=== PATIENT | female | born 1965 | race Caucasian/White ===

== ENCOUNTER → 2016-04-11 | Outpatient (CLI) | payer OTHER ==
[~2016-04-11] MED LIST: ACET-1256 PO; AMLO2.5T PO; ASPI81CH2 PO; ASPI81TA28 PO; CMD5 PO; CPR500 PO; ENOX120I SQ; LACT1CAP6 PO; METO25TA3 PO; MOXI400T2 PO; NRV5 PO; OMEP40CA41 PO; ONDA4TAB10 SL; ONDA4TAB46 PO; PRED20TA2 PO; PRED50TA PO; SUMA50TA15 PO; TRAZ50TA35 PO; voltaren gel TOP
[2016-04-11 16:50] LABS: BASO % 0.4 %; BASO ABS # 0.03 K/uL (0-0.2); COMPLETE YES; EOS % 1.5 %; HEMATOCRIT 41.6 % (37-47); IG% 0.3 %; LYMPH % 38.5 %; LYMPH ABS # 2.59 K/uL (1.2-3.4); MEAN CELL VOLUME 85.8 fL (80-100); MEAN CORPUSCULAR HEMOGLOBIN 29.5 pg (25-34); MEAN CORPUSCULAR HGB CONC 34.4 g/dl (32-36); MONO % 9.8 %; NEUT % 49.5 %; PLATELET COUNT 308 K/uL (130-400); RED BLOOD COUNT 4.85 M/uL (4.2-5.4); WHITE BLOOD COUNT 6.72 K/uL (4.8-10.8)
[2016-04-11 16:59] LABS: BLOOD UREA NITROGEN 21 mg/dl (7-18); BUN/CREATININE RATIO 22.8 (10-20); CALCIUM 9.2 mg/dl (8.5-10.1); CARBON DIOXIDE 26 mmol/L (21-32); CHLORIDE 105 mmol/L (98-107); CREATININE 0.93 mg/dl (0.60-1.20); GLUCOSE 93 mg/dl (70-99); POTASSIUM 4.3 mmol/L (3.5-5.1); SODIUM 138 mmol/L (136-145)
== END | disposition home or self-care (01) ==
LOC: C.LABBC 11:38
PROVIDERS: ATTEND Family Medicine
DX: R53.83 Other fatigue (principal)

== ENCOUNTER 2016-05-21 15:14 | Emergency (ER) | payer OTHER ==
[~2016-05-21] VITALS: Ht 154.9 cm; Wt 97.9 kg
[~2016-05-21 15:14] MED LIST changes: -ACET-1256 PO; -AMLO2.5T PO; -ASPI81TA28 PO; -CMD5 PO; -CPR500 PO; -ENOX120I SQ; -LACT1CAP6 PO; -METO25TA3 PO; -MOXI400T2 PO; -NRV5 PO; -OMEP40CA41 PO; -ONDA4TAB10 SL; -ONDA4TAB46 PO; -PRED20TA2 PO; -PRED50TA PO; -SUMA50TA15 PO; -TRAZ50TA35 PO; -voltaren gel TOP
[2016-05-21 15:34] VITALS: TEMP 37.5; Ht 154.9 cm; Wt 97.9 kg
[2016-05-21] MEDS ORDERED: KETOROLAC TROMETHAMINE 30 MG/ML VIAL IV STA (15:46)
[2016-05-21] MEDS ORDERED: ONDANSETRON 8 MG/54 ML D5W IV STA (15:46)
[2016-05-21] MEDS ORDERED: SODIUM CHLORIDE 0.9% 1000ML 1,000 ML IV STA ×2 (15:46→19:31)
[2016-05-21] MEDS: MoRPHine SULFATE 10 MG/ML CARP/VIAL IV PRN ×2 (16:01→17:02)
[2016-05-21] MEDS ORDERED: ASPI81TA28 PO (16:09)
[2016-05-21] MEDS ORDERED: AMLO2.5T PO (16:09)
[2016-05-21] MEDS ORDERED: METO25TA3 PO (16:09)
[2016-05-21] MEDS ORDERED: TRAZ50TA35 PO (16:09)
[2016-05-21 16:13] LABS: BASO % 0.1 %; BASO ABS # 0.01 K/uL (0-0.2); COMPLETE YES; EOS % 0.3 %; HEMATOCRIT 41.9 % (37-47); IG% 0.1 %; LYMPH % 11.5 %; LYMPH ABS # 1.08 K/uL (1.2-3.4); MEAN CELL VOLUME 81.8 fL (80-100); MEAN CORPUSCULAR HEMOGLOBIN 29.1 pg (25-34); MEAN CORPUSCULAR HGB CONC 35.6 g/dl (32-36); MEAN PLATELET VOLUME 9.1 fL (7.4-10.4); MONO % 2.6 %; NEUT % 85.4 %; PLATELET COUNT 313 K/uL (130-400); RED BLOOD COUNT 5.12 M/uL (4.2-5.4)
[2016-05-21 16:14] LABS: URINE APPEARANCE CLEAR (CLEAR); URINE BILIRUBIN NEG (NEG); URINE COLOR YELLOW; URINE NITRITE NEG (NEG); URINE SPECIFIC GRAVITY 1.028 (1.000-1.030); UROBILINOGEN NEG (NEG)
[2016-05-21 16:18] LABS: MANUAL MICROSCOPIC REQUIRED? NO; REVIEW REQ? NO
[2016-05-21 16:39] LABS: ALT/SGPT 25 U/L (12-78); BLOOD UREA NITROGEN 24 mg/dl (7-18); BUN/CREATININE RATIO 23.5 (10-20); CARBON DIOXIDE 23 mmol/L (21-32); CHLORIDE 104 mmol/L (98-107); GLUCOSE 95 mg/dl (70-99); POTASSIUM 3.6 mmol/L (3.5-5.1); SODIUM 139 mmol/L (136-145)
[2016-05-21 16:42] LABS: ALKALINE PHOSPHATASE 60 U/L (45-117); AST/SGOT 20 U/L (15-37)
--- NOTE | 2016-05-21 17:04 | DIAGNOSTIC IMAGING REPORT ---
ABDOMEN AND PELVIS CT WITHOUT CONTRAST CT DOSE: 988.49 mGycm HISTORY: Pain FLANK PAIN- RIGHT. Prior emiliano, hyster TECHNIQUE: Multiaxial CT images of the abdomen and pelvis were performed without the use of intravenous and oral contrast according to the standard department stone protocol. COMPARISON STUDY: 10/01/2012 FINDINGS: Lung bases are clear. Liver spleen and pancreas are unremarkable. Prior cholecystectomy. Kidneys negative for hydronephrosis. Bowel pattern is nonobstructive. Appendix is normal. No free fluid within the pelvic cul-de-sac. Prior hysterectomy. IMPRESSION: No acute process Electronically signed by: Abdias Ruff M.D. 05/21/2016 5:03 PM Dictated Date/Time: 05/21/2016 5:01 PM
[2016-05-21] MEDS ORDERED: HYDROmorphone INJ 0.5 MG/0.5 ML SYR IV STA (17:24)
[2016-05-21] MEDS ORDERED: SUMA50TA15 PO (18:08)
[2016-05-21] MEDS ORDERED: MoRPHine SULFATE 2 MG/ML CARP ONE (19:07)
[2016-05-21] MEDS ORDERED: MoRPHine SULFATE 4 MG/ML 1 ML CARP\\VIAL ONE (19:07)
[2016-05-21] MEDS ORDERED: PROMETHAZINE HCL INJ 25 MG in SODIUM CHLORIDE 0.9% 50ML 50 ML IV STA (19:14)
[2016-05-21] MEDS ORDERED: OPTIRAY 320 IV PRN (19:45)
--- NOTE | 2016-05-21 20:24 | DIAGNOSTIC IMAGING REPORT ---
CHEST CTA for PULMONARY ARTERIES CT DOSE: HISTORY: Chest pain dyspnea TECHNIQUE: Multiaxial CT images of the chest were performed following the intravenous administration of contrast to evaluate the pulmonary arteries. Maximal intensity projection images were also obtained. COMPARISON STUDY: None. FINDINGS: There is a normal caliber thoracic aorta with no evidence for dissection. There is no evidence for pulmonary embolus. No pleural effusions. No pneumothorax. The liver and spleen are unremarkable. No mediastinal or hilar lymphadenopathy. The central airways are patent. The lungs are clear. Subtle interstitial prominence throughout both hemithoraces. IMPRESSION: 1. Study is negative for pulmonary embolus. 2. Negative thoracic aorta. 3. Subtle interstitial prominence throughout both hemithoraces. Electronically signed by: Abdias Ruff M.D. 05/21/2016 8:22 PM Dictated Date/Time: 05/21/2016 8:20 PM
--- NOTE | 2016-05-21 21:02 | DIAGNOSTIC IMAGING REPORT ---
] Ultrasound GALLBLADDER-ABD LIMITED CLINICAL HISTORY: RUQ pain, prior emiliano nausea TECHNIQUE: Ultrasound COMPARISON STUDY: CT same date FINDINGS: Prior cholecystectomy. Common bile duct 8 mm, unremarkable for a postoperative patient. Uniform liver. Pancreas and right kidney unremarkable. IMPRESSION: Negative study status post cholecystectomy Electronically signed by: Abdias Ruff M.D. 05/21/2016 9:01 PM Dictated Date/Time: 05/21/2016 9:00 PM
--- NOTE | 2016-05-21 22:03 | DIAGNOSTIC IMAGING REPORT ---
CT angiogram abdomen ANGIO ABDOMEN WITH CONTRAST CLINICAL HISTORY: PAIN right flank pain TECHNIQUE: Transaxial acquisition with multi axial reformatted images COMPARISON STUDY: None FINDINGS: Lung bases are considered clear. Slight bibasilar interstitial prominence. Abdominal aorta as well as major branch vessels are negative for aneurysm or dissection. Bowel pattern is nonobstructive. There are several reactive mesenteric nodes. Prior cholecystectomy. Slight heterogeneity of liver most likely secondary to the phase of injection normal appendix. Several small mesenteric nodes. IMPRESSION: 1. Negative for aneurysm or dissection. 2. Prior cholecystectomy 3. Mild mesenteric adenitis. 4. Nonobstructive bowel pattern. 5. Normal appendix. Electronically signed by: Abdias Ruff M.D. 05/21/2016 8:28 PM Dictated Date/Time: 05/21/2016 8:23 PM
[2016-05-21] MEDS ORDERED: OXYCODONE IR HOME PACK PO ONE (22:30)
[2016-05-21] MEDS ORDERED: PHENERGAN 25MG HOMEPACK PO ONE (22:30)
[2016-05-21 23:08] VITALS: BP 114/75; PULSE 76; O2SAT 97
--- NOTE | 2016-05-21 23:54 | EMERGENCY ROOM VISIT NOTE ---
History Report prepared by Sameer: Cecilia Stoner Under the Supervision of: Dr. Reji Novoa M.D. First contact with patient: 15:41 Chief Complaint: FLANK PAIN Stated Complaint: PAIN AND PRESSURE IN RT SIDE AND STOMACH History of Present Illness The patient is a 50 year old female who presents to the Emergency Room with complaints of worsening right flank pain that started last night. The pain is worse whenever she is not moving. She rates her discomfort as a 10/10 in severity. The patient states that she started to experience abdominal bloating and right-sided abdominal pain this morning. Additionally, she is experiencing nausea and diarrhea that also started this morning. Pt denies LOC, headache, visual changes, neck pain, chest pain, breathing difficulties, vomiting, melena , hematochezia, urinary symptoms, rash, or other complaints. The patient has a history of a cholecystectomy, bowel surgery, hysterectomy, umbilectomy, and hernia repair surgery. Source of History: patient Onset: last night Position: back (right flank) Symptom Intensity: 10/10 Quality: other (right flank pain) Timing: worsening Modifying Factors (Worsening): other (when still) Associated Symptoms: + abdominal pain (right-sided), + diarrhea, + nausea Note: abdominal bloating Review of Systems See HPI for pertinent positives and negatives. A total of ten systems were reviewed and were otherwise negative. Past Medical & Surgical Medical Problems: (1) section (2) Cholecystectomy (3) FX ANKLE NOS-CLOSED (4) FX HUMERUS NOS-CLOSED (5) History of repair of inguinal hernia (6) Hysterectomy (7) IRRITABLE BOWEL SYNDROME (8) Partial resection of colon (9) Rotator cuff injury Surgical Problems: (1) H/O rotator cuff surgery Family History Cancer Diabetes mellitus Gallbladder disease Heart disease Hypertension Kidney disease or stones Lung disease Seizures Social History Smoking Status: Former Smoker Drug Use: none Marital Status: Housing Status: lives alone Occupation Status: employed Current/Historical Medications Scheduled Amlodipine (Norvasc), 2.5 MG PO DAILY Aspirin (Aspirin Ec), 81 MG PO DAILY Metoprolol Succ (Toprol Xl) (Toprol-Xl), 25 MG PO DAILY Scheduled PRN Sumatriptan Succinate (Imitrex), 50 MG PO UD PRN for Headache Trazodone Hcl (Trazodone), 1-2 MG PO HS PRN for Sleep Allergies Coded Allergies: Doxycycline (Unverified Allergy, Mild, ., 11/29/15) Physical Exam Vital Signs Date Time Temp Pulse Resp B/P Pulse Ox O2 Delivery O2 Flow Rate FiO2 05/21/16 23:08 76 20 114/75 97 05/21/16 21:34 85 05/21/16 21:33 81 20 114/70 96 Room Air 05/21/16 19:14 84 20 106/69 97 Room Air 05/21/16 18:44 88 24 05/21/16 18:25 98/57 05/21/16 18:14 87 20 05/21/16 17:44 84 23 05/21/16 17:39 117/97 05/21/16 17:30 86 05/21/16 17:03 121/96 05/21/16 17:03 87 29 121/96 95 Room Air 05/21/16 15:34 37.5 100 20 120/86 99 Room Air Physical Exam GENERAL: Awake, alert, uncomfortable-appearing, in no distress HENT: Normocephalic, atraumatic. Oropharynx unremarkable. EYES: Normal conjunctiva. Sclera non-icteric. NECK: Supple. No nuchal rigidity. FROM. No JVD. RESPIRATORY: Clear to auscultation. CARDIAC: Regular rate, normal rhythm. Extremities warm and well perfused. Pulses equal. ABDOMEN: Soft, non-distended. Right flank tenderness to palpation. No rebound or guarding. No masses. RECTAL: Deferred. MUSCULOSKELETAL: Chest examination reveals no tenderness. The back is symmetrical on inspection without obvious abnormality. There is right CVA tenderness to palpation. No joint edema. LOWER EXTREMITIES: Calves are equal size bilaterally and non-tender. No edema. No discoloration. NEURO: Normal sensorium. No sensory or motor deficits noted. SKIN: No rash or jaundice noted. Medical Decision & Procedures ER Provider Diagnostic Interpretation: CT and US results as stated below per my review and radiologist interpretation CT angiogram abdomen ANGIO ABDOMEN WITH CONTRAST IMPRESSION: 1. Negative for aneurysm or dissection. 2. Prior cholecystectomy 3. Mild mesenteric adenitis. 4. Nonobstructive bowel pattern. 5. Normal appendix. Electronically signed by: Abdias Ruff M.D. 05/21/2016 8:28 PM Dictated Date/Time: 05/21/2016 8:23 PM CHEST CTA for PULMONARY ARTERIES IMPRESSION: 1. Study is negative for pulmonary embolus. 2. Negative thoracic aorta. 3. Subtle interstitial prominence throughout both hemithoraces. Electronically signed by: Abdias Ruff M.D. 05/21/2016 8:22 PM Dictated Date/Time: 05/21/2016 8:[address] AND PELVIS CT WITHOUT CONTRAST IMPRESSION: No acute process Electronically signed by: Abdias Ruff M.D. 05/21/2016 5:03 PM Dictated Date/Time: 05/21/2016 5:01 PM Ultrasound GALLBLADDER-ABD LIMITED IMPRESSION: Negative study status post cholecystectomy Electronically signed by: Abdias Ruff M.D. 05/21/2016 9:01 PM Dictated Date/Time: 05/21/2016 9:00 PM Laboratory Results 05/21/16 16:00 Red Blood Count 5.12, Mean Corpuscular Volume 81.8, Mean Corpuscular Hemoglobin 29.1, Mean Corpuscular Hemoglobin Concent 35.6, Mean Platelet Volume 9.1, Neutrophils (%) (Auto) 85.4, Lymphocytes (%) (Auto) 11.5, Monocytes (%) (Auto) 2.6, Eosinophils (%) (Auto) 0.3, Basophils (%) (Auto) 0.1, Neutrophils # (Auto) 8.03, Lymphocytes # (Auto) 1.08, Monocytes # (Auto) 0.24, Eosinophils # (Auto) 0.03, Basophils # (Auto) 0.01 05/21/16 16:00 Test 05/21/16 16:00 05/21/16 16:08 White Blood Count 9.40 K/uL (4.8-10.8) Red Blood Count 5.12 M/uL (4.2-5.4) Hemoglobin 14.9 g/dL (12.0-16.0) Hematocrit 41.9 % (37-47) Mean Corpuscular Volume 81.8 fL (80-100) Mean Corpuscular Hemoglobin 29.1 pg (25-34) Mean Corpuscular Hemoglobin Concent 35.6 g/dl (32-36) Platelet Count 313 K/uL (130-400) Mean Platelet Volume 9.1 fL (7.4-10.4) Neutrophils (%) (Auto) 85.4 % Lymphocytes (%) (Auto) 11.5 % Monocytes (%) (Auto) 2.6 % Eosinophils (%) (Auto) 0.3 % Basophils (%) (Auto) 0.1 % Neutrophils # (Auto) 8.03 K/uL (1.4-6.5) Lymphocytes # (Auto) 1.08 K/uL (1.2-3.4) Monocytes # (Auto) 0.24 K/uL (0.11-0.59) Eosinophils # (Auto) 0.03 K/uL (0-0.5) Basophils # (Auto) 0.01 K/uL (0-0.2) RDW Standard Deviation 39.7 fL (36.4-46.3) RDW Coefficient of Variation 13.1 % (11.5-14.5) Immature Granulocyte % (Auto) 0.1 % Immature Granulocyte # (Auto) 0.01 K/uL (0.00-0.02) Urine Color YELLOW Urine Appearance CLEAR (CLEAR) Urine pH 6.0 (4.5-7.5) Urine Specific [place] 1.028 (1.000-1.030) Urine Protein NEG (NEG) Urine Glucose (UA) NEG (NEG) Urine Ketones NEG (NEG) Urine Occult Blood NEG (NEG) Urine Nitrite NEG (NEG) Urine Bilirubin NEG (NEG) Urine Urobilinogen NEG (NEG) Urine Leukocyte Esterase NEG (NEG) Anion Gap 12.0 mmol/L (3-11) Est Creatinine Clear Calc Drug Dose 70.5 ml/min Estimated GFR () 75.0 Estimated GFR (Non- 64.7 BUN/Creatinine Ratio 23.5 (10-20) Calcium Level 9.0 mg/dl (8.5-10.1) Total Bilirubin 0.5 mg/dl (0.2-1) Direct Bilirubin < 0.1 mg/dl (0-0.2) Aspartate Amino Transf (AST/SGOT) 20 U/L (15-37) Alanine Aminotransferase (ALT/SGPT) 25 U/L (12-78) Alkaline Phosphatase 60 U/L (45-117) Total Protein 8.1 gm/dl (6.4-8.2) Albumin 4.0 gm/dl (3.4-5.0) Lipase 124 U/L (73-393) D-Dimer 640 ug/L FEU (0-500) Laboratory results reviewed by me Medications Administered Medications (Trade) Dose Ordered Sig/Ming Route Start Time Stop Time Status Last Admin Dose Admin Ondansetron HCl 8 mg 8 mg NOW STAT IV 05/21/16 15:46 05/21/16 15:48 DC 05/21/16 16:01 8 MG Sodium Chloride (Nss 1000ml) 1,000 ml @ 999 mls/hr Q1H1M STAT IV 05/21/16 15:46 05/21/16 16:46 DC 05/21/16 16:01 999 MLS/HR Morphine Sulfate (MoRPHine SULFATE INJ) 6 mg Q20M PRN IV 05/21/16 16:00 05/21/16 23:41 DC 05/21/16 17:02 6 MG Ketorolac Tromethamine (Toradol Inj) 10 mg NOW STAT IV 05/21/16 15:46 05/21/16 15:48 DC 05/21/16 16:01 10 MG Hydromorphone HCl (Dilaudid Inj) 0.5 mg NOW STAT IV 05/21/16 17:24 05/21/16 17:25 DC 05/21/16 17:38 0.5 MG Morphine Sulfate (MoRPHine SULFATE INJ) 2 mg STK-MED ONCE .ROUTE 05/21/16 19:07 05/21/16 19:09 DC 05/21/16 19:12 2 MG Morphine Sulfate 4 mg 4 mg STK-MED ONCE .ROUTE 05/21/16 19:07 05/21/16 19:10 DC 05/21/16 19:12 4 MG Promethazine HCl 25 mg/Sodium Chloride 51 ml @ 204 mls/hr NOW STAT IV 05/21/16 19:14 05/21/16 19:28 DC 05/21/16 19:36 204 MLS/HR Sodium Chloride (Nss 1000ml) 1,000 ml @ 999 mls/hr Q1H1M STAT IV 05/21/16 19:31 05/21/16 20:31 DC 05/21/16 19:41 999 MLS/HR Promethazine HCl (Phenergan 25MG Home Pack) 1 homepack UD ONCE PO 05/21/16 22:30 05/21/16 22:31 DC 05/21/16 22:45 1 HOMEPACK Oxycodone HCl (Roxicodone Immediate Rel 5MG Home Pack) 1 homepack UD ONCE PO 05/21/16 22:30 05/21/16 22:31 DC 05/21/16 22:45 1 [facility] ED Course 1546: The patient was evaluated in room C10. A complete history and physical exam was performed. Ordered Toradol 10 mg IV, Sodium Chloride 1000 ml @ 999 mls/ hr IV, Zofran 8 mg IV 1600: Ordered Morphine Sulfate 6 mg IV 1626: I reassessed the patient. She is feeling better. 165: I reevaluated the patient. She is still experiencing some pain. 172: The nurse informed me that the patient is still experiencing pain. Ordered Dilaudid 0.5 mg IV 174: I reassessed the patient. She is feeling better. 1906: Ordered Morphine Sulfate 4 mg IV, Morphine Sulfate 2 mg IV 190: I reevaluated the patient. Her pain has come back. She was given a second dose of Dilaudid. 1913: The nurse informed me that the patient would also like some medicine for nausea. 1915: Ordered Promethazine HCl 25 mg/Sodium Chloride 51 ml @ 204 mls/hr IV 1930: Ordered Sodium Chloride 1000 ml @ 999 mls/hr IV 2131: I reassessed the patient. She is feeling better and waiting on a CT. 2219: I reevaluated the patient. Discussed results and discharge instructions: she verbalized understanding and agreement. The patient is ready for discharge. Medical Decision Triage Nursing notes reviewed. The patient's presentation and history were concerning for flank pain. Etiologies such as renal colic, appendicitis, diverticulitis, mesenteric ischemia, aortic pathology, infections, inflammatory bowel disease, PUD, biliary pathology, UTI, as well as others were entertained. Patient was evaluated. She was uncomfortable. She was given saline, Zofran, morphine and Toradol. CT imaging and blood work ordered. The patient's CBC, chemistry panel, urinalysis, LFTs and lipase were normal. The patient had a negative stone CT study. She was reassessed and was very uncomfortable. She got second dose of Dilaudid. After some observation the patient was still uncomfortable. She noted pain on the right flank. She never had any upper or left sided chest pain. A d-dimer was performed and this did reveal the patient to have a slightly elevated level. CT imaging was ordered. The patient also went under ultrasound imaging because of noticing the pain was somewhat similar to her gallstones in the past. There was no abnormalities noted on her right upper quadrant ultrasound. CT imaging of the chest did not reveal any evidence of dissection or pulmonary embolism. No pneumonia or pneumothorax. The patient had no upper abdominal findings to explain the right flank pain. The patient had some nausea and was also given Phenergan. Radiology did question some mesenteric adenitis on CT imaging. On reassessment the patient's symptoms resolved completely. She felt comfortable and desired discharge. Exact etiology of her symptoms is not known at this time but I cannot find any abnormalities on extensive workup and imaging here. It is possible that this could be musculoskeletal although no inciting event was noted. The patient felt comfortable with being discharged with a small home pack of Phenergan and oxycodone. If she has worsening symptoms or other symptoms develop then she will come back to the emergency department for reevaluation. I did ask for her to have close follow-up with her family physician. The patient and were in agreement. I gave my usual and customary discussion regarding this issue. By the evaluation outlined above other emergent etiologies such as those listed in the differential, as well as others, were deemed relatively unlikely. The patient was informed about the findings as listed above. All questions were answered and she was pleased with the treatment. Return instructions were outlined and the patient was discharged in stable condition. The patient was referred to her PCP for follow-up [facility] for a recheck of the current condition. The chart was completed utilizing MySQL Speech voice recognition software. Grammatical errors, random word insertions, pronoun errors, and incomplete sentences are an occasional consequence of this system due to software limitations, ambient noise, and hardware issues. Any formal questions or concerns about the content, text, or information contained within the body of this dictation should be directly addressed to the physician for clarification. Impression Primary Impression: Right flank pain Scribe Attestation The scribe's documentation has been prepared under my direction and personally reviewed by me in its entirety. I confirm that the note above accurately reflects all work, treatment, procedures, and medical decision making performed by me. Departure Information Dispostion Home / Self-Care Referrals No Doctor, Assigned (PCP) Forms HOME CARE DOCUMENTATION FORM, IMPORTANT VISIT INFORMATION Patient Instructions My [facility] Additional Instructions ABDOMINAL PAIN INSTRUCTIONS: DO NOT drive, drink alcohol, operate machinery, or perform dangerous activities today. You were given medications in the ER that can affect your ability to safely function or operate a vehicle. Oxycodone (OxyIR) 5mg: Take 1-2 pills every four hours for breakthrough pain. Avoid alcohol, operating machinery or dangerous equipment, working on ladders or roofs, DRIVING, or situations where being under the influence may be dangerous. It is recommended to use an [id number] stool softener such as Colace, 100mg twice daily while taking this medication to avoid constipation. Ibuprofen(Motrin, Advil) may be used for fever or pain. Use 600mg every six hours as needed. Take with food. Avoid using more than 2400mg in a 24 hour period. Do not use 2400mg per day for more than three consecutive days without physician direction. Prolonged inappropriate use can lead to stomach upset or ulcers. (AND/OR) Acetaminophen(Tylenol) may be used for fever or pain. Use 1000mg every six hours as needed. Avoid using more than 4000mg in a 24 hour period. Phenergan(promethazine) tablets 25mg: Take one every six hours as needed for nausea. Avoid alcohol, operating machinery or dangerous equipment, working on ladders or roofs, DRIVING, or situations where being under the influence may be dangerous. Rest and drink plenty of fluids as tolerated. Slow sips of water or sports drinks are recommended instead of large amounts all at once. Continue current medications. Once your stomach is settled start with a clear liquid diet (jello, soup broth, etc.) and then advance as tolerated. You should avoid full, heavy meals for about 24 hrs from the time your symptoms resolved. Return to the ER immediately for worsening or persistent abdominal pain, vomiting, fevers, chest pains, difficulty breathing, black or bloody stools, worsening of your condition, or as needed. Follow up with your primary physician in one to 2 days for a recheck of your current condition.
[2016-08-05] MEDS ORDERED: ACET-1256 PO (10:10)
[2016-08-05] MEDS ORDERED: voltaren gel TOP (10:10)
[2016-11-12] MEDS ORDERED: CPR500 PO (15:53)
== END 2016-05-21 23:00 | disposition home or self-care (01) ==
LOC: C.EDB 15:16 → C.EDC 23:00
DX: R10.9 Unspecified abdominal pain (principal); R11.0 Nausea; K58.0 Irritable bowel syndrome with diarrhea; Z79.82 Long term (current) use of aspirin; Z79.899 Other long term (current) drug therapy; Z88.1 Allergy status to other antibiotic agents; Z87.891 Personal history of nicotine dependence

== ENCOUNTER → 2016-06-19 | Outpatient (CLI) | payer OTHER ==
[~2016-06-19] MED LIST changes: +ACET-1256 PO; +AMLO2.5T PO; -ASPI81CH2 PO; +ASPI81TA28 PO; +CMD5 PO; +CPR500 PO; +ENOX120I SQ; +LACT1CAP6 PO; +METO25TA3 PO; +MOXI400T2 PO; +OMEP40CA41 PO; +ONDA4TAB10 SL; +ONDA4TAB46 PO; +PRED20TA2 PO; +PRED50TA PO; +SUMA50TA15 PO; +TRAZ50TA35 PO; +voltaren gel TOP
== END | disposition home or self-care (01) ==
LOC: C.LAB1850 15:12
PROVIDERS: ATTEND Internal Medicine Cardiovascular Disease
DX: R06.02 Shortness of breath (principal)

== ENCOUNTER → 2016-07-10 | Outpatient (CLI) | payer OTHER ==
[~2016-07-10] MED LIST changes: +CYCL10TA6 PO; +ENOX100I SQ; +ERTA1INJ IV; +FLUC200T4 PO; +LOVENOX SC; +OXYC-643 PO; +PANT40TA PO
--- NOTE | 2016-07-10 18:06 | DIAGNOSTIC IMAGING REPORT ---
L-SPINE MIN 4 VIEWS ROUTINE CLINICAL HISTORY: Low back pain COMPARISON STUDY: CT scan dated 05/21/2016 FINDINGS: There is no pathologic bowel dilatation. There are surgical clips in the right upper quadrant consistent with a prior cholecystectomy. There are postsurgical changes present within the pelvis. No fractures are visualized. There are no subluxations. The bones appear mildly osteopenic. There is a calcification located just superior to the left SI joint. This was present on the prior CT scan, and was felt to be extra ureteral. IMPRESSION: Mild osteopenia. No fractures subluxations or destructive lesions are visualized. Electronically signed by: Nas Humphreys M.D. 07/10/2016 6:04 PM Dictated Date/Time: 07/10/2016 6:02 PM
== END | disposition home or self-care (01) ==
LOC: C.RAD 17:46
PROVIDERS: ATTEND Family Medicine
DX: M54.5 Low back pain (principal)

== ENCOUNTER 2016-08-20 10:34 | Emergency (ER) | payer OTHER ==
[~2016-08-20] VITALS: Ht 154.9 cm; Wt 99.3 kg
[~2016-08-20 10:34] MED LIST changes: -CMD5 PO; -CPR500 PO; -CYCL10TA6 PO; -ENOX100I SQ; -ENOX120I SQ; -ERTA1INJ IV; -FLUC200T4 PO; -LACT1CAP6 PO; -LOVENOX SC; -MOXI400T2 PO; -OMEP40CA41 PO; -ONDA4TAB10 SL; -ONDA4TAB46 PO; -OXYC-643 PO; -PANT40TA PO; -PRED20TA2 PO; -PRED50TA PO
[2016-08-20 10:37] VITALS: TEMP 37; Ht 154.9 cm; Wt 99.3 kg
[2016-08-20 11:33] LABS: URINE APPEARANCE CLEAR (CLEAR); URINE BILIRUBIN NEG (NEG); URINE COLOR YELLOW; URINE EPITHELIAL CELL AUTO >30 /lpf (0-5); URINE NITRITE NEG (NEG); URINE SPECIFIC GRAVITY 1.014 (1.000-1.030); UROBILINOGEN NEG (NEG); ZZUR CULT IF INDIC CLEAN CATCH NO
[2016-08-20 11:37] LABS: MANUAL MICROSCOPIC REQUIRED? NO; REVIEW REQ? NO
[2016-08-20 11:52] LABS: BASO % 0.1 %; BASO ABS # 0.01 K/uL (0-0.2); COMPLETE YES; EOS % 0.9 %; HEMATOCRIT 40.6 % (37-47); IG% 0.1 %; LYMPH % 39.4 %; LYMPH ABS # 2.64 K/uL (1.2-3.4); MEAN CELL VOLUME 84.6 fL (80-100); MEAN CORPUSCULAR HEMOGLOBIN 28.8 pg (25-34); MEAN PLATELET VOLUME 9.1 fL (7.4-10.4); MONO % 4.8 %; NEUT % 54.7 %; PLATELET COUNT 296 K/uL (130-400)
[2016-08-20 12:23] LABS: BUN/CREATININE RATIO 16.2 (10-20); POTASSIUM 3.6 mmol/L (3.5-5.1)
[2016-08-20 12:26] LABS: ALB/GLOB RATIO 1.2 (0.9-2)
[2016-08-20 12:27] LABS: CALCIUM 9.1 mg/dl (8.5-10.1)
[2016-08-20] MEDS ORDERED: ONDANSETRON INJ 2 MG/ML 2 ML VIAL IV STA (12:30)
[2016-08-20] MEDS ORDERED: SODIUM CHLORIDE 0.9% 1000ML 1,000 ML IV STA ×2 (12:30)
--- NOTE | 2016-08-20 12:56 | DIAGNOSTIC IMAGING REPORT ---
CHEST ONE VIEW PORTABLE CLINICAL HISTORY: epi fullness pain. Nausea. COMPARISON STUDY: 04/02/2016 FINDINGS: Mild stable cardiomegaly. Chronic atelectasis left base. Lungs otherwise appear clear. IMPRESSION: Chronic change. No acute process. Electronically signed by: Abdias Ruff M.D. 08/20/2016 12:54 PM Dictated Date/Time: 08/20/2016 12:54 PM
[2016-08-20] MEDS ORDERED: OPTIRAY 320 IV PRN (13:00)
--- NOTE | 2016-08-20 13:41 | DIAGNOSTIC IMAGING REPORT ---
ABDOMEN AND PELVIS CT WITH IV CONTRAST CT DOSE: 1076.12 mGy.cm HISTORY: Epigastric ABD PAIN, POSS OBSTRUCTION, IV CONTRAST ONLY TECHNIQUE: Multiaxial CT images of the abdomen and pelvis were performed following the use of intravenous contrast. COMPARISON STUDY: Abdominal CT 05/21/2016. FINDINGS: The lung bases are essentially clear. No suspicious lytic or blastic osseous lesions. Small fat-containing hiatal hernia remains unchanged. Mild right and moderate left intrahepatic bile duct dilatation. This is slightly progressed on the left compared to the 2013 examination. Cholecystectomy. Stable 6 mm hypodense lesion within the left hepatic lobe. This is too small to characterize but favors a cyst. The spleen, adrenal glands, pancreas, and kidneys are unremarkable. Normal bladder. Hysterectomy. No retroperitoneal lymphadenopathy. No mesenteric lymphadenopathy. Prior sigmoid anastomosis. No bowel wall thickening or obstruction. Normal appendix. IMPRESSION: 1. No bowel wall thickening or obstruction. 2. Moderate left and mild right intrahepatic bile duct dilatation. This is slightly progressed within the left hepatic lobe compared to a 2013 examination. Correlation with LFTs is recommended to exclude an underlying obstructive process. 3. Small fat-containing hiatal hernia, unchanged. Electronically signed by: Bishnu Shrestha M.D. 08/20/2016 1:40 PM Dictated Date/Time: 08/20/2016 1:32 PM
[2016-08-20 14:43] VITALS: BP 122/69; PULSE 66; O2SAT 95
--- NOTE | 2016-08-20 18:58 | EMERGENCY ROOM VISIT NOTE ---
History Report prepared by Sameer: Millicent Meehan Under the Supervision of: Dr. Jefferson Cool M.D. First contact with patient: 12:27 Chief Complaint: ABDOMINAL PAIN Stated Complaint: PAIN, FULLNESS UPPER STOMACH, UPSET STOMACH Nursing Triage Summary: Pt c/o epigastric "fullness" since Thursday night "everything I eat I throw up. My doctor told me to come here" History of Present Illness The patient is a 50 year old female who presents to the Emergency Room with complaints of persistent abdominal discomfort starting 2 days ago. She was sent to the ED by her PCP who she saw this morning. She was feeling well the day her symptoms started. That evening, she was eating when everything seemed to feel like it was getting stuck in her upper abdomen. She started to have pain in her abdomen. She vomited soon after eating. She had these symptoms all day yesterday. She reports feeling full and feeling nauseous. She has not been able to eat because eating worsens her pain. She notes that phlegm keeps coming up. She denies any diarrhea or urinary symptoms. She has had a cholecystectomy and hysterectomy. She still has her appendix. 5 months ago she had a heart attack. She had a cardiac catheterization with no stents. 8 years ago she had adhesions and had to have surgery. Source of History: patient Onset: 2 days ago Position: abdomen Quality: other (discomfort) Timing: other (persistent) Modifying Factors (Worsening): eating Associated Symptoms: + nausea, + vomiting, No diarrhea, No urinary symptoms Review of Systems See HPI for pertinent positives & negatives. A total of 10 systems reviewed and were otherwise negative. Past Medical & Surgical Medical Problems: (1) section (2) Cholecystectomy (3) FX ANKLE NOS-CLOSED (4) FX HUMERUS NOS-CLOSED (5) History of repair of inguinal hernia (6) Hysterectomy (7) IRRITABLE BOWEL SYNDROME (8) Partial resection of colon (9) Rotator cuff injury Surgical Problems: (1) H/O rotator cuff surgery Family History Cancer Diabetes mellitus Gallbladder disease Heart disease Hypertension Kidney disease or stones Lung disease Seizures Social History Smoking Status: Never Smoker Drug Use: none Marital Status: Housing Status: lives alone Occupation Status: employed Current/Historical Medications Scheduled Acetaminophen (Tylenol), 2 TAB PO Q6 Amlodipine (Norvasc), 2.5 MG PO DAILY Aspirin (Aspirin Ec), 81 MG PO DAILY Scheduled PRN Sumatriptan Succinate (Imitrex), 50 MG PO UD PRN for Headache Trazodone Hcl (Trazodone), 1-2 MG PO HS PRN for Sleep Allergies Coded Allergies: Doxycycline (Unverified Allergy, Mild, ., 11/29/15) Physical Exam Vital Signs Date Time Temp Pulse Resp B/P Pulse Ox O2 Delivery O2 Flow Rate FiO2 08/20/16 14:43 66 18 122/69 95 08/20/16 12:57 64 18 137/87 96 Room Air 08/20/16 10:37 37.0 68 18 162/91 97 Room Air Physical Exam GENERAL: Patient is in no acute distress. HEENT: No acute trauma, normocephalic atraumatic, mucous membranes moist, no nasal congestion, no scleral icterus. NECK: No stridor, no adenopathy, no meningismus, trachea is midline. LUNGS: Clear to auscultation bilaterally, no wheeze, no rhonchi, breath sounds equal. HEART: Without murmurs gallops or rubs, regular rate and rhythm. ABDOMEN: Soft, tender in the epigastrium, bowel sounds positive, no hernias, no peritonitis. EXTREMITIES: No cyanosis or edema, full range of motion of all the joints without pain or difficulty, no signs for acute trauma. NEUROLOGIC: Oriented x 3, no acute motor or sensory deficits, no focal weakness. SKIN: No rash, no jaundice, no diaphoresis. Medical Decision & Procedures ER Provider Diagnostic Interpretation: X-ray results as stated below per interpretation by me and the radiologist. Radiology results as stated below per my review and radiologist interpretation: CHEST ONE VIEW PORTABLE CLINICAL HISTORY: epi fullness pain. Nausea. COMPARISON STUDY: 04/02/2016 FINDINGS: Mild stable cardiomegaly. Chronic atelectasis left base. Lungs otherwise appear clear. IMPRESSION: Chronic change. No acute process. Electronically signed by: Abdias Ruff M.D. 08/20/2016 12:54 PM Dictated Date/Time: 08/20/2016 12:54 PM ABDOMEN AND PELVIS CT WITH IV CONTRAST CT DOSE: 1076.12 mGy.cm HISTORY: Epigastric ABD PAIN, POSS OBSTRUCTION, IV CONTRAST ONLY TECHNIQUE: Multiaxial CT images of the abdomen and pelvis were performed following the use of intravenous contrast. COMPARISON STUDY: Abdominal CT 05/21/2016. FINDINGS: The lung bases are essentially clear. No suspicious lytic or blastic osseous lesions. Small fat-containing hiatal hernia remains unchanged. Mild right and moderate left intrahepatic bile duct dilatation. This is slightly progressed on the left compared to the 2013 examination. Cholecystectomy. Stable 6 mm hypodense lesion within the left hepatic lobe. This is too small to characterize but favors a cyst. The spleen, adrenal glands, pancreas, and kidneys are unremarkable. Normal bladder. Hysterectomy. No retroperitoneal lymphadenopathy. No mesenteric lymphadenopathy. Prior sigmoid anastomosis. No bowel wall thickening or obstruction. Normal appendix. IMPRESSION: 1. No bowel wall thickening or obstruction. 2. Moderate left and mild right intrahepatic bile duct dilatation. This is slightly progressed within the left hepatic lobe compared to a 2013 examination. Correlation with LFTs is recommended to exclude an underlying obstructive process. 3. Small fat-containing hiatal hernia, unchanged. Electronically signed by: Bishnu Shrestha M.D. 08/20/2016 1:40 PM Dictated Date/Time: 08/20/2016 1:32 PM Laboratory Results 08/20/16 11:41 Red Blood Count 4.80, Mean Corpuscular Volume 84.6, Mean Corpuscular Hemoglobin 28.8, Mean Corpuscular Hemoglobin Concent 34.0, Mean Platelet Volume 9.1, Neutrophils (%) (Auto) 54.7, Lymphocytes (%) (Auto) 39.4, Monocytes (%) (Auto) 4.8, Eosinophils (%) (Auto) 0.9, Basophils (%) (Auto) 0.1, Neutrophils # (Auto) 3.66, Lymphocytes # (Auto) 2.64, Monocytes # (Auto) 0.32, Eosinophils # (Auto) 0.06, Basophils # (Auto) 0.01 08/20/16 11:41 Test 08/20/16 11:20 08/20/16 11:41 Urine Color YELLOW Urine Appearance CLEAR (CLEAR) Urine pH 5.0 (4.5-7.5) Urine Specific [place] 1.014 (1.000-1.030) Urine Protein NEG (NEG) Urine Glucose (UA) NEG (NEG) Urine Ketones NEG (NEG) Urine Occult Blood NEG (NEG) Urine Nitrite NEG (NEG) Urine Bilirubin NEG (NEG) Urine Urobilinogen NEG (NEG) Urine Leukocyte Esterase TRACE (NEG) Urine WBC (Auto) 1-5 /hpf (0-5) Urine RBC (Auto) 0-4 /hpf (0-4) Urine Hyaline Casts (Auto) 0 /lpf (0-5) Urine Epithelial Cells (Auto) >30 /lpf (0-5) Urine Bacteria (Auto) NEG (NEG) White Blood Count 6.70 K/uL (4.8-10.8) Red Blood Count 4.80 M/uL (4.2-5.4) Hemoglobin 13.8 g/dL (12.0-16.0) Hematocrit 40.6 % (37-47) Mean Corpuscular Volume 84.6 fL (80-100) Mean Corpuscular Hemoglobin 28.8 pg (25-34) Mean Corpuscular Hemoglobin Concent 34.0 g/dl (32-36) Platelet Count 296 K/uL (130-400) Mean Platelet Volume 9.1 fL (7.4-10.4) Neutrophils (%) (Auto) 54.7 % Lymphocytes (%) (Auto) 39.4 % Monocytes (%) (Auto) 4.8 % Eosinophils (%) (Auto) 0.9 % Basophils (%) (Auto) 0.1 % Neutrophils # (Auto) 3.66 K/uL (1.4-6.5) Lymphocytes # (Auto) 2.64 K/uL (1.2-3.4) Monocytes # (Auto) 0.32 K/uL (0.11-0.59) Eosinophils # (Auto) 0.06 K/uL (0-0.5) Basophils # (Auto) 0.01 K/uL (0-0.2) RDW Standard Deviation 41.2 fL (36.4-46.3) RDW Coefficient of Variation 13.2 % (11.5-14.5) Immature Granulocyte % (Auto) 0.1 % Immature Granulocyte # (Auto) 0.01 K/uL (0.00-0.02) Anion Gap 10.0 mmol/L (3-11) Est Creatinine Clear Calc Drug Dose 71.0 ml/min Estimated GFR () 75.0 Estimated GFR (Non- 64.7 BUN/Creatinine Ratio 16.2 (10-20) Calcium Level 9.1 mg/dl (8.5-10.1) Total Bilirubin 0.5 mg/dl (0.2-1) Aspartate Amino Transf (AST/SGOT) 18 U/L (15-37) Alanine Aminotransferase (ALT/SGPT) 27 U/L (12-78) Alkaline Phosphatase 57 U/L (45-117) Troponin I < 0.015 ng/ml (0-0.045) Total Protein 7.6 gm/dl (6.4-8.2) Albumin 4.1 gm/dl (3.4-5.0) Globulin 3.5 gm/dl (2.5-4.0) Albumin/Globulin Ratio 1.2 (0.9-2) Lipase 126 U/L (73-393) Laboratory results reviewed by me. Medications Administered Medications (Trade) Dose Ordered Sig/Ming Route Start Time Stop Time Status Last Admin Dose Admin Sodium Chloride (Nss 1000ml) 1,000 ml @ 999 mls/hr Q1H1M STAT IV 08/20/16 12:30 08/20/16 13:30 DC 08/20/16 12:45 999 MLS/HR Ondansetron HCl (Zofran Inj) 4 mg NOW STAT IV 08/20/16 12:30 08/20/16 12:33 DC 08/20/16 12:45 4 MG ECG Indication: abdominal pain, vomiting Rate (beats per minute): 60 Rhythm: normal sinus Findings: other (some flattening of the T waves in the anterior lead, no acute DE) Comparison ECG Date: 04-Apr-2016 Change: no significant change ED Course 1228: The patient was evaluated in room C2B. A complete history and physical exam was performed. 1230: Zofran Inj 4 mg IV, NSS 1000 ml @ 200 mls/hr IV, NSS 1000 ml @ 999 mls/hr IV. 1355: I reevaluated the patient. I discussed results and discharge instructions : she verbalized understanding and agreement. The patient is ready for discharge. Medical Decision Differential diagnoses considered include bowel obstruction, adhesion, pancreatitis, biliary colic, bowel rupture, pneumonia, cardiac ischemia, viral illness.. There is no leukocytosis or concerning anemia. No significant electrolyte abnormality, kidney failure, hepatitis or pancreatitis. Urinalysis does not show evidence for infection. Chest x-ray shows no free air, pneumonia or pneumothorax. EKG shows a sinus rhythm, no acute ischemia. Cardiac enzyme testing times one is not consistent with acute cardiac injury. Abdominal and pelvis CT does not show bowel obstruction or any acute surgical process. She does have some biliary ductal dilatation which is more prominent than on previous imaging. The patient received IV saline, IV Zofran, she looks and feels well. I discussed the biliary results with the patient. She does feel comfortable with discharge. She is being discharged with a bland diet The patient was encouraged to return here for any worsening symptoms or fever or persistent vomiting. She will talk with her doctors office and possibly with GI. The cause for presentation today is not completely clear but certainly may be related to the dilated biliary ducts. Impression Primary Impression: Epigastric abdominal pain Additional Impression: Vomiting Scribe Attestation The scribe's documentation has been prepared under my direction and personally reviewed by me in its entirety. I confirm that the note above accurately reflects all work, treatment, procedures, and medical decision making performed by me. Departure Information Dispostion Home / Self-Care Referrals Judy Abrams MD (PCP) Forms Call Back Authorization, HOME CARE DOCUMENTATION FORM, IMPORTANT VISIT INFORMATION Patient Instructions My [facility] Additional Instructions bland diet---crackers, soup, toast, gatorade tylenol for pain see kd ross for a recheck--may need a GI referral heart testing and imaging was ok today return if worsening Problem Qualifiers
[2016-11-12] MEDS ORDERED: CPR500 PO (15:53)
[2017-01-22] MEDS ORDERED: LOVENOX SC (11:00)
[2017-01-22] MEDS ORDERED: AMLO2.5T PO (11:00)
[2017-01-22] MEDS ORDERED: PANT40TA PO (11:00)
== END 2016-08-20 14:45 | disposition home or self-care (01) ==
LOC: C.EDB 10:36 → C.EDC 14:45
DX: R10.13 Epigastric pain (principal); R11.10 Vomiting, unspecified; Z87.81 Personal history of (healed) traumatic fracture; K58.9 Irritable bowel syndrome, unspecified; Z90.710 Acquired absence of both cervix and uterus; Z90.49 Acquired absence of other specified parts of digestive tract; Z98.890 Other specified postprocedural states; Z79.82 Long term (current) use of aspirin; Z79.899 Other long term (current) drug therapy; Z88.8 Allergy status to other drugs, medicaments and biological substances; Z80.9 Family history of malignant neoplasm, unspecified; Z83.3 Family history of diabetes mellitus; Z83.79 Family history of other diseases of the digestive system; Z82.49 Family history of ischemic heart disease and other diseases of the circulatory system; Z84.1 Family history of disorders of kidney and ureter; Z82.0 Family history of epilepsy and other diseases of the nervous system

== ENCOUNTER → 2016-09-04 | Outpatient (CLI) | payer OTHER ==
[~2016-09-04] MED LIST changes: +CMD5 PO; +CPR500 PO; +CYCL10TA6 PO; +ENOX100I SQ; +ENOX120I SQ; +ERTA1INJ IV; +FLUC200T4 PO; +LACT1CAP6 PO; +LOVENOX SC; -METO25TA3 PO; +MOXI400T2 PO; +OMEP40CA41 PO; +ONDA4TAB10 SL; +ONDA4TAB46 PO; +OXYC-643 PO; +PANT40TA PO; +PRED20TA2 PO; +PRED50TA PO; -voltaren gel TOP
--- NOTE | 2016-09-04 10:55 | DIAGNOSTIC IMAGING REPORT ---
MRCP CLINICAL HISTORY: Right upper quadrant abdominal pain. COMPARISON STUDY: Abdominal CT dated 08/20/2016 and abdominal ultrasound dated 05/21/2016. TECHNIQUE: Abdominal MRCP is performed utilizing various T2-weighted sequences in the axial and coronal planes. 3-D reformats are created and assessed. IV contrast was not administered for this examination. FINDINGS: The gallbladder is surgically absent. There is mild diffuse central intrahepatic biliary ductal dilatation. More focal ductal dilatation is identified within the left hepatic lobe. This is similar to the 08/20/2016 CT scan but has increased from the 10/02/2012 CT scan. There is a long tubular appearing filling defect identified within the dilated left intrahepatic ducts. This is best seen on axial high resolution reformatted image #110 and the coronal high-resolution image #32 of 136. This measures at least 3 cm in length and there is probable stricturing of the more central ducts in the left hepatic lobe. The common bile duct is normal in caliber and measures up to 5 mm. There are no filling defects identified to suggest choledocholithiasis. The pancreatic duct is normal in appearance. A subcentimeter cyst is noted in the left hepatic lobe. The hepatic parenchyma is otherwise grossly normal as imaged. The spleen, pancreas, adrenal glands, and kidneys are grossly normal as imaged. No abdominal ascites is seen and there is no pleural effusion. IMPRESSION: 1. Status post cholecystectomy. Mild diffuse central intrahepatic biliary ductal dilatation is likely on a postoperative basis. 2. The common bile duct is normal in caliber. There is no evidence of choledocholithiasis. 3. There is asymmetric dilatation of the mid to distal intrahepatic ducts in the left lobe, which has increased from 10/02/2012. A large tubular appearing filling defect is suggested within the dilated ducts which measures at least 3 cm in length. The appearance is nonspecific, and this could represent a mass lesion, debris, or possibly an intraductal stone. There is stricturing suggested in the more central ducts in the left lobe. ERCP is recommended for further assessment. 4. The pancreatic duct is normal in appearance. Dictated: 09/04/2016 10:35 AM Transcribed: 09/04/2016 10:54 AM [facility] Electronically signed by: Jefferson Soliz M.D. 09/04/2016 11:16 AM Dictated Date/Time: 09/04/2016 10:35 AM
== END | disposition home or self-care (01) ==
LOC: C.MRIBC 09:40
PROVIDERS: ATTEND Registered Nurse
DX: K83.8 Other specified diseases of biliary tract (principal); R11.2 Nausea with vomiting, unspecified; R10.11 Right upper quadrant pain; Z90.49 Acquired absence of other specified parts of digestive tract

== ENCOUNTER → 2016-10-03 | Day surgery (SDC) | payer OTHER ==
[2016-10-01 15:15] VITALS: BMI 41.0
[~2016-10-03] VITALS: Ht 154.9 cm; Wt 97.7 kg
[~2016-10-03] MED LIST changes: +ATROPINE SULFATE 0.1 MG/ML 5ML SYR IV PRN; -CYCL10TA6 PO; +DEXAMETHASONE SOD INJ 4 MG/ML VIAL ONE; -ENOX100I SQ; -ERTA1INJ IV; +EpHEDrine SULFATE INJ 50 MG/ML AMP IV PRN; +EpHEDrine SULFATE INJ 50 MG/ML AMP ONE; +FENTANYL CITRATE INJ 50 MCG/1 ML 2 ML VIAL ONE; -FLUC200T4 PO; +INDOMETHACIN 50 MG SUPP PR ONE; +LACTATED RINGER'S 1000ML 1,000 ML IV SCH; +LIDOCAINE HCL 2% 2 ML VIAL (20MG/ML) ONE; -LOVENOX SC; +MIDAZOLAM HCL 1 MG/ML 2ML VIAL ONE; +NURSING VERBAL MED ORDER ONE; +ONDANSETRON INJ 2 MG/ML 2 ML VIAL IV PRN; +ONDANSETRON INJ 2 MG/ML 2 ML VIAL ONE; -OXYC-643 PO; -PANT40TA PO; +PROMETHAZINE HCL INJ 12.5 MG in SODIUM CHLORIDE 0.9% 50ML 50 ML IV ONE; +PROPOFOL IV EMULSION 10 MG/ML 20 ML VIAL IV ONE; +ROCURONIUM BROMIDE 10 MG/ML 5 ML VIAL ONE; +SCOPOLAMINE 1.5 MG TDSY TD ONE; +SODIUM CHLORIDE 0.9% 500ML 500 ML IV ONE
[2016-10-03 08:18] VITALS: BP 177/89; PULSE 67; TEMP 37.2; O2SAT 97; Ht 154.9 cm; Wt 97.7 kg
--- NOTE | 2016-10-03 09:59 | Endo History and Physical ---
History & Physical Date of Service: Oct 03, 2016. Chief Complaint: Abdominal pain. Abnormal cross sectional imaging with dilated bile duct and possible filling defect in bile duct Referring Physician: History of Present Illness see Chief complaint Past Medical History Asthma, Reflux, Heart Disease, [place] Past Surgical History Hx Cardiac Surgery: Yes (CARDIAC CATH NO STENT) Hx Abdominal Surgery: Yes (COLON RESECTION, C SECTION X2, ELLIE, UMBILICAL HERNIA ) Hx Post-Op Nausea and Vomiting: No Hx Cancer Surgery: No Hx Thoracic Surgery: No Hx Orthopedic: Yes (LEFT ANKLE SURGERY X 3, R/L KNEE ARHTROSCOPYX2) Hx Urinary Tract Surgery: No Social History Smoking Status: Former Smoker Hx Substance Use: No Hx Alcohol Use: No Allergies Coded Allergies: Doxylamine (Verified Allergy, Mild, n/v, 10/03/16) Current Medications Reported Home Medications Medications Dose Route/Sig Max Daily Dose Days Date Category Dose Instructions Trazodone (Trazodone HCl) 50 Mg Tab 1-2 Mg PO HS PRN 05/21/16 Reported Norvasc (Amlodipine Besylate) 2.5 Mg Tab 2.5 Mg PO QAM 05/21/16 Reported Aspirin Ec (Aspirin) 81 Mg Tab 81 Mg PO QAM 05/21/16 Reported Imitrex (Sumatriptan Succinate) 50 Mg Tab 50 Mg PO UD PRN 12/25/12 Reported TAKE MD DIRECTS Vital Signs Weight (Kilograms): 97.73 Height (Feet): 5 Height (Inches): 1 Date Time Temp Pulse Resp B/P (MAP) Pulse Ox O2 Delivery O2 Flow Rate FiO2 10/03/16 08:18 37.2 67 18 177/89 (118) 97 Room Air Physical Exam AAOx3 Nls1s2 Lungs CTA Abd soft obese, NT/ND + BS - CCE Consent obtained after risks benefits and alternatives discussed with pt. Include but limited to inability to identify abnormalities detected on the imaging studies. Increased risk of pancreatitis of 5%-10%.. Possible sphincterotomy required. Pt agrees to proceed. Assessment and Plan EGD/ERCP to assess abnormal imaging and for GI symptoms
--- NOTE | 2016-10-03 12:14 | Discharge Instructions ---
Endoscopy Patient Instructions Date / Procedure(s) Performed Oct 03, 2016. ERCP, EGD Allergy Information Coded Allergies: Doxylamine (Verified Allergy, Mild, n/v, 10/03/16) Discharge Date / Findings Oct 03, 2016. EGD with esophagitis, HH, gastritis and duodenitis- biospes taken ERCP with papillotomy- promineunt confluence/intrahepaticvs without obvious filling defect/stricture- no samples taken Medication Instructions Restart Stopped Medication(s): Reported Home Medications Medications Dose Route/Sig Max Daily Dose Days Date Category Dose Instructions Trazodone (Trazodone HCl) 50 Mg Tab 1-2 Mg PO HS PRN 05/21/16 Reported Norvasc (Amlodipine Besylate) 2.5 Mg Tab 2.5 Mg PO QAM 05/21/16 Reported Aspirin Ec (Aspirin) 81 Mg Tab 81 Mg PO QAM 05/21/16 Reported Imitrex (Sumatriptan Succinate) 50 Mg Tab 50 Mg PO UD PRN 12/25/12 Reported TAKE MD DIRECTS Omeprazole 40mg daily 1/2 hr breakfast Cipro 500mg BID x 5 days Omeprazole 40mg daily 1/2 hr breakfast Cipro 500mg BID x 5 days Reported Home Medications Medications Dose Route/Sig Max Daily Dose Days Date Category Dose Instructions Trazodone (Trazodone HCl) 50 Mg Tab 1-2 Mg PO HS PRN 05/21/16 Reported Norvasc (Amlodipine Besylate) 2.5 Mg Tab 2.5 Mg PO QAM 05/21/16 Reported Aspirin Ec (Aspirin) 81 Mg Tab 81 Mg PO QAM 05/21/16 Reported Imitrex (Sumatriptan Succinate) 50 Mg Tab 50 Mg PO UD PRN 12/25/12 Reported TAKE MD DIRECTS Provider Instructions Activity Restrictions - No exercising or heavy lifting for 24 hours. - Do not drink alcohol the day of the procedure. - Do not drive a car or operate machinery until the day after the procedure. - Do not make any important decisions or sign important papers in 24 hours after the procedure. Following Day: - Return to full activity which may include returning to work/school. Diet Start your diet with liquids and light foods (jello, soup, juice, toast). Then eat your usual diet if not nauseated. Treatment For Common After Affects For mild abdominal pain, bloating, or excessive gas: - Rest - Eat lightly - Lie on right side Follow-Up Information Follow-up with as scheduled Anesthesia Information What You Should Know You have had a procedure that required some medicine to reduce anxiety and discomfort. This treatment is called moderate sedation. After receiving the treatment, you may be sleepy, but you will be able to breathe on your own. The effects of the treatment may last for several hours. Follow these instructions along with Activity/Diet recommendations noted above: * Do NOT do anything where dizziness or clumsiness would be dangerous. * Rest quietly at home today, then you can be up and about tomorrow. * Have a responsible person stay with you the rest of today. * You may have had an I.V. today. If so, you may take the dressing off later today. Recommendations Call your doctor if: * Trouble breathing * Continuous vomiting for more than 24 hours * Temperature above 101 degrees * Severe abdominal pain or bloating * Pain not relieved by pain medicine ordered * There is increased drainage or redness from any incision * A large amount of rectal bleeding greater than 2-3 tablespoons. (If you had a polyp/s removed or have hemorrhoids, a small amount of blood - from the rectum is to be expected.) * You have any unanswered questions or concerns. IN THE EVENT OF A SERIOUS EMERGENCY, GO TO THE NEAREST EMERGENCY ROOM Your discharge instructions were prepared by provider Дмитрий Delaney. Patient Instructions Signature Page Rosalie Jane Patient (or Guardian) Signature/Date: I have read and understand the instructions given to me by my caregivers. Caregiver/RN/Doctor Signature/Date: The above-named patient and/or guardian has received patient instructions on this date. + Original Patient Signature Page (only) stays with chart. Please make copy for patient.
--- NOTE | 2016-10-03 12:18 | DIAGNOSTIC IMAGING REPORT ---
ERCP BILIARY DUCTAL CLINICAL HISTORY: EXPLORE DUCTS IN OR COMPARISON STUDY: MRCP 09/04/2016. FLUOROSCOPY TIME: 685 seconds. FINDINGS: 19 fluoroscopic spot images. The endoscope is at the second portion of the duodenum. The ampulla was cannulated. Contrast was injected into the common bile duct. Mild intrahepatic bile duct dilatation is again noted. Possible filling defect seen within a left intrahepatic bile duct. IMPRESSION: Fluoroscopy provided for ERCP. Bile duct dilatation and a possible filling defect within the left intrahepatic bile duct is better present on the MRCP. Electronically signed by: Bishnu Shrestha M.D. 10/03/2016 12:17 PM Dictated Date/Time: 10/03/2016 12:13 PM
--- NOTE | 2016-10-03 12:25 | GI REPORT ---
Procedure Date: 10/03/2016 10:35 AM Procedure: Upper GI endoscopy Indications: Epigastric abdominal pain, Dyspepsia, Indigestion Medicines: General Anesthesia Complications: No immediate complications. Estimated blood loss: Minimal. Estimated Blood Loss: Estimated blood loss was minimal. Procedure: Pre-Anesthesia Assessment: - Prior to the procedure, a History and Physical was performed, and patient medications and allergies were reviewed. The patient's tolerance of previous anesthesia was also reviewed. The risks and benefits of the procedure and the sedation options and risks were discussed with the patient. All questions were answered, and informed consent was obtained. Prior Anticoagulants: The patient has taken no previous anticoagulant or antiplatelet agents. ASA Grade Assessment: II - A patient with mild systemic disease. After reviewing the risks and benefits, the patient was deemed in satisfactory condition to undergo the procedure. After obtaining informed consent, the endoscope was passed under direct vision. Throughout the procedure, the patient's blood pressure, pulse, and oxygen saturations were monitored continuously. The scope was introduced through the mouth, and advanced to the third part of duodenum. The upper GI endoscopy was accomplished without difficulty. The patient tolerated the procedure well. Findings: The upper third of the esophagus and middle third of the esophagus were normal. LA Grade B (one or more mucosal breaks greater than 5 mm, not extending between the tops of two mucosal folds) esophagitis with no bleeding was found 34 to 36 cm from the incisors. A hiatus hernia was found. The proximal extent of the gastric folds (end of tubular esophagus) was 36 cm from the incisors. The hiatal narrowing was 39 cm from the incisors. The Z-line was 36 cm from the incisors. The Z-line was irregular and was found 36 cm from the incisors. A single localized, 20 mm non-bleeding erosion was found in the prepyloric region of the stomach. There were no stigmata of recent bleeding. Biopsies were taken with a cold forceps for Helicobacter pylori testing. Verification of patient identification for the specimen was done by the physician and oil and gas exploration technician using the patient's name and medical record number. Patchy mild inflammation characterized by erythema was found in the duodenal bulb and in the first part of the duodenum. The 2nd part of the duodenum was normal. Biopsies were taken with a cold forceps for histology. Estimated blood loss was minimal. Verification of patient identification for the specimen was done by the physician and oil and gas exploration technician using the patient's name and medical record number. Retained gastric contents are not identified on this exam. The cardia and gastric fundus were normal on retroflexion. Impression: - Normal upper third of esophagus and middle third of esophagus. - LA Grade B reflux esophagitis. - Hiatus hernia. - Z-line irregular, 36 cm from the incisors. - Non-bleeding erosive gastropathy. Biopsied. - Duodenitis. - Normal 2nd part of the duodenum. Biopsied. Recommendation: - Discharge patient to home (ambulatory). - Advance diet as tolerated. - Continue present medications. - Use Prilosec (omeprazole) 40 mg PO daily. - Await pathology results. - Return to GI clinic as previously scheduled. MD Дмитрий Brody MD 10/03/2016 12:24:47 PM This report has been signed electronically. Note Initiated On: 10/03/2016 10:35 AM I attest to the content of the Intraoperative Record and orders documented therein, exceptions below
--- NOTE | 2016-10-03 12:42 | GI REPORT ---
Procedure Date: 10/03/2016 10:36 AM Procedure: ERCP Indications: Abdominal pain of suspected biliary origin, Abnormal abdominal CT, Biliary dilation on Computed Tomogram Scan, Abnormal MRCP, Biliary dilation on Ultrasound Medicines: General Anesthesia Complications: No immediate complications. Estimated blood loss: None Estimated Blood Loss: Estimated blood loss: none. Procedure: Pre-Anesthesia Assessment: - Prior to the procedure, a History and Physical was performed, and patient medications and allergies were reviewed. The patient's tolerance of previous anesthesia was also reviewed. The risks and benefits of the procedure and the sedation options and risks were discussed with the patient. All questions were answered, and informed consent was obtained. Prior Anticoagulants: The patient has taken no previous anticoagulant or antiplatelet agents. ASA Grade Assessment: II - A patient with mild systemic disease. After reviewing the risks and benefits, the patient was deemed in satisfactory condition to undergo the procedure. After obtaining informed consent, the scope was passed under direct vision. Throughout the procedure, the patient's blood pressure, pulse, and oxygen saturations were monitored continuously. The Scope was introduced through the mouth, and advanced to the duodenum and used to inject contrast into the bile duct and ventral pancreatic duct. The ERCP was accomplished without difficulty. The patient tolerated the procedure well. Findings: The minister film was normal. The esophagus was successfully intubated under direct vision. The scope was advanced to a normal major papilla in the descending duodenum without detailed examination of the pharynx, larynx and associated structures, and upper GI tract. The upper GI tract was grossly normal. The ventral pancreatic duct was inadvertently cannulated with the short-nosed traction sphincterotome and without any complications. A very limited ventral pancreatic duct with light pressure and filled ~ 1 inch of the head of the pancreas duct and was normal. Pt given Indomethacin 50mg [place] x 2 during procedure. A straight Roadrunner wire was passed into the biliary tree. The 3-4-5 taper-tip cannula was passed over the guidewire and the bile duct was then deeply cannulated. Contrast was injected. I personally interpreted the bile duct images. Ductal flow of contrast was adequate. Image quality was adequate. Contrast extended to the entire biliary tree. The main bile duct was normal. The hepatic duct bifurcation and left main hepatic duct were borderline dilated and diffusely dilated, uncertain significance. The largest diameter was 5 mm. A 3 mm biliary sphincterotomy was made with a short-tip traction sphincterotome using ERBE electrocautery. There was no post-sphincterotomy bleeding. An occlusion cholangiogram with an underfilled 12 mm extraction balloon ( only size available with above the balloon flow) was performed after selective wire cannulation of the left main and prominent branch. A filling defect in the biliary lumen in this territory was not identified as suggested by recent imaging ( long tubular filling defect). A pattern of two parallel ducts in the vicinity of that noted on the imaging is identified. Pt received Cipro 400mg IV . A n obvious biliary stricture or transition is not identified and the underfilled ballon swept easily from this point , across the bifurcation and along the entire extrahepatic duct. Scant debris noted. No samples taken of biliary system ( bx taken during EGD of GI mucosa). No stents placed. Impression: - The left main hepatic duct was borderline dilated, uncertain significance. - A sphincterotomy was performed. Recommendation: - Discharge patient to home (ambulatory). - Advance diet as tolerated. - Patient has a contact number available for emergencies. The signs and symptoms of potential delayed complications were discussed with the patient. Return to normal activities tomorrow. Written discharge instructions were provided to the patient. - Use Prilosec (omeprazole) 40 mg PO daily for 4 months. - Await path results. - Cipro (ciprofloxacin) 500 mg PO BID for 5 days. - Return to GI clinic as previously scheduled. - May consider repeat cross sectional imaging in 6 months depending on symptom response MD Дмитрий Brody MD 10/03/2016 12:42:30 PM This report has been signed electronically. Note Initiated On: 10/03/2016 10:36 AM I attest to the content of the Intraoperative Record and orders documented therein, exceptions below
[2016-10-03 13:20] VITALS: BP 140/78; PULSE 62; TEMP 36.4; O2SAT 96
[2016-10-03 13:50] VITALS: BP 123/91; PULSE 58; O2SAT 93
--- NOTE | 2016-10-03 13:50 | Anesthesiology Progress Note ---
Anesthesia Post Op Note Date & Time Oct 03, 2016 at 13:49 Vital Signs Pain Intensity: 2 Vital Signs Past 12 Hours Date Time Temp Pulse Resp B/P (MAP) Pulse Ox O2 Delivery O2 Flow Rate FiO2 10/03/16 13:20 36.4 62 16 140/78 96 Room Air 10/03/16 13:09 59 16 135/83 94 Room Air 10/03/16 13:00 36.4 63 16 148/88 99 Room Air 10/03/16 12:50 71 16 144/86 98 Room Air 10/03/16 12:40 71 16 154/96 96 Room Air 10/03/16 12:30 75 18 138/86 96 Room Air 10/03/16 12:20 79 14 148/106 99 Mask 8 10/03/16 12:10 83 14 160/101 93 Mask 8 10/03/16 12:03 36.2 92 16 158/103 93 Mask 8 10/03/16 08:18 37.2 67 18 177/89 (118) 97 Room Air Notes Mental Status: alert / awake / arousable, participated in evaluation Pt Amnestic to Procedure: Yes Nausea / Vomiting: adequately controlled Pain: adequately controlled Airway Patency, RR, SpO2: stable & adequate BP & HR: stable & adequate Hydration State: stable & adequate Anesthetic Complications: no major complications apparent
[2016-10-03 14:20] VITALS: BP 137/82; PULSE 58; TEMP 37; O2SAT 94
== END | disposition home or self-care (01) ==
LOC: C.OR 08:00
PROVIDERS: ATTEND Internal Medicine Gastroenterology
DX: K20.9 Esophagitis, unspecified (principal); K31.89 Other diseases of stomach and duodenum; K44.9 Diaphragmatic hernia without obstruction or gangrene; K29.80 Duodenitis without bleeding; K29.50 Unspecified chronic gastritis without bleeding; J45.909 Unspecified asthma, uncomplicated; I25.2 Old myocardial infarction; E66.9 Obesity, unspecified; Z88.1 Allergy status to other antibiotic agents; Z98.890 Other specified postprocedural states; Z87.891 Personal history of nicotine dependence; Z79.82 Long term (current) use of aspirin; Z90.710 Acquired absence of both cervix and uterus; Z90.49 Acquired absence of other specified parts of digestive tract

== ENCOUNTER 2016-11-11 08:20 | Observation (INO) | payer OTHER ==
[~2016-11-11] VITALS: Ht 154.9 cm; Wt 98.1 kg
[~2016-11-11 08:20] MED LIST changes: -ACET-1256 PO; -ATROPINE SULFATE 0.1 MG/ML 5ML SYR IV PRN; -CMD5 PO; -CPR500 PO; -DEXAMETHASONE SOD INJ 4 MG/ML VIAL ONE; -ENOX120I SQ; -EpHEDrine SULFATE INJ 50 MG/ML AMP IV PRN; -EpHEDrine SULFATE INJ 50 MG/ML AMP ONE; -FENTANYL CITRATE INJ 50 MCG/1 ML 2 ML VIAL ONE; -INDOMETHACIN 50 MG SUPP PR ONE; -LACT1CAP6 PO; -LACTATED RINGER'S 1000ML 1,000 ML IV SCH; -LIDOCAINE HCL 2% 2 ML VIAL (20MG/ML) ONE; -MIDAZOLAM HCL 1 MG/ML 2ML VIAL ONE; -MOXI400T2 PO; -NURSING VERBAL MED ORDER ONE; -OMEP40CA41 PO; -ONDA4TAB10 SL; -ONDA4TAB46 PO; -ONDANSETRON INJ 2 MG/ML 2 ML VIAL IV PRN; -ONDANSETRON INJ 2 MG/ML 2 ML VIAL ONE; -PRED20TA2 PO; -PRED50TA PO; -PROMETHAZINE HCL INJ 12.5 MG in SODIUM CHLORIDE 0.9% 50ML 50 ML IV ONE; -PROPOFOL IV EMULSION 10 MG/ML 20 ML VIAL IV ONE; -ROCURONIUM BROMIDE 10 MG/ML 5 ML VIAL ONE; -SCOPOLAMINE 1.5 MG TDSY TD ONE; -SODIUM CHLORIDE 0.9% 500ML 500 ML IV ONE
[2016-11-11] MEDS ORDERED: OMEP40CA41 PO (08:46)
[2016-11-11] MEDS ORDERED: ONDANSETRON INJ 2 MG/ML 2 ML VIAL IV STA (09:11)
[2016-11-11] MEDS ORDERED: KETOROLAC TROMETHAMINE 30 MG/ML VIAL IV STA (09:11)
[2016-11-11 09:45] LABS: BASO % 0.1 %; BASO ABS # 0.01 K/uL (0-0.2); COMPLETE YES; EOS % 1.2 %; HEMATOCRIT 40.5 % (37-47); IG% 0.3 %; LYMPH % 36.9 %; LYMPH ABS # 2.71 K/uL (1.2-3.4); MEAN CELL VOLUME 84.4 fL (80-100); MEAN CORPUSCULAR HEMOGLOBIN 28.8 pg (25-34); MEAN CORPUSCULAR HGB CONC 34.1 g/dl (32-36); MEAN PLATELET VOLUME 9.3 fL (7.4-10.4); MONO % 7.2 %; NEUT % 54.3 %; PLATELET COUNT 312 K/uL (130-400); WHITE BLOOD COUNT 7.35 K/uL (4.8-10.8)
[2016-11-11 10:13] LABS: BUN/CREATININE RATIO 24.1 (10-20); CALCIUM 9.8 mg/dl (8.5-10.1); CREATININE 0.99 mg/dl (0.60-1.20); POTASSIUM 4.2 mmol/L (3.5-5.1)
--- NOTE | 2016-11-11 10:42 | DIAGNOSTIC IMAGING REPORT ---
BILIARY ULTRASOUND CLINICAL HISTORY: epigastric/RUQ pain MRCP dated 09/04/2016 COMPARISON STUDY: 05/21/2016 FINDINGS: The pancreas appears sonographically normal. There is intrahepatic biliary air. The gallbladder is surgically absent. The common bile duct measures 8 mm. No common bile duct filling defects are visualized. There is intrahepatic echogenic area within the yuliet hepatis, possibly representing focal fat. There is mild dilatation of the left lobe intrahepatic ducts. IMPRESSION: 1. Pneumobilia 2. Mild dilatation of the left lobe intrahepatic ducts 3. 8 mm common bile duct 4. No ductal calculi identified 5. Surgically absent gallbladder Electronically signed by: Nas Humphreys M.D. 11/11/2016 10:41 AM Dictated Date/Time: 11/11/2016 10:38 AM
--- NOTE | 2016-11-11 11:20 | EMERGENCY ROOM VISIT NOTE ---
History First contact with patient: 08:33 Chief Complaint: ABDOMINAL PAIN Stated Complaint: PAIN IN UPPER STOMACH Nursing Triage Summary: Abdominal pain with nausea, started last evening, worse this morning per the pt. History of Present Illness The patient is a 51 year old female who presents to the Emergency Room with complaints of right upper quadrant abdominal pain and nausea since last night. The patient states last night, she began experiencing severe right upper and epigastric abdominal pain. The pain began at 1930 hrs. and lasted approximately 20 minutes. The patient then ate a salad approximately one hour later, and states the pain restarted at 2230 hrs. without improvement. The patient does have a history of the same, and is being followed by Dr. Delaney for her symptoms. She did recently have an ERCP completed which showed some intrahepatic ductal pain. The patient was recently started on Prilosec twice a day, and states this has not necessarily been helping with her symptoms. The patient describes the pain as severe and a "fullness" in her upper abdomen. She states it feels similar to indigestion. The patient admits to nausea, however denies vomiting at this time. Further, the patient denies abnormal bowel movements, blood in her stool, recent illness, recent travel, diarrhea, chest pain, dyspnea. The patient states she does have a history of vomiting yellow phlegm in the past. She rates her pain 10/10. The patient states Dr. Delaney would like to repeat the ERCP and 3 months from her previous test ( which was performed in September). The patient does report history of IBS. She states she also had 14 inches of bowel removed in 2003. Review of Systems A complete 10 point review of systems was reviewed with the patient with pertinent positives and negatives as per history of present illness. All else were negative. Past Medical/Surgical History Medical Problems: (1) section (2) Cholecystectomy (3) FX ANKLE NOS-CLOSED (4) FX HUMERUS NOS-CLOSED (5) History of repair of inguinal hernia (6) Hysterectomy (7) IRRITABLE BOWEL SYNDROME (8) LFTs abnormal (9) Partial resection of colon (10) Rotator cuff injury Surgical Problems: (1) H/O rotator cuff surgery Family History Cancer Diabetes mellitus Gallbladder disease Heart disease Hypertension Kidney disease or stones Lung disease Seizures Social History Smoking Status: Never Smoker Drug Use: none Marital Status: Housing Status: lives alone Occupation Status: employed Current/Historical Medications Scheduled Amlodipine (Norvasc), 2.5 MG PO QAM Aspirin (Aspirin Ec), 81 MG PO QAM Omeprazole (Prilosec), 80 MG PO BID Scheduled PRN Sumatriptan Succinate (Imitrex), 50 MG PO UD PRN for Headache Allergies Coded Allergies: Doxylamine (Verified Allergy, Mild, n/v, 10/03/16) Physical Exam Vital Signs Date Time Temp Pulse Resp B/P (MAP) Pulse Ox O2 Delivery O2 Flow Rate FiO2 11/11/16 12:56 55 18 120/92 97 Room Air 11/11/16 12:48 95 Room Air 11/11/16 10:35 65 18 174/77 95 Room Air 11/11/16 08:29 36.4 76 18 157/94 97 Room Air Pain Rating (0-10): 6.0 Physical Exam VITALS: Vitals are noted on the nurse's note and reviewed by myself. Vital signs stable. GENERAL: This is a 51-year-old female, in no acute distress, nondiaphoretic, well-developed well-nourished. SKIN: The skin was without rashes, erythema, edema, or bruising. There is no tenting of the skin. Capillary reflex less than 2 seconds. HEAD: Normocephalic atraumatic. EARS: External auditory canals clear, tympanic membranes pearly holt without erythema or effusion bilaterally. EYES: Pupils equal round and reactive to light and accommodation. Conjunctivae without injection, sclerae without icterus. Extraocular movements intact. NOSE: Patent, turbinates without inflammation or discharge. No sinus tenderness. MOUTH: Mucous membranes moist. Tonsils are not enlarged. Pharynx without erythema or exudate. Uvula midline. Airway patent. Tongue does not deviate. NECK: Supple without nuchal rigidity. No lymphadenopathy. No thyromegaly. Cervical spine is nontender. No JVD. HEART: Regular rate and rhythm without murmurs gallops or rubs. LUNGS: Clear to auscultation bilaterally without wheezes, rales or rhonchi. No dullness to percussion. No retractions or accessory muscle use. ABDOMEN: Positive bowel sounds x 4. Normal tympanic percussion. Soft, without masses or organomegaly. Tenderness noted in epigastric region and radiating towards the right on light and deep palpation. Oliva sign negative. No guarding or rebound tenderness. MUSCULOSKELETAL: No muscle atrophy, erythema, or edema noted. Full range of motion without joint tenderness in all extremities. No tenderness to palpation. Normal gait. Strength 5/5 throughout. NEURO: Patient was alert and oriented to person place and time. Normal sensation to light and sharp touch. Deep tendon reflexes 2+ throughout. No focal neurological deficits. Medical Decision & Procedures ER Provider Diagnostic Interpretation: LABS: CBC was without leukocytosis, anemia, thrombocytopenia. Lipase is negative at 162. Blood sugar was normal at 99. Renal function normal with creatinine of 0.99. AST elevated at 146. ALT mildly elevated at 80. Alkaline phosphatase normal at 98. Bilirubin normal at 0.5. U/S Abdomen Limited FINDINGS: The pancreas appears sonographically normal. There is intrahepatic biliary air. The gallbladder is surgically absent. The common bile duct measures 8 mm. No common bile duct filling defects are visualized. There is intrahepatic echogenic area within the yuliet hepatis, possibly representing focal fat. There is mild dilatation of the left lobe intrahepatic ducts. IMPRESSION: 1. Pneumobilia 2. Mild dilatation of the left lobe intrahepatic ducts 3. 8 mm common bile duct 4. No ductal calculi identified 5. Surgically absent gallbladder Laboratory Results 11/11/16 09:30 Red Blood Count 4.80, Mean Corpuscular Volume 84.4, Mean Corpuscular Hemoglobin 28.8, Mean Corpuscular Hemoglobin Concent 34.1, Mean Platelet Volume 9.3, Neutrophils (%) (Auto) 54.3, Lymphocytes (%) (Auto) 36.9, Monocytes (%) (Auto) 7.2, Eosinophils (%) (Auto) 1.2, Basophils (%) (Auto) 0.1, Neutrophils # (Auto) 3.99, Lymphocytes # (Auto) 2.71, Monocytes # (Auto) 0.53, Eosinophils # (Auto) 0.09, Basophils # (Auto) 0.01 11/11/16 09:30 Test 11/11/16 09:30 White Blood Count 7.35 K/uL (4.8-10.8) Red Blood Count 4.80 M/uL (4.2-5.4) Hemoglobin 13.8 g/dL (12.0-16.0) Hematocrit 40.5 % (37-47) Mean Corpuscular Volume 84.4 fL (80-100) Mean Corpuscular Hemoglobin 28.8 pg (25-34) Mean Corpuscular Hemoglobin Concent 34.1 g/dl (32-36) Platelet Count 312 K/uL (130-400) Mean Platelet Volume 9.3 fL (7.4-10.4) Neutrophils (%) (Auto) 54.3 % Lymphocytes (%) (Auto) 36.9 % Monocytes (%) (Auto) 7.2 % Eosinophils (%) (Auto) 1.2 % Basophils (%) (Auto) 0.1 % Neutrophils # (Auto) 3.99 K/uL (1.4-6.5) Lymphocytes # (Auto) 2.71 K/uL (1.2-3.4) Monocytes # (Auto) 0.53 K/uL (0.11-0.59) Eosinophils # (Auto) 0.09 K/uL (0-0.5) Basophils # (Auto) 0.01 K/uL (0-0.2) RDW Standard Deviation 41.7 fL (36.4-46.3) RDW Coefficient of Variation 13.6 % (11.5-14.5) Immature Granulocyte % (Auto) 0.3 % Immature Granulocyte # (Auto) 0.02 K/uL (0.00-0.02) Anion Gap 7.0 mmol/L (3-11) Est Creatinine Clear Calc Drug Dose 70.4 ml/min Estimated GFR () 75.4 Estimated GFR (Non- 65.1 BUN/Creatinine Ratio 24.1 (10-20) Calcium Level 9.8 mg/dl (8.5-10.1) Total Bilirubin 0.5 mg/dl (0.2-1) Aspartate Amino Transf (AST/SGOT) 146 U/L (15-37) Alanine Aminotransferase (ALT/SGPT) 80 U/L (12-78) Alkaline Phosphatase 98 U/L (45-117) Total Protein 7.5 gm/dl (6.4-8.2) Albumin 3.8 gm/dl (3.4-5.0) Globulin 3.7 gm/dl (2.5-4.0) Albumin/Globulin Ratio 1.0 (0.9-2) Lipase 162 U/L (73-393) Medications Administered Medications (Trade) Dose Ordered Sig/Ming Route Start Time Stop Time Status Last Admin Dose Admin Ketorolac Tromethamine (Toradol Inj) 30 mg NOW STAT IV 11/11/16 09:11 11/11/16 09:12 DC 11/11/16 09:35 30 MG Ondansetron HCl (Zofran Inj) 4 mg NOW STAT IV 11/11/16 09:11 11/11/16 09:12 DC 11/11/16 09:35 4 MG ECG Indication: abdominal pain Rhythm: normal sinus Findings: prolonged QT Comparison ECG Date: 08/20/16 Change: no significant change Medical Decision Throughout the course of the patient's care, I considered etiologies including: acute pancreatitis, acute choledocolithiasis, acute hepatic failure, acute renal disease, hepatitis C, GERD, IBS flare, cardiac disease, malignancy, and others. I did speak with Dr. Delaney via phone regarding the patient's condition. He states he would like the patient to have a repeat MRCP completed, and states if we are unable to complete this test in the emergency department to have the patient admitted and he will see her as a consult. I spoke with the hospitalist regarding the patient's condition and she was admitted for observation in good condition. Impression Primary Impression: Right upper quadrant pain Additional Impression: Elevated liver enzymes Departure Information Dispostion Admitted as an inpatient Condition GOOD Referrals Judy Abrams MD (PCP) Patient Instructions My [facility] Problem Qualifiers
[2016-11-11] MEDS ORDERED: ACETAMINOPHEN 325 MG TAB PO PRN (12:45)
[2016-11-11] MEDS ORDERED: ONDANSETRON INJ 2 MG/ML 2 ML VIAL IV PRN (12:45)
[2016-11-11] MEDS ORDERED: MAGNESIUM HYDROXIDE SUSP 30 ML UDC PO PRN (12:45)
[2016-11-11] MEDS ORDERED: ALUMINUM/MAGNESIUM/SIMETH (MAALOX MAX) 30 ML UDC PO PRN (12:45)
[2016-11-11] MEDS ORDERED: POLYETHYLENE (MIRALAX) 17 GM PACK PO PRN (12:45)
[2016-11-11 12:48] VITALS: O2SAT 95; Ht 154.9 cm; Wt 98.1 kg
--- NOTE | 2016-11-11 13:28 | History and Physical ---
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 Pt has had ongoing upper abdominal pain for a few months. She recently had an ERCP which did not elucidate an etiology. She presents to the ER complaining of worsening pain. She denies N/V/D, CP, SOB. Initial labs reveal LFT elevations which were not present previously. Her GI attending was contacted and has requested that she be admitted for further evaluation including an MRCP. She denies CP, SOB, vomiting or diarrhea. She has occasional nausea. Past Medical/Surgical History Medical Problems: (1) section Status: Resolved (2) Cholecystectomy Status: Resolved (3) FX ANKLE NOS-CLOSED Status: Resolved (4) FX HUMERUS NOS-CLOSED Status: Resolved (5) History of repair of inguinal hernia Status: Resolved (6) Hysterectomy Status: Resolved (7) IRRITABLE BOWEL SYNDROME Status: Chronic (8) Partial resection of colon Status: Resolved (9) Rotator cuff injury Status: Resolved Surgical Problems: (1) H/O rotator cuff surgery Status: Resolved Family History Cancer Diabetes mellitus Gallbladder disease Heart disease Hypertension Kidney disease or stones Lung disease Seizures Social History Smoking Status: Never Smoker Drug Use: none Marital Status: Occupational Status: employed Multi-Drug Resistant Organisms History of MDRO: No Allergies Coded Allergies: Doxylamine (Verified Allergy, Mild, n/v, 10/03/16) Home Medications Scheduled Amlodipine (Norvasc), 2.5 MG PO QAM Aspirin (Aspirin Ec), 81 MG PO QAM Omeprazole (Prilosec), 80 MG PO BID Scheduled PRN Sumatriptan Succinate (Imitrex), 50 MG PO UD PRN for Headache Review of Systems Constitutional: No fever, No chills, No sweats Eyes: No worsening of vision ENT: No hearing loss, No nasal symptoms Respiratory: No cough, No sputum, No wheezing Cardiovascular: No chest pain, No orthopnea, No PND Abdomen: + pain, + nausea, No vomiting, No diarrhea, No constipation Musculoskeletal: No joint pain Genitourinary - Female: No dysuria Neurologic: No memory loss, No paralysis, No weakness Psychiatric: No depression symptoms Endocrine: No fatigue Hematologic / Lymphatic: No abnormal bleeding/bruising Integumentary: No rash Allergic / Immunologic: No environmental allergies Physical Exam Vital Signs Date Time Temp Pulse Resp B/P (MAP) Pulse Ox O2 Delivery O2 Flow Rate FiO2 11/11/16 10:35 65 18 174/77 95 Room Air 11/11/16 08:29 36.4 76 18 157/94 97 Room Air General Appearance: WD/WN, no apparent distress Head: normocephalic Eyes: normal inspection ENT: normal ENT inspection, hearing grossly normal, TMs normal Neck: supple, no JVD Respiratory/Chest: chest non-tender, lungs clear Cardiovascular: regular rate, rhythm, no edema, no gallop, no JVD, no murmur, normal peripheral pulses Abdomen/GI: normal bowel sounds, soft, + tenderness (Upper quadrants BL) Back: normal inspection, no CVA tenderness, no muscle spasm, normal range of motion Extremities/Musculoskelatal: normal inspection, no calf tenderness, normal capillary refill, no pedal edema, normal range of motion Neurologic/Psych: division head II-XII nml as tested, no motor/sensory deficits, alert, normal mood/affect, normal reflexes, oriented x 3 Skin: normal color, warm/dry Diagnostics Laboratory Results Results Past 24 Hours Test 11/11/16 09:30 Range/Units White Blood Count 7.35 4.8-10.8 K/uL Red Blood Count 4.80 4.2-5.4 M/uL Hemoglobin 13.8 12.0-16.0 g/dL Hematocrit 40.5 37-47 % Mean Corpuscular Volume 84.4 80-100 fL Mean Corpuscular Hemoglobin 28.8 25-34 pg Mean Corpuscular Hemoglobin Concent 34.1 32-36 g/dl Platelet Count 312 130-400 K/uL Mean Platelet Volume 9.3 7.4-10.4 fL Neutrophils (%) (Auto) 54.3 % Lymphocytes (%) (Auto) 36.9 % Monocytes (%) (Auto) 7.2 % Eosinophils (%) (Auto) 1.2 % Basophils (%) (Auto) 0.1 % Neutrophils # (Auto) 3.99 1.4-6.5 K/uL Lymphocytes # (Auto) 2.71 1.2-3.4 K/uL Monocytes # (Auto) 0.53 0.11-0.59 K/uL Eosinophils # (Auto) 0.09 0-0.5 K/uL Basophils # (Auto) 0.01 0-0.2 K/uL RDW Standard Deviation 41.7 36.4-46.3 fL RDW Coefficient of Variation 13.6 11.5-14.5 % Immature Granulocyte % (Auto) 0.3 % Immature Granulocyte # (Auto) 0.02 0.00-0.02 K/uL Sodium Level 140 136-145 mmol/L Potassium Level 4.2 3.5-5.1 mmol/L Chloride Level 108 98-107 mmol/L Carbon Dioxide Level 25 21-32 mmol/L Anion Gap 7.0 3-11 mmol/L Blood Urea Nitrogen 24 7-18 mg/dl Creatinine 0.99 0.60-1.20 mg/dl Est Creatinine Clear Calc Drug Dose 70.4 ml/min Estimated GFR () 75.4 Estimated GFR (Non- 65.1 BUN/Creatinine Ratio 24.1 10-20 Random Glucose 99 70-99 mg/dl Calcium Level 9.8 8.5-10.1 mg/dl Total Bilirubin 0.5 0.2-1 mg/dl Aspartate Amino Transf (AST/SGOT) 146 15-37 U/L Alanine Aminotransferase (ALT/SGPT) 80 12-78 U/L Alkaline Phosphatase 98 45-117 U/L Total Protein 7.5 6.4-8.2 gm/dl Albumin 3.8 3.4-5.0 gm/dl Globulin 3.7 2.5-4.0 gm/dl Albumin/Globulin Ratio 1.0 0.9-2 Lipase 162 73-393 U/L Diagnostic Radiology US abdomen: 1. Pneumobilia 2. Mild dilatation of the left lobe intrahepatic ducts 3. 8 mm common bile duct 4. No ductal calculi identified 5. Surgically absent gallbladder Impression Assessment and Plan 51 y/o F Hx HTN, chronic abdominal pain, idiopathic trop elevation 03/20. Pt has had ongoing upper abdominal pain for a few months. She recently had an ERCP which did not elucidate an etiology. She presents to the ER complaining of worsening pain. She denies N/V/D, CP, SOB. Initial labs reveal LFT elevations which were not present previously. Her GI attending was contacted and has requested that she be admitted for further evaluation including an MRCP. She denies CP, SOB, vomiting or diarrhea. She has occasional nausea. 1) Abdominal pain - cause not clear - she does have a dilated CBD and he LFTs are abnormal which has not occurred previously. The pt is admitted by request of GI for an MRCP and further evaluation. If there is no diagnosis following, she may need transfer to [place] for a [employer]. Alternatively if her LFTs are stable, this can be pursued in the outpt setting. 2) HTN - cont Norvasc Full code heparin prophylaxis Total time for this admit including review of labs, meds, imaging, records - discussion with pt and ER attending - 35 min Level of Care Med/Surg Resuscitation Status FULL RESUSCITATION VTE Prophylaxis VTE Risk Assessment Done? Y/N: Yes Risk Level: Low Given or contraindicated: Unfractionated heparin SQ
[2016-11-11] MEDS ORDERED: IV FLUIDS COMPLETED PRN (13:45)
--- NOTE | 2016-11-11 14:22 | DIAGNOSTIC IMAGING REPORT ---
MRCP HISTORY: LFT abnormalities TECHNIQUE: Abdominal MRCP is performed according to standard departmental protocol without the use of intravenous contrast. COMPARISON STUDY: MRCP 09/04/2016. FINDINGS: Patient is status post cholecystectomy. There is mild intra and extra hepatic bile duct dilatation which has progressed. The common bile duct measures up to 8 mm in diameter. There is a 5 mm hypointense oval-shaped filling defect seen within the distal common bile. This is consistent with a stone. The kidneys, spleen, pancreas, and adrenal glands are unremarkable. No retroperitoneal lymphadenopathy. Stable subcentimeter cyst within the left hepatic lobe. No significant change within the abnormal appearing left intrahepatic bile ducts. This includes a tubular appearing filling defect within the dilated left intrahepatic ducts. There are suggestion of focal stricturing within the proximal left intrahepatic bile ducts. IMPRESSION: 1. Interval development of a 5 mm filling defect within the distal common bile duct with mild intra and extra hepatic bile duct dilatation. This is consistent with a common bile duct stone. 2. Cholecystectomy. 3. There is again noted asymmetric dilatation of the mid to distal left intrahepatic bile ducts which appear to contain a filling defect. This is nonspecific and could represent debris, a mass, or possibly intraductal stones. There is also stable stricturing within the proximal left intrahepatic bile ducts. Electronically signed by: Bishnu Shrestha M.D. 11/11/2016 2:20 PM Dictated Date/Time: 11/11/2016 2:09 PM
[2016-11-11 15:06] VITALS: BP 146/88; PULSE 69; TEMP 36.8; O2SAT 95
[2016-11-11 15:27] LABS: INR 0.9 (0.9-1.1); PARTIAL THROMBOPLASTIN RATIO 1.1; PROTHROMBIN TIME (PATIENT) 9.8 SECONDS (9.0-12.0)
--- NOTE | 2016-11-11 17:29 | GASTROINTESTINAL CONSULTATION ---
DATE OF CONSULTATION: 11/11/2016 REQUESTING PROVIDER: Dr. Tristan James and Dr. Judy Abrams. CHIEF COMPLAINT: Epigastric right upper quadrant pain with nausea and abnormal liver tests and abnormal MRCP. HISTORY OF PRESENT ILLNESS: Mrs. Jane is a 51-year-old white female known to me from prior evaluation for abdominal pain. The patient had recently undergone an ERCP to address an abnormal finding on an MRCP that suggested a tubular defect in the left hepatic ductal system. This was not appreciated on ERCP and the patient's symptoms had subsided. During these earlier events, LFTs were not elevated. Last evening, the patient was sitting at home and developed intense abdominal pain in the same area with some nausea. This subsided, but then recurred such that it lasted throughout the night and into the morning and she presented to the Emergency Room earlier today. The patient has not had any chest pain, shortness of breath, dysuria or hematuria. The patient denies any changes in her stool habits with this, has not been on any medications and denies any fevers, chills or rigors. PAST MEDICAL HISTORY: Significant for , cholecystectomy, fractured ankle and humerous, inguinal hernia repair, irritable bowel syndrome, hysterectomy, partial resection of the colon, and rotator cuff injury. FAMILY HISTORY: Significant for cancer, diabetes, gallbladder disease, renal disease, hypertension, coronary artery disease, and seizure history. SOCIAL HISTORY: The patient denies tobacco use. She denies alcoholic beverage use. She is and unemployed. ALLERGIES: SHE IS ALLERGIC TO DOXYLAMINE. CURRENT HOME MEDICATIONS: Include amlodipine, aspirin, and omeprazole. She also uses Imitrex at times for headaches. REVIEW OF SYSTEMS: Otherwise noncontributory based on 13-point exam except for mentioned above. PHYSICAL EXAMINATION: VITAL SIGNS: Today in the ER, the patient is afebrile at 36.4, heart rate 76, respirations 18, blood pressure 157/94, and pulse ox 97% on room air. GENERAL: The patient is awake, alert and oriented x3, resting comfortably in bed at the present time. HEENT: Sclerae are anicteric. Conjunctiva moist. Oral mucosa moist. HEART: Normal S1 and S2. LUNGS: Clear to auscultation. ABDOMEN: Soft. Minimally tender in the epigastrium and right upper quadrant area (the patient reports that degree of palpation would have been extremely uncomfortable last evening and earlier this morning). The abdomen is obese without rebound or guarding. There are positive bowel sounds. There is no evidence of ascites or shifting dullness. EXTREMITIES: Normal range of motion in upper and lower extremities. There are no rashes. Extremities are without clubbing or cyanosis. Trace peripheral edema. RECTAL: Deferred at this time. LABORATORY STUDIES: On admission, white count 7.3, hemoglobin 13.8, MCV 84, and platelets 312,000. BUN and creatinine are 24 and 0.9. Potassium 4.2. AST is elevated at 146, ALT is 80, total bilirubin 0.5, alkaline phosphatase 98, total protein 7.5, albumin 3.8, and lipase 162. IMAGING STUDIES: By ultrasound showed pneumobilia, presumably from her recent ERCP with sphincterotomy and persistence of mild dilation in the left lobe of the intrahepatic ducts. The common bile duct measures 8 mm without apparent ductal calculi. Gallbladder is surgically absent. MRCP suggested similar findings to the left intrahepatic ductal system as previously reported, but in addition on today's MRCP, there is a 5-mm distal common bile duct filling defect that presumably represents a stone. The patient is status post cholecystectomy. No obvious masses are identified on MRCP. IMPRESSION AND PLAN: The patient is with epigastric right upper quadrant pain that is recurrent, but in this instance, LFTs were increased, which had not occurred during previous evaluations. MRCP suggested a presence of a distal common bile duct stone. We will plan for ERCP tomorrow to clear the bile duct and re-interrogate the biliary system. However, this modality may be limited and it may be optimal for the patient to have a direct cholangioscopy by SpyGlass technique and I will contact [facility] once the patient's acute illness is resolved in order to address this chronic finding. This modality may better interrogate the biliary system and assess for any potential strictures or tubular filling defects as suggested on prior and recent MRCP. We will keep the patient n.p.o. except for small ice chips and sips of water and plan for ERCP tomorrow afternoon. Currently, the patient is afebrile and without leukocytosis; however, if there is any sense of cholangitis, then we would begin antibiotic coverage. Further recommendations to follow. Please obtain liver tests tomorrow morning as well. Thank you for allowing me to participate in this patient's care. Sincerely,
[2016-11-11] MEDS: MoRPHine SULFATE 2 MG/ML CARP IV PRN (19:26)
[2016-11-11] MEDS: PANTOprazole SOD 40 MG TAB PO SCH (21:01)
[2016-11-11] MEDS: HEPARIN SOD 5000 UNIT/0.5 ML CARP SQ SCH (21:03)
[2016-11-11 23:10] VITALS: BP 115/76; PULSE 46; TEMP 36.4; O2SAT 98
[2016-11-12] MEDS: HEPARIN SOD 5000 UNIT/0.5 ML CARP SQ SCH ×3 (05:52→21:11)
[2016-11-12 07:20] VITALS: BP 94/56; PULSE 53; TEMP 36.7; O2SAT 97
[2016-11-12] MEDS: ASPIRIN 81 MG ECTAB PO SCH (08:49)
[2016-11-12] MEDS: AMLODIPINE BESYLATE 5 MG TAB PO SCH (08:49)
[2016-11-12] MEDS: PANTOprazole SOD 40 MG TAB PO SCH ×2 (08:49→21:08)
[2016-11-12 09:50] LABS: HEMATOCRIT 38.7 % (37-47); MEAN CORPUSCULAR HEMOGLOBIN 28.9 pg (25-34); MEAN CORPUSCULAR HGB CONC 33.6 g/dl (32-36); MEAN PLATELET VOLUME 9.4 fL (7.4-10.4); PLATELET COUNT 263 K/uL (130-400); WHITE BLOOD COUNT 6.09 K/uL (4.8-10.8)
[2016-11-12 10:11] LABS: BUN/CREATININE RATIO 23.5 (10-20); CALCIUM 8.8 mg/dl (8.5-10.1); CREATININE 1.1 mg/dl (0.60-1.20); POTASSIUM 4.2 mmol/L (3.5-5.1)
[2016-11-12 10:13] LABS: ALB/GLOB RATIO 0.9 (0.9-2)
[2016-11-12] MEDS ORDERED: PROPOFOL IV EMULSION 10 MG/ML 20 ML VIAL IV ONE (13:09)
[2016-11-12] MEDS ORDERED: LIDOCAINE HCL 2% 2 ML VIAL (20MG/ML) ONE (13:09)
[2016-11-12] MEDS ORDERED: ROCURONIUM BROMIDE 10 MG/ML 5 ML VIAL ONE (13:09)
[2016-11-12] MEDS ORDERED: SUCCINYLCHOLINE CHLORIDE 20 MG/ML 10 ML VIAL IV ONE (13:09)
[2016-11-12] MEDS ORDERED: FENTANYL CITRATE INJ 50 MCG/1 ML 2 ML VIAL ONE (13:10)
[2016-11-12] MEDS ORDERED: MIDAZOLAM HCL 1 MG/ML 2ML VIAL ONE (13:10)
[2016-11-12] MEDS ORDERED: INDOMETHACIN 50 MG SUPP PR ONE (13:41)
[2016-11-12] MEDS ORDERED: ONDANSETRON INJ 2 MG/ML 2 ML VIAL IV PRN (13:45)
[2016-11-12] MEDS ORDERED: ATROPINE SULFATE 0.1 MG/ML 5ML SYR IV PRN (13:45)
[2016-11-12] MEDS ORDERED: EpHEDrine SULFATE INJ 50 MG/ML AMP IV PRN (13:45)
[2016-11-12] MEDS ORDERED: FENTANYL CITRATE INJ 50 MCG/1 ML 2 ML VIAL IV PRN (13:45)
[2016-11-12] MEDS ORDERED: SODIUM CHLORIDE 0.9% 500ML 500 ML IV ONE (13:50)
--- NOTE | 2016-11-12 13:53 | History & Physical Bridge Note ---
H&P Re-Evaluation Bridge Note: I have examined the patient, reviewed the History & Physical and in the interval since the performance of the History & Physical I have noted the following changes of clinical significance: No changes noted
--- NOTE | 2016-11-12 14:06 | Hospitalist Progress Note ---
Hospitalist Progress Note Date of Service Nov 12, 2016. Subjective Pt evaluation today including: conversation w/ patient, conversation w/ family , physical exam, chart review, lab review, review of studies, review of inpatient medication list Patient seen and evaluated. Resting in bed and verbalizes no complaints. Is due for ERCP today for possible CBD stone. Possible need for transfer to [place] pending ERCP. She denies N/V or abdominal pain at this time. Does have chronic constipation but verbalizes no acute issues or discomfort from this. Constitutional: No fever, No chills Respiratory: No cough, No shortness of breath Cardiovascular: No chest pain, No palpitations Abdomen: + constipation, No pain, No nausea, No vomiting, No diarrhea Female : No dysuria Heme: No abnormal bleeding/bruising Medications Current Inpatient Medications Medications (Trade) Dose Ordered Sig/Ming Route Start Time Stop Time Status Last Admin Dose Admin Amlodipine Besylate (Norvasc Tab) 2.5 mg QAM PO 11/12/16 09:00 12/12/16 08:59 Aspirin (Ecotrin Tab) 81 mg QAM PO 11/12/16 09:00 12/12/16 08:59 Pantoprazole Sodium (Protonix Tab) 40 mg BID PO 11/11/16 21:00 12/11/16 20:59 11/11/16 21:01 40 MG Heparin Sodium (Porcine) (Heparin Sq 5000 Unit/0.5ml) 5,000 unit Q8 SQ 11/11/16 22:00 12/11/16 21:59 11/12/16 05:52 5,000 UNIT Acetaminophen (Tylenol Tab) 650 mg Q4H PRN PO 11/11/16 12:45 12/11/16 12:44 11/12/16 07:26 650 MG Al Hydrox/Mg Hydrox/Simethicone (Maalox Max Susp) 15 ml Q4H PRN PO 11/11/16 12:45 12/11/16 12:44 Magnesium Hydroxide (Milk Of Magnesia Susp) 30 ml Q6H PRN PO 11/11/16 12:45 12/11/16 12:44 Polyethylene (Miralax Powder Packet) 17 gm DAILY PRN PO 11/11/16 12:45 12/11/16 12:44 Ondansetron HCl (Zofran Inj) 4 mg Q6H PRN IV 11/11/16 12:45 12/11/16 12:44 Morphine Sulfate (MoRPHine SULFATE INJ) 2 mg Q3H PRN IV 11/11/16 13:00 11/25/16 12:59 11/11/16 19:26 2 MG Miscellaneous (Iv Fluids Completed) 1 ea PRN PRN N/A 11/11/16 13:45 11/11/17 13:44 Fentanyl Citrate (Fentanyl Inj) 25 mcg Q5M PRN IV 11/12/16 13:45 11/12/16 19:00 Ondansetron HCl (Zofran Inj) 4 mg ONE PRN IV 11/12/16 13:45 11/12/16 19:00 Ephedrine Sulfate (EpHEDrine SULFATE INJ) 5 mg Q5M PRN IV 11/12/16 13:45 11/12/16 19:00 Atropine Sulfate (Atropine Sulfate 0.1MG/Ml Inj) 0.5 mg Q1M PRN IV 11/12/16 13:45 11/12/16 19:00 Sodium Chloride 500 ml @ 15 mls/hr Q24H ONCE IV 11/12/16 13:50 11/13/16 13:49 Objective Vital Signs Date Time Temp Pulse Resp B/P (MAP) Pulse Ox O2 Delivery O2 Flow Rate FiO2 11/12/16 07:59 Room Air 11/12/16 07:20 36.7 53 16 94/56 (69) 97 Room Air 11/11/16 23:10 36.4 46 16 115/76 (89) 98 Room Air 11/11/16 19:30 Room Air 11/11/16 16:37 Room Air 11/11/16 15:06 36.8 69 16 146/88 (107) 95 Room Air 11/11/16 14:35 60 16 149/99 97 Room Air Physical Exam General Appearance: WD/WN, no apparent distress Eyes: sclerae normal ENT: hearing grossly normal Neck: supple, no JVD, trachea midline Respiratory/Chest: lungs clear, normal breath sounds, no respiratory distress, no accessory muscle use Cardiovascular: regular rate, rhythm, no gallop, no murmur Abdomen: normal bowel sounds, non tender, soft Extremities: no pedal edema Neurologic/Psychiatric: alert, oriented x 3 Skin: normal color, warm/dry Laboratory Results Last 24 Hours Test 11/12/16 09:26 White Blood Count 6.09 K/uL Red Blood Count 4.50 M/uL Hemoglobin 13.0 g/dL Hematocrit 38.7 % Mean Corpuscular Volume 86.0 fL Mean Corpuscular Hemoglobin 28.9 pg Mean Corpuscular Hemoglobin Concent 33.6 g/dl RDW Standard Deviation 43.5 fL RDW Coefficient of Variation 13.8 % Platelet Count 263 K/uL Mean Platelet Volume 9.4 fL Sodium Level 141 mmol/L Potassium Level 4.2 mmol/L Chloride Level 108 mmol/L Carbon Dioxide Level 26 mmol/L Anion Gap 7.0 mmol/L Blood Urea Nitrogen 26 mg/dl Creatinine 1.10 mg/dl Est Creatinine Clear Calc Drug Dose 63.4 ml/min Estimated GFR () 66.4 Estimated GFR (Non- 57.3 BUN/Creatinine Ratio 23.5 Random Glucose 76 mg/dl Calcium Level 8.8 mg/dl Total Bilirubin 0.6 mg/dl Aspartate Amino Transf (AST/SGOT) 44 U/L Alanine Aminotransferase (ALT/SGPT) 73 U/L Alkaline Phosphatase 72 U/L Total Protein 6.8 gm/dl Albumin 3.3 gm/dl Globulin 3.5 gm/dl Albumin/Globulin Ratio 0.9 Assessment and Plan Ms. Jane is a 51 y/o female Acute on Chronic Abdominal Pain: - MRCP suggests 5 mm filling defect in distal CBD with mild intra/extra hepatic bile duct dilation - GI following - ERCP for today and possible need for [place] transfer for SpyGlass Transaminitis: IMPROVING - As above, no elevation in alk phos or bili with resolving elevations HTN: - Norvasc 2.5 mg daily DVT Prophylaxis: Heparin 5000 units SC Q8H Code Status: FULL RESUSCITATION Disposition: - Await ERCP - may possibly need transfer for further studies/interventions vs outpatient follow-up Continued [facility] stay due to: multiple IV medications needed Discharge planning: uncertain
[2016-11-12] MEDS ORDERED: CIPROFLOXACIN 400MG / 200ML D5W ONE (14:38)
[2016-11-12] MEDS ORDERED: DEXAMETHASONE SOD INJ 4 MG/ML VIAL ONE (15:05)
[2016-11-12] MEDS ORDERED: ONDANSETRON INJ 2 MG/ML 2 ML VIAL ONE (15:05)
[2016-11-12] MEDS ORDERED: EpHEDrine SULFATE 50MG/5ML SYR ONE (15:05)
--- NOTE | 2016-11-12 15:26 | GI REPORT ---
Procedure Date: 11/12/2016 2:02 PM Procedure: ERCP Indications: Abdominal pain of suspected biliary origin, Suspected bile duct stone(s), Abnormal liver function test Medicines: General Anesthesia Complications: No immediate complications. Estimated Blood Loss: Estimated blood loss: none. Procedure: Pre-Anesthesia Assessment: - Prior to the procedure, a History and Physical was performed, and patient medications and allergies were reviewed. The patient's tolerance of previous anesthesia was also reviewed. The risks and benefits of the procedure and the sedation options and risks were discussed with the patient. All questions were answered, and informed consent was obtained. Prior Anticoagulants: The patient has taken no previous anticoagulant or antiplatelet agents. ASA Grade Assessment: II - A patient with mild systemic disease. After reviewing the risks and benefits, the patient was deemed in satisfactory condition to undergo the procedure. After obtaining informed consent, the scope was passed under direct vision. Throughout the procedure, the patient's blood pressure, pulse, and oxygen saturations were monitored continuously. The SCOPE was introduced through the mouth, and advanced to the duodenum and used to inject contrast into the bile duct. The ERCP was accomplished without difficulty. The patient tolerated the procedure well. Findings: A biliary stent was visible on the medical records secretary film. The scope was advanced to a normal major papilla in the descending duodenum. Examination of the pharynx, larynx and associated structures, and upper GI tract was normal. A biliary sphincterotomy had been performed. The sphincterotomy appeared open. A straight 0.035 inch Tracer [employer] Direct wire was passed into the biliary tree. The 8.5 mm balloon and 12 mm balloon was passed over the guidewire and the bile duct was then deeply cannulated. Contrast was injected. I personally interpreted the bile duct images. Ductal flow of contrast was adequate. Image quality was adequate. Contrast extended to the entire biliary tree. The main bile duct contained one stone, which was 10 mm in diameter. The biliary sphincterotomy was extended to a total of 3 mm in length with a short-tip traction sphincterotome using ERBE electrocautery. There was self limited oozing from the sphincterotomy which did not require treatment. The biliary tree was swept with an 8 mm balloon and 12 mm balloon starting at the bifurcation. Sludge was swept from the duct. All stones were removed. -The PD was neither instrumented nor opacified. No samples taken. No stents placed. Final occlusion cholangiogram revealed no fixed or mobile persisting filling defects. Impression: - Prior biliary endoscopic sphincterotomy appeared open. - A sphincterotomy was performed. - The biliary tree was swept. - Choledocholithiasis was found. Complete removal was accomplished by biliary sphincterotomy and balloon extraction. Recommendation: - Return patient to hospital [facility] for ongoing care. - Advance diet as tolerated. - Cipro (ciprofloxacin) 500 mg PO BID for 3 days. MD Дмитрий Brody MD 11/12/2016 3:25:44 PM This report has been signed electronically. Note Initiated On: 11/12/2016 2:02 PM I attest to the content of the Intraoperative Record and orders documented therein, exceptions below
--- NOTE | 2016-11-12 15:26 | Anesthesiology Progress Note ---
Anesthesia Post Op Note Date & Time Nov 12, 2016 at 15:26 Vital Signs Pain Intensity: 0 Vital Signs Past 12 Hours Date Time Temp Pulse Resp B/P (MAP) Pulse Ox O2 Delivery O2 Flow Rate FiO2 11/12/16 15:06 36.2 88 16 146/85 97 Mask 7 11/12/16 07:59 Room Air 11/12/16 07:20 36.7 53 16 94/56 (69) 97 Room Air Notes Mental Status: alert / awake / arousable, participated in evaluation Pt Amnestic to Procedure: Yes Nausea / Vomiting: adequately controlled Pain: adequately controlled Airway Patency, RR, SpO2: stable & adequate BP & HR: stable & adequate Hydration State: stable & adequate Anesthetic Complications: no major complications apparent
--- NOTE | 2016-11-12 15:36 | DIAGNOSTIC IMAGING REPORT ---
ERCP BILIARY DUCTAL HISTORY: 51 years-old Female ERCP with removal of 5 mm stone within the common bile duct COMPARISON: MRCP 11/11/2016, CT abdomen and pelvis 08/20/2016 TECHNIQUE: 17 spot fluoroscopic images of the right upper abdomen were obtained during ERCP utilizing 341.8 seconds of fluoroscopy time. FINDINGS: Cholecystectomy clips are again noted within the right upper abdomen. Linear structure overlying the right ninth rib seen on image 3 mL with respiratory motion suggesting pulmonary vascularity or alternatively linear subsegmental atelectasis. There is cannulation of the common bile duct with a linear filling defect seen within the region of the distal common bile duct suggesting stone as seen on comparison MRCP which subsequently is removed. Alternatively this may reflect an air bubble. No additional filling defects or focal stricturing identified. IMPRESSION: 1. ERCP as above with removal of 5 mm stone involving the distal common bile duct. Please see procedural report for further details. 2. Linear structure overlying the right ninth rib moves with respiratory motion suggesting pulmonary vascularity or alternatively linear atelectasis. The above report was generated using voice recognition software. It may contain grammatical, syntax or spelling errors. Electronically signed by: Felipe Herrera M.D. 11/12/2016 3:34 PM Dictated Date/Time: 11/12/2016 3:29 PM
[2016-11-12] MEDS ORDERED: CPR500 PO (15:53)
[2016-11-12 16:00] VITALS: BP 152/91; PULSE 69; TEMP 36.4; O2SAT 97
[2016-11-12 16:01] VITALS: O2SAT 97
[2016-11-12] MEDS: MoRPHine SULFATE 2 MG/ML CARP IV PRN ×3 (16:06→20:01)
[2016-11-12] MEDS ORDERED: NURSING VERBAL MED ORDER ONE (17:15)
[2016-11-12] MEDS ORDERED: MoRPHine SULFATE 2 MG/ML CARP IV ONE (17:30)
[2016-11-12] MEDS ORDERED: HYDROmorphone INJ 1 MG/ML SYR IM PRN (17:45)
[2016-11-12 19:20] VITALS: BP 134/87; PULSE 71; TEMP 36.6; O2SAT 95
[2016-11-12] MEDS: CIPROFLOXACIN 500 MG TAB PO SCH (21:08)
[2016-11-12 23:44] VITALS: BP 111/73; PULSE 60; TEMP 36.5; O2SAT 94
[2016-11-13 03:32] VITALS: BP 111/72; PULSE 60; TEMP 36.4; O2SAT 96
[2016-11-13] MEDS: HEPARIN SOD 5000 UNIT/0.5 ML CARP SQ SCH ×2 (05:38→13:53)
[2016-11-13 06:49] LABS: HEMATOCRIT 39.8 % (37-47); MEAN CELL VOLUME 84.9 fL (80-100); MEAN CORPUSCULAR HGB CONC 34.2 g/dl (32-36); MEAN PLATELET VOLUME 9.3 fL (7.4-10.4); PLATELET COUNT 290 K/uL (130-400); RED BLOOD COUNT 4.69 M/uL (4.2-5.4)
[2016-11-13 07:23] LABS: BUN/CREATININE RATIO 20.9 (10-20); CALCIUM 8.6 mg/dl (8.5-10.1); CREATININE 0.88 mg/dl (0.60-1.20); POTASSIUM 4.3 mmol/L (3.5-5.1)
[2016-11-13 07:25] VITALS: BP 126/84; PULSE 57; TEMP 36.5; O2SAT 98
[2016-11-13 08:00] VITALS: O2SAT 98
[2016-11-13 08:30] VITALS: PULSE 68
[2016-11-13] MEDS: PANTOprazole SOD 40 MG TAB PO SCH (08:31)
[2016-11-13] MEDS: ASPIRIN 81 MG ECTAB PO SCH (08:32)
[2016-11-13] MEDS: AMLODIPINE BESYLATE 5 MG TAB PO SCH (08:32)
[2016-11-13] MEDS: CIPROFLOXACIN 500 MG TAB PO SCH (08:32)
[2016-11-13] MEDS ORDERED: CPR500 PO (11:00)
--- NOTE | 2016-11-13 11:06 | Discharge Instructions ---
Discharge Instructions Date of Service Nov 13, 2016. Admission Reason for Admission: Epigastric Abdominal Pain, Lfts Abnormal Discharge Discharge Diagnosis / Problem: Common Bile Duct Stone Discharge Goals Goal(s): Decrease discomfort, Improve function, Increase independence Activity Recommendations Activity Limitations: as noted below Lifting Limitations: gradually increase as tolerated Exercise/Sports Limitations: until after follow-up appointment Shower/Bathe: no limitations . Instructions / Follow-Up Instructions / Follow-Up Common Bile Duct Stone: - Your imaging and ERCP showed and removed a stone that was in your bile ducts. - Recommend to continue a low fiber diet and avoid foods that normally cause you discomfort - You were started on Ciprofloxacin (this is an antibiotic) to finish out a 5 day course. This prescription was sent over to your pharmacy -- You received the morning dose today so take one dose this evening (11/13) then continue twice a day on 11/14 until all pills are gone. - Dr. Delaney will be in contact with you to discuss the need to go to [place] to have further studies/intervention Home Medications: - Continue your home medications as previously prescribed. We have not made any changes to these Follow-Up: - Follow-up with Dr. Delaney. They will be in contact with you - Recommend follow-up with your family doctor in 7-10 days if possible Current Hospital Diet Patient's current hospital diet: Low Fiber Diet Discharge Diet Recommended Diet: Low Fiber Diet Procedures Procedures Performed: Endoscopic Retrograde Cholangiopancreatogram Pending Studies Studies pending at discharge: no Medical Emergencies . Who to Call and When: Medical Emergencies: If at any time you feel your situation is an emergency, please call 911 immediately. . Non-Emergent Contact Non-Emergency issues call your: Primary Care Provider Call Non-Emergent contact if: you have a fever, your pain is concerning you, you have any medication questions . . "Provider Documentation" section prepared by Madelyn Davis. . VTE Core Measure Inpt VTE Proph given/why not?: Unfractionated heparin SQ
[2016-11-13 12:08] VITALS: BP 118/77; PULSE 56; TEMP 36.4; O2SAT 100
[2016-11-13] MEDS ORDERED: ONDA4TAB10 SL (13:26)
[2016-11-13 13:54] VITALS: BP 118/77; PULSE 56; TEMP 36.4; O2SAT 100
--- NOTE | 2016-11-13 14:00 | Discharge Summary ---
Discharge Summary Date of Service Nov 13, 2016. Discharge Summary Admission Date: Nov 11, 2016 at 12:47 Discharge Date: Nov 13, 2016 Discharge Disposition: Home Principal Diagnosis: Choledocholithiasis Problems/Secondary Diagnoses: 1. HTN 2. Idiopathic Troponin Elevation 3. S/P Cholecystectomy 4. Irritable Bowel Syndrome Procedures: MRCP FINDINGS: Patient is status post cholecystectomy. There is mild intra and extra hepatic bile duct dilatation which has progressed. The common bile duct measures up to 8 mm in diameter. There is a 5 mm hypointense oval-shaped filling defect seen within the distal common bile. This is consistent with a stone. The kidneys, spleen, pancreas, and adrenal glands are unremarkable. No retroperitoneal lymphadenopathy. Stable subcentimeter cyst within the left hepatic lobe. No significant change within the abnormal appearing left intrahepatic bile ducts. This includes a tubular appearing filling defect within the dilated left intrahepatic ducts. There are suggestion of focal stricturing within the proximal left intrahepatic bile ducts. IMPRESSION: 1. Interval development of a 5 mm filling defect within the distal common bile duct with mild intra and extra hepatic bile duct dilatation. This is consistent with a common bile duct stone. 2. Cholecystectomy. ERCP Impression: - Prior biliary endoscopic sphincterotomy appeared open. - A sphincterotomy was performed. - The biliary tree was swept. - Choledocholithiasis was found. Complete removal was accomplished by biliary sphincterotomy and balloon extraction. Consultations: 1. Gastroenterology Medication Reconciliation New Medications: Ondasetron Odt (Zofran Odt) 4 Mg Tab 4 MG SL Q6H PRN for Nausea for 3 Days, #12 TAB Ciprofloxacin (Ciprofloxacin HCl) 500 Mg Tab 500 MG PO BID, #9 TAB 0 Refills Take on dose this evening 11/13 then resume twice a day on 11/14 until complete Continued Medications: Amlodipine (Norvasc) 2.5 Mg Tab 2.5 MG PO QAM, TAB Aspirin (Aspirin Ec) 81 Mg Tab 81 MG PO QAM Omeprazole (Prilosec) 40 Mg Cap 80 MG PO BID Sumatriptan Succinate (Imitrex) 50 Mg Tab 50 MG PO UD PRN for Headache, TAB TAKE MD DIRECTS Discharge Exam Review of Systems: Constitutional: No fever, No chills Respiratory: No cough, No shortness of breath Cardiovascular: No chest pain, No palpitations Abdomen: No pain, No nausea, No vomiting, No diarrhea, No constipation, No GI bleeding Musculoskeletal: No swelling, No calf pain Genitourinary - Female: No dysuria Hematologic / Lymphatic: No abnormal bleeding/bruising Integumentary: No rash Physical Exam: General Appearance: WD/WN, no apparent distress, + pertinent finding ( predominantly flat affect - intermittently smiling) Eyes: sclerae normal ENT: hearing grossly normal Neck: supple, no JVD, trachea midline Respiratory/Chest: lungs clear, normal breath sounds, no respiratory distress, no accessory muscle use Cardiovascular: regular rate, rhythm, no gallop, no murmur Abdomen / GI: normal bowel sounds, non tender, soft Extremities: no calf tenderness, no pedal edema Neurologic/Psychiatric: alert, oriented x 3 Skin: normal color, warm/dry Hospital Course ADMISSION: 51 y/o F Hx HTN, chronic abdominal pain, idiopathic trop elevation . Pt has had ongoing upper abdominal pain for a few months. She recently had an ERCP which did not elucidate an etiology. She presents to the ER complaining of worsening pain. She denies N/V/D, CP, SOB. Initial labs reveal LFT elevations which were not present previously. Her GI attending was contacted and has requested that she be admitted for further evaluation including an MRCP. She denies CP, SOB, vomiting or diarrhea. She has occasional nausea. HOSPITAL COURSE: Ms. Jane was admitted for choledocholithiasis that was removed by S/P ERCP on 11/[address] Delaney. LFTs were initially trending down but with mild elevation after ERCP and sphincterotomy which is expected. She had some post-procedure pain but is currently resolved and tolerated a regular low fiber diet. Dr. Delaney discussed outpatient referral to [facility] for a possible SpyGlass procedure. Patient was continued on her home medications as previously prescribed. She will be placed on Ciprofloxacin 500 mg BID x 5 days total. She is hemodynamically stable and optimal for discharge home with outpatient follow-up. Total Time Spent: Greater than 30 minutes This includes examination of the patient, discharge planning, medication reconciliation, and communication with other providers. Discharge Instructions Please refer to the electronic Patient Visit Report (Discharge Instructions) for additional information. Additional Copies To Judy Abrams M.D.
--- NOTE | 2016-11-13 17:42 | GASTROENTEROLOGY PROGRESS NOTE ---
DATE: 11/13/2016 SUBJECTIVE: The patient underwent an ERCP yesterday with a common bile duct stone removal following extending sphincterotomy. Clinically, the patient did well overall during the night, although did require some pain medication for control. This morning, she is actually feeling well, tolerates liquids and is waiting for her lunch time meal. If this goes well, she can be discharged from a GI standpoint. Her LFTs did increase today, although this may be due to duct manipulation. Alkaline phosphatase is elevated at 180, ALT 109, and AST 64. White count, however, is normal at 5.1 and hemoglobin 13.6. VITAL SIGNS: Otherwise, stable. Blood pressure is 118/77, respirations 16, heart rate 56, afebrile at 36.4, and 100% on room air. REVIEW OF SYSTEMS: Otherwise noncontributory based on 13-point exam. PHYSICAL EXAMINATION: GENERAL: The patient is awake, alert and oriented x3. HEENT: Oral mucosa moist. HEART: Normal S1 and S2. ABDOMEN: Soft, flat, nontender, and nondistended with good bowel sounds. LUNGS: Clear to auscultation. EXTREMITIES: Without clubbing, cyanosis or edema. RECTAL: Deferred. IMPRESSION: Would follow LFTs as an outpatient in approximately 1 week to ensure that these are resolving. Certainly, the common bile duct stone may have been the source of the patient's right upper quadrant epigastric pain on presentation. The question of a possible filling defect in the left duct distribution in the liver remains unresolved and depending on her response to this and liver test patterns, at some point, it may be prudent for the patient to undergo endoscopic ultrasound to see if the left lobe and biliary system can be interrogated for any filling defects as well as an ERCP with SpyGlass technology that would permit direct cholangioscopy. This would be arranged at [place]. I will have the patient return to the office in approximately 2 weeks and she knows to contact me with any changes. All questions answered.
== END 2016-11-13 14:15 | disposition home or self-care (01) ==
LOC: C.EDB 08:22 → C.MSN 12:47 → EDBEDREQSVC 13:32 → ENRESERV 13:55
PROVIDERS: ADMIT Internal Medicine; ATTEND Internal Medicine
DX: K80.50 Calculus of bile duct without cholangitis or cholecystitis without obstruction (principal); I10 Essential (primary) hypertension; K58.9 Irritable bowel syndrome, unspecified; R79.89 Other specified abnormal findings of blood chemistry; Z79.82 Long term (current) use of aspirin; Z79.899 Other long term (current) drug therapy; Z90.49 Acquired absence of other specified parts of digestive tract

== ENCOUNTER → 2016-11-18 | Outpatient (CLI) | payer OTHER ==
[~2016-11-18] MED LIST changes: +ACET-1256 PO; +CMD5 PO; +CPR500 PO; +ENOX120I SQ; +LACT1CAP6 PO; +MOXI400T2 PO; +OMEP40CA41 PO; +ONDA4TAB46 PO; +PRED20TA2 PO; +PRED50TA PO; -TRAZ50TA35 PO
--- NOTE | 2016-11-18 10:35 | DIAGNOSTIC IMAGING REPORT ---
RIGHT KNEE 2 VIEWS HISTORY: RIGHT KNEE PAIN Right COMPARISON: None. FINDINGS: There is no fracture or dislocation. Suspect a small knee effusion. Cartilage spaces are maintained for age. There are 2 screws within the proximal tibia. The hardware appears intact. No abnormal periprosthetic lucency. IMPRESSION: No fractures. Probable small knee effusion. Electronically signed by: Bishnu Shrestha M.D. 11/18/2016 10:34 AM Dictated Date/Time: 11/18/2016 10:32 AM
== END | disposition home or self-care (01) ==
LOC: C.RAD1850 10:07
PROVIDERS: ATTEND Nurse Practitioner Family
DX: M25.561 Pain in right knee (principal); M79.89 Other specified soft tissue disorders; W22.8XXA Striking against or struck by other objects, initial encounter

== ENCOUNTER → 2016-12-31 | Outpatient (CLI) | payer OTHER ==
--- NOTE | 2016-12-31 11:38 | DIAGNOSTIC IMAGING REPORT ---
RIGHT LOWER EXTREMITY VENOUS DOPPLER HISTORY: R LEG PAIN COMPARISON STUDY: None. FINDINGS: The right common femoral, superficial femoral, popliteal, anterior tibial, posterior tibial veins are patent. There is broken flow within the mid to distal peroneal veins consistent with thrombus. IMPRESSION: Partial thrombosis of the mid to distal right peroneal veins consistent with deep vein thrombosis. Electronically signed by: Bishnu Shrestha M.D. 12/31/2016 11:37 AM Dictated Date/Time: 12/31/2016 11:33 AM
== END | disposition home or self-care (01) ==
LOC: C.ULTRBC 10:54
PROVIDERS: ATTEND Nurse Practitioner Family
DX: M79.604 Pain in right leg (principal)

== ENCOUNTER → 2017-01-02 | Outpatient (CLI) | payer OTHER ==
[2017-01-02 13:56] LABS: INR 1.1 (0.9-1.1); PROTHROMBIN TIME (PATIENT) 11.6 SECONDS (9.0-12.0)
== END | disposition home or self-care (01) ==
LOC: C.LABBC 09:58
PROVIDERS: ATTEND Nurse Practitioner Family
DX: I82.409 Acute embolism and thrombosis of unspecified deep veins of unspecified lower extremity (principal)

== ENCOUNTER 2017-01-03 22:49 | Emergency (ER) | payer OTHER ==
[~2017-01-03] VITALS: Ht 154.9 cm; Wt 95.5 kg
[~2017-01-03 22:49] MED LIST changes: -ACET-1256 PO; -CMD5 PO; -ENOX120I SQ; -LACT1CAP6 PO; -MOXI400T2 PO; -ONDA4TAB46 PO; -PRED20TA2 PO; -PRED50TA PO
[2017-01-03 22:54] VITALS: TEMP 36.3; Ht 154.9 cm; Wt 95.5 kg
[2017-01-03] MEDS ORDERED: RANITIDINE HCL 50 MG/100 ML D5W IV STA (23:20)
[2017-01-03] MEDS ORDERED: METHYLPREDNISOLONE 125 MG VIAL IV STA (23:20)
[2017-01-03] MEDS ORDERED: SODIUM CHLORIDE 0.9% 1000ML 1,000 ML IV ONE (23:30)
[2017-01-03 23:58] LABS: BASO % 0.1 %; BASO ABS # 0.02 K/uL (0-0.2); COMPLETE YES; HEMATOCRIT 42.1 % (37-47); IG% 0.5 %; LYMPH % 15.1 %; LYMPH ABS # 2.22 K/uL (1.2-3.4); MEAN CELL VOLUME 84.5 fL (80-100); MEAN CORPUSCULAR HEMOGLOBIN 27.5 pg (25-34); MEAN CORPUSCULAR HGB CONC 32.5 g/dl (32-36); MEAN PLATELET VOLUME 9.2 fL (7.4-10.4); MONO % 4.1 %; NEUT % 80.2 %; PLATELET COUNT 355 K/uL (130-400); RED BLOOD COUNT 4.98 M/uL (4.2-5.4); WHITE BLOOD COUNT 14.72 K/uL (4.8-10.8)
[2017-01-04 00:07] LABS: INR 1.1 (0.9-1.1); PARTIAL THROMBOPLASTIN RATIO 1.2; PROTHROMBIN TIME (PATIENT) 12.3 SECONDS (9.0-12.0)
[2017-01-04 00:25] LABS: BUN/CREATININE RATIO 17.8 (10-20); CALCIUM 9.6 mg/dl (8.5-10.1); CREATININE 0.99 mg/dl (0.60-1.20); MAGNESIUM 2.2 mg/dl (1.8-2.4); POTASSIUM 4.2 mmol/L (3.5-5.1)
[2017-01-04 00:28] LABS: ALB/GLOB RATIO 0.9 (0.9-2)
[2017-01-04 00:50] VITALS: BP 145/71; PULSE 57; O2SAT 95
[2017-01-04] MEDS ORDERED: PRED20TA2 PO (00:55)
[2017-01-04] MEDS ORDERED: ACET-1256 PO (03:12)
[2017-01-04] MEDS ORDERED: ENOX120I SQ (03:13)
[2017-01-04] MEDS ORDERED: LACT1CAP6 PO (03:15)
[2017-01-04] MEDS ORDERED: MOXI400T2 PO (03:16)
[2017-01-04] MEDS ORDERED: ONDA4TAB46 PO (03:18)
[2017-01-04] MEDS ORDERED: PRED50TA PO (03:20)
[2017-01-04] MEDS ORDERED: CMD5 PO (03:22)
[2017-01-04] MEDS ORDERED: ASPI81TA28 PO (03:26)
--- NOTE | 2017-01-04 06:23 | EMERGENCY ROOM VISIT NOTE ---
History First contact with patient: 23:09 Chief Complaint: ALLERGIC REACTION Stated Complaint: HIVES- CHILLS Nursing Triage Summary: Pt states she was recently started on Xeralto for a LE DVT. Pt states she developed a rash, went to her PCP and was placed on Lovenox and Coumadin at that time. Pt states this evening she develop a rash on her bilaeral LE that progressed up her abdomen and chest. History of Present Illness The patient is a 51 year old female who presents to the Emergency Room with complaints of persistent rash over the past one day. The patient has a recent diagnosis of lower extremity DVT and was started on Xarelto. Evidently the patient took 2 doses of medication and began breaking out in a rash with swelling of her lower lip. She went to her primary care physician's office yesterday where the medication was discontinued. She was placed on Lovenox and Coumadin. The patient was given in injectable steroid as well as prescription for prednisone. The patient states that she was doing well this morning after taking the prednisone, however she began having more itching of her legs and her belly today, and noticed the rash returned. The patient is not having coughing, wheezing, throat swelling, abdominal pain, nausea, or vaginal irritation at this time. She has not had fever or chills. She rates her current discomfort a 4/10. Review of Systems More than 10 systems were reviewed and otherwise negative with the exception of history of present illness. Past Medical/Surgical History Medical Problems: (1) section (2) Cholecystectomy (3) FX ANKLE NOS-CLOSED (4) FX HUMERUS NOS-CLOSED (5) History of repair of inguinal hernia (6) Hysterectomy (7) IRRITABLE BOWEL SYNDROME (8) LFTs abnormal (9) Partial resection of colon (10) Rotator cuff injury Surgical Problems: (1) H/O rotator cuff surgery Family History Cancer Diabetes mellitus Gallbladder disease Heart disease Hypertension Kidney disease or stones Lung disease Seizures Social History Smoking Status: Never Smoker Drug Use: none Marital Status: Housing Status: lives alone Occupation Status: employed Current/Historical Medications Scheduled Amlodipine (Norvasc), 2.5 MG PO QAM Aspirin (Aspirin Ec), 81 MG PO QAM Enoxaparin (Lovenox), 120 MG SQ DAILY Lactobacillus (Probiotic), 1 CAP PO DAILY Moxifloxacin Hcl (Avelox), 400 MG PO DAILY Omeprazole (Prilosec), 40 MG PO BID Prednisone (Prednisone Tab), 1 TAB PO BID Prednisone (Prednisone), 50 MG PO DAILY Warfarin Sod (Coumadin), 5 MG PO DAILY Scheduled PRN Acetaminophen (Tylenol), 1,000 MG PO Q6H PRN for Pain or Fever Ondansetron Hcl (Zofran), 4 MG PO Q6H PRN for Nausea Sumatriptan Succinate (Imitrex), 50 MG PO UD PRN for Headache Physical Exam Vital Signs Date Time Temp Pulse Resp B/P (MAP) Pulse Ox O2 Delivery O2 Flow Rate FiO2 01/04/17 00:50 57 18 145/71 95 Room Air 01/03/17 23:13 Room Air 01/03/17 22:54 36.3 65 20 150/96 99 Room Air Physical Exam VITALS: Vitals are noted on the nurse's note and reviewed by myself. Vital signs stable. GENERAL: Well-developed, well-nourished, white female, who is in no acute distress and resting comfortably. Patient is cooperative with the examination. MOUTH: Mucous membranes moist. Tonsils are not enlarged. Pharynx without erythema, blood, or exudate. Uvula midline. Airway patent. NECK: Supple without nuchal rigidity. No lymphadenopathy. No thyromegaly. Cervical spine is nontender. HEART: Regular rate and rhythm without murmurs gallops or rubs. LUNGS: Clear to auscultation bilaterally without wheezes, rales or rhonchi. No retractions or accessory muscle use. ABDOMEN: Positive normal bowel sounds x 4. Soft, nontender, without masses or organomegaly. No guarding or rebound tenderness. SKIN: The skin was with urticarial lesions best appreciated on the anterior right thigh and left thigh. There are additional lesions on the anterior abdomen. Medical Decision & Procedures Laboratory Results 01/03/17 23:40 Red Blood Count 4.98, Mean Corpuscular Volume 84.5, Mean Corpuscular Hemoglobin 27.5, Mean Corpuscular Hemoglobin Concent 32.5, Mean Platelet Volume 9.2, Neutrophils (%) (Auto) 80.2, Lymphocytes (%) (Auto) 15.1, Monocytes (%) (Auto) 4.1, Eosinophils (%) (Auto) 0.0, Basophils (%) (Auto) 0.1, Neutrophils # (Auto) 11.80, Lymphocytes # (Auto) 2.22, Monocytes # (Auto) 0.60, Eosinophils # (Auto) 0.00, Basophils # (Auto) 0.02 01/03/17 23:40 Test 01/03/17 23:40 White Blood Count 14.72 K/uL (4.8-10.8) Red Blood Count 4.98 M/uL (4.2-5.4) Hemoglobin 13.7 g/dL (12.0-16.0) Hematocrit 42.1 % (37-47) Mean Corpuscular Volume 84.5 fL (80-100) Mean Corpuscular Hemoglobin 27.5 pg (25-34) Mean Corpuscular Hemoglobin Concent 32.5 g/dl (32-36) Platelet Count 355 K/uL (130-400) Mean Platelet Volume 9.2 fL (7.4-10.4) Neutrophils (%) (Auto) 80.2 % Lymphocytes (%) (Auto) 15.1 % Monocytes (%) (Auto) 4.1 % Eosinophils (%) (Auto) 0.0 % Basophils (%) (Auto) 0.1 % Neutrophils # (Auto) 11.80 K/uL (1.4-6.5) Lymphocytes # (Auto) 2.22 K/uL (1.2-3.4) Monocytes # (Auto) 0.60 K/uL (0.11-0.59) Eosinophils # (Auto) 0.00 K/uL (0-0.5) Basophils # (Auto) 0.02 K/uL (0-0.2) RDW Standard Deviation 44.3 fL (36.4-46.3) RDW Coefficient of Variation 14.3 % (11.5-14.5) Immature Granulocyte % (Auto) 0.5 % Immature Granulocyte # (Auto) 0.08 K/uL (0.00-0.02) Prothrombin Time 12.3 SECONDS (9.0-12.0) Prothromb Time International Ratio 1.1 (0.9-1.1) Activated Partial Thromboplast Time 31.2 SECONDS (21.0-31.0) Partial Thromboplastin Ratio 1.2 Anion Gap 12.0 mmol/L (3-11) Est Creatinine Clear Calc Drug Dose 69.4 ml/min Estimated GFR () 75.4 Estimated GFR (Non- 65.1 BUN/Creatinine Ratio 17.8 (10-20) Calcium Level 9.6 mg/dl (8.5-10.1) Magnesium Level 2.2 mg/dl (1.8-2.4) Total Bilirubin 0.2 mg/dl (0.2-1) Aspartate Amino Transf (AST/SGOT) 18 U/L (15-37) Alanine Aminotransferase (ALT/SGPT) 27 U/L (12-78) Alkaline Phosphatase 93 U/L (45-117) Total Protein 8.1 gm/dl (6.4-8.2) Albumin 3.9 gm/dl (3.4-5.0) Globulin 4.2 gm/dl (2.5-4.0) Albumin/Globulin Ratio 0.9 (0.9-2) Medications Administered Medications (Trade) Dose Ordered Sig/Ming Route Start Time Stop Time Status Last Admin Dose Admin Sodium Chloride 1,000 ml @ 999 mls/hr Q1H1M ONCE IV 01/03/17 23:30 01/04/17 00:30 DC 01/03/17 23:53 999 MLS/HR Methylprednisolone Sodium Succinate (Solu-Medrol IV) 125 mg NOW STAT IV 01/03/17 23:20 01/03/17 23:23 DC 01/03/17 23:53 125 MG Ranitidine HCl (zANTac IV) 50 mg NOW STAT IV 01/03/17 23:20 01/03/17 23:23 DC 01/03/17 23:53 50 MG ED Course Physical exam and history were performed. Nursing notes, EMR, and Medication List were personally reviewed. Patient appears to have an urticarial rash that has returned this evening. She has had symptoms like this for roughly the past 24-36 hours after starting Xarelto. The patient does not have signs or symptoms of anaphylaxis at this time and she does not appear to need epinephrine. IV access was established and basic labs were obtained. The patient was given IV Solu-Medrol and IV Zantac. She evidently has an allergy to other antihistamines. The patient's blood work is as above and was reviewed. She does have a mildly elevated white blood cell count of 14,000, however I suspect this is related to her recent steroid usage. She does not have a gross anemia or significant electrolyte imbalance. Her platelet count appears within normal limits. Her INR is normal, but she did just start the Coumadin yesterday. The patient was reevaluated multiple times with course of her stay. She had very rapid resolution of her symptoms after the IV Solu-Medrol. She did not have any fulminant symptoms and overall appears well for discharge home. I will provide the patient a different prescription for the prednisone, and advance her to a twice-daily dosing rather than a once daily dosing. She has an appointment in about 36 hours with her primary care physician, and was asked to keep this appointment. She should continue the Coumadin and Lovenox for her DVT treatment. She was otherwise invited back to the ER with any new, worsening , or concerning symptoms. The chart was completed utilizing [employer] Speech Voice Recognition Software. Grammatical errors, random word insertions, pronoun errors, and incomplete sentences are an occasional consequence of this system due to software limitations, ambient noise, and hardware issues. Any formal questions or concerns about the content, text, or information contained within the body of this dictation should be directly addressed to the provider for clarification. . Medical Decision Differential diagnosis: Etiologies such as allergic reaction, anaphylaxis, urticaria, Pham-Jeffery syndrome, toxic epidermal necrolysis, erythema multiforme, cellulitis, as well as others were entertained. Impression Primary Impression: Allergic reaction Departure Information Dispostion Home / Self-Care Condition GOOD Prescriptions Prednisone (Prednisone Tab) 20 Mg Tab 1 TAB PO BID for 5 Days, #10 TAB Prov: Gurdeep Polo PA-C 01/04/17 Referrals Judy Abrams MD (PCP) Forms HOME CARE DOCUMENTATION FORM, IMPORTANT VISIT INFORMATION Patient Instructions My [facility] Additional Instructions You were seen and evaluated today on an emergency basis only. This is not a substitute for, or an effort to provide, complete comprehensive medical care. It is not possible to recognize and treat all injuries or illnesses in a single emergency department visit. For this reason it is recommended that you followup with your primary care physician as scheduled on Thursday for recheck of your condition. Take prednisone 20 mg twice daily, once in the morning, and once in the evening for your symptoms. Continue other medications as prescribed. You are welcome to return to the emergency department anytime with new, worsening, or concerning symptoms.
== END 2017-01-04 01:20 | disposition home or self-care (01) ==
LOC: C.EDB 22:50
DX: T49.5X1A Poisoning by ophthalmological drugs and preparations, accidental (unintentional), initial encounter (principal); R21 Rash and other nonspecific skin eruption; K58.9 Irritable bowel syndrome, unspecified; Z79.01 Long term (current) use of anticoagulants; Z79.899 Other long term (current) drug therapy; Z86.718 Personal history of other venous thrombosis and embolism; Z87.828 Personal history of other (healed) physical injury and trauma; Z82.0 Family history of epilepsy and other diseases of the nervous system; Z82.49 Family history of ischemic heart disease and other diseases of the circulatory system; Z83.3 Family history of diabetes mellitus; Z83.79 Family history of other diseases of the digestive system; Z84.1 Family history of disorders of kidney and ureter

== ENCOUNTER → 2017-01-05 | Outpatient (CLI) | payer OTHER ==
[~2017-01-05] MED LIST changes: +ACET-1256 PO; +CMD5 PO; +ENOX120I SQ; +LACT1CAP6 PO; +MOXI400T2 PO; +ONDA4TAB46 PO; +PRED20TA2 PO; +PRED50TA PO
[2017-01-05 13:39] LABS: INR 2.5 (0.9-1.1); PROTHROMBIN TIME (PATIENT) 28.1 SECONDS (9.0-12.0)
== END | disposition home or self-care (01) ==
LOC: C.LABBC 10:03
PROVIDERS: ATTEND Nurse Practitioner Family
DX: I82.409 Acute embolism and thrombosis of unspecified deep veins of unspecified lower extremity (principal)

== ENCOUNTER → 2017-01-07 | Outpatient (CLI) | payer OTHER ==
[~2017-01-07] MED LIST changes: -CPR500 PO
[2017-01-07 11:00] LABS: INR 2.5 (0.9-1.1); PROTHROMBIN TIME (PATIENT) 28.3 SECONDS (9.0-12.0)
== END | disposition home or self-care (01) ==
LOC: C.LABBC 08:22
PROVIDERS: ATTEND Nurse Practitioner Family
DX: I82.409 Acute embolism and thrombosis of unspecified deep veins of unspecified lower extremity (principal)

== ENCOUNTER → 2017-01-19 | Outpatient (CLI) | payer OTHER ==
[~2017-01-19] MED LIST changes: -PRED20TA2 PO
[2017-01-19 17:19] LABS: INR 4.5 (0.9-1.1); PROTHROMBIN TIME (PATIENT) 51.2 SECONDS (9.0-12.0)
== END | disposition home or self-care (01) ==
LOC: C.LABBC 14:11
PROVIDERS: ATTEND Nurse Practitioner Family
DX: I82.409 Acute embolism and thrombosis of unspecified deep veins of unspecified lower extremity (principal)

== ENCOUNTER → 2017-01-23 | Day surgery (SDC) | payer OTHER ==
[2017-01-22 11:00] VITALS: BMI 38.0
[~2017-01-23] VITALS: Ht 154.9 cm; Wt 91.8 kg
[~2017-01-23] MED LIST changes: -ACET-1256 PO; -CMD5 PO; +CYCL10TA6 PO; +ENOX100I SQ; -ENOX120I SQ; +ERTA1INJ IV; +FLUC200T4 PO; -LACT1CAP6 PO; +LIDOCAINE HCL 2% 2 ML VIAL (20MG/ML) ONE; +LOVENOX SC; +MIDAZOLAM HCL 1 MG/ML 2ML VIAL ONE; -MOXI400T2 PO; -OMEP40CA41 PO; -ONDA4TAB46 PO; +OXYC-643 PO; +PANT40TA PO; -PRED50TA PO; +PROPOFOL IV EMULSION 10 MG/ML 20 ML VIAL IV ONE; +SODIUM CHLORIDE 0.9% 500ML 500 ML IV ONE
[2017-01-23 12:22] VITALS: Ht 154.9 cm; Wt 91.8 kg
--- NOTE | 2017-01-23 13:31 | Endo History and Physical ---
History & Physical Date of Service: Jan 23, 2017. Chief Complaint: COMMON BILE DUCT STENT REMOVAL Referring Physician: Maribell History of Present Illness stent pull for dilated biliary ducts Past Medical History Asthma, Reflux, Heart Disease, [place] Past Surgical History Hx Cardiac Surgery: Yes (CARDIAC CATH NO STENT) Hx Internal Defibrillator: No Hx Pacemaker: No Hx Abdominal Surgery: Yes (COLON RESECTION, C SECTION X2, ELLIE, UMBILICAL HERNIA ) Hx of Implantable Prosthesis: No Hx Post-Op Nausea and Vomiting: No Hx Cancer Surgery: No Hx Thoracic Surgery: No Hx Orthopedic: Yes (LEFT ANKLE SURGERY X 3, R/L KNEE ARHTROSCOPYX2) Hx Urinary Tract Surgery: No Family History None Social History Smoking Status: Never Smoker Hx Substance Use: No Hx Alcohol Use: No Allergies Coded Allergies: Doxycycline (Verified Allergy, Unknown, VOMITTING, 01/22/17) Rivaroxaban (Verified Allergy, Unknown, RASH, 01/22/17) Current Medications Reported Home Medications Medications Dose Route/Sig Max Daily Dose Days Date Category Dose Instructions Protonix (Pantoprazole Sodium) 40 Mg Tab 40 Mg PO BID 01/22/17 Reported Norvasc (Amlodipine Besylate) 2.5 Mg Tab 2.5 Mg PO QAM 01/22/17 Reported [Lovenox] 1 Dose SC BID 01/22/17 Reported Aspirin Ec (Aspirin) 81 Mg Tab 81 Mg PO QAM 01/04/17 Reported Imitrex (Sumatriptan Succinate) 50 Mg Tab 50 Mg PO UD PRN 12/25/12 Reported TAKE MD DIRECTS Vital Signs Weight (Kilograms): 91.82 Height (Feet): 5 Height (Inches): 1 Date Time Temp Pulse Resp B/P (MAP) Pulse Ox O2 Delivery O2 Flow Rate FiO2 01/23/17 12:26 36.8 82 18 149/87 (107) 98 Room Air Physical Exam AAOx3 Nls1s2 Lungs CTA Abd softy NT/ND + BS - CCE Assessment and Plan EGD for stent pull
--- NOTE | 2017-01-23 14:08 | Discharge Instructions ---
Endoscopy Patient Instructions Date / Procedure(s) Performed Jan 23, 2017. EGD Allergy Information Coded Allergies: Doxycycline (Verified Allergy, Unknown, VOMITTING, 01/22/17) Rivaroxaban (Verified Allergy, Unknown, RASH, 01/22/17) Discharge Date / Findings Jan 23, 2017. EGD with stent pull Medication Instructions Stopped Medication(s): COUMADIN, LOVENOX Restart Stopped Medication(s): Reported Home Medications Medications Dose Route/Sig Max Daily Dose Days Date Category Dose Instructions Protonix (Pantoprazole Sodium) 40 Mg Tab 40 Mg PO BID 01/22/17 Reported Norvasc (Amlodipine Besylate) 2.5 Mg Tab 2.5 Mg PO QAM 01/22/17 Reported [Lovenox] 1 Dose SC BID 01/22/17 Reported Aspirin Ec (Aspirin) 81 Mg Tab 81 Mg PO QAM 01/04/17 Reported Imitrex (Sumatriptan Succinate) 50 Mg Tab 50 Mg PO UD PRN 12/25/12 Reported TAKE MD DIRECTS Reported Home Medications Medications Dose Route/Sig Max Daily Dose Days Date Category Dose Instructions Protonix (Pantoprazole Sodium) 40 Mg Tab 40 Mg PO BID 01/22/17 Reported Norvasc (Amlodipine Besylate) 2.5 Mg Tab 2.5 Mg PO QAM 01/22/17 Reported [Lovenox] 1 Dose SC BID 01/22/17 Reported Aspirin Ec (Aspirin) 81 Mg Tab 81 Mg PO QAM 01/04/17 Reported Imitrex (Sumatriptan Succinate) 50 Mg Tab 50 Mg PO UD PRN 12/25/12 Reported TAKE MD DIRECTS Provider Instructions Activity Restrictions - No exercising or heavy lifting for 24 hours. - Do not drink alcohol the day of the procedure. - Do not drive a car or operate machinery until the day after the procedure. - Do not make any important decisions or sign important papers in 24 hours after the procedure. Following Day: - Return to full activity which may include returning to work/school. Diet Start your diet with liquids and light foods (jello, soup, juice, toast). Then eat your usual diet if not nauseated. Treatment For Common After Affects For mild abdominal pain, bloating, or excessive gas: - Rest - Eat lightly - Lie on right side Follow-Up Information Follow-up with as scheduled Anesthesia Information What You Should Know You have had a procedure that required some medicine to reduce anxiety and discomfort. This treatment is called moderate sedation. After receiving the treatment, you may be sleepy, but you will be able to breathe on your own. The effects of the treatment may last for several hours. Follow these instructions along with Activity/Diet recommendations noted above: * Do NOT do anything where dizziness or clumsiness would be dangerous. * Rest quietly at home today, then you can be up and about tomorrow. * Have a responsible person stay with you the rest of today. * You may have had an I.V. today. If so, you may take the dressing off later today. Recommendations Call your doctor if: * Trouble breathing * Continuous vomiting for more than 24 hours * Temperature above 101 degrees * Severe abdominal pain or bloating * Pain not relieved by pain medicine ordered * There is increased drainage or redness from any incision * A large amount of rectal bleeding greater than 2-3 tablespoons. (If you had a polyp/s removed or have hemorrhoids, a small amount of blood - from the rectum is to be expected.) * You have any unanswered questions or concerns. IN THE EVENT OF A SERIOUS EMERGENCY, GO TO THE NEAREST EMERGENCY ROOM Your discharge instructions were prepared by provider Дмитрий Delaney. Patient Instructions Signature Page Rosalie Jane Patient (or Guardian) Signature/Date: I have read and understand the instructions given to me by my caregivers. Caregiver/RN/Doctor Signature/Date: The above-named patient and/or guardian has received patient instructions on this date. + Original Patient Signature Page (only) stays with chart. Please make copy for patient.
--- NOTE | 2017-01-23 14:21 | GI REPORT ---
Procedure Date: 01/23/2017 1:30 PM Procedure: Upper GI endoscopy Indications: Biliary stent removal Medicines: Propofol per Anesthesia Complications: No immediate complications. Estimated blood loss: None. Estimated Blood Loss: Estimated blood loss: none. Procedure: Pre-Anesthesia Assessment: - Prior to the procedure, a History and Physical was performed, and patient medications and allergies were reviewed. The patient's tolerance of previous anesthesia was also reviewed. The risks and benefits of the procedure and the sedation options and risks were discussed with the patient. All questions were answered, and informed consent was obtained. Prior Anticoagulants: The patient has taken no previous anticoagulant or antiplatelet agents. ASA Grade Assessment: III - A patient with severe systemic disease. After reviewing the risks and benefits, the patient was deemed in satisfactory condition to undergo the procedure. After obtaining informed consent, the endoscope was passed under direct vision. Throughout the procedure, the patient's blood pressure, pulse, and oxygen saturations were monitored continuously. The scope was introduced through the mouth, and advanced to the second part of duodenum. The upper GI endoscopy was accomplished without difficulty. The patient tolerated the procedure well. Findings: The examined esophagus was normal. The entire examined stomach was normal. A small hiatus hernia was found. The proximal extent of the gastric folds (end of tubular esophagus) was 35 cm from the incisors. The hiatal narrowing was 38 cm from the incisors. The Z-line was 35 cm from the incisors. The examined duodenum was normal. Two previously placed plastic biliary stents were seen in the area of the papilla. Stent removal was accomplished with a snare. Verification of patient identification for the specimen was done by the physician and technician plant and maintenance using the patient's name and medical record number. The cardia and gastric fundus were normal on retroflexion. Retained gastric contents are not identified on this exam. Impression: - Normal esophagus. - Normal stomach. - Small hiatus hernia. - Normal examined duodenum. - Plastic biliary stents in the duodenum. Two Removed. Inspected and intact. Stents sent for cytology Recommendation: - Discharge patient to home (ambulatory). - Resume regular diet. - Await pathology results. - Return to referring physician as previously scheduled. MD Дмитрий Brody MD 01/23/2017 2:21:01 PM This report has been signed electronically. Note Initiated On: 01/23/2017 1:30 PM I attest to the content of the Intraoperative Record and orders documented therein, exceptions below
[2017-01-23 14:30] VITALS: BP 112/80; PULSE 63; O2SAT 98
--- NOTE | 2017-01-23 15:18 | Anesthesiology Progress Note ---
Anesthesia Post Op Note Date & Time Jan 23, 2017 at 15:18 Vital Signs Pain Intensity: 0 Vital Signs Past 12 Hours Date Time Temp Pulse Resp B/P (MAP) Pulse Ox O2 Delivery O2 Flow Rate FiO2 01/23/17 14:30 63 18 112/80 (91) 98 Room Air 01/23/17 14:12 68 18 107/71 (83) 98 Room Air 01/23/17 13:58 86 16 112/79 (90) 97 Room Air 01/23/17 12:26 36.8 82 18 149/87 (107) 98 Room Air Notes Mental Status: alert / awake / arousable, participated in evaluation Pt Amnestic to Procedure: Yes Nausea / Vomiting: adequately controlled Pain: adequately controlled Airway Patency, RR, SpO2: stable & adequate BP & HR: stable & adequate Hydration State: stable & adequate Anesthetic Complications: no major complications apparent
== END | disposition home or self-care (01) ==
LOC: C.GI 12:08
PROVIDERS: ATTEND Internal Medicine Gastroenterology
DX: Z45.89 Encounter for adjustment and management of other implanted devices (principal); J45.909 Unspecified asthma, uncomplicated; K21.9 Gastro-esophageal reflux disease without esophagitis; I25.2 Old myocardial infarction; Z90.710 Acquired absence of both cervix and uterus; K44.9 Diaphragmatic hernia without obstruction or gangrene; Z86.718 Personal history of other venous thrombosis and embolism; Z79.01 Long term (current) use of anticoagulants

== ENCOUNTER → 2017-01-30 | Outpatient (CLI) | payer OTHER ==
[~2017-01-30] MED LIST changes: -CYCL10TA6 PO; -ENOX100I SQ; -ERTA1INJ IV; -FLUC200T4 PO; -LIDOCAINE HCL 2% 2 ML VIAL (20MG/ML) ONE; -MIDAZOLAM HCL 1 MG/ML 2ML VIAL ONE; -OXYC-643 PO; -PROPOFOL IV EMULSION 10 MG/ML 20 ML VIAL IV ONE; -SODIUM CHLORIDE 0.9% 500ML 500 ML IV ONE
[2017-01-30 13:54] LABS: ALKALINE PHOSPHATASE 104 U/L (45-117); ALT/SGPT 146 U/L (12-78); AST/SGOT 82 U/L (15-37)
== END | disposition home or self-care (01) ==
LOC: C.LABBC 11:22
PROVIDERS: ATTEND Family Medicine
DX: K83.1 Obstruction of bile duct (principal)

== ENCOUNTER 2017-02-22 11:43 | Emergency (ER) | payer OTHER ==
[~2017-02-22] VITALS: Ht 152.4 cm; Wt 91.0 kg
[2017-02-22 11:47] VITALS: TEMP 37.1; Ht 152.4 cm; Wt 91.0 kg
--- NOTE | 2017-02-22 12:15 | DIAGNOSTIC IMAGING REPORT ---
CHEST ONE VIEW PORTABLE CLINICAL HISTORY: fever COMPARISON STUDY: 08/20/2016 FINDINGS: The cardiac and mediastinal contours remain stable. There are low lung volumes. Bibasilar opacities while nonspecific are likely atelectatic. There is a right-sided PICC catheter, the tip of which projects over the atrial caval junction. Within the right upper abdomen, there is a pigtail catheter. IMPRESSION: 1. Right-sided PICC catheter with its tip near the level of the atriocaval junction 2. Increased basilar markings, likely on a hypoventilatory/atelectatic basis Electronically signed by: Nas Humphreys M.D. 02/22/2017 12:13 PM Dictated Date/Time: 02/22/2017 12:12 PM
[2017-02-22 12:40] LABS: BASO % 0.3 %; BASO ABS # 0.03 K/uL (0-0.2); EOS % 0.7 %; HEMATOCRIT 27.5 % (37-47); IG% 0.6 %; LYMPH ABS # 3.43 K/uL (1.2-3.4); MEAN CELL VOLUME 86.2 fL (80-100); MEAN CORPUSCULAR HEMOGLOBIN 27.6 pg (25-34); MEAN PLATELET VOLUME 9.3 fL (7.4-10.4); MONO % 6.7 %; NEUT % 53.7 %; PLATELET COUNT 299 K/uL (130-400); RED BLOOD COUNT 3.19 M/uL (4.2-5.4); WHITE BLOOD COUNT 9.02 K/uL (4.8-10.8)
[2017-02-22 12:54] LABS: INR 1.1 (0.9-1.1); PARTIAL THROMBOPLASTIN RATIO 1.6; PROTHROMBIN TIME (PATIENT) 11.4 SECONDS (9.0-12.0)
[2017-02-22] MEDS ORDERED: ENOX100I SQ (13:05)
[2017-02-22] MEDS ORDERED: FLUC200T4 PO (13:05)
[2017-02-22] MEDS ORDERED: CYCL10TA6 PO (13:05)
[2017-02-22] MEDS ORDERED: OXYC-643 PO (13:05)
[2017-02-22 13:06] LABS: BUN/CREATININE RATIO 7.6 (10-20); CALCIUM 8.2 mg/dl (8.5-10.1); CREATININE 0.76 mg/dl (0.60-1.20); MAGNESIUM 2.2 mg/dl (1.8-2.4); POTASSIUM 3.4 mmol/L (3.5-5.1)
[2017-02-22] MEDS ORDERED: ERTA1INJ IV (13:06)
[2017-02-22 13:07] LABS: COMPLETE YES
[2017-02-22 13:09] LABS: ALB/GLOB RATIO 0.5 (0.9-2)
[2017-02-22 13:24] LABS: URINE APPEARANCE CLEAR (CLEAR); URINE BILIRUBIN NEG (NEG); URINE COLOR YELLOW; URINE NITRITE NEG (NEG); URINE PH 8.5 (4.5-7.5); URINE SPECIFIC GRAVITY 1.005 (1.000-1.030); UROBILINOGEN NEG (NEG)
[2017-02-22 13:29] LABS: MANUAL MICROSCOPIC REQUIRED? NO; REVIEW REQ? NO
[2017-02-22 14:09] VITALS: BP 130/92; PULSE 94; O2SAT 94
--- NOTE | 2017-02-22 20:28 | EMERGENCY ROOM VISIT NOTE ---
History Report prepared by Sameer: Marshall Blanco Under the Supervision of: Dr. Pieter Gordon M.D. First contact with patient: 12:11 Chief Complaint: FEVER Stated Complaint: FEVER History of Present Illness The patient is a 51 year old female who presents to the Emergency Room with complaints of a resolved fever that started earlier today. The patient is accompanied by her daughter who states that the patient was in [place] yesterday for a procedure to cut out 40% of her liver due to a mass. She states that the patient developed a blood infection in the hospital, but was able to be treated. Her daughter states that they believe the patient developed the blood infection from a UTI, which she was treated with Diflucan for. She also reports that she had a CT done on her chest, which showed fluid build up in her lungs. The patient states that she has been coughing for the last three days due to this. She also reports that she has been experiencing leg pain and swelling, which she was put on Lasix for at the hospital. Her daughter reports that the patient was discharged last night with a PICC line and was supposed to start her antibiotics but was not able to. The patient states that she has been feeling better since her visit, but admits she is dehydrated and weak. The patient's daughter states that the patient got a new thermometer and measure her temperature via her forehead, which showed a reading of 103.6. She reports that when they came to the hospital, the patient's temperature was normal. Her daughter states that the patient has a biliary drain on the right side that drains about 30-50 ccs every four hours. She states that she was able to get 50 ccs of fluid out last night. The patient's daughter describes the fluid as green with "sand- like material". She reports that there was a shot glass worth of blood in a pocket near the incision that they plan on draining and not packing. The patient reports that her doctor is Dr. Reyna, [facility]. The patient states that she takes Lovenox twice a day and has Heparin inserted into her PICC line due to her history of two blood clots in her legs in December. She denies chest pain, headache, sore throat, back pain, and abdominal pain. Source of History: patient, family, treating provider Onset: today Position: other (global) Quality: other (103.6) Timing: resolved Associated Symptoms: + cough, + weakness, No headache, No sorethroat, No chest pain, No abdominal pain, No back pain Review of Systems See HPI for pertinent positives & negatives. A total of 10 systems reviewed and were otherwise negative. Past Medical & Surgical Medical Problems: (1) section (2) Cholecystectomy (3) FX ANKLE NOS-CLOSED (4) FX HUMERUS NOS-CLOSED (5) History of repair of inguinal hernia (6) Hysterectomy (7) IRRITABLE BOWEL SYNDROME (8) LFTs abnormal (9) Partial resection of colon (10) Rotator cuff injury Surgical Problems: (1) H/O rotator cuff surgery Old medical records were reviewed. Nurse's notes were reviewed and I agree with. Family History Cancer Diabetes mellitus Gallbladder disease Heart disease Hypertension Kidney disease or stones Lung disease Seizures Social History Smoking Status: Never Smoker Drug Use: none Marital Status: Housing Status: lives alone Occupation Status: employed Current/Historical Medications Scheduled Amlodipine (Norvasc), 2.5 MG PO QAM Enoxaparin (Lovenox), 100 MG SQ BID Ertapenem Sodium (Invanz), 1 GM IV DAILY Fluconazole (Diflucan), 400 MG PO BID Pantoprazole Sodium (Protonix), 40 MG PO BID Scheduled PRN Cyclobenzaprine Hcl (Flexeril), 10 MG PO TID PRN for Muscle Spasms Oxycodone/Acetaminophen 5MG/325MG (Oxycodone/Acetaminophen 5MG/325MG), 1 TABLET PO Q4H PRN for Pain Sumatriptan Succinate (Imitrex), 50 MG PO UD PRN for Headache Allergies Coded Allergies: Doxycycline (Verified Allergy, Unknown, VOMITTING, 02/22/17) Rivaroxaban (Verified Allergy, Unknown, RASH, 02/22/17) Physical Exam Vital Signs Date Time Temp Pulse Resp B/P (MAP) Pulse Ox O2 Delivery O2 Flow Rate FiO2 02/22/17 14:09 94 24 130/92 94 Room Air 02/22/17 13:14 89 23 135/80 93 Room Air 02/22/17 12:57 86 02/22/17 12:12 93 02/22/17 11:47 37.1 103 20 143/93 95 Room Air Physical Exam General: Non-ill appearing middle aged female in no acute distress. HEENT: Normal cephalic atraumatic. Pupils are equal round and reactive to light. Extraocular movements are intact. Oropharynx is pink with moist mucous membranes. No swelling of the mouth lips or tongue. Neck: Supple with a midline trachea. No meningeal signs or stiffness, no JVD or bruits. No Stridor. Chest: Clear to auscultation bilaterally. No wheezes or rhonchi. No increased work of breathing. Heart: regular rate and rhythm. Abdomen: Soft nontender, nondistended without rebound guarding or rigidity. Well healing abdominal incision. Biliary drain with about 50 CCs of greenish drainage in the bulb. Extremities: No cyanosis or edema. Trace lower extremity edema. No calf tenderness or assymetry Spine/Back. Non tender to palpation. No CVA tenderness Skin: Good turgor without rashes. PICC line in right arm. No redness or warmth. Small incision centrally healing. Neurologic exam: Cranial nerves two through 12 are intact. Motor and sensation are intact and symmetrical throughout. Medical Decision & Procedures ER Provider Diagnostic Interpretation: X-ray results as stated below per interpretation by me and the radiologist: CHEST ONE VIEW PORTABLE CLINICAL HISTORY: fever COMPARISON STUDY: 08/20/2016 FINDINGS: The cardiac and mediastinal contours remain stable. There are low lung volumes. Bibasilar opacities while nonspecific are likely atelectatic. There is a right-sided PICC catheter, the tip of which projects over the atrial caval junction. Within the right upper abdomen, there is a pigtail catheter. IMPRESSION: 1. Right-sided PICC catheter with its tip near the level of the atriocaval junction 2. Increased basilar markings, likely on a hypoventilatory/atelectatic basis Electronically signed by: Nas Humphreys M.D. 02/22/2017 12:13 PM Dictated Date/Time: 02/22/2017 12:12 PM Laboratory Results 02/22/17 12:15 Red Blood Count 3.19, Mean Corpuscular Volume 86.2, Mean Corpuscular Hemoglobin 27.6, Mean Corpuscular Hemoglobin Concent 32.0, Mean Platelet Volume 9.3, Neutrophils (%) (Auto) 53.7, Lymphocytes (%) (Auto) 38.0, Monocytes (%) (Auto) 6.7, Eosinophils (%) (Auto) 0.7, Basophils (%) (Auto) 0.3, Neutrophils # (Auto) 4.85, Lymphocytes # (Auto) 3.43, Monocytes # (Auto) 0.60, Eosinophils # (Auto) 0.06, Basophils # (Auto) 0.03 02/22/17 12:15 Test 02/22/17 12:15 02/22/17 12:25 02/22/17 13:10 White Blood Count 9.02 K/uL (4.8-10.8) Red Blood Count 3.19 M/uL (4.2-5.4) Hemoglobin 8.8 g/dL (12.0-16.0) Hematocrit 27.5 % (37-47) Mean Corpuscular Volume 86.2 fL (80-100) Mean Corpuscular Hemoglobin 27.6 pg (25-34) Mean Corpuscular Hemoglobin Concent 32.0 g/dl (32-36) Platelet Count 299 K/uL (130-400) Mean Platelet Volume 9.3 fL (7.4-10.4) Neutrophils (%) (Auto) 53.7 % Lymphocytes (%) (Auto) 38.0 % Monocytes (%) (Auto) 6.7 % Eosinophils (%) (Auto) 0.7 % Basophils (%) (Auto) 0.3 % Neutrophils # (Auto) 4.85 K/uL (1.4-6.5) Lymphocytes # (Auto) 3.43 K/uL (1.2-3.4) Monocytes # (Auto) 0.60 K/uL (0.11-0.59) Eosinophils # (Auto) 0.06 K/uL (0-0.5) Basophils # (Auto) 0.03 K/uL (0-0.2) RDW Standard Deviation 55.0 fL (36.4-46.3) RDW Coefficient of Variation 17.3 % (11.5-14.5) Immature Granulocyte % (Auto) 0.6 % Immature Granulocyte # (Auto) 0.05 K/uL (0.00-0.02) Red Blood Cell Morphology Unremarkable Prothrombin Time 11.4 SECONDS (9.0-12.0) Prothromb Time International Ratio 1.1 (0.9-1.1) Activated Partial Thromboplast Time 40.6 SECONDS (21.0-31.0) Partial Thromboplastin Ratio 1.6 Anion Gap 8.0 mmol/L (3-11) Est Creatinine Clear Calc Drug Dose 86.1 ml/min Estimated GFR () 103.8 Estimated GFR (Non- 89.6 BUN/Creatinine Ratio 7.6 (10-20) Calcium Level 8.2 mg/dl (8.5-10.1) Magnesium Level 2.2 mg/dl (1.8-2.4) Total Bilirubin 0.5 mg/dl (0.2-1) Aspartate Amino Transf (AST/SGOT) 27 U/L (15-37) Alanine Aminotransferase (ALT/SGPT) 19 U/L (12-78) Alkaline Phosphatase 109 U/L (45-117) Total Protein 6.9 gm/dl (6.4-8.2) Albumin 2.4 gm/dl (3.4-5.0) Globulin 4.5 gm/dl (2.5-4.0) Albumin/Globulin Ratio 0.5 (0.9-2) Bedside Lactic Acid Venous 0.95 mmol/L (0.90-1.70) Urine Color YELLOW Urine Appearance CLEAR (CLEAR) Urine pH 8.5 (4.5-7.5) Urine Specific [place] 1.005 (1.000-1.030) Urine Protein NEG (NEG) Urine Glucose (UA) NEG (NEG) Urine Ketones NEG (NEG) Urine Occult Blood NEG (NEG) Urine Nitrite NEG (NEG) Urine Bilirubin NEG (NEG) Urine Urobilinogen NEG (NEG) Urine Leukocyte Esterase NEG (NEG) Urine WBC (Auto) 1-5 /hpf (0-5) Urine RBC (Auto) 0-4 /hpf (0-4) Urine Hyaline Casts (Auto) 1-5 /lpf (0-5) Urine Epithelial Cells (Auto) 5-10 /lpf (0-5) Urine Bacteria (Auto) NEG (NEG) Laboratory studies as stated above per my review. Medications Administered Medications (Trade) Dose Ordered Sig/Ming Route Start Time Stop Time Status Last Admin Dose Admin Heparin Sodium (Porcine) (Heparin 10 Unit/ ml 5 ml Flush) 5 ml STK-MED ONCE .ROUTE 02/22/17 14:07 02/22/17 14:08 DC 02/22/17 14:07 5 ML ECG Indication: other (sepsis) Rate (beats per minute): 94 Rhythm: normal sinus Findings: no acute ischemic change, no ectopy Comparison ECG Date: 11/11/16 Change: no significant change ED Course 1212: Past medical records reviewed. The patient was evaluated in room B07, and a complete history and physical examination were performed. 1342: I reevaluated the patient and her work up is unremarkable. I will call her surgeon for further consult. 1359: I discussed the patients case with Dr. Mcnally, [facility]. He reports that he believes she can go home. 1407: Ordered Heparin Sodium 5 ml IV. 1410: Upon reevaluation, the patient is resting comfortably. I discussed the results and treatment plan with her. She verbalized agreement of the treatment plan. The patient was discharged home. Medical Decision Differentials include, but are not limited to; Sepsis, infection, electrolyte or metabolic abnormality, and post op complication. This patient comes in as described above. She has a very complex medical history and was just at [facility] for prolonged stay after having liver resection. She has a biliary drain still in place as well as a PICC line in her right arm. She was scheduled start IV imipenem at home and they checked her forehead temperature today was 103. She has had sepsis in the hospital but had clear blood cultures prior to discharge. She says she feels fine. She has no acute complaints and is feeling good without feeling febrile. She's had no significant cough. Her incision is been healing by secondary intention in her abdomen and she's had some biliary drainage in the bowl about 30-50 mL every 4 hours that is nonpurulent appearing. IV access was established and blood work was obtained . we did cultures of the PICC and peripherally. She is afebrile here. She has no white count or lactic acid elevation. Chest x-ray does not suggest pneumonia. Urinalysis does not suggest UT.I she's had no liver function abnormalities. The patient looks well and I think this was from in the erroneous forehead temperature. Certainly oral would be much more accurate and 15 minutes later, she was afebrile. Her daughter says they were using a wood burning stove and it was hot in the house and may have just been her skin being hot. Daughter and the patient feels very comfortable going home. I did discuss the case with Dr. Dalton, who is covering for Dr. Reyna and he agrees with the plan. He is think she can go home they will start the IV antibiotics at home if she has any signs of fever where she feels warm her ill or shaky or any other and problems she should come back to the ER. The patient and her daughter were happy with the plan and she was discharged to home. Medication Reconcilliation Current Medication List: was personally reviewed by me Blood Pressure Screening Patient's blood pressure: Elevated blood pressure Blood pressure disposition: Elevated BP felt to be situational Consults Time Called: [id number] Consulting Physician: Dr. Mcnally, [facility] Returned Call: [phone]: I discussed the patients case with Dr. Mcnally, [facility]. He reports that he believes she can go home. Impression Primary Impression: Fever Scribe Attestation The scribe's documentation has been prepared under my direction and personally reviewed by me in its entirety. I confirm that the note above accurately reflects all work, treatment, procedures, and medical decision making performed by me. Departure Information Dispostion Home / Self-Care Referrals Judy Abrams MD (PCP) Forms HOME CARE DOCUMENTATION FORM, IMPORTANT VISIT INFORMATION Patient Instructions My [facility] Additional Instructions Rest. Return if: Fever or chills, shakes, worsening of symptoms in anyway, shortness of breath or cough, any problems with the wounds, any new problems or concerns Follow-up with doctor in 1-2 days for recheck
--- NOTE | 2017-02-24 18:35 | Pharmacy Progress Note ---
ED Pharmacist Culture FollowUp Date of Service: Feb 24, 2017. Preliminary blood cx is growing gram positive bacilli. I contacted Shane to determine where this sample was drawn. Shane stated this sample was not the sample drawn by the ED RN Alvina Andrade. Alvina had documented drawing a sample from the patient's central line (PICC). That sample is not currently growing anything. The blood cx with GPB was likely drawn peripherally per Shane. Patient was seen for fever, cough, weakness, leg pain/swelling. She recently spent time at [facility] following liver mass resection complicated by "blood infection" for which she was to receive IV abx therapy: Invanz 1gm IV daily + Fluconazole 400mg PO BID. The case was discussed with Dr Crump. Given she had no leukocytosis here and LA was also not elevated, plus the fever she had detected with was a home forehead thermometer (which may have given an inaccurate reading) and had resolved on arrival to ED, plus only one of the cx's is positive with an preliminary ID of an organism that may be a contaminant... Will await final ID of this organism as she is currently receiving broad spectrum ABX therapy.
== END 2017-02-22 14:15 | disposition home or self-care (01) ==
LOC: C.EDB 11:44
DX: R50.9 Fever, unspecified (principal); R05 Cough; R53.1 Weakness; Z79.01 Long term (current) use of anticoagulants; Z79.899 Other long term (current) drug therapy; Z86.718 Personal history of other venous thrombosis and embolism; Z87.828 Personal history of other (healed) physical injury and trauma; Z82.0 Family history of epilepsy and other diseases of the nervous system; Z82.49 Family history of ischemic heart disease and other diseases of the circulatory system; Z83.3 Family history of diabetes mellitus; Z83.6 Family history of other diseases of the respiratory system; Z83.79 Family history of other diseases of the digestive system; Z84.1 Family history of disorders of kidney and ureter

== ENCOUNTER → 2017-02-23 | Outpatient (CLI) | payer OTHER ==
[~2017-02-23] MED LIST changes: -ASPI81TA28 PO; +CYCL10TA6 PO; +ENOX100I SQ; +ERTA1INJ IV; +FLUC200T4 PO; -LOVENOX SC; +OXYC-643 PO
[2017-02-23 17:17] LABS: HEMATOCRIT 26.9 % (37-47); MEAN CELL VOLUME 86.5 fL (80-100); MEAN CORPUSCULAR HGB CONC 32.3 g/dl (32-36); MEAN PLATELET VOLUME 9.7 fL (7.4-10.4); PLATELET COUNT 298 K/uL (130-400); RED BLOOD COUNT 3.11 M/uL (4.2-5.4); WHITE BLOOD COUNT 8.59 K/uL (4.8-10.8)
[2017-02-23 17:40] LABS: ALT/SGPT 21 U/L (12-78); BLOOD UREA NITROGEN 6 mg/dl (7-18); BUN/CREATININE RATIO 9.1 (10-20); CALCIUM 7.9 mg/dl (8.5-10.1); CARBON DIOXIDE 26 mmol/L (21-32); CHLORIDE 103 mmol/L (98-107); CREATININE 0.66 mg/dl (0.60-1.20); GLUCOSE 92 mg/dl (70-99); POTASSIUM 3.7 mmol/L (3.5-5.1); SODIUM 137 mmol/L (136-145)
[2017-02-23 17:45] LABS: ALB/GLOB RATIO 0.7 (0.9-2); ALKALINE PHOSPHATASE 106 U/L (45-117); AST/SGOT 31 U/L (15-37); PREALBUMIN 14.2 mg/dl (20-40); TOTAL IRON BINDING CAPACITY 237 mcg/dl (250-450)
== END | disposition home or self-care (01) ==
LOC: C.LABSPEC 13:53
PROVIDERS: ATTEND Surgery
DX: K83.1 Obstruction of bile duct (principal); K83.8 Other specified diseases of biliary tract; R78.81 Bacteremia

== ENCOUNTER 2017-02-27 05:29 | Emergency (ER) | payer OTHER ==
[~2017-02-27] VITALS: Ht 153.7 cm; Wt 87.0 kg
[2017-02-27] VITALS (12 sets, daily range): BP systolic 99–116; BP diastolic 61–74; PULSE 102–131; TEMP 36.9–37.4; O2SAT 93–98; Ht 153.7 cm; Wt 87.0 kg
[2017-02-27] MEDS ORDERED: SODIUM CHLORIDE 0.9% 1000ML 1,000 ML IV STA ×2 (05:54→06:14)
[2017-02-27] MEDS ORDERED: ONDANSETRON INJ 2 MG/ML 2 ML VIAL IV STA (05:59)
[2017-02-27] MEDS ORDERED: ACETAMINOPHEN IV 100 ML IV STA (06:02)
[2017-02-27] MEDS ORDERED: DAPTOmycin IV 522 MG in SODIUM CHLORIDE 0.9% 50ML 50 ML IV STA (06:11)
[2017-02-27] MEDS ORDERED: CEFEPIME IV 1,000 MG in DEXTROSE 5% 100ML 100 ML IV STA (06:11)
[2017-02-27] MEDS ORDERED: SODIUM CHLORIDE 0.9% 150ML 150 ML IV STA (06:14)
[2017-02-27] MEDS ORDERED: SODIUM CHLORIDE 0.9% 500ML 500 ML IV STA (06:14)
[2017-02-27] MEDS ORDERED: OPTIRAY 320 IV PRN (06:15)
[2017-02-27 06:24] LABS: BASO % 0.7 %; BASO ABS # 0.07 K/uL (0-0.2); COMPLETE YES; EOS % 0.9 %; HEMATOCRIT 28.7 % (37-47); IG% 0.2 %; LYMPH % 39.4 %; LYMPH ABS # 3.87 K/uL (1.2-3.4); MEAN CELL VOLUME 85.2 fL (80-100); MEAN CORPUSCULAR HEMOGLOBIN 27.6 pg (25-34); MEAN CORPUSCULAR HGB CONC 32.4 g/dl (32-36); MEAN PLATELET VOLUME 8.9 fL (7.4-10.4); MONO % 4.4 %; NEUT % 54.4 %; PLATELET COUNT 179 K/uL (130-400); RED BLOOD COUNT 3.37 M/uL (4.2-5.4); WHITE BLOOD COUNT 9.83 K/uL (4.8-10.8)
[2017-02-27 06:30] LABS: ISTAT CREATININE 0.8 mg/dl (0.6-1.3); ISTAT HEMOGLOBIN 9.5 g/dl (12.0-16.0); ISTAT IONIZED CALCIUM 1.03 mmol/l (1.12-1.32)
[2017-02-27 06:36] LABS: BUN/CREATININE RATIO 8.4 (10-20); CALCIUM 8.2 mg/dl (8.5-10.1); CREATININE 0.78 mg/dl (0.60-1.20); POTASSIUM 3.1 mmol/L (3.5-5.1)
[2017-02-27 06:42] LABS: PROTHROMBIN TIME (PATIENT) 11.2 SECONDS (9.0-12.0)
--- NOTE | 2017-02-27 06:44 | EMERGENCY ROOM VISIT NOTE ---
History Report prepared by Sameer: Дмитрий Portillo Under the Supervision of: Dr. Marcelino Rawls M.D. First contact with patient: 05:58 Chief Complaint: VOMITING Stated Complaint: VOMITING, FEVER Nursing Triage Summary: PAtient reports recent abdominal surgery for liver resection. Patient reports fever and nausea/ vomiting tonight. History of Present Illness The patient is a 51 year old female who presents to the Emergency Room with complaints of a constant fever and intermittent vomiting beginning late last night. The patient states she had a liver resection in [place] 5 days ago. She reports she has been eating without complications until she went to bed. The patient notes she woke in the middle of the night with indigestion. She states she had a large bowel movement and began vomiting. The patient reports she then developed a fever and called [place]. She notes she was told to go the ED. The patient denies any complaint other than nausea that began shortly after her fever developed. She is currently on IV antibiotics, Invanz, and Lovenox shots. Source of History: patient Onset: late last night Position: other (global) Quality: other (fever and vomiting) Timing: constant (fever), intermittent (vomiting) Associated Symptoms: + nausea Note: Denies any complaint other than nausea Review of Systems See HPI for pertinent positives & negatives. A total of 10 systems reviewed and were otherwise negative. Past Medical & Surgical Medical Problems: (1) section (2) Cholecystectomy (3) FX ANKLE NOS-CLOSED (4) FX HUMERUS NOS-CLOSED (5) History of repair of inguinal hernia (6) Hysterectomy (7) IRRITABLE BOWEL SYNDROME (8) LFTs abnormal (9) Partial resection of colon (10) Rotator cuff injury Surgical Problems: (1) H/O rotator cuff surgery Family History Cancer Diabetes mellitus Gallbladder disease Heart disease Hypertension Kidney disease or stones Lung disease Seizures Social History Smoking Status: Never Smoker Drug Use: none Marital Status: Housing Status: lives alone Occupation Status: employed Current/Historical Medications Scheduled Amlodipine (Norvasc), 2.5 MG PO QAM Enoxaparin (Lovenox), 100 MG SQ BID Ertapenem Sodium (Invanz), 1 GM IV DAILY Fluconazole (Diflucan), 400 MG PO BID Pantoprazole Sodium (Protonix), 40 MG PO BID Scheduled PRN Cyclobenzaprine Hcl (Flexeril), 10 MG PO TID PRN for Muscle Spasms Oxycodone/Acetaminophen 5MG/325MG (Oxycodone/Acetaminophen 5MG/325MG), 1 TABLET PO Q4H PRN for Pain Sumatriptan Succinate (Imitrex), 50 MG PO UD PRN for Headache Allergies Coded Allergies: Doxycycline (Verified Allergy, Unknown, VOMITTING, 02/27/17) Rivaroxaban (Verified Allergy, Unknown, RASH, 02/27/17) Physical Exam Vital Signs Date Time Temp Pulse Resp B/P (MAP) Pulse Ox O2 Delivery O2 Flow Rate FiO2 02/27/17 11:09 111 35 95 02/27/17 11:04 112 28 96 02/27/17 11:01 116/74 02/27/17 10:59 112 23 96 02/27/17 10:57 114/72 02/27/17 10:54 109 22 95 02/27/17 10:49 111 20 94 02/27/17 10:46 102/63 02/27/17 10:44 110 22 94 02/27/17 10:40 37.0 110 16 102/63 97 02/27/17 10:39 111 23 94 02/27/17 10:34 112 22 95 02/27/17 10:31 104/62 02/27/17 10:29 113 22 94 02/27/17 10:26 99/65 02/27/17 10:25 37.0 114 16 99/65 97 02/27/17 10:24 114 23 93 02/27/17 10:19 114 22 94 02/27/17 10:16 103/63 02/27/17 10:14 115 22 93 02/27/17 10:11 104/65 02/27/17 10:10 37.0 116 16 104/65 98 02/27/17 10:10 36.9 116 16 104/65 94 02/27/17 10:09 116 23 93 02/27/17 10:06 106/69 02/27/17 10:04 119 29 94 02/27/17 10:01 107/65 02/27/17 09:59 117 21 93 02/27/17 09:56 101/62 02/27/17 09:55 37.0 117 16 101/62 98 02/27/17 09:54 118 21 93 02/27/17 09:51 106/62 11/24/17 09:49 119 21 93 02/27/17 09:46 100/60 02/27/17 09:44 120 23 92 02/27/17 09:41 106/63 02/27/17 09:40 37.2 122 16 101/61 94 02/27/17 09:39 121 23 92 02/27/17 09:36 108/57 02/27/17 09:34 120 22 92 02/27/17 09:31 101/61 02/27/17 09:29 120 23 93 02/27/17 09:27 37.0 124 16 108/68 94 02/27/17 09:26 108/68 02/27/17 09:25 37.0 124 16 108/68 93 02/27/17 09:24 125 28 94 02/27/17 09:21 107/70 02/27/17 09:19 123 25 94 02/27/17 09:16 108/71 02/27/17 09:14 128 26 95 02/27/17 09:12 36.9 128 18 108/69 94 02/27/17 09:11 108/69 02/27/17 09:09 131 28 95 02/27/17 09:06 112/69 02/27/17 09:05 37.4 131 16 112/69 94 02/27/17 09:04 132 34 94 02/27/17 09:01 98/57 02/27/17 08:59 134 26 95 02/27/17 08:56 114/71 02/27/17 08:49 134 30 94 02/27/17 08:44 131 31 96 02/27/17 08:39 130 28 97 02/27/17 08:34 126 28 98 02/27/17 08:29 124 27 98 02/27/17 08:24 123 30 02/27/17 08:19 117 25 99 02/27/17 08:14 114 23 99 02/27/17 08:09 104 21 99 02/27/17 08:04 98 20 98 02/27/17 08:02 37.8 97 18 121/85 94 Mask 10.0 02/27/17 08:00 102 18 95 Nasal Cannula 2.0 02/27/17 07:59 99 23 99 02/27/17 07:44 100 26 94 02/27/17 07:39 100 26 95 02/27/17 07:34 99 25 94 02/27/17 07:30 121/85 02/27/17 07:29 99 23 94 02/27/17 07:24 104 18 95 02/27/17 07:19 101 29 95 02/27/17 07:14 94 Nasal Cannula 2.0 02/27/17 07:14 104 36 90 02/27/17 07:11 38.3 104 16 126/74 90 Room Air 02/27/17 07:09 103 32 91 02/27/17 07:04 103 41 92 02/27/17 07:01 126/74 02/27/17 06:39 108 31 02/27/17 06:34 107 37 02/27/17 06:29 106 26 02/27/17 06:14 98 Room Air 02/27/17 05:34 39.3 130 18 130/88 96 Room Air Physical Exam GENERAL: Patient is a healthy-appearing well-nourished tachypneic 51 year old female. HEAD: Normocephalic atraumatic EYES: Ocular movements intact pupils equal and react to light OROPHARYNX mucous membranes are moist no exudates present no erythema or edema present NECK: Supple no nuchal rigidity CHEST: Good equal expansion LUNGS: Clear and equal to auscultation CARDIAC: Normal S1 and S2 ABDOMEN: Soft nontender no guarding. Bilateral bruising to the LLQ and RLQ from Lovenox shots. Appears to have an area of cellulitis to the LLQ. BACK: No CVA tenderness EXTREMITIES: No pain upon palpation normal muscle strength in all groups no clubbing cyanosis or edema NEURO: Patient is following commands and answering questions appropriately. Alert and oriented x3 Cranial Nerves 2-12 grossly intact Medical Decision & Procedures ER Provider Diagnostic Interpretation: Radiology results as stated below per my review and radiologist interpretation: CHEST ONE VIEW PORTABLE CLINICAL HISTORY: Evaluate Fever/Sepsis cough COMPARISON STUDY: 02/22/2017 FINDINGS: Right-sided PICC catheter in the right atrium. Mild bibasilar atelectasis. Upper lungs are considered clear. No evidence of pneumothorax. IMPRESSION: Mild bibasilar atelectasis. The above report was generated using voice recognition software. It may contain grammatical, syntax or spelling errors. Electronically signed by: Abdias Ruff M.D. 02/27/2017 7:35 AM Dictated Date/Time: 02/27/2017 7:[address] SCAN OF THE ABDOMEN AND PELVIS WITH IV CONTRAST CLINICAL HISTORY: Fever. Abdominal wall cellulitis. Vomiting. History of hepatic resection. COMPARISON STUDY: Abdominal CT dated 08/20/2016. MRCP dated 11/11/2016. TECHNIQUE: Following the IV administration of 120 cc of Optiray 320, CT scan of the abdomen and pelvis is performed from the lung bases to the proximal femora. Images are reviewed in the axial, sagittal, and coronal planes. IV contrast was administered without complication. A dose lowering technique was utilized adhering to the principles of ALARA. FINDINGS: Lung bases: The heart is normal in size and without pericardial effusion. There is dependent airspace consolidation. A trace pleural effusion is seen on the right. There is a tiny hiatal hernia. Liver: The contrast-enhanced liver is normal in contour and attenuation. There is evidence of left hepatic lobe resection. There is no intrahepatic biliary ductal dilatation. The remaining hepatic veins and portal veins are patent. Gallbladder: Surgically absent noting clips in the gallbladder fossa. Spleen: Normal in size and attenuation. Pancreas: Unremarkable. Adrenal glands: Unremarkable. Kidneys: The contrast enhanced kidneys are normal in size and without hydronephrosis. The kidneys enhance symmetrically. Abdominal vasculature: The abdominal aorta is normal in course and caliber noting scattered foci of atherosclerotic calcification. Bowel: There are postoperative changes from sigmoid colon resection with colocolonic anastomosis. No bowel obstruction is seen. The appendix is well-visualized and normal. Peritoneum: There are tiny foci of intraperitoneal free air below the diaphragm. No abdominal ascites is seen. A surgical drain is present in the left hepatic lobe resection bed. There is a thick walled gas and fluid containing collection identified around the tip of the catheter which measures approximately 8.5 x 7.5 x 4 cm. This is best seen on axial image #92. There is induration deep to the ventral abdominal wall which is nonspecific and may be related to recent surgery. A midline surgical incision is noted. There is a gas and fluid containing collection within the ventral abdominal wall near the umbilicus. This measures approximately 7.5 x 5.5 x 3.3 cm as seen on axial image #225. This is located along the inferior margin of the incision. Lymphadenopathy: None. Pelvic viscera: The bladder is normal as visualized. The uterus is surgically absent. No adnexal lesion is seen. Skeletal structures: No lytic or blastic lesions are seen. IMPRESSION: 1. There are postoperative changes consistent with left hepatic lobe resection. 2. A surgical drain is present at the resection site. This is surrounded by a gas and fluid containing collection which measures up to 8.5 cm. Although this could represent a hematoma/seroma, the appearance is concerning for abscess and clinical correlation will be required. 3. There is a similar-appearing 7.5 cm fluid collection identified within the ventral abdominal wall along the inferior margin of the incision. Differential considerations are the same. 4. Tiny foci of intraperitoneal free air are nonspecific and likely related to the presence of an indwelling catheter. 5. Dependent bibasilar airspace opacities could represent atelectasis and/or pneumonia. Clinical correlation will be required. 6. There are postoperative changes from sigmoid colon resection with colocolonic anastomosis. No bowel obstruction is seen. Electronically signed by: Jefferson Soliz M.D. 02/27/2017 7:17 AM Dictated Date/Time: 02/27/2017 7:[address] ANGIOGRAPHY OF THE CHEST, PULMONARY EMBOLUS PROTOCOL CLINICAL HISTORY: Shortness of breath, fever and vomiting. Status post liver resection. COMPARISON STUDY: Chest CT May 21, 2016 and chest radiograph performed earlier today. TECHNIQUE: Following IV administration of 120 mL of Optiray-320, helical axial images of the chest were obtained utilizing the pulmonary embolus protocol. Maximal intensity projections and sagittal and coronal reformats were viewed on an independent 3D workstation. IV contrast was administered without complication. A dose lowering technique was utilized adhering to the principles of ALARA. CT DOSE: 1431.14 mGy.cm FINDINGS: No central or lobar pulmonary emboli are identified. There is a segmental pulmonary embolus within the left lower lobe shown on image 129 of 223. The heart is moderately enlarged. There is no pericardial effusion. There is no evidence of thoracic aortic dissection. No enlarged axillary, mediastinal or hilar lymph nodes are present. Bilateral lower lobe opacities favor atelectasis. There is no pneumothorax. Bilateral upper lobe opacities reflect atelectasis. There is minimal groundglass opacity within left upper lobe which could reflect atelectasis or a mild infectious process. Bony thorax is unremarkable. A small hiatal hernia is noted. The abdomen and pelvis will be reported separately however there are postsurgical findings consistent with a left lobe liver resection. There is a percutaneous drain within a left lobe resection bed gas and fluid containing collection. Linear gas tract along the liver likely reflects a previous drain site. IMPRESSION: 1. Small segmental pulmonary embolus within the left lower lobe. 2. Multifocal airspace opacities throughout the lungs. The majority of this opacity reflects atelectasis. Minimal left upper lobe opacity could reflect atelectasis or a mild infectious process. 3. Moderate cardiomegaly. 4. Status post left lobe liver resection. Percutaneous drain within a gas and fluid containing resection bed fluid collection. The abdomen and pelvis will be reported separately. Please see that report for description. Electronically signed by: Steve Crawley M.D. 02/27/2017 7:23 AM Dictated Date/Time: 02/27/2017 7:06 AM Laboratory Results 02/27/17 06:00 Red Blood Count 3.37, Mean Corpuscular Volume 85.2, Mean Corpuscular Hemoglobin 27.6, Mean Corpuscular Hemoglobin Concent 32.4, Mean Platelet Volume 8.9, Neutrophils (%) (Auto) 54.4, Lymphocytes (%) (Auto) 39.4, Monocytes (%) (Auto) 4.4, Eosinophils (%) (Auto) 0.9, Basophils (%) (Auto) 0.7, Neutrophils # (Auto) 5.35, Lymphocytes # (Auto) 3.87, Monocytes # (Auto) 0.43, Eosinophils # (Auto) 0.09, Basophils # (Auto) 0.07 02/27/17 06:00 Test 02/27/17 06:00 02/27/17 06:18 02/27/17 08:00 White Blood Count 9.83 K/uL (4.8-10.8) Red Blood Count 3.37 M/uL (4.2-5.4) Hemoglobin 9.3 g/dL (12.0-16.0) Hematocrit 28.7 % (37-47) Mean Corpuscular Volume 85.2 fL (80-100) Mean Corpuscular Hemoglobin 27.6 pg (25-34) Mean Corpuscular Hemoglobin Concent 32.4 g/dl (32-36) Platelet Count 179 K/uL (130-400) Mean Platelet Volume 8.9 fL (7.4-10.4) Neutrophils (%) (Auto) 54.4 % Lymphocytes (%) (Auto) 39.4 % Monocytes (%) (Auto) 4.4 % Eosinophils (%) (Auto) 0.9 % Basophils (%) (Auto) 0.7 % Neutrophils # (Auto) 5.35 K/uL (1.4-6.5) Lymphocytes # (Auto) 3.87 K/uL (1.2-3.4) Monocytes # (Auto) 0.43 K/uL (0.11-0.59) Eosinophils # (Auto) 0.09 K/uL (0-0.5) Basophils # (Auto) 0.07 K/uL (0-0.2) RDW Standard Deviation 54.5 fL (36.4-46.3) RDW Coefficient of Variation 17.5 % (11.5-14.5) Immature Granulocyte % (Auto) 0.2 % Immature Granulocyte # (Auto) 0.02 K/uL (0.00-0.02) Prothrombin Time 11.2 SECONDS (9.0-12.0) Prothromb Time International Ratio 1.0 (0.9-1.1) Est Creatinine Clear Calc Drug Dose 82.7 ml/min Estimated GFR () 100.6 Estimated GFR (Non- 86.8 BUN/Creatinine Ratio 8.4 (10-20) Lactic Acid Level 1.3 mmol/L (0.4-2.0) Calcium Level 8.2 mg/dl (8.5-10.1) Total Bilirubin 0.5 mg/dl (0.2-1) Direct Bilirubin 0.2 mg/dl (0-0.2) Aspartate Amino Transf (AST/SGOT) 32 U/L (15-37) Alanine Aminotransferase (ALT/SGPT) 17 U/L (12-78) Alkaline Phosphatase 114 U/L (45-117) Total Protein 7.3 gm/dl (6.4-8.2) Albumin 2.6 gm/dl (3.4-5.0) Influenza Type A (RT-PCR) Neg for Influ A (NEG) Influenza Type A Antigen Neg for Influ A (NEG) Influenza Type B Antigen Neg for Influ B (NEG) Influenza Type B (RT-PCR) Neg for Influ B (NEG) Bedside Hemoglobin 9.5 g/dl (12.0-16.0) Bedside Hematocrit 28 % (37-47) Bedside Sodium 138 mEq/L (135-144) Bedside Potassium 3.2 mEq/L (3.3-5.0) Bedside Chloride 103 mEq/L (101-112) Bedside Total CO2 22 mEq/l (24-31) Anion Gap 18.0 mmol/L (16-25) Bedside Blood Urea Nitrogen 5 mg/dl (7-18) Bedside Creatinine 0.8 mg/dl (0.6-1.3) Bedside Glucose (other) 109 mg/dl (70-99) Bedside Ionized Calcium (Denisa) 1.03 mmol/l (1.12-1.32) Urine Color YELLOW Urine Appearance CLEAR (CLEAR) Urine pH 6.0 (4.5-7.5) Urine Specific [place] 1.042 (1.000-1.030) Urine Protein NEG (NEG) Urine Glucose (UA) NEG (NEG) Urine Ketones NEG (NEG) Urine Occult Blood NEG (NEG) Urine Nitrite NEG (NEG) Urine Bilirubin NEG (NEG) Urine Urobilinogen NEG (NEG) Urine Leukocyte Esterase NEG (NEG) Labs reviewed by ED physician. Medications Administered Medications (Trade) Dose Ordered Sig/Ming Route Start Time Stop Time Status Last Admin Dose Admin Sodium Chloride 1,000 ml @ 999 mls/hr Q1H1M STAT IV 02/27/17 05:54 02/27/17 06:54 DC 02/27/17 06:09 999 MLS/HR Ondansetron HCl (Zofran Inj) 4 mg NOW STAT IV 02/27/17 05:59 02/27/17 06:00 DC 02/27/17 06:10 4 MG Acetaminophen 100 ml @ 400 mls/hr NOW STAT IV 02/27/17 06:02 02/27/17 06:16 DC 02/27/17 06:11 400 MLS/HR Sodium Chloride 150 ml @ 999 mls/hr Q10M STAT IV 02/27/17 06:14 02/27/17 06:23 DC 02/27/17 07:09 999 MLS/HR Sodium Chloride 500 ml @ 999 mls/hr Q31M STAT IV 02/27/17 06:14 02/27/17 06:44 DC 02/27/17 07:08 999 MLS/HR Daptomycin 500 mg/ Syringe 10 ml @ 5 mls/min ONE STAT IV 02/27/17 06:51 02/27/17 06:52 DC 02/27/17 07:08 5 MLS/MIN Cefepime HCl 1000 mg/Syringe 11 ml @ 5.5 mls/min ONE STAT IV 02/27/17 06:52 02/27/17 06:53 DC 02/27/17 07:08 5.5 MLS/MIN Caspofungin 70 mg/ Sodium Chloride 260 ml @ 260 mls/hr 0730 IV 02/27/17 07:30 02/27/17 08:29 DC 02/27/17 07:30 260 MLS/HR Albuterol/ Ipratropium (Duoneb) 12 ml ONE ONCE INH 02/27/17 07:30 02/27/17 07:31 DC 02/27/17 07:59 12 ML ECG Indication: other (sepsis) Rate (beats per minute): 114 Rhythm: sinus tachycardia Findings: no acute ischemic change, no ectopy ED Course 0554: Ordered Sodium Chloride 1000 ml @ 999 mls/hr 0558: Past medical records reviewed. The patient was evaluated in room B05. A complete history and physical examination was performed. 0559: Ordered Ondansetron HCl 4mg IV 0602: Ordered Acetaminophen 100 ml @ 400 mls/hr Protocol IV 0614: Ordered Sodium Chloride 500 ml @ 999 mls/hr, Sodium Chloride 150 ml @ 999 mls/hr 0651: Ordered Daptomycin 500 mg/Syringe 10ml @ 5mls min Protocol 0652: Ordered Cefepime HCl 1000mg/Syringe 11ml @ 2.2mls/min protocol 0730 Ordered Albuterol/Ipratropium 12 ml INH, Caspofungin 70mg/Sodium Chloride 260ml @ 260mls/hr 0736: Ordered Potassium Chloride 40 meq PO 0747: I discussed the patient's case with Dr. Oshea, [facility] and Dr. Pond, [facility]. They will accept the patient for transfer. 0811: Upon reexamination the patient is resting. I discussed results and treatment plan with the patient. She verbalizes agreement, understanding, and signed the consent form. The patient will be evaluated for further management. 1105: I reevaluated the patient. She is stable and ready for transfer. Medical Decision Differential diagnosis: Etiologies such as sepsis, UTI, pneumonia, metabolic, electrolyte abnormalities , cardiac sources, intracerebral event, toxicologic, neurologic, viral syndrome , otitis, pharyngitis, pneumonia, influenza, meningitis, bacteremia, as well as others were entertained. This is a 51-year-old female who presents emergency department complaining of fever and nausea and vomiting. The patient has had a recent, located medical history and is on Lovenox shots. This was an IV was established and blood cultures were taken. I will note the patient is tachycardic and febrile already on IV antibiotics as well as fluconazole. A lactate was obtained and the patient was given 30 mL's per kilogram of fluid. As she is febrile and meet SIRS criteria she was also typed and screened and crossed for 1 unit of packed red blood cells. In addition the patient was also given antibiotics as well as antifungal medication. She was sent for CAT scan of the chest as well as abdomen and pelvis. This was concerning for a PE. I did discuss the case with the oncologist at [facility] who readily accepted the patient. Patient and family were in agreement with the treatment plan. Consults Time Called: 0739 Consulting Physician: Dr. Oshea, [facility] and Dr. Pond, [facility] Returned Call: 0750 I discussed the patient's case with Dr. Oshea, [facility] and Dr. Pond, [facility]. They will accept the patient for transfer. Impression Primary Impression: Sepsis Critical Care I have personally spent greater than 90 minutes of critical care time in the direct management of this patient. This includes bedside care, interpretation of diagnostic studies, and testing, discussion with consultants, patient, and family members, and other required patient management activities. This 90 minutes is in excess of all separately billable procedures. Scribe Attestation The scribe's documentation has been prepared under my direction and personally reviewed by me in its entirety. I confirm that the note above accurately reflects all work, treatment, procedures, and medical decision making performed by me. Departure Information Dispostion Transfer Acute Care Facility Referrals Judy Abrams MD (PCP) Patient Instructions My [facility] Problem Qualifiers Primary Impression: Sepsis Sepsis type: sepsis due to unspecified organism Qualified Codes: A41.9 - Sepsis, unspecified organism
[2017-02-27] MEDS ORDERED: DAPTOmycin IV 500 MG in SYRINGE 0 ML IV STA (06:51)
[2017-02-27] MEDS ORDERED: CEFEPIME IV 1,000 MG in SYRINGE 0 ML IV STA (06:52)
--- NOTE | 2017-02-27 07:18 | DIAGNOSTIC IMAGING REPORT ---
CT SCAN OF THE ABDOMEN AND PELVIS WITH IV CONTRAST CLINICAL HISTORY: Fever. Abdominal wall cellulitis. Vomiting. History of hepatic resection. COMPARISON STUDY: Abdominal CT dated 08/20/2016. MRCP dated 11/11/2016. TECHNIQUE: Following the IV administration of 120 cc of Optiray 320, CT scan of the abdomen and pelvis is performed from the lung bases to the proximal femora. Images are reviewed in the axial, sagittal, and coronal planes. IV contrast was administered without complication. A dose lowering technique was utilized adhering to the principles of ALARA. FINDINGS: Lung bases: The heart is normal in size and without pericardial effusion. There is dependent airspace consolidation. A trace pleural effusion is seen on the right. There is a tiny hiatal hernia. Liver: The contrast-enhanced liver is normal in contour and attenuation. There is evidence of left hepatic lobe resection. There is no intrahepatic biliary ductal dilatation. The remaining hepatic veins and portal veins are patent. Gallbladder: Surgically absent noting clips in the gallbladder fossa. Spleen: Normal in size and attenuation. Pancreas: Unremarkable. Adrenal glands: Unremarkable. Kidneys: The contrast enhanced kidneys are normal in size and without hydronephrosis. The kidneys enhance symmetrically. Abdominal vasculature: The abdominal aorta is normal in course and caliber noting scattered foci of atherosclerotic calcification. Bowel: There are postoperative changes from sigmoid colon resection with colocolonic anastomosis. No bowel obstruction is seen. The appendix is well-visualized and normal. Peritoneum: There are tiny foci of intraperitoneal free air below the diaphragm. No abdominal ascites is seen. A surgical drain is present in the left hepatic lobe resection bed. There is a thick walled gas and fluid containing collection identified around the tip of the catheter which measures approximately 8.5 x 7.5 x 4 cm. This is best seen on axial image #92. There is induration deep to the ventral abdominal wall which is nonspecific and may be related to recent surgery. A midline surgical incision is noted. There is a gas and fluid containing collection within the ventral abdominal wall near the umbilicus. This measures approximately 7.5 x 5.5 x 3.3 cm as seen on axial image #225. This is located along the inferior margin of the incision. Lymphadenopathy: None. Pelvic viscera: The bladder is normal as visualized. The uterus is surgically absent. No adnexal lesion is seen. Skeletal structures: No lytic or blastic lesions are seen. IMPRESSION: 1. There are postoperative changes consistent with left hepatic lobe resection. 2. A surgical drain is present at the resection site. This is surrounded by a gas and fluid containing collection which measures up to 8.5 cm. Although this could represent a hematoma/seroma, the appearance is concerning for abscess and clinical correlation will be required. 3. There is a similar-appearing 7.5 cm fluid collection identified within the ventral abdominal wall along the inferior margin of the incision. Differential considerations are the same. 4. Tiny foci of intraperitoneal free air are nonspecific and likely related to the presence of an indwelling catheter. 5. Dependent bibasilar airspace opacities could represent atelectasis and/or pneumonia. Clinical correlation will be required. 6. There are postoperative changes from sigmoid colon resection with colocolonic anastomosis. No bowel obstruction is seen. Electronically signed by: Jefferson Soliz M.D. 02/27/2017 7:17 AM Dictated Date/Time: 02/27/2017 7:02 AM
--- NOTE | 2017-02-27 07:24 | DIAGNOSTIC IMAGING REPORT ---
CT ANGIOGRAPHY OF THE CHEST, PULMONARY EMBOLUS PROTOCOL CLINICAL HISTORY: Shortness of breath, fever and vomiting. Status post liver resection. COMPARISON STUDY: Chest CT May 21, 2016 and chest radiograph performed earlier today. TECHNIQUE: Following IV administration of 120 mL of Optiray-320, helical axial images of the chest were obtained utilizing the pulmonary embolus protocol. Maximal intensity projections and sagittal and coronal reformats were viewed on an independent 3D workstation. IV contrast was administered without complication. A dose lowering technique was utilized adhering to the principles of ALARA. CT DOSE: 1431.14 mGy.cm FINDINGS: No central or lobar pulmonary emboli are identified. There is a segmental pulmonary embolus within the left lower lobe shown on image 129 of 223. The heart is moderately enlarged. There is no pericardial effusion. There is no evidence of thoracic aortic dissection. No enlarged axillary, mediastinal or hilar lymph nodes are present. Bilateral lower lobe opacities favor atelectasis. There is no pneumothorax. Bilateral upper lobe opacities reflect atelectasis. There is minimal groundglass opacity within left upper lobe which could reflect atelectasis or a mild infectious process. Bony thorax is unremarkable. A small hiatal hernia is noted. The abdomen and pelvis will be reported separately however there are postsurgical findings consistent with a left lobe liver resection. There is a percutaneous drain within a left lobe resection bed gas and fluid containing collection. Linear gas tract along the liver likely reflects a previous drain site. IMPRESSION: 1. Small segmental pulmonary embolus within the left lower lobe. 2. Multifocal airspace opacities throughout the lungs. The majority of this opacity reflects atelectasis. Minimal left upper lobe opacity could reflect atelectasis or a mild infectious process. 3. Moderate cardiomegaly. 4. Status post left lobe liver resection. Percutaneous drain within a gas and fluid containing resection bed fluid collection. The abdomen and pelvis will be reported separately. Please see that report for description. Electronically signed by: Steve Crawley M.D. 02/27/2017 7:23 AM Dictated Date/Time: 02/27/2017 7:06 AM
[2017-02-27 07:27] LABS: INFLUENZA A PCR Neg for Influ A (NEG); INFLUENZA B PCR Neg for Influ B (NEG)
[2017-02-27] MEDS ORDERED: CASPOFUNGIN INJ 70 MG in SODIUM CHLORIDE 0.9% 250ML 250 ML IV SCH (07:30)
[2017-02-27] MEDS ORDERED: ALBUT/IPRATROP 3MG/0.5MG NEB 3 ML VIAL INH ONE (07:30)
[2017-02-27] MEDS ORDERED: POTASSIUM CHLORIDE 20 MEQ/15 ML UDC PO STA (07:36)
--- NOTE | 2017-02-27 07:36 | DIAGNOSTIC IMAGING REPORT ---
CHEST ONE VIEW PORTABLE CLINICAL HISTORY: Evaluate Fever/Sepsis cough COMPARISON STUDY: 02/22/2017 FINDINGS: Right-sided PICC catheter in the right atrium. Mild bibasilar atelectasis. Upper lungs are considered clear. No evidence of pneumothorax. IMPRESSION: Mild bibasilar atelectasis. The above report was generated using voice recognition software. It may contain grammatical, syntax or spelling errors. Electronically signed by: Abdias Ruff M.D. 02/27/2017 7:35 AM Dictated Date/Time: 02/27/2017 7:34 AM
[2017-02-27 08:18] LABS: URINE APPEARANCE CLEAR (CLEAR); URINE BILIRUBIN NEG (NEG); URINE COLOR YELLOW; URINE NITRITE NEG (NEG); URINE SPECIFIC GRAVITY 1.042 (1.000-1.030); UROBILINOGEN NEG (NEG); ZZUR CULT IF INDIC CLEAN CATCH NO
[2017-02-27 08:45] LABS: MANUAL MICROSCOPIC REQUIRED? NO; REVIEW REQ? NO
== END 2017-02-27 11:37 | disposition short-term general hospital (02) ==
LOC: C.EDB 05:30
DX: A41.9 Sepsis, unspecified organism (principal); Z98.890 Other specified postprocedural states; K58.9 Irritable bowel syndrome, unspecified; Z80.9 Family history of malignant neoplasm, unspecified; Z83.3 Family history of diabetes mellitus; Z83.79 Family history of other diseases of the digestive system; Z84.1 Family history of disorders of kidney and ureter; Z83.6 Family history of other diseases of the respiratory system; Z79.2 Long term (current) use of antibiotics; Z79.01 Long term (current) use of anticoagulants; Z79.899 Other long term (current) drug therapy

== ENCOUNTER → 2017-03-03 | Outpatient (CLI) | payer OTHER ==
[2017-03-03 13:00] LABS: HEMATOCRIT 30.3 % (37-47); MEAN CELL VOLUME 86.8 fL (80-100); MEAN CORPUSCULAR HEMOGLOBIN 28.1 pg (25-34); MEAN CORPUSCULAR HGB CONC 32.3 g/dl (32-36); MEAN PLATELET VOLUME 9.9 fL (7.4-10.4); PLATELET COUNT 178 K/uL (130-400); RED BLOOD COUNT 3.49 M/uL (4.2-5.4); WHITE BLOOD COUNT 8.36 K/uL (4.8-10.8)
[2017-03-03 14:16] LABS: ALT/SGPT 17 U/L (12-78); BLOOD UREA NITROGEN 5 mg/dl (7-18); BUN/CREATININE RATIO 7.5 (10-20); CALCIUM 8.4 mg/dl (8.5-10.1); CARBON DIOXIDE 25 mmol/L (21-32); CHLORIDE 104 mmol/L (98-107); CREATININE 0.62 mg/dl (0.60-1.20); GLUCOSE 87 mg/dl (70-99); POTASSIUM 3.2 mmol/L (3.5-5.1); SODIUM 136 mmol/L (136-145)
[2017-03-03 14:17] LABS: BASO % 0.4 %; BASO ABS # 0.03 K/uL (0-0.2); COMPLETE YES; EOS % 3.3 %; IG% 0.6 %; LYMPH % 60.2 %; LYMPH ABS # 5.03 K/uL (1.2-3.4); MONO % 6.9 %; NEUT % 28.6 %
[2017-03-03 14:22] LABS: ALKALINE PHOSPHATASE 90 U/L (45-117); AST/SGOT 30 U/L (15-37); PHOSPHORUS 2.9 mg/dl (2.5-4.9); PREALBUMIN 13.1 mg/dl (20-40)
== END | disposition home or self-care (01) ==
LOC: C.LABSPEC 12:22
PROVIDERS: ATTEND Internal Medicine Infectious Disease
DX: R76.8 Other specified abnormal immunological findings in serum (principal); K83.1 Obstruction of bile duct; B49 Unspecified mycosis

== ENCOUNTER → 2017-03-05 | Outpatient (CLI) | payer OTHER ==
[2017-03-05 12:06] LABS: HEMATOCRIT 32.1 % (37-47); MEAN CELL VOLUME 87.2 fL (80-100); MEAN CORPUSCULAR HGB CONC 32.1 g/dl (32-36); MEAN PLATELET VOLUME 10.1 fL (7.4-10.4); PLATELET COUNT 208 K/uL (130-400); RED BLOOD COUNT 3.68 M/uL (4.2-5.4)
[2017-03-05 12:31] LABS: ALB/GLOB RATIO 0.6 (0.9-2); ALKALINE PHOSPHATASE 99 U/L (45-117); ALT/SGPT 19 U/L (12-78); AST/SGOT 43 U/L (15-37); BLOOD UREA NITROGEN 6 mg/dl (7-18); BUN/CREATININE RATIO 7.9 (10-20); CALCIUM 8.5 mg/dl (8.5-10.1); CARBON DIOXIDE 24 mmol/L (21-32); CHLORIDE 102 mmol/L (98-107); CREATININE 0.72 mg/dl (0.60-1.20); GLUCOSE 95 mg/dl (70-99); MAGNESIUM 1.9 mg/dl (1.8-2.4); PHOSPHORUS 3.1 mg/dl (2.5-4.9); POTASSIUM 3.3 mmol/L (3.5-5.1); SODIUM 136 mmol/L (136-145)
[2017-03-05 13:11] LABS: BASO ABS # 0.08 K/uL (0-0.2); BASOPHIL % 0.9 %; EOSINOPHIL % 1.7 %; LYMPH ABS # 1.31 K/uL (1.2-3.4); LYMPHOCYTE % 13.9 %; NEUTROPHILS % 31.3 %; SMUDGE CELLS PRESENT; VARIANT LYM ABS # 4.82 K/uL; VARIANT LYMPHOCYTE % 51.3 %
[2017-03-05 13:30] LABS: COMPLETE YES
== END | disposition home or self-care (01) ==
LOC: C.LABSPEC 11:55
PROVIDERS: ATTEND Family Medicine
DX: A41.9 Sepsis, unspecified organism (principal); D64.9 Anemia, unspecified; I20.1 Angina pectoris with documented spasm

== ENCOUNTER → 2017-03-06 | Outpatient (CLI) | payer OTHER | END | disposition home or self-care (01) | LOC: C.LAB 12:23 | PROVIDERS: ATTEND Internal Medicine Infectious Disease | DX: R50.9 Fever, unspecified (principal) ==

== ENCOUNTER → 2017-03-07 | Outpatient (CLI) | payer OTHER ==
[2017-03-09 17:35] LABS: HEMATOCRIT 30.7 % (37-47); MEAN CELL VOLUME 88.7 fL (80-100); MEAN CORPUSCULAR HEMOGLOBIN 27.2 pg (25-34); MEAN CORPUSCULAR HGB CONC 30.6 g/dl (32-36); MEAN PLATELET VOLUME 9.7 fL (7.4-10.4); PLATELET COUNT 245 K/uL (130-400); RED BLOOD COUNT 3.46 M/uL (4.2-5.4); WHITE BLOOD COUNT 7.79 K/uL (4.8-10.8)
[2017-03-09 17:47] LABS: ALT/SGPT 16 U/L (12-78); AST/SGOT 26 U/L (15-37); BLOOD UREA NITROGEN 9 mg/dl (7-18); BUN/CREATININE RATIO 13.1 (10-20); CARBON DIOXIDE 25 mmol/L (21-32); CHLORIDE 105 mmol/L (98-107); CREATININE 0.71 mg/dl (0.60-1.20); GLUCOSE 106 mg/dl (70-99); MAGNESIUM 1.9 mg/dl (1.8-2.4); PHOSPHORUS 4.4 mg/dl (2.5-4.9); POTASSIUM 3.4 mmol/L (3.5-5.1); SODIUM 137 mmol/L (136-145)
[2017-03-09 17:53] LABS: ALB/GLOB RATIO 0.6 (0.9-2); ALKALINE PHOSPHATASE 89 U/L (45-117); CALCIUM 8.6 mg/dl (8.5-10.1)
[2017-03-09 17:54] LABS: PREALBUMIN 11.5 mg/dl (20-40)
[2017-03-09 18:40] LABS: BASO % 0.4 %; BASO ABS # 0.03 K/uL (0-0.2); COMPLETE YES; EOS % 2.1 %; IG% 0.4 %; LYMPH % 63.3 %; LYMPH ABS # 4.93 K/uL (1.2-3.4); MONO % 5.6 %; NEUT % 28.2 %
== END | disposition home or self-care (01) ==
LOC: C.LABSPEC 17:20
PROVIDERS: ATTEND Internal Medicine Infectious Disease
DX: A41.9 Sepsis, unspecified organism (principal)

== ENCOUNTER → 2017-03-16 | Outpatient (CLI) | payer OTHER ==
[~2017-03-16] MED LIST changes: +OXYC1TAB3 PO; +TYLOTC500 PO; +WARF-246 PO; +WARF5TAB7 PO
[2017-03-16 17:38] LABS: HEMATOCRIT 33.4 % (37-47); HEMOGLOBIN 10.7 g/dL (12.0-16.0); MEAN CORPUSCULAR HEMOGLOBIN 28.8 pg (25-34); MEAN PLATELET VOLUME 9.9 fL (7.4-10.4); PLATELET COUNT 254 K/uL (130-400); RED CELL DISTRIBUTION WIDTH CV 16.4 % (11.5-14.5); RED CELL DISTRIBUTION WIDTH SD 54.6 fL (36.4-46.3); WHITE BLOOD COUNT 12.63 K/uL (4.8-10.8)
[2017-03-16 18:37] LABS: ALBUMIN 2.9 gm/dl (3.4-5.0); ALT/SGPT 25 U/L (12-78); AST/SGOT 34 U/L (15-37); BLOOD UREA NITROGEN 18 mg/dl (7-18); CALCIUM 9.2 mg/dl (8.5-10.1); CARBON DIOXIDE 24 mmol/L (21-32); CREATININE 0.84 mg/dl (0.60-1.20); GLUCOSE 90 mg/dl (70-99); POTASSIUM 4.2 mmol/L (3.5-5.1); SODIUM 133 mmol/L (136-145)
[2017-03-16 18:42] LABS: ALKALINE PHOSPHATASE 104 U/L (45-117); TOTAL PROTEIN 7.5 gm/dl (6.4-8.2)
--- NOTE | 2017-04-10 08:06 | CODING QUERY NO DIAGNOSIS ---
Valid Physician Order Needed 63 A valid physician order must be submitted in order to properly bill for the service(s) provided, including date of service(s), valid diagnosis, and physician signature. If these tests are done on a recurring basis the original physician order must be submitted in order to code and bill for the service(s) provided. Please fax us the original, signed physician order so that we may expedite billing to [phone] DOS 03/16/2017 * CBC W/DIFF * PLATELET COUNT * MAGNESIUM * COMP METABOLIC * PREALBUMIN Thank you [facility]
== END | disposition home or self-care (01) ==
LOC: C.LABSPEC 11:20
PROVIDERS: ATTEND Student in an Organized Health Care Education/Training Program
DX: A41.9 Sepsis, unspecified organism (principal)

== ENCOUNTER → 2017-03-23 | Outpatient (CLI) | payer OTHER ==
[~2017-03-23] MED LIST changes: -OXYC1TAB3 PO; -WARF-246 PO
[2017-03-23 12:22] LABS: HEMATOCRIT 32.6 % (37-47); HEMOGLOBIN 10.7 g/dL (12.0-16.0); MEAN CELL VOLUME 87.4 fL (80-100); MEAN CORPUSCULAR HEMOGLOBIN 28.7 pg (25-34); MEAN CORPUSCULAR HGB CONC 32.8 g/dl (32-36); MEAN PLATELET VOLUME 9.6 fL (7.4-10.4); PLATELET COUNT 341 K/uL (130-400); RED CELL DISTRIBUTION WIDTH CV 15.3 % (11.5-14.5); RED CELL DISTRIBUTION WIDTH SD 49.2 fL (36.4-46.3)
[2017-03-23 13:09] LABS: ALBUMIN 2.9 gm/dl (3.4-5.0); ALT/SGPT 26 U/L (12-78); AST/SGOT 25 U/L (15-37); BLOOD UREA NITROGEN 13 mg/dl (7-18); CALCIUM 9.1 mg/dl (8.5-10.1); CARBON DIOXIDE 24 mmol/L (21-32); CREATININE 0.84 mg/dl (0.60-1.20); GLUCOSE 83 mg/dl (70-99); POTASSIUM 4.1 mmol/L (3.5-5.1); SODIUM 136 mmol/L (136-145)
[2017-03-23 13:11] LABS: ALKALINE PHOSPHATASE 115 U/L (45-117); BASO % 0.2 %; BASO ABS # 0.02 K/uL (0-0.2); EOS % 1.5 %; EOS ABS # 0.15 K/uL (0-0.5); IG# 0.02 K/uL (0.00-0.02); LYMPH % 58.1 %; LYMPH ABS # 5.64 K/uL (1.2-3.4); MONO % 4.6 %; MONO ABS # 0.45 K/uL (0.11-0.59); NEUT % 35.4 %; NEUT ABS # 3.42 K/uL (1.4-6.5); TOTAL PROTEIN 7.4 gm/dl (6.4-8.2)
== END | disposition home or self-care (01) ==
LOC: C.LABSPEC 10:14
PROVIDERS: ATTEND Student in an Organized Health Care Education/Training Program
DX: E87.6 Hypokalemia (principal); A41.9 Sepsis, unspecified organism

== ENCOUNTER → 2017-03-31 | Outpatient (CLI) | payer OTHER ==
[~2017-03-31] MED LIST changes: +OXYC1TAB3 PO; +WARF-246 PO
[2017-03-31 11:51] LABS: HEMATOCRIT 33.8 % (37-47); MEAN CELL VOLUME 87.1 fL (80-100); MEAN CORPUSCULAR HEMOGLOBIN 28.4 pg (25-34); MEAN CORPUSCULAR HGB CONC 32.5 g/dl (32-36); MEAN PLATELET VOLUME 9.6 fL (7.4-10.4); PLATELET COUNT 307 K/uL (130-400); RED CELL DISTRIBUTION WIDTH CV 15.2 % (11.5-14.5); RED CELL DISTRIBUTION WIDTH SD 47.9 fL (36.4-46.3); WHITE BLOOD COUNT 10.51 K/uL (4.8-10.8)
[2017-03-31 12:11] LABS: ALBUMIN 3.1 gm/dl (3.4-5.0); ALT/SGPT 20 U/L (12-78); AST/SGOT 18 U/L (15-37); BLOOD UREA NITROGEN 11 mg/dl (7-18); CALCIUM 8.8 mg/dl (8.5-10.1); CARBON DIOXIDE 24 mmol/L (21-32); CREATININE 0.81 mg/dl (0.60-1.20); GLUCOSE 86 mg/dl (70-99); POTASSIUM 3.8 mmol/L (3.5-5.1); SODIUM 137 mmol/L (136-145)
[2017-03-31 12:23] LABS: ALKALINE PHOSPHATASE 106 U/L (45-117); TOTAL PROTEIN 7.6 gm/dl (6.4-8.2)
[2017-03-31 12:38] LABS: BASO % 0.2 %; BASO ABS # 0.02 K/uL (0-0.2); EOS % 1.3 %; EOS ABS # 0.14 K/uL (0-0.5); IG# 0.02 K/uL (0.00-0.02); LYMPH % 58.4 %; LYMPH ABS # 6.14 K/uL (1.2-3.4); MONO % 4.6 %; MONO ABS # 0.48 K/uL (0.11-0.59); NEUT % 35.3 %; NEUT ABS # 3.71 K/uL (1.4-6.5)
== END | disposition home or self-care (01) ==
LOC: C.LABSPEC 10:31
PROVIDERS: ATTEND Family Medicine
DX: A41.9 Sepsis, unspecified organism (principal)

== ENCOUNTER → 2017-04-03 | Outpatient (CLI) | payer OTHER ==
[~2017-04-03] MED LIST changes: +ANAS1TAB7 PO; +DOCU100C31 PO; +ESCI10TA17 PO; +LORA-741 PO; +MECL1TAB42 PO; +OXYC-90 PO; -OXYC1TAB3 PO
--- NOTE | 2017-04-03 10:09 | DIAGNOSTIC IMAGING REPORT ---
LEFT ARM ULTRASOUND CLINICAL HISTORY: Left upper extremity pain. COMPARISON STUDY: None. FINDINGS: Real-time sonographic imaging of the left upper arm was performed. The patient complains of a question palpable abnormality near the left biceps. No masses or fluid collections identified. No foreign bodies. IMPRESSION: No sonographic abnormality within the left upper arm. Electronically signed by: Bishnu Shrestha M.D. 04/03/2017 10:08 AM Dictated Date/Time: 04/03/2017 10:06 AM
== END | disposition home or self-care (01) ==
LOC: C.ULTR 09:27
PROVIDERS: ATTEND Nurse Practitioner Family
DX: M79.602 Pain in left arm (principal)

== ENCOUNTER → 2017-04-07 | Outpatient (CLI) | payer OTHER ==
[2017-04-07 13:10] LABS: HEMATOCRIT 33.6 % (37-47); MEAN CELL VOLUME 86.8 fL (80-100); MEAN CORPUSCULAR HEMOGLOBIN 28.4 pg (25-34); MEAN CORPUSCULAR HGB CONC 32.7 g/dl (32-36); MEAN PLATELET VOLUME 9.6 fL (7.4-10.4); PLATELET COUNT 254 K/uL (130-400); RED CELL DISTRIBUTION WIDTH CV 14.7 % (11.5-14.5); RED CELL DISTRIBUTION WIDTH SD 46.4 fL (36.4-46.3)
[2017-04-07 14:45] LABS: ALBUMIN 3.2 gm/dl (3.4-5.0); ALKALINE PHOSPHATASE 112 U/L (45-117); ALT/SGPT 24 U/L (12-78); AST/SGOT 21 U/L (15-37); BLOOD UREA NITROGEN 18 mg/dl (7-18); CALCIUM 9.1 mg/dl (8.5-10.1); CARBON DIOXIDE 23 mmol/L (21-32); CREATININE 0.94 mg/dl (0.60-1.20); GLUCOSE 96 mg/dl (70-99); POTASSIUM 3.2 mmol/L (3.5-5.1); SODIUM 137 mmol/L (136-145); TOTAL PROTEIN 7.3 gm/dl (6.4-8.2)
== END | disposition home or self-care (01) ==
LOC: C.LABSPEC 12:18
PROVIDERS: ATTEND Student in an Organized Health Care Education/Training Program
DX: A41.9 Sepsis, unspecified organism (principal)

== ENCOUNTER → 2017-04-11 | Outpatient (CLI) | payer OTHER ==
[~2017-04-11] MED LIST changes: -ANAS1TAB7 PO; -DOCU100C31 PO; -ESCI10TA17 PO; -LORA-741 PO; -MECL1TAB42 PO; -OXYC-90 PO; -TYLOTC500 PO; -WARF-246 PO; -WARF5TAB7 PO
== END | disposition home or self-care (01) ==
LOC: C.LAB1850 09:21
PROVIDERS: ATTEND Family Medicine
DX: E87.6 Hypokalemia (principal); D72.820 Lymphocytosis (symptomatic)

== ENCOUNTER → 2017-04-23 | Outpatient (CLI) | payer OTHER ==
[~2017-04-23] MED LIST changes: +TYLOTC500 PO; +WARF5TAB7 PO
--- NOTE | 2017-04-24 13:57 | MAMMOGRAPHY REPORT ---
BILATERAL DIGITAL SCREENING MAMMOGRAM TOMOSYNTHESIS WITH CAD: 04/23/2017 CLINICAL HISTORY: Routine screening. Patient has no complaints. TECHNIQUE: Breast tomosynthesis in addition to standard 2D mammography was performed. Current study was also evaluated with a Computer Aided Detection (CAD) system. COMPARISON: Comparison is made to exams dated: 06/04/2005 mammogram - [facility], 06/07/2010 mammogram, and 05/04/2008 mammogram - [facility]. BREAST COMPOSITION: There are scattered areas of fibroglandular density in both breasts. FINDINGS: There are newly visualized calcifications within the right lower inner quadrant, for which spot magnification views are recommended for further evaluation. A 4 mm round circumscribed benign- appearing mass is seen in association with some of the calcifications on the cc tomosynthesis images, and a 5 mm nodular asymmetry is also seen in association with some of the calcifications in the infe rior breast on the MLO view. Recommend spot magnification views and possible breast ultrasound for f urther evaluation. The remainder of both breasts are stable compared to prior exams, without suspicious masses, calcific ations, or areas of architectural distortion noted. IMPRESSION: ACR BI-RADS CATEGORY 0: INCOMPLETE EVALUATION: NEED ADDITIONAL IMAGING EVALUATION Right breast calcifications and associated asymmetry/mass, for which additional imaging evaluation is recommended. The patient will be called to schedule an appointment. Approximately 10% of breast cancers are not detected with mammography. A negative mammographic report should not delay biopsy if a clinically suggestive mass is present. Laquita Santos M.D. /:04/23/2017 16:11:27 Home Care Music Therapist: Jory Constantino, [facility] letter sent: Addl Imaging 0 BI-RADS Code: ACR BI-RADS Category 0: Incomplete Evaluation: Need Additional Imaging Evaluation
== END | disposition home or self-care (01) ==
LOC: C.MAMM 09:55
PROVIDERS: ATTEND Family Medicine
DX: Z12.31 Encounter for screening mammogram for malignant neoplasm of breast (principal); R92.1 Mammographic calcification found on diagnostic imaging of breast; N64.89 Other specified disorders of breast; N63.10 Unspecified lump in the right breast, unspecified quadrant

== ENCOUNTER → 2017-05-02 | Outpatient (CLI) | payer OTHER ==
[~2017-05-02] MED LIST changes: -ENOX100I SQ; -ERTA1INJ IV; -FLUC200T4 PO; -OXYC-643 PO; +OXYC1TAB3 PO
--- NOTE | 2017-05-02 11:23 | DIAGNOSTIC IMAGING REPORT ---
R RIBS UNILATERAL WITH PA CHEST CLINICAL HISTORY: Right sided rib pain. COMPARISON STUDY: Chest CT February 27, 2017. FINDINGS: There is no pneumothorax or pleural effusion. Cardiac size is normal. There is no evidence for pulmonary edema. No acute right-sided rib fractures are noted. There are cholecystectomy clips. Linear branching structure projecting of the liver likely reflects pneumobilia which was shown on CT of March 17, 2017. IMPRESSION: 1. No pneumothorax. No acute right rib fractures identified. 2. Linear branching structures project over the right upper quadrant which likely reflect pneumobilia which was shown on CT of March 17, 2017. Electronically signed by: Steve Crawley M.D. 05/02/2017 11:22 AM Dictated Date/Time: 05/02/2017 11:16 AM
== END | disposition home or self-care (01) ==
LOC: C.LAB1850 10:49
PROVIDERS: ATTEND Family Medicine
DX: R07.81 Pleurodynia (principal)

== ENCOUNTER → 2017-05-07 | Outpatient (CLI) | payer OTHER ==
[~2017-05-07] MED LIST changes: +ENOX100I SQ; +ERTA1INJ IV; +FLUC200T4 PO; +OXYC-643 PO; +WARF-246 PO
--- NOTE | 2017-05-07 14:35 | MAMMOGRAPHY REPORT ---
UNILATERAL RIGHT DIGITAL DIAGNOSTIC MAMMOGRAM AND TARGETED RIGHT ULTRASOUND: 05/07/2017 CLINICAL HISTORY: Callback from screening mammogram for right breast calcifications and associated ma sses. TECHNIQUE: Spot magnification right cc and ML views were obtained. COMPARISON: Comparison is made to exams dated: 04/23/2017 mammogram - [facility], mammogram, 05/04/2008 mammogram - [facility], and 06/04/2005 mammogram - [facility]. BREAST COMPOSITION: There are scattered areas of fibroglandular density in the right breast. FINDINGS: Spot magnification views of the right breast demonstrate a round partially circumscribed a nd partially obscured 4 mm mass with associated internal coarse heterogeneous calcifications in the r ight 3:00 breast. Anterior to this is another lobulated obscured 7 mm mass with associated internal coarse heterogeneous calcifications. Other coarse heterogeneous calcifications are seen loosely grou ped within the right medial breast at approximately 3 to 4:00 that are new from the prior 2010 exam. The total extent of the masses and calcifications measures approximately 5.4 x 5.1 x 4.4 cm. Targeted ultrasound was performed of the right breast in the region of the mammographic masses and ca lcifications. In the right breast at 3:00, 3 cm from the nipple, there is a round circumscribed isoe choic 4 x 3 x 4 mm solid appearing mass, which contains internal echogenic foci consistent with the m ammographic calcifications. This corresponds with the more posterior mammographic mass. In the righ t breast at 3:00, 2 cm from the nipple, there is an intraductal hypoechoic mass with internal vascula rity as well as internal echogenic foci consistent with calcifications. The mass measures 7 x 3 x 5 mm. This corresponds with the anterior mammographic mass. Given that the mass is intraductal, it co uld represent a papillary lesion. Recommend ultrasound-guided core needle biopsy for further evaluat ion. IMPRESSION: ACR BI-RADS CATEGORY 4: SUSPICIOUS, TARGETED ULTRASOUND ACR BI-RADS CATEGORY 4: SUSPICIO US 1. Two adjacent masses in the right 3:00 breast with associated internal coarse heterogeneous calcifi cations, one measuring 4 mm and the other measuring 7 mm. The largest mass appears intraductal on ul trasound and may represent a papillary lesion. Recommend ultrasound-guided core needle biopsy of the larger intraductal mass seen within the right breast at 3:00, 2 cm from the nipple. Management of t he other adjacent mass will be based on the pathology results. 2. Other coarse heterogeneous calcifications seen within the right medial breast surrounding the two masses, which appear similar to the calcifications seen within the masses. Again, further managemen t of the calcifications will be based on the pathology results of the right 3:00 breast mass. A phone call was made to the physician's office to confirm faxed results were received. The patient has been verbally notified of the results. [facility] The patient is currently on Coumadin due to a recent pulmonary embolus, and is being foll owed in the Coumadin clinic. I will leave it up to the Coumadin clinic if she can safely discontinue Coumadin for the procedure. Approximately 10% of breast cancers are not detected with mammography. A negative mammographic report should not delay biopsy if a clinically suggestive mass is present. Laquita Santos M.D. ah/:05/07/2017 12:02:05 Paper Processing Machine Helper: Kiya Wei RT(R)(M), [facility] letter sent: Abnormal 4/5 BI-RADS Code: ACR BI-RADS Category 4: Suspicious Ultrasound BI-RADS: ACR BI-RADS Category 4: Suspici ous
== END | disposition home or self-care (01) ==
LOC: C.MAMM 08:24
PROVIDERS: ATTEND Family Medicine
DX: R92.0 Mammographic microcalcification found on diagnostic imaging of breast (principal); N64.89 Other specified disorders of breast

== ENCOUNTER → 2017-05-12 | Outpatient (CLI) | payer OTHER ==
[~2017-05-12] MED LIST changes: -ENOX100I SQ; -ERTA1INJ IV; -FLUC200T4 PO; +GADAVIST IV PRN; -OXYC-643 PO
--- NOTE | 2017-05-12 08:34 | DIAGNOSTIC IMAGING REPORT ---
UPPER EXT NONJOINT COMBO CLINICAL HISTORY: LT ARM MASS,R22.32 mass TECHNIQUE: Multiaxial MRI acquisition pre and postcontrast enhancement COMPARISON STUDY: None FINDINGS: Signal characteristics of all major osseous structures appear unremarkable. In the characteristics of the muscular and subcutaneous fat structures are unremarkable. No evidence for mass or collection. Several normal septations within the subcutaneous fat appreciated. IMPRESSION: 1. No evidence for discrete mass or collection. 2. Palpable area of nodularity potentially relates to a normal subcutaneous fatty septation The above report was generated using voice recognition software. It may contain grammatical, syntax or spelling errors. Electronically signed by: Abdias Ruff M.D. 05/12/2017 8:32 AM Dictated Date/Time: 05/12/2017 8:28 AM
== END | disposition home or self-care (01) ==
LOC: C.MRIBC 06:59
PROVIDERS: ATTEND Orthopaedic Surgery
DX: R22.32 Localized swelling, mass and lump, left upper limb (principal)

== ENCOUNTER → 2017-05-22 | Outpatient (CLI) | payer OTHER ==
[~2017-05-22] MED LIST changes: -GADAVIST IV PRN
--- NOTE | 2017-05-22 09:56 | Discharge Instructions ---
Discharge Instructions Procedure Procedure Date: May 22, 2017. Reason for visit: Right Mass. Discharge Discharge Date: May 22, 2017. Discharge Diagnosis: status post breast biopsy Instructions Activity Recommendations: Additional Limitations (see below) Return to School/Work: no limitations Recommended Home Diet: No Limitations Provider Instructions: ACTIVITY RECOMMENDATIONS: * No lifting, pushing, pulling or exercising the affected side for three days. RETURN TO SCHOOL/WORK: * You may return to work/school after the procedure, but do not perform any strenuous activities for 24 to 48 hours. MEDICATIONS: * Tylenol (two 325 mg) every four to six hours if needed for mild pain (if not allergic to Tylenol). DIET: * Resume previous diet. SPECIAL CARE INSTRUCTIONS: * Keep biopsy site dry for 24 hours. May shower after 24 hours, but do not soak (bathe) incision. * May remove Tegaderm (plastic patch) tomorrow AFTER showering. * Leave the steri-strips on for one week. Allow the steri-strips to fall off by themselves. If not off after one week, you may remove them. You may place a Bandaid crosswise over the strips, if desired. * Apply ice 10 minutes on and 10 minutes off as needed. * Wear a bra at bedtime to sleep more comfortably for 2-3 days. * Your referring physician should have the results after approximately 5 to 7 business days. * Call for unusual bleeding, fever, drainage, etc or if you have any questions call during normal business hours or after hours call Dr Santos, . FOLLOW UP VISIT: Follow-up with Referring Physician as scheduled. Allergies Coded Allergies: Doxycycline (Verified Allergy, Unknown, VOMITTING, 02/27/17) Rivaroxaban (Verified Allergy, Unknown, RASH, 02/27/17) Myrtle Snowden Recommendations: Call your doctor if: * Temperature above 101 degrees * Pain not relieved by pain medicine ordered * There is increased drainage or redness from any incision * You have any unanswered questions or concerns. Your Doctors Instructions noted above were prepared by provider Laquita Santos. Patient Signature Section: Patient Instructions Signature Page Rosalie Jane Patient (or Guardian) Signature/Date: I have read and understand the instructions given to me by my caregivers. Caregiver/RN/Doctor Signature/Date: The above-named patient and/or guardian has received patient instructions on this date. + Original Patient Signature Page (only) stays with chart. Please make copy for patient.
--- NOTE | 2017-05-22 15:00 | MAMMOGRAPHY REPORT ---
ULTRASOUND GUIDED BIOPSY RIGHT BREAST: 05/22/2017 CLINICAL HISTORY: Right 3:00 breast mass with associated calcifications. PATIENT CONSENT: The procedure, risks and benefits were discussed with the patient and informed writt en consent was obtained. The increased risk of bleeding as the patient is on Coumadin was discussed. A timeout was performed immediately prior to the procedure. PROCEDURE DESCRIPTION: With ultrasound guidance, aseptic technique, and lidocaine as the local anesth etic (1% lidocaine to anesthetize the skin and 1% lidocaine with epinephrine to anesthetize the deepe r tissues), the mass of concern in the right 3:00 breast was sampled 5 times with a 14-gauge Achieve biopsy needle. Immediately thereafter, with ultrasound guidance, aseptic technique, and lidocaine as the local anesthetic, a metallic localizer clip was placed centrally in the mass. A specimen radiog raph was performed of the samples, which shows a possible calcification within one of the samples. D irect pressure was applied to the site immediately post procedure and hemostasis was achieved. Postp rocedure unilateral mammograms were performed to confirm placement of the clip in the expected locati on of the breast mass. The patient tolerated the procedure without complication. She was given woun d care instructions. The specimens were sent to pathology for analysis. COMPARISON: Comparison is made to exams dated: 05/07/2017 mammogram, 05/07/2017 ultrasound, 04/23/2017 ma mmogram - [facility], 06/07/2010 mammogram, 05/04/2008 mammogram - [facility], an d 06/04/2005 mammogram - [facility]. IMPRESSION: ULTRASOUND GUIDED BIOPSY Ultrasound guided core needle biopsy of the right 3:00 breast mass with associated calcifications, wi th clip placement. The patient will receive pathology results from her referring provider. Laquita Santos M.D. ah/:05/22/2017 09:58:52 City Supervisor: Jory BOBO(Gerald)(M), [facility]
--- NOTE | 2017-05-22 15:00 | MAMMOGRAPHY REPORT ---
UNILATERAL RIGHT DIGITAL DIAGNOSTIC MAMMOGRAM TOMOSYNTHESIS: 05/22/2017 CLINICAL HISTORY: Status post right breast biopsy. TECHNIQUE: Breast tomosynthesis in addition to standard 2D mammography was performed. Postprocedura l right CC and ML tomosynthesis images were obtained. COMPARISON: Comparison is made to exams dated: 05/07/2017 mammogram, 05/07/2017 ultrasound, 04/23/2017 ma mmogram - [facility], 06/07/2010 mammogram, and 05/04/2008 mammogram - [facility] . BREAST COMPOSITION: There are scattered areas of fibroglandular density in the right breast. FINDINGS: A new ribbon-shaped biopsy marker clip is seen at the site of the biopsied mass and calcif ications in the right 3:00 anterior breast. No significant postbiopsy hematoma is seen. IMPRESSION: POST PROCEDURE IMAGING FOR MARKER PLACEMENT New biopsy marker clip status post right breast biopsy. Pathology results are pending. Approximately 10% of breast cancers are not detected with mammography. A negative mammographic report should not delay biopsy if a clinically suggestive mass is present. Laquita Santos M.D. ah/:05/22/2017 10:19:17 Events Administrative Assistant: Jory Mauro RT(R)(M), [facility] BI-RADS Code: Post Procedure Imaging For Marker Placement
== END | disposition home or self-care (01) ==
LOC: C.MAMM 09:05
PROVIDERS: ATTEND Family Medicine
DX: R92.8 Other abnormal and inconclusive findings on diagnostic imaging of breast (principal); N63.10 Unspecified lump in the right breast, unspecified quadrant; D24.1 Benign neoplasm of right breast

== ENCOUNTER 2017-06-07 19:56 | Emergency (ER) | payer OTHER ==
[~2017-06-07] VITALS: Ht 152.4 cm; Wt 91.0 kg
[2017-06-07 20:03] VITALS: Ht 152.4 cm; Wt 91.0 kg
[2017-06-07] MEDS ORDERED: ACETAMINOPHEN 500 MG TAB PO STA (20:09)
[2017-06-07] MEDS ORDERED: SODIUM CHLORIDE 0.9% 1000ML 1,000 ML IV STA (20:09)
[2017-06-07] MEDS ORDERED: ONDANSETRON INJ 2 MG/ML 2 ML VIAL IV STA (20:09)
[2017-06-07 20:37] LABS: BASO % 0.1 %; BASO ABS # 0.01 K/uL (0-0.2); EOS % 0.2 %; EOS ABS # 0.02 K/uL (0-0.5); HEMATOCRIT 36.4 % (37-47); HEMOGLOBIN 12.6 g/dL (12.0-16.0); IG# 0.01 K/uL (0.00-0.02); LYMPH % 31.9 %; LYMPH ABS # 3.02 K/uL (1.2-3.4); MEAN CELL VOLUME 83.1 fL (80-100); MEAN CORPUSCULAR HEMOGLOBIN 28.8 pg (25-34); MEAN CORPUSCULAR HGB CONC 34.6 g/dl (32-36); MEAN PLATELET VOLUME 8.7 fL (7.4-10.4); MONO % 5.7 %; MONO ABS # 0.54 K/uL (0.11-0.59); NEUT ABS # 5.86 K/uL (1.4-6.5); PLATELET COUNT 224 K/uL (130-400); RED CELL DISTRIBUTION WIDTH CV 13.7 % (11.5-14.5); RED CELL DISTRIBUTION WIDTH SD 41.2 fL (36.4-46.3); WHITE BLOOD COUNT 9.46 K/uL (4.8-10.8)
[2017-06-07 20:49] LABS: INR 1.4 (0.9-1.1); PTT PATIENT 38.3 SECONDS (21.0-31.0)
[2017-06-07 20:55] LABS: ALBUMIN 3.5 gm/dl (3.4-5.0); CALCIUM 8.6 mg/dl (8.5-10.1); CREATININE 1.05 mg/dl (0.60-1.20); POTASSIUM 3.8 mmol/L (3.5-5.1)
[2017-06-07 20:58] LABS: TOTAL PROTEIN 7.4 gm/dl (6.4-8.2)
[2017-06-07] MEDS ORDERED: DOCU100C31 PO (21:05)
[2017-06-07] MEDS ORDERED: LORA-741 PO (21:05)
[2017-06-07] MEDS ORDERED: ESCI10TA17 PO (21:05)
[2017-06-07 21:08] LABS: INFLUENZA B ANTIGEN Neg for Influ B (NEG)
--- NOTE | 2017-06-07 21:18 | EMERGENCY ROOM VISIT NOTE ---
History Report prepared by Sameer: Ellen Ames Under the Supervision of: Dr. Neftali Wild M.D. First contact with patient: 20:07 Chief Complaint: FLU LIKE SX Stated Complaint: BONES HURT, FEVER, SICK History of Present Illness The patient is a 51 year old female who presents to the Emergency Room with complaints of generalized illness beginning a day ago. The patient reports body aches, headache and a fever. She denies any vomiting, diarrhea, chest pain, shortness of breath, cough, or blood in stool. The patient has a history of DVT , PEs, cholecystectomy, biliary disease, and breast cancer. She is on Coumadin and her last level was 2.6. She has 40% of her liver removed on February 05. The patient is not on chemotherapy yet for her breast cancer. Source of History: patient Onset: a day ago Position: other (generalized) Quality: other (illness) Timing: constant Associated Symptoms: + fevers, + headache, No chest pain, No SOB, No vomiting, No diarrhea Review of Systems See HPI for pertinent positives and negatives. A total of ten systems were reviewed and were otherwise negative. Past Medical & Surgical Medical Problems: (1) section (2) Cholecystectomy (3) FX ANKLE NOS-CLOSED (4) FX HUMERUS NOS-CLOSED (5) History of repair of inguinal hernia (6) Hysterectomy (7) IRRITABLE BOWEL SYNDROME (8) LFTs abnormal (9) Partial resection of colon (10) Rotator cuff injury Surgical Problems: (1) H/O rotator cuff surgery Family History Cancer Diabetes mellitus Gallbladder disease Heart disease Hypertension Kidney disease or stones Lung disease Seizures Social History Smoking Status: Never Smoker Drug Use: none Marital Status: Housing Status: lives alone Occupation Status: employed Current/Historical Medications Scheduled Amlodipine (Norvasc), 2.5 MG PO QAM Docusate Sodium (Docusate Sodium), 1 CAP PO BID Escitalopram (Lexapro), 10 MG PO DAILY Pantoprazole Sodium (Protonix), 40 MG PO BID Warfarin Sod (Jantoven), 5 MG PO 2XWK Warfarin Sodium (Warfarin Sodium), 2.5 MG PO 5XWK Scheduled PRN Acetaminophen (Tylenol), 1,000 MG PO for Mild Pain Cyclobenzaprine Hcl (Flexeril), 10 MG PO TID PRN for Muscle Spasms Lorazepam (Ativan), 0.5 MG PO TID PRN for Anxiety Oxycodone Ir (Roxicodone Ir), 5 MG PO BID PRN for Severe Pain Sumatriptan Succinate (Imitrex), 50 MG PO UD PRN for Headache Allergies Coded Allergies: Doxycycline (Verified Allergy, Unknown, VOMITTING, 02/27/17) Rivaroxaban (Verified Allergy, Unknown, RASH, 02/27/17) Physical Exam Vital Signs Date Time Temp Pulse Resp B/P (MAP) Pulse Ox O2 Delivery O2 Flow Rate FiO2 06/07/17 22:37 37.6 83 20 126/86 93 06/07/17 21:37 38.1 83 21 139/79 94 Room Air 06/07/17 20:44 76 06/07/17 20:31 85 24 127/93 97 Room Air 06/07/17 20:03 39.4 93 18 146/93 95 Room Air Physical Exam Physical Exam GENERAL: She is oriented to person, place, and time. She appears well- developed and well-nourished. She does not appear distressed. ____ HENT: Exam performed. Head: Normocephalic and atraumatic. Right Ear: External ear normal. No mastoid tenderness. Left Ear: External ear normal. No mastoid tenderness. Mouth/Throat: The oropharynx is clear and moist. No trismus in the jaw. No dental abscesses or uvula swelling. No oropharyngeal exudate or tonsillar abscesses. ____ EYES: Conjunctivae and EOM are normal. Pupils are equal, round, and reactive to light. Right eye exhibits no discharge. Left eye exhibits no discharge. No scleral icterus. ____ NECK: Normal range of motion. Neck supple. No JVD present. No spinous process tenderness present. No carotid bruit present. No rigidity. No tracheal deviation and normal range of motion present. No Brudzinski's sign and no Kernig 's sign noted. ____ CV: Normal rate, regular rhythm, normal heart sounds and intact distal pulses. There is no peripheral edema. Palpable radial pulses bue. ____ PULM/CHEST: Effort normal and breath sounds normal. No respiratory distress. No stridor. She has no wheezes. She has no rales. Chest Wall: She exhibits no tenderness. ____ ABD: The abdomen is soft. Bowel sounds are normal. She has no distension. No mass is present. There is no tenderness. There is no rebound, no guarding, no Oliva's sign and no tenderness at McBurney's point. Rovsig negative MUSC/SKEL: Normal range of motion. There is no peripheral edema, tenderness or deformity. LYMPH: No cervical adenopathy. ____ NEURO: She is alert and oriented to person, place, and time. She has normal strength. No cranial nerve deficit or sensory deficit. Coordination and gait normal. GCS eye subscore is 4. GCS verbal subscore is 5. GCS motor subscore is 6. Cerebellar tests wnl. ____ SKIN: Skin is warm and dry. She is not diaphoretic. ____ PSYCH: She has a normal mood and affect. Her behavior is normal. Judgment and thought content normal. ____ Medical Decision & Procedures ER Provider Diagnostic Interpretation: Radiology results as stated below per my review and radiologist interpretation: TWO VIEW CHEST FINDINGS: PA and lateral chest radiographs are compared to chest x-ray and chest CT dated 02/27/2017. The cardiomediastinal silhouette is unremarkable. There is mild elevation of right hemidiaphragm and bibasilar atelectasis. The lungs and pleural spaces are otherwise clear. There is no pneumothorax. The bony thorax appears intact. Cholecystectomy clips are noted. IMPRESSION: No active disease in the chest. Electronically signed by: Jefferson Soliz M.D. Laboratory Results 06/07/17 20:26 Red Blood Count 4.38, Mean Corpuscular Volume 83.1, Mean Corpuscular Hemoglobin 28.8, Mean Corpuscular Hemoglobin Concent 34.6, Mean Platelet Volume 8.7, Neutrophils (%) (Auto) 62.0, Lymphocytes (%) (Auto) 31.9, Monocytes (%) (Auto) 5.7, Eosinophils (%) (Auto) 0.2, Basophils (%) (Auto) 0.1, Neutrophils # (Auto) 5.86, Lymphocytes # (Auto) 3.02, Monocytes # (Auto) 0.54, Eosinophils # (Auto) 0.02, Basophils # (Auto) 0.01 3/4/18 20:26 Test 06/07/17 00:00 06/07/17 20:26 Influenza Type A Antigen Neg for Influ A (NEG) Influenza Type B Antigen Neg for Influ B (NEG) White Blood Count 9.46 K/uL (4.8-10.8) Red Blood Count 4.38 M/uL (4.2-5.4) Hemoglobin 12.6 g/dL (12.0-16.0) Hematocrit 36.4 % (37-47) Mean Corpuscular Volume 83.1 fL (80-100) Mean Corpuscular Hemoglobin 28.8 pg (25-34) Mean Corpuscular Hemoglobin Concent 34.6 g/dl (32-36) Platelet Count 224 K/uL (130-400) Mean Platelet Volume 8.7 fL (7.4-10.4) Neutrophils (%) (Auto) 62.0 % Lymphocytes (%) (Auto) 31.9 % Monocytes (%) (Auto) 5.7 % Eosinophils (%) (Auto) 0.2 % Basophils (%) (Auto) 0.1 % Neutrophils # (Auto) 5.86 K/uL (1.4-6.5) Lymphocytes # (Auto) 3.02 K/uL (1.2-3.4) Monocytes # (Auto) 0.54 K/uL (0.11-0.59) Eosinophils # (Auto) 0.02 K/uL (0-0.5) Basophils # (Auto) 0.01 K/uL (0-0.2) RDW Standard Deviation 41.2 fL (36.4-46.3) RDW Coefficient of Variation 13.7 % (11.5-14.5) Immature Granulocyte % (Auto) 0.1 % Immature Granulocyte # (Auto) 0.01 K/uL (0.00-0.02) Prothrombin Time 14.9 SECONDS (9.0-12.0) Prothromb Time International Ratio 1.4 (0.9-1.1) Activated Partial Thromboplast Time 38.3 SECONDS (21.0-31.0) Partial Thromboplastin Ratio 1.5 Urine Color YELLOW Urine Appearance CLEAR (CLEAR) Urine pH 6.0 (4.5-7.5) Urine Specific [place] 1.018 (1.000-1.030) Urine Protein NEG (NEG) Urine Glucose (UA) NEG (NEG) Urine Ketones NEG (NEG) Urine Occult Blood NEG (NEG) Urine Nitrite NEG (NEG) Urine Bilirubin NEG (NEG) Urine Urobilinogen NEG (NEG) Urine Leukocyte Esterase TRACE (NEG) Urine WBC (Auto) 1-5 /hpf (0-5) Urine RBC (Auto) 0-4 /hpf (0-4) Urine Hyaline Casts (Auto) 0 /lpf (0-5) Urine Epithelial Cells (Auto) 20-30 /lpf (0-5) Urine Bacteria (Auto) NEG (NEG) Anion Gap 7.0 mmol/L (3-11) Est Creatinine Clear Calc Drug Dose 62.3 ml/min Estimated GFR () 70.2 Estimated GFR (Non- 60.6 BUN/Creatinine Ratio 14.8 (10-20) Lactic Acid Level 1.0 mmol/L (0.4-2.0) Calcium Level 8.6 mg/dl (8.5-10.1) Total Bilirubin 0.9 mg/dl (0.2-1) Direct Bilirubin 0.2 mg/dl (0-0.2) Aspartate Amino Transf (AST/SGOT) 14 U/L (15-37) Alanine Aminotransferase (ALT/SGPT) 21 U/L (12-78) Alkaline Phosphatase 71 U/L (45-117) Total Protein 7.4 gm/dl (6.4-8.2) Albumin 3.5 gm/dl (3.4-5.0) Lipase 100 U/L (73-393) Laboratory results reviewed by me Medications Administered Medications (Trade) Dose Ordered Sig/Ming Route Start Time Stop Time Status Last Admin Dose Admin Sodium Chloride 1,000 ml @ 999 mls/hr Q1H1M STAT IV 06/07/17 20:09 06/07/17 21:09 DC 06/07/17 20:30 999 MLS/HR Acetaminophen (Tylenol Tab) 1,000 mg NOW STAT PO 06/07/17 20:09 06/07/17 20:15 DC 06/07/17 20:30 1,000 MG Ondansetron HCl (Zofran Inj) 4 mg NOW STAT IV 06/07/17 20:09 06/07/17 20:15 DC 06/07/17 20:30 4 MG ED Course 2007: The patient was evaluated in room A2. A complete history and physical exam was performed. 2008: Ordered Zofran Inj 4 mg IV, Acetaminophen 1000 mg PO, Sodium Chloride 1000 ml @ 999 mls/hr IV. 2199: The patient's temperature has improved status post antipyretic. Fever improved, labs within normal limits including CBC, lactic acid, urinalysis, influenza swab negative, and metabolic profile chest x-ray negative. On repeat physical exam, there are no meningeal signs, no nuchal rigidity, no pain on palpation. I discussed the option of lumbar puncture given the patient's headache on arrival. She reports her headache has since resolved. She is asking for work note. DISCHARGE - Plan of care discussed with family and questions answered. The family was given both verbal and printed discharge instructions. The family verbalized understanding and ability to comply. The family is to seek outpatient follow up as noted in the discharge instructions. The family verbalized understanding and ability to comply. The family is discharged in stable condition. The family was instructed to return for worsening symptoms. Medical Decision The patient's temperature has improved status post antipyretic. Fever improved, labs within normal limits including CBC, lactic acid, urinalysis, influenza swab negative, and metabolic profile chest x-ray negative. On repeat physical exam, there are no meningeal signs, no nuchal rigidity, no pain on palpation of the abdomen. I discussed the option of lumbar puncture given the patient's headache on arrival and fever, but she declined and reports her headache has since resolved. She is asking for work note. Medication Reconcilliation Current Medication List: was personally reviewed by me Blood Pressure Screening Patient's blood pressure: Normal blood pressure Impression Primary Impression: Viral syndrome Scribe Attestation The scribe's documentation has been prepared under my direction and personally reviewed by me in its entirety. I confirm that the note above accurately reflects all work, treatment, procedures, and medical decision making performed by me. The chart was completed utilizing [employer] Speech voice recognition software. Grammatical errors, random word insertions, pronoun errors, and incomplete sentences are an occasional consequence of this system due to software limitations, ambient noise, and hardware issues. Any formal questions or concerns about the content, text, or information contained within the body of this dictation should be directly addressed to the physician for clarification. Departure Information Dispostion Home / Self-Care Referrals Judy Abrams MD (PCP) Forms HOME CARE DOCUMENTATION FORM, IMPORTANT VISIT INFORMATION Patient Instructions ED Viral Syndrome, My [facility] Additional Instructions Return to the emergency department if he develops severe headache, vomiting, blood in your urine, blood in your stools, extreme abdominal pain, chest pain, difficulty breathing, cough up blood, lose consciousness, seizure, or your symptoms do not improve.
--- NOTE | 2017-06-07 21:20 | DIAGNOSTIC IMAGING REPORT ---
TWO VIEW CHEST CLINICAL HISTORY: Cough and fever. FINDINGS: PA and lateral chest radiographs are compared to chest x-ray and chest CT dated 02/27/2017. The cardiomediastinal silhouette is unremarkable. There is mild elevation of right hemidiaphragm and bibasilar atelectasis. The lungs and pleural spaces are otherwise clear. There is no pneumothorax. The bony thorax appears intact. Cholecystectomy clips are noted. IMPRESSION: No active disease in the chest. Electronically signed by: Jefferson Soliz M.D. 06/07/2017 9:19 PM Dictated Date/Time: 06/07/2017 9:18 PM
[2017-06-07 22:37] VITALS: BP 126/86; PULSE 83; TEMP 37.6; O2SAT 93
== END 2017-06-07 22:35 | disposition home or self-care (01) ==
LOC: C.EDB 19:58 → C.EDA 22:35
DX: B34.9 Viral infection, unspecified (principal); C50.919 Malignant neoplasm of unspecified site of unspecified female breast; K58.9 Irritable bowel syndrome, unspecified; Z79.01 Long term (current) use of anticoagulants; Z90.49 Acquired absence of other specified parts of digestive tract; Z90.710 Acquired absence of both cervix and uterus; Z87.81 Personal history of (healed) traumatic fracture; Z86.718 Personal history of other venous thrombosis and embolism; Z86.711 Personal history of pulmonary embolism; Z98.890 Other specified postprocedural states; Z83.3 Family history of diabetes mellitus; Z83.79 Family history of other diseases of the digestive system; Z82.49 Family history of ischemic heart disease and other diseases of the circulatory system; Z84.1 Family history of disorders of kidney and ureter; Z83.6 Family history of other diseases of the respiratory system; Z82.0 Family history of epilepsy and other diseases of the nervous system; Z88.1 Allergy status to other antibiotic agents; Z88.8 Allergy status to other drugs, medicaments and biological substances

== ENCOUNTER 2017-07-21 07:44 | Emergency (ER) | payer OTHER ==
[~2017-07-21] VITALS: Ht 152.4 cm; Wt 93.0 kg
[~2017-07-21 07:44] MED LIST changes: +DOCU100C31 PO; +ESCI10TA17 PO; +LORA-741 PO; -WARF-246 PO
[2017-07-21 07:46] VITALS: TEMP 36.3; Ht 152.4 cm; Wt 93.0 kg
[2017-07-21] MEDS ORDERED: MoRPHine SULFATE 2 MG/ML CARP IV STA (08:15)
[2017-07-21] MEDS ORDERED: ONDANSETRON INJ 2 MG/ML 2 ML VIAL IV STA (08:15)
--- NOTE | 2017-07-21 08:18 | EMERGENCY ROOM VISIT NOTE ---
History Report prepared by Sameer: Kishan Gongora Under the Supervision of: Dr. Dana Burkett M.D. First contact with patient: 07:59 Chief Complaint: FALL Stated Complaint: FALL HURT ARM AND BACK History of Present Illness The patient is a 51 year old female who presents to the Emergency Room with complaints back pain, right sided chest pain, and right hip pain that began shortly prior to arrival following a falling accident. The patient states that she was walking down a flight of wooden steps when her feet slipped out from underneath her and she fell. She hit her back on the steps and slid down 2-3 steps. She denies hitting her head or losing consciousness. The patient also complains of pain in the left armpit. She has a history of breast cancer and osteoporosis. She is on blood thinners for a history of blood clots as well. She denies any shortness of breath. Source of History: patient Onset: Shortly ACADEMIC DIRECTOR Position: chest, back, leg (Hip) Quality: other (Pain following traumatic fall) Timing: other (Single falling episode) Associated Symptoms: No SOB Review of Systems See HPI for pertinent positives & negatives. A total of 10 systems reviewed and were otherwise negative. Past Medical & Surgical Medical Problems: (1) section (2) Cholecystectomy (3) FX ANKLE NOS-CLOSED (4) FX HUMERUS NOS-CLOSED (5) History of repair of inguinal hernia (6) Hysterectomy (7) IRRITABLE BOWEL SYNDROME (8) LFTs abnormal (9) Partial resection of colon (10) Rotator cuff injury Surgical Problems: (1) H/O rotator cuff surgery Family History Cancer Diabetes mellitus Gallbladder disease Heart disease Hypertension Kidney disease or stones Lung disease Seizures Social History Smoking Status: Never Smoker Drug Use: none Marital Status: Housing Status: lives alone Occupation Status: employed Current/Historical Medications Scheduled Amlodipine (Norvasc), 2.5 MG PO QAM Escitalopram (Lexapro), 10 MG PO DAILY Pantoprazole Sodium (Protonix), 40 MG PO BID Warfarin Sod (Jantoven), 5 MG PO 2XWK Warfarin Sodium (Warfarin Sodium), 2.5 MG PO 5XWK Scheduled PRN Acetaminophen (Tylenol), 1,000 MG PO for Mild Pain Cyclobenzaprine Hcl (Flexeril), 10 MG PO TID PRN for Muscle Spasms Lorazepam (Ativan), 0.5 MG PO TID PRN for Anxiety Oxycodone Ir (Roxicodone Ir), 5 MG PO BID PRN for Severe Pain Sumatriptan Succinate (Imitrex), 50 MG PO UD PRN for Headache Allergies Coded Allergies: Doxycycline (Verified Allergy, Unknown, VOMITTING, 07/21/17) Rivaroxaban (Verified Allergy, Unknown, RASH, 07/21/17) Physical Exam Vital Signs Date Time Temp Pulse Resp B/P (MAP) Pulse Ox O2 Delivery O2 Flow Rate FiO2 07/21/17 10:44 60 18 125/87 96 Room Air 07/21/17 09:02 58 18 167/99 96 Room Air 07/21/17 07:46 36.3 68 18 152/98 100 Room Air Physical Exam Vital signs reviewed. General: Well-appearing obese 51-year-old female, in some discomfort. HEENT: Normocephalic, atraumatic, No scleral icterus, PERRLA, neck supple. Atraumatic. Cardiovascular: Regular rate and rhythm, no extra sounds. Pulmonary: Clear to auscultation bilaterally, normal work of breathing. Abdomen: Soft, nontender, nondistended, positive bowel sounds. Musculoskeletal: No peripheral edema. The patient is tender to the right axilla and right anterior chest wall. There is tenderness to the right inguinal region and lumbar spine as well as the right iliac crest. The hips are non-tender with full ROM bilaterally. There is no significant ecchymosis or laceration appreciated. The cervical and thoracic spine are non-tender. There is no step- off or deformity. Neurologic: Patient awake alert and oriented x 3, full strength in all 4 extremities. Cranial nerves 2 through 12 grossly intact. Skin: Warm, dry, no rash Medical Decision & Procedures ER Provider Diagnostic Interpretation: Radiology results as stated below per my review and radiologist interpretation: R HIP UNILATERAL 2 VIEWS CLINICAL HISTORY: fall right hip pain trauma. Pain. COMPARISON: None. DISCUSSION: The bones and joint spaces appear intact. There is no evidence of fracture, dislocation or bony disease. There is no evidence for soft tissue swelling. IMPRESSION: Negative study. The above report was generated using voice recognition software. It may contain grammatical, syntax or spelling errors. Electronically signed by: Abdias Ruff M.D. 07/21/2017 9:58 AM Dictated Date/Time: 07/21/2017 9:57 AM LUMBAR SPINE 5 VIEWS HISTORY: fall, low back pain COMPARISON: Lumbar spine 07/10/2016. FINDINGS: There is no fracture. No subluxation. Suture material within the deep pelvis. Multiple pelvic phleboliths are again noted. Prior cholecystectomy. The sacrum is intact. Mild facet degenerative changes seen within the lower lumbar spine. Tiny endplate osteophytes within the lumbar spine. Disc spaces are preserved for age. IMPRESSION: No fracture or subluxation within the lumbar spine. Electronically signed by: Bishnu Shrestha M.D. 07/21/2017 10:02 AM Dictated Date/Time: 07/21/2017 10:00 AM R RIBS UNILATERAL WITH PA CHEST CLINICAL HISTORY: 51 years-old Female presenting with Right rib pain after fall. TECHNIQUE: Frontal and oblique views of the right ribs as well as PA view of the chest were obtained. COMPARISON: 05/02/2017. FINDINGS: Atherosclerosis of the aortic arch. Cardiac silhouette normal in size. Lungs and pleural spaces clear. Upper abdomen demonstrates cholecystectomy clips. Degenerative changes of the spine. No displaced right rib fracture. IMPRESSION: 1. No acute cardiopulmonary disease. 2. No displaced right rib fracture. Electronically signed by: Cortes Mckenna M.D. 07/21/2017 10:01 AM Dictated Date/Time: 07/21/2017 9:59 AM RIGHT SHOULDER 3 VIEWS HISTORY: fall, right axilla pain COMPARISON: None. FINDINGS: There is no fracture or dislocation. Soft tissues are unremarkable. The right clavicle is intact. IMPRESSION: No fracture or dislocation within the right shoulder. Electronically signed by: Bishnu Shrestha M.D. 07/21/2017 9:58 AM Dictated Date/Time: 07/21/2017 9:57 AM Laboratory Results 07/21/17 08:44 Red Blood Count 4.55, Mean Corpuscular Volume 82.0, Mean Corpuscular Hemoglobin 28.4, Mean Corpuscular Hemoglobin Concent 34.6, Mean Platelet Volume 8.9, Neutrophils (%) (Auto) 45.4, Lymphocytes (%) (Auto) 45.9, Monocytes (%) (Auto) 4.8, Eosinophils (%) (Auto) 3.1, Basophils (%) (Auto) 0.2, Neutrophils # (Auto) 3.86, Lymphocytes # (Auto) 3.91, Monocytes # (Auto) 0.41, Eosinophils # (Auto) 0.26, Basophils # (Auto) 0.02 07/21/17 08:44 Test 07/21/17 08:44 07/21/17 09:06 White Blood Count 8.51 K/uL (4.8-10.8) Red Blood Count 4.55 M/uL (4.2-5.4) Hemoglobin 12.9 g/dL (12.0-16.0) Hematocrit 37.3 % (37-47) Mean Corpuscular Volume 82.0 fL (80-100) Mean Corpuscular Hemoglobin 28.4 pg (25-34) Mean Corpuscular Hemoglobin Concent 34.6 g/dl (32-36) Platelet Count 261 K/uL (130-400) Mean Platelet Volume 8.9 fL (7.4-10.4) Neutrophils (%) (Auto) 45.4 % Lymphocytes (%) (Auto) 45.9 % Monocytes (%) (Auto) 4.8 % Eosinophils (%) (Auto) 3.1 % Basophils (%) (Auto) 0.2 % Neutrophils # (Auto) 3.86 K/uL (1.4-6.5) Lymphocytes # (Auto) 3.91 K/uL (1.2-3.4) Monocytes # (Auto) 0.41 K/uL (0.11-0.59) Eosinophils # (Auto) 0.26 K/uL (0-0.5) Basophils # (Auto) 0.02 K/uL (0-0.2) RDW Standard Deviation 42.1 fL (36.4-46.3) RDW Coefficient of Variation 14.1 % (11.5-14.5) Immature Granulocyte % (Auto) 0.6 % Immature Granulocyte # (Auto) 0.05 K/uL (0.00-0.02) Prothrombin Time 17.0 SECONDS (9.0-12.0) Prothromb Time International Ratio 1.6 (0.9-1.1) Activated Partial Thromboplast Time 31.8 SECONDS (21.0-31.0) Partial Thromboplastin Ratio 1.2 Anion Gap 8.0 mmol/L (3-11) Est Creatinine Clear Calc Drug Dose 72.8 ml/min Estimated GFR () 83.5 Estimated GFR (Non- 72.0 BUN/Creatinine Ratio 21.6 (10-20) Calcium Level 9.1 mg/dl (8.5-10.1) Total Bilirubin 0.3 mg/dl (0.2-1) Direct Bilirubin 0.1 mg/dl (0-0.2) Aspartate Amino Transf (AST/SGOT) 19 U/L (15-37) Alanine Aminotransferase (ALT/SGPT) 37 U/L (12-78) Alkaline Phosphatase 95 U/L (45-117) Total Protein 6.6 gm/dl (6.4-8.2) Albumin 3.6 gm/dl (3.4-5.0) Urine Color YELLOW Urine Appearance CLEAR (CLEAR) Urine pH 5.0 (4.5-7.5) Urine Specific [place] 1.016 (1.000-1.030) Urine Protein NEG (NEG) Urine Glucose (UA) NEG (NEG) Urine Ketones NEG (NEG) Urine Occult Blood NEG (NEG) Urine Nitrite NEG (NEG) Urine Bilirubin NEG (NEG) Urine Urobilinogen NEG (NEG) Urine Leukocyte Esterase SMALL (NEG) Urine WBC (Auto) 5-10 /hpf (0-5) Urine RBC (Auto) 0-4 /hpf (0-4) Urine Hyaline Casts (Auto) 1-5 /lpf (0-5) Urine Epithelial Cells (Auto) 10-20 /lpf (0-5) Urine Bacteria (Auto) NEG (NEG) Laboratory results per my review. Medications Administered Medications (Trade) Dose Ordered Sig/Ming Route Start Time Stop Time Status Last Admin Dose Admin Morphine Sulfate (MoRPHine SULFATE INJ) 2 mg NOW STAT IV 07/21/17 08:15 07/21/17 08:18 DC 07/21/17 09:01 2 MG Ondansetron HCl (Zofran Inj) 4 mg NOW STAT IV 07/21/17 08:15 07/21/17 08:18 DC 07/21/17 09:00 4 MG Oxycodone/ Acetaminophen (Percocet 5-325mg Tab) 1 tab NOW ONCE PO 07/21/17 10:15 07/21/17 10:16 DC 07/21/17 10:12 1 TAB ED Course 808: Past medical records reviewed. The patient was evaluated in room A3. A complete history and physical examination was performed. 0815: Ordered Zofran 4 mg IV, Morphine Sulfate 2 mg IV. 1015: Ordered Oxycodone 1 tab PO. 1046: Upon reevaluation, the patient appeared to have improvement of her symptoms. I discussed findings with her. She verbalized agreement of the treatment plan. The patient was discharged home. Medical Decision Differential diagnosis: Etiologies such as fracture, dislocation, intra-abdominal, pneumothorax, intrathoracic , intracranial, neurologic, as well as other traumatic pathologies were entertained. This patient was evaluated and appeared to be in some discomfort. IV access was obtained and laboratory work was drawn. The patient was medicated with IV morphine and Zofran. X-rays of the chest/ribs, right shoulder, lumbar spine and right hip were obtained and reveal no evidence of acute fracture or dislocation. The patient required additional pain medication after the x-rays and was administered p.o. Percocet. Patient's INR is 1.6. She was informed of this finding and asked to contact the provider that manages her INR for further recommendations. The patient will continue her oxycodone at home for pain. She was given a work note for the next 2 nights. She will follow-up with her physician and/or oncologist this week for further management. She will return to the ER for worsening of symptoms or any medical concerns. Medication Reconcilliation Current Medication List: was personally reviewed by me Blood Pressure Screening Patient's blood pressure: Elevated blood pressure Blood pressure disposition: Elevated BP felt to be situational Impression Primary Impression: Contusion of multiple sites Scribe Attestation The scribe's documentation has been prepared under my direction and personally reviewed by me in its entirety. I confirm that the note above accurately reflects all work, treatment, procedures, and medical decision making performed by me. Departure Information Dispostion Home / Self-Care Referrals Judy Abrams MD (PCP) Forms HOME CARE DOCUMENTATION FORM, IMPORTANT VISIT INFORMATION Patient Instructions My [facility] Additional Instructions Diagnosis: Fall, contusion or multiple sites Continue your oxycodone as prescribed for severe pain. Tylenol 650 mg every 6 hours as needed for pain. Ice intermittently may help with the discomfort. Ambulate as much as possible. Use assistance to avoid another fall. Return to the emergency department for worsening of symptoms or any medical concerns.
[2017-07-21] MEDS ORDERED: WARF-246 PO (08:39)
[2017-07-21 08:54] LABS: BASO % 0.2 %; BASO ABS # 0.02 K/uL (0-0.2); EOS % 3.1 %; EOS ABS # 0.26 K/uL (0-0.5); HEMATOCRIT 37.3 % (37-47); HEMOGLOBIN 12.9 g/dL (12.0-16.0); IG# 0.05 K/uL (0.00-0.02); LYMPH % 45.9 %; LYMPH ABS # 3.91 K/uL (1.2-3.4); MEAN CORPUSCULAR HEMOGLOBIN 28.4 pg (25-34); MEAN CORPUSCULAR HGB CONC 34.6 g/dl (32-36); MEAN PLATELET VOLUME 8.9 fL (7.4-10.4); MONO % 4.8 %; MONO ABS # 0.41 K/uL (0.11-0.59); NEUT % 45.4 %; NEUT ABS # 3.86 K/uL (1.4-6.5); PLATELET COUNT 261 K/uL (130-400); RED CELL DISTRIBUTION WIDTH CV 14.1 % (11.5-14.5); RED CELL DISTRIBUTION WIDTH SD 42.1 fL (36.4-46.3); WHITE BLOOD COUNT 8.51 K/uL (4.8-10.8)
[2017-07-21 09:03] LABS: INR 1.6 (0.9-1.1); PTT PATIENT 31.8 SECONDS (21.0-31.0)
[2017-07-21 09:19] LABS: ALBUMIN 3.6 gm/dl (3.4-5.0); CALCIUM 9.1 mg/dl (8.5-10.1); CREATININE 0.91 mg/dl (0.60-1.20); POTASSIUM 3.5 mmol/L (3.5-5.1)
[2017-07-21 09:22] LABS: TOTAL PROTEIN 6.6 gm/dl (6.4-8.2)
--- NOTE | 2017-07-21 09:59 | DIAGNOSTIC IMAGING REPORT ---
RIGHT SHOULDER 3 VIEWS HISTORY: fall, right axilla pain COMPARISON: None. FINDINGS: There is no fracture or dislocation. Soft tissues are unremarkable. The right clavicle is intact. IMPRESSION: No fracture or dislocation within the right shoulder. Electronically signed by: Bishnu Shrestha M.D. 07/21/2017 9:58 AM Dictated Date/Time: 07/21/2017 9:57 AM
--- NOTE | 2017-07-21 10:00 | DIAGNOSTIC IMAGING REPORT ---
R HIP UNILATERAL 2 VIEWS CLINICAL HISTORY: fall right hip pain trauma. Pain. COMPARISON: None. DISCUSSION: The bones and joint spaces appear intact. There is no evidence of fracture, dislocation or bony disease. There is no evidence for soft tissue swelling. IMPRESSION: Negative study. The above report was generated using voice recognition software. It may contain grammatical, syntax or spelling errors. Electronically signed by: Abdias Ruff M.D. 07/21/2017 9:58 AM Dictated Date/Time: 07/21/2017 9:57 AM
--- NOTE | 2017-07-21 10:02 | DIAGNOSTIC IMAGING REPORT ---
R RIBS UNILATERAL WITH PA CHEST CLINICAL HISTORY: 51 years-old Female presenting with Right rib pain after fall. TECHNIQUE: Frontal and oblique views of the right ribs as well as PA view of the chest were obtained. COMPARISON: 05/02/2017. FINDINGS: Atherosclerosis of the aortic arch. Cardiac silhouette normal in size. Lungs and pleural spaces clear. Upper abdomen demonstrates cholecystectomy clips. Degenerative changes of the spine. No displaced right rib fracture. IMPRESSION: 1. No acute cardiopulmonary disease. 2. No displaced right rib fracture. Electronically signed by: Cortes Mckenna M.D. 07/21/2017 10:01 AM Dictated Date/Time: 07/21/2017 9:59 AM
--- NOTE | 2017-07-21 10:04 | DIAGNOSTIC IMAGING REPORT ---
LUMBAR SPINE 5 VIEWS HISTORY: fall, low back pain COMPARISON: Lumbar spine 07/10/2016. FINDINGS: There is no fracture. No subluxation. Suture material within the deep pelvis. Multiple pelvic phleboliths are again noted. Prior cholecystectomy. The sacrum is intact. Mild facet degenerative changes seen within the lower lumbar spine. Tiny endplate osteophytes within the lumbar spine. Disc spaces are preserved for age. IMPRESSION: No fracture or subluxation within the lumbar spine. Electronically signed by: Bishnu Shrestha M.D. 07/21/2017 10:02 AM Dictated Date/Time: 07/21/2017 10:00 AM
[2017-07-21] MEDS ORDERED: OXYCODONE/ACETAMINOPHEN 5-325 TAB PO ONE (10:15)
[2017-07-21 10:44] VITALS: BP 125/87; PULSE 60; O2SAT 96
== END 2017-07-21 11:05 | disposition home or self-care (01) ==
LOC: C.EDB 07:45 → C.EDA 11:05
DX: T14.8XXA Other injury of unspecified body region, initial encounter (principal); W10.9XXA Fall (on) (from) unspecified stairs and steps, initial encounter; Y92.89 Other specified places as the place of occurrence of the external cause; Z85.3 Personal history of malignant neoplasm of breast; M81.0 Age-related osteoporosis without current pathological fracture; K58.9 Irritable bowel syndrome, unspecified; Z79.01 Long term (current) use of anticoagulants; Z79.899 Other long term (current) drug therapy; Z88.1 Allergy status to other antibiotic agents; Z88.8 Allergy status to other drugs, medicaments and biological substances

== ENCOUNTER → 2017-07-23 | Outpatient (CLI) | payer OTHER ==
[~2017-07-23] MED LIST changes: -DOCU100C31 PO; +WARF-246 PO
--- NOTE | 2017-07-23 12:50 | DIAGNOSTIC IMAGING REPORT ---
CT HEAD WITHOUT CONTRAST (CT) CLINICAL HISTORY: W10.8XXD Fall from steps, subsequent [id number] headache status post head trauma. Patient on anticoagulation. COMPARISON STUDY: 04/26/2011 TECHNIQUE: Axial CT of the brain is performed from the vertex to the skull base. IV contrast was not administered for this examination. A dose lowering technique was utilized adhering to the principles of ALARA. CT DOSE: k FINDINGS: No intra or extra-axial mass lesions are visualized. There is no CT evidence of acute cortical infarction. There is no evidence of midline shift. There is no acute hemorrhage. No calvarial fractures are visualized. There is no evidence of pathologic ventricular dilatation. There is no evidence of acute sinusitis IMPRESSION: No acute intracranial findings Electronically signed by: Nas Humphreys M.D. 07/23/2017 12:49 PM Dictated Date/Time: 07/23/2017 12:48 PM
== END | disposition home or self-care (01) ==
LOC: C.CTS 12:38
PROVIDERS: ATTEND Family Medicine
DX: R51 Headache (principal); W10.8XXD Fall (on) (from) other stairs and steps, subsequent encounter; Z79.01 Long term (current) use of anticoagulants

== ENCOUNTER → 2017-08-10 | Outpatient (CLI) | payer OTHER ==
--- NOTE | 2017-08-10 13:19 | DIAGNOSTIC IMAGING REPORT ---
PET/CT SKULL-THIGH CLINICAL HISTORY: 51 years-old Female presenting with BREAST CANCER, malignant neoplasm of the lower inner quadrant of the right breast, status post right breast lumpectomy in June. TECHNIQUE: PET/CT was performed from the skull base through the proximal thighs following the intravenous administration of 12.545 mCi of F18-FDG. Blood glucose level 73 mg/dL. The injection was performed at 9:29 AM and imaging began at 10:[address] was performed for attenuation correction purposes and anatomic localization. COMPARISON: CT of the chest from 02/27/[address] of abdomen and pelvis from 03/17/2017. CT DOSE (mGy.cm): The estimated cumulative dose is 1156.30. FINDINGS: Head and neck: No FDG-avid mass in the visualized portion of the head or neck. No FDG avid or enlarged lymph nodes in the neck. FDG avidity in the longest likely related to phonation. Chest: Normal thyroid. Small fluid collection in the right breast, which is photopenic, likely seroma. Overlying mild FDG avidity likely granulation tissue and expected postsurgical change (max is to be 3.13). No FDG avid axillary, supraclavicular, or mediastinal lymphadenopathy. Evaluation of the nasrin on anatomic imaging limited without intravenous contrast. Normal aorta. Normal heart size. No pericardial or pleural effusion. Solid peripheral polygonal 4 mm nodule at the left lung base (series 2 image 99), previously obscured due to consolidation. This is not FDG avid. No FDG avid focal infiltrate or nodule. Airways patent. Abdomen and pelvis: Post surgical changes of left hepatic lobe resection. Hepatic steatosis. Postsurgical changes of cholecystectomy. No FDG avid mass or lymphadenopathy. Expected distribution within the genitourinary and gastrointestinal tracts. The uterus is surgically absent. No adnexal masses. Postsurgical changes of sigmoidectomy with a colocolonic anastomosis in the region of the upper rectum. No bowel obstruction. Moderate stool burden in the right colon. The appendix is normal. Atherosclerosis of the normal caliber abdominal aorta. Postsurgical changes of the midline ventral abdomen. Musculoskeletal: Degenerative changes of the spine. No FDG avid or destructive osseous lesion. IMPRESSION: 1. Initial PET/CT demonstrates expected postsurgical changes status post right breast lumpectomy with a small seroma. No evidence of residual disease at the lumpectomy site. No FDG avid lymphadenopathy or metastatic disease. 2. Non-FDG avid 4 mm solid left lower lobe nodule. 3. Hepatic steatosis. 4. Postsurgical changes of left hepatectomy. 5. Postsurgical changes of sigmoidectomy. Electronically signed by: Cortes Mckenna M.D. 08/10/2017 1:18 PM Dictated Date/Time: 08/10/2017 1:05 PM
== END | disposition home or self-care (01) ==
LOC: C.PET 08:48
PROVIDERS: ATTEND Internal Medicine Hematology & Oncology
DX: C50.311 Malignant neoplasm of lower-inner quadrant of right female breast (principal)

== ENCOUNTER → 2017-08-24 | Outpatient (CLI) | payer OTHER ==
[2017-08-24 13:26] LABS: BASO % 0.1 %; BASO ABS # 0.01 K/uL (0-0.2); EOS % 3.9 %; EOS ABS # 0.35 K/uL (0-0.5); HEMATOCRIT 40.3 % (37-47); HEMOGLOBIN 13.6 g/dL (12.0-16.0); IG# 0.02 K/uL (0.00-0.02); LYMPH % 38.5 %; LYMPH ABS # 3.46 K/uL (1.2-3.4); MEAN CELL VOLUME 83.4 fL (80-100); MEAN CORPUSCULAR HEMOGLOBIN 28.2 pg (25-34); MEAN CORPUSCULAR HGB CONC 33.7 g/dl (32-36); MEAN PLATELET VOLUME 9.3 fL (7.4-10.4); MONO % 6.2 %; MONO ABS # 0.56 K/uL (0.11-0.59); NEUT % 51.1 %; NEUT ABS # 4.58 K/uL (1.4-6.5); PLATELET COUNT 269 K/uL (130-400); RED CELL DISTRIBUTION WIDTH CV 13.9 % (11.5-14.5); RED CELL DISTRIBUTION WIDTH SD 42.8 fL (36.4-46.3); WHITE BLOOD COUNT 8.98 K/uL (4.8-10.8)
[2017-08-24 14:34] LABS: ALBUMIN 3.4 gm/dl (3.4-5.0); ALKALINE PHOSPHATASE 69 U/L (45-117); ALT/SGPT 20 U/L (12-78); AST/SGOT 15 U/L (15-37); BLOOD UREA NITROGEN 17 mg/dl (7-18); CALCIUM 8.9 mg/dl (8.5-10.1); CARBON DIOXIDE 29 mmol/L (21-32); CREATININE 0.89 mg/dl (0.60-1.20); GLUCOSE 88 mg/dl (70-99); SODIUM 137 mmol/L (136-145); TOTAL PROTEIN 7.1 gm/dl (6.4-8.2)
== END | disposition home or self-care (01) ==
LOC: C.LABBC 11:43
PROVIDERS: ATTEND Internal Medicine Hematology & Oncology
DX: C50.311 Malignant neoplasm of lower-inner quadrant of right female breast (principal); D72.820 Lymphocytosis (symptomatic)

== ENCOUNTER 2018-04-29 05:23 | Inpatient (IN) ==
--- NOTE | 2018-03-17 09:30 | PAT Medication Instructions ---
Medication Instructions Date of Service March 17, 2018 Home Medications acetaminophen 500 mg tablet 1,000 mg PO DIRECTED NEEDED anastrozole 1 mg tablet 1 mg PO QAM escitalopram 10 mg tablet 10 mg PO QAM meclizine 12.5 mg tablet 12.5 mg PO BID NEEDED ergocalciferol (vitamin D2) 50,000 50,000 units PO weekly albuterol sulfate 90 mcg/actuation 1 - 2 inha INH Q6H NEEDED teriparatide 20 mcg/dose (600 mcg/2.4 mL) 20 mcg SQ QPM warfarin 4 mg tablet DIRECTED amlodipine 2.5 mg PO QAM docusate sodium [Stool Softener] 100 mg PO QPM fluticasone 2 spray INTRANASAL QAM guaifenesin [Cough Syrup] 1 tbsp PO DIRECTED NEEDED omeprazole 40 mg PO BID sumatriptan succinate [Imitrex] PO DIRECTED Continue as directed sumatriptan succinate [Imitrex] PO DIRECTED ergocalciferol (vitamin D2) 50,000 50,000 units PO weekly ASK your prescriber and surgeon warfarin 4 mg tablet DIRECTED DO NOT take the morning of surgery guaifenesin [Cough Syrup] 1 tbsp PO DIRECTED NEEDED Take morning of surgery With a small sip of water, OTHERWISE NOTHING TO EAT OR DRINK AFTER MIDNIGHT: omeprazole 40 mg PO BID amlodipine 2.5 mg PO QAM fluticasone 2 spray INTRANASAL QAM albuterol sulfate 90 mcg/actuation 1 - 2 inha INH Q6H NEEDED (bring to hospital) acetaminophen 500 mg tablet 1,000 mg PO DIRECTED NEEDED anastrozole 1 mg tablet 1 mg PO QAM escitalopram 10 mg tablet 10 mg PO QAM meclizine 12.5 mg tablet 12.5 mg PO BID NEEDED Take evening before surgery omeprazole 40 mg PO BID guaifenesin [Cough Syrup] 1 tbsp PO DIRECTED NEEDED docusate sodium [Stool Softener] 100 mg PO QPM teriparatide 20 mcg/dose (600 mcg/2.4 mL) 20 mcg SQ QPM albuterol sulfate 90 mcg/actuation 1 - 2 inha INH Q6H NEEDED meclizine 12.5 mg tablet 12.5 mg PO BID NEEDED acetaminophen 500 mg tablet 1,000 mg PO DIRECTED NEEDED Other Notes If you have any questions please call us at [phone] or [phone] or [phone] or [phone]
--- NOTE | 2018-04-15 11:21 | Anesthesiology Consultation ---
Date of Service April 15, 2018 Assessment & Plan (1) Encounter for pre-operative examination: Plan: - Check coags AM DOS (coumadin/lovenox bridging per surgeon/prescriber)* - RUE restriction s/p right mastectomy Chart Review Chart Review: Acceptable Risk for Surgery and Patient seen in Pre Admission Testing Teaching & Discussion Pre-Anesthesia Teaching/Discussion Notes: Instructed NPO after midnight before surgery,except medications with 15 cc of water. Medication instructions provided according to the PAT guidelines. History Surgery Operation Date: 04/29/18 07:00 Proposed Procedures p Open Ventral Hernia Repair with Component Separation - Casey Livingston, Height/Weight Height: 5 ft Weight: 101.7 kg Allergies Allergy/AdvReac Type Severity Reaction Status Date / Time doxycycline Allergy Unknown VOMITTING Verified 03/11/18 12:36 rivaroxaban Allergy Unknown RASH Verified 03/11/18 12:36 Medications Home Medications Medication Instructions Recorded Confirmed Last Taken acetaminophen 500 mg tablet 1,000 mg PO UD PRN tab 12/29/17 03/22/18 Unknown anastrozole 1 mg tablet 1 mg PO QAM 12/29/17 03/22/18 Unknown escitalopram 10 mg tablet 10 mg PO QAM 12/29/17 03/22/18 Unknown meclizine 12.5 mg tablet 12.5 mg PO BID PRN tab 12/29/17 03/22/18 Unknown ergocalciferol (vitamin D2) 50,000 50,000 units PO .weekly cap 02/01/18 Unknown unit capsule albuterol sulfate 90 mcg/actuation 1 - 2 inha INH Q6H PRN ea 02/12/18 03/22/18 Unknown breath activated powder inhaler teriparatide 20 mcg/dose (600 20 mcg SQ QPM 02/12/18 03/22/18 Unknown mcg/2.4 mL) subcutaneous pen injector amlodipine 2.5 mg PO QAM 03/11/18 03/22/18 Unknown docusate sodium [Stool Softener] 100 mg PO QPM 03/11/18 03/22/18 Unknown fluticasone 2 spray INTRANASAL QAM 03/11/18 03/22/18 Unknown guaifenesin [Cough Syrup] 1 tbsp PO DIRECTED PRN 03/11/18 03/22/18 Unknown omeprazole 40 mg PO BID 03/11/18 03/22/18 Unknown sumatriptan succinate [Imitrex] PO DIRECTED 03/11/18 03/22/18 Unknown warfarin 4 mg tablet See Label Instructions .ROUTE UD 03/22/18 03/22/18 Unknown tab prednisone 04/15/18 Unknown Past Medical History Medical History Asthma STABLE Chronic back pain ON PREDNISONE TAPER TO BE COMPLETED ~04/29/18 GERD (gastroesophageal reflux disease) CONTROLLED HTN (hypertension) HX: breast cancer ON ANASTRAZOLE Hx of deep venous thrombosis 2016; MULTIPLE DVTS TO Wojciech/L CAT CASTRO (POST-OP; POST-INJURY; SINGLE DVT WAS UNPROVOKED) Hx pulmonary embolism 2016 Migraine random episodes Morbid obesity Osteoporosis Vasospasm 2015; NO CAD ON CARDIAC CATH AT THE TIME Past Family History Family History Other No significant family history Past Surgical History Surgical History History of bowel resection COLON RESECTION 2/2 DIVERTICULITIS (REMOTE) History of cardiac cath 2016= NO STENTS History of section X2 History of cholecystectomy History of colonoscopy History of herniorrhaphy History of hysterectomy total History of mastectomy History of reconstruction of right breast History of surgery of liver RESECTION 2/2 BILE DUCT STONE COMPLICATIONS Hx of abdominal surgery UMBILICAL SURGERY Past Anesthesia History No Family Hx of Anesthesia Complications and Other "Slow to wake." No known history of reintubation. History of PONV No Motion Sickness Screening History of Motion Sickness: No Social History Smoking Status: Never smoker Do You Dip or Chew Tobacco: No Hx Alcohol Use: No Hx Substance Use: No substance use type: does not use Exercise / Class Metabolic Activity III < 4 Walking/Shop/Light housework Review of Systems Patient denies chest pain, shortness of breath, cough, wheezing, palpitations. Physical Exam Vital Signs VITALS BP 129/91 P 70 TEMP 97.6 SP02 97%RA RESP 20 Full neck and c-spine range of motion. Thick neck. Full TMJ range of motion. TMD 3 finger breaths Mallampati Score 2 Dentition: upper front right chipped tooth Lungs: clear throughout to auscultation Cardiac: regular rate and rhythm, no murmurs noted Spine: normal Carotid arteries: negative bruit Extremities: no edema Testing Electrocardiogram Date: 06/07/17 NSR at 81bpm. NS TWA. Chest X-Ray Date: 06/07/17 Findings: + NAD and + atelectasis Mild right hemidiaphragm elevation. Echocardiogram Date: 04/03/16 EF 55-60%. No RWMA. Mild LVH. Type 2 DD. No significant valvular disease. Cardiac Catheterization Date: 04/04/16 No coronary artery disease. No aortic stenosis. Mildly elevated LVEDP (IV fluids were administered overnight). Laboratory Results 04/15/18 11:25 04/15/18 11:25 Surgeon made aware of elevated WBC.
--- NOTE | 2018-04-15 11:26 | PAT Medication Instructions ---
Medication Instructions Date of Service April 15, 2018 Home Medications acetaminophen 500 mg tablet 1,000 mg PO UD PRN anastrozole 1 mg tablet 1 mg PO QAM escitalopram 10 mg tablet 10 mg PO QAM meclizine 12.5 mg tablet 12.5 mg PO BID PRN ergocalciferol (vitamin D2) 50,000 50,000 units PO .weekly albuterol sulfate 90 mcg/actuation 1 - 2 inha INH Q6H PRN teriparatide 20 mcg/dose (600 20 mcg SQ QPM amlodipine 2.5 mg PO QAM docusate sodium [Stool Softener] 100 mg PO QPM fluticasone 2 spray INTRANASAL QAM guaifenesin [Cough Syrup] omeprazole 40 mg PO BID sumatriptan succinate [Imitrex]PO DIRECTED prednisone Coumadin Continue as directed prednisone ASK your prescriber and surgeon anastrozole 1 mg tablet 1 mg PO QAM Coumadin as directed teriparatide 20 mcg/dose (600 20 mcg SQ QPM DO NOT take the morning of surgery ergocalciferol (vitamin D2) 50,000 50,000 units PO .weekly guaifenesin [Cough Syrup] PRN Take morning of surgery With a small sip of water, OTHERWISE NOTHING TO EAT OR DRINK AFTER MIDNIGHT: acetaminophen 500 mg tablet 1,000 mg PO UD PRN (okay to take up to 4 hours prior to surgery if needed) escitalopram 10 mg tablet 10 mg PO QAM meclizine 12.5 mg tablet 12.5 mg PO BID PRN (if needed) albuterol sulfate 90 mcg/actuation 1 - 2 inha INH Q6H PRN (use if needed; please bring with you to hospital day of surgery if possible) amlodipine 2.5 mg PO QAM fluticasone 2 spray INTRANASAL QAM omeprazole 40 mg PO BID sumatriptan succinate [Imitrex]PO DIRECTED (if needed) Take evening before surgery acetaminophen 500 mg tablet 1,000 mg PO UD PRN (if needed) meclizine 12.5 mg tablet 12.5 mg PO BID PRN(if needed) albuterol sulfate 90 mcg/actuation 1 - 2 inha INH Q6H PRN (if needed) docusate sodium [Stool Softener] 100 mg PO QPM guaifenesin [Cough Syrup] PRN (if needed) omeprazole 40 mg PO BID sumatriptan succinate [Imitrex]PO DIRECTED (if needed) Other Notes If you have any questions please call us at [phone] or [phone] or [phone] or [phone]
[2018-04-15 13:06] LABS: Basophils # (auto) 0.01 K/uL (0-0.2); Basophils % (auto) 0.1 %; Eosinophils # (auto) 0.02 K/uL (0-0.5); Eosinophils % (auto) 0.2 %; Hematocrit (blood only) 40.5 % (37-47); Hemoglobin 13.6 g/dL (12.0-16.0); Immature Granulocytes # (auto) 0.05 K/uL (0.00-0.02); Immature Granulocytes % (auto) 0.4 %; Lymphocytes # (auto) 4.69 K/uL (1.2-3.4); Lymphocytes % (auto) 36.2 %; Mean Corpuscular Hgb Conc 33.6 g/dL (32-36); Mean Platelet Volume 9.9 fL (7.4-10.4); Monocytes # (auto) 0.63 K/uL (0.11-0.59); Monocytes % (auto) 4.9 %; Neutrophils # (auto) 7.56 K/uL (1.4-6.5); Neutrophils % (auto) 58.2 %; Platelet Count 298 K/uL (130-400); RDW Coefficient of Variation 13.8 % (11.5-14.5); RDW Standard Deviation 42.1 fL (36.4-46.3); Red Blood Count 4.82 M/uL (4.2-5.4); White Blood Count 12.96 K/uL (4.8-10.8)
[2018-04-15 14:22] LABS: BUN Creatinine Ratio 18.7 (10-20); Calcium 9.5 mg/dl (8.5-10.1); Creatinine Clr Calc Pharmacy 63.9 ml/min; Est GFR (African American) 67.4; Est GFR (Non-African American) 58.2; Potassium 3.7 mmol/L (3.5-5.1)
[2018-04-29] MEDS ORDERED: CEFAZOLIN 2000MG 2,000 MG/15 ML SYR IV SCH (06:00)
[2018-04-29] MEDS ORDERED: LR 15ML/HR IV SCH (06:00)
[2018-04-29 06:01] LABS: Partial Thromboplastin Ratio 1.1; Partial Thromboplastin Time 29.2 Seconds (21.0-31.0); Prothrombin Time 10.4 Seconds (9.0-12.0)
[2018-04-29] MEDS ORDERED: LIDOCAINE HCL 2% 2 ML VIAL/AMP(20MG/ML) INFIL ONE (06:38)
[2018-04-29] MEDS ORDERED: PROPOFOL IV EMULSION 10 MG/ML 20 ML VIAL IV ONE (06:38)
[2018-04-29] MEDS ORDERED: NEOSTIGMINE METHYLSULFATE 5 MG/5 ML SYR ONE (06:38)
[2018-04-29] MEDS ORDERED: ONDANSETRON INJ 2 MG/ML 2 ML VIAL ONE ×2 (06:38→08:33)
[2018-04-29] MEDS ORDERED: fentaNYL citrate 100 MCG/2 ML VIAL ONE (06:38)
[2018-04-29] MEDS ORDERED: GLYCOPYRROLATE 0.2 MG/ML VIAL ONE (06:38)
[2018-04-29] MEDS ORDERED: MIDAZOLAM HCL 1 MG/ML 2ML VIAL ONE (06:38)
[2018-04-29] MEDS ORDERED: DEXAMETHASONE SOD INJ 4 MG/ML VIAL ONE (06:38)
[2018-04-29] MEDS ORDERED: BUPIVACAINE/EPINEPHRINE 0.5% MPF 1:200,000 30 ML VIAL ONE (06:47)
[2018-04-29] MEDS ORDERED: ePHEDrine sulfate 50 MG/ML AMP IV PRN (06:52)
[2018-04-29] MEDS ORDERED: ATROPINE SULFATE 0.1 MG/ML 10ML SYR IV PRN (06:52)
--- NOTE | 2018-04-29 06:55 | History & Physical Bridge Note ---
Date of Service April 29, 2018 History & Physical Bridge Note I have examined the patient, reviewed the History & Physical and in the interval since the performance of the History & Physical I have noted the following changes of clinical significance: no changes noted
[2018-04-29] MEDS ORDERED: HYDROmorphone INJ 2 MG/ML SYR/VIAL ONE (07:38)
[2018-04-29] MEDS ORDERED: HYDROCORTISONE SOD SUCCINATE 100 MG/2 ML VIAL ONE (07:41)
[2018-04-29] MEDS ORDERED: ROCURONIUM BROMIDE 10 MG/ML 5 ML VIAL ONE ×2 (08:00→08:33)
[2018-04-29] MEDS ORDERED: TISSEEL FIBRIN SEALANT 4ML TOP ONE (08:21)
[2018-04-29] MEDS ORDERED: ARISTA ABSORBABLE HEMOSTAT 3GM TOP ONE (08:23)
--- NOTE | 2018-04-29 09:08 | Post Operative Brief Note ---
Immediate Post Op Note v1 Date of Surgery April 29, 2018 Pre & Post Diagnosis Operation Date: 04/29/18 07:00 Pre-Op Diagnosis: Ventral Hernia Post-Op Diagnosis: Ventral Hernia x 2; adhesions Procedure Operation Date: 04/29/18 07:00 Actual Procedures p Open Ventral Hernia Repair x 2 with Ovitex Mesh(Not Applicable) ; enterolysis - Casey Livingston DO Surgeon Casey Livingston DO Visiting Teacher gisela Gonzalez Estimated Blood Loss 20 Findings Consistent with Post-Op Diagnosis Drains Aston-Napier Drain (10 fr flat)
[2018-04-29] MEDS: HYDROmorphone INJ 2 MG/ML SYR/VIAL IV PRN ×4 (09:38→09:53)
--- NOTE | 2018-04-29 09:54 | Operative Report ---
Post Operative Report Pre & Post Diagnosis Operation Date: 04/29/18 07:00 Pre-Op Diagnosis: Ventral Hernia Post-Op Diagnosis: Ventral Hernia x 2. adhesions Procedure Operation Date: 04/29/18 07:00 Actual Procedures p Component separation; Open Ventral Hernia Repair x 2 with Ovitex Mesh(Not Applicable);enterolysis - Casey Livingston DO Surgeon Casey Livingston DO Sign Installer gisela Gonzalez Estimated Blood Loss 20 Findings Consistent with Post-Op Diagnosis Specimens none Description of Procedure After informed consent was obtained the patient was taken the operating room placed in supine position. After successful intubation a Gruber catheter was placed and the abdomen was sterilely prepped and draped in usual fashion. An elliptical incision around her upper midline incision was made with a 10 blade scalpel. This was carried down through soft tissue using electrocautery. The widened scar was removed in its entirety. We readily encountered a hernia sac which we elevated and incised using a Metzenbaum scissor. Once in the abdominal cavity there were adhesions to the undersurface of the fascia involving colon and omentum. We used traction countertraction and blunt dissection as well as a small amount of scissor lysis to take down these adhesions on the undersurface of the fascia. There were actually 2 hernias and we incised the small fascial bridge between them to make one large defect. We used kocker clamps to elevate the fascia and then skeletonized it in 360 degrees. This went almost essentially from the xiphoid process the entire way down to the umbilicus. After we had all the edges freed up we then performed a component separation bilaterally by using cautery to incise the anterior fascia between the rectus and obliques. Once we had freed both sides up, this did loosen the fascia so that we could primarily close the defect. We used #1 Ethibond in interrupted [id number] fashion to primarily close the defect. Once we had it closed we then skeletonized some additional fascia again in 360 degrees. I used a piece of ovitex 20 x 20 cm mesh as an onlay. It was used to cover not only the prior fascial defect but also the component separation incision lines. It was secured to underlying fascia using #1 Ethibond in interrupted fashion. We used some additional 0 Ethibond for the central portion of the mesh to hold it down in the midportion as well. It laid nice and flat and tension-free and covered all of the areas involved for multiple centimeters. I should mention that we thoroughly irrigated the raw surfaces prior to placing the mesh. We also irrigated them after placing the mesh. I then controlled any small bleeding points using cautery. I sprayed all the raw surfaces with Tisseel sealant to help prevent seroma and hematoma formations. We also covered all the raw surfaces with Kaitlynn powder. A 10 flat Aston- Napier drain was brought out through a separate stab incision and placed into the wound bed as well. It was secured to the skin using 0 nylon. We then closed the defect in multiple layers using 2-0 Vicryl for deep layers 3-0 Vicryl for mid layers and 4-0 Monocryl for skin. Marcaine was injected around the area for postoperative analgesia and a silver dressing was applied. An abdominal binder was also applied. The patient was awaken extubated and transferred to recovery in stable condition. My physician dermatology physician assistant was present for the entire case. He helped prep the patient. Helped with retraction and exposure throughout the entire case. Helped with mesh placement wound closure and dressing placement. I attest to the content of the Intraoperative Record and any orders documented therein. Any exceptions are noted below.
[2018-04-29] MEDS ORDERED: PROMETHAZINE HCL 12.5 MG in SODIUM CHLORIDE 0.9% 50 ML IV ONE (10:30)
--- NOTE | 2018-04-29 10:57 | Anesthesiology Progress Note ---
Date of Service April 29, 2018 Anesthesia Post Procedure Vital Signs Vital Signs: Temp Pulse Pulse Resp BP BP Pulse Ox 04/29/18 10:40 68 9 L 128/70 97 04/29/18 10:35 79 10 L 124/83 97 04/29/18 10:30 65 7 L 135/83 94 04/29/18 10:25 76 14 134/76 92 04/29/18 10:20 63 18 129/86 96 04/29/18 10:15 36.6 C 63 77 17 130/87 130/87 92 04/29/18 10:10 36.6 C 72 16 135/78 94 04/29/18 10:05 80 17 127/86 95 04/29/18 10:00 84 17 134/79 90 04/29/18 09:55 69 14 123/78 93 04/29/18 09:50 70 13 93 04/29/18 09:46 73 16 141/88 H 95 04/29/18 09:45 68 17 95 04/29/18 09:40 71 15 155/88 H 95 04/29/18 09:35 81 18 147/91 H 96 04/29/18 09:30 81 20 93 04/29/18 09:25 82 17 144/83 H 95 04/29/18 09:20 77 18 144/77 H 92 04/29/18 09:18 80 15 138/88 91 04/29/18 09:17 37.0 C 92 H 80 24 138/88 92 04/29/18 06:01 36.9 C 81 18 138/95 97 Pain Intensity Abdomen: Pain Intensity: 3 Notes Mental Status: alert / awake / arousable Patient Amnestic to Procedure: Yes Nausea / Vomiting: adequately controlled Pain: adequately controlled Airway Patency, RR, SpO2: stable & adequate BP & HR: stable & adequate Hydration State: stable & adequate Anesthetic Complications: no major complications apparent and Pt Satisfied with anesthetic care
[2018-04-29] MEDS ORDERED: NALOXONE HCL 0.4 MG/1 ML VIAL/CARP IV PRN (11:21)
[2018-04-29] MEDS ORDERED: ONDANSETRON INJ 2 MG/ML 2 ML VIAL IV PRN (11:21)
[2018-04-29] MEDS ORDERED: ALBUTEROL HFA 8 GM INHALER INH PRN (11:45)
[2018-04-29] MEDS: SODIUM CHLORIDE 0.9% 1000ML 1,000 ML IV SCH (12:12)
[2018-04-29] MEDS ORDERED: INFLUENZA VIRUS QUAD VACCINE 0.5 ML SYR IM ONE (12:15)
[2018-04-29] MEDS ORDERED: INFLUENZA ADMINISTRATION CHARGE ONE (12:15)
[2018-04-29] MEDS: HYDROmorphone HCL 0.5MG/ML 50 ML CASSETTE IV PRN ×2 (12:55→13:12)
[2018-04-29] MEDS: LACTATED RINGER'S 1,000 ML IV SCH (13:16)
[2018-04-29] MEDS: CEFAZOLIN 2000MG 2,000 MG/15 ML SYR IV SCH ×2 (14:39→22:40)
[2018-04-29] MEDS: ACETAMINOPHEN 1,000 MG/100 ML VIAL IV SCH ×2 (14:39→21:36)
[2018-04-29] MEDS: PANTOprazole 40 MG TAB PO SCH (20:27)
[2018-04-29] MEDS ORDERED: DOCUSATE SODIUM 100 MG CAP PO SCH (21:00)
[2018-04-30] MEDS: LACTATED RINGER'S 1,000 ML IV SCH (01:52)
[2018-04-30] MEDS: ACETAMINOPHEN 1,000 MG/100 ML VIAL IV SCH ×3 (05:44→21:17)
[2018-04-30] MEDS: CEFAZOLIN 2000MG 2,000 MG/15 ML SYR IV SCH (06:15)
[2018-04-30] MEDS: HYDROmorphone HCL 0.5MG/ML 50 ML CASSETTE IV PRN (06:56)
--- NOTE | 2018-04-30 08:32 | Anesthesiology Progress Note ---
Date of Service April 30, 2018 Anesthesia Post Procedure Vital Signs Vital Signs: Temp Pulse Pulse Resp BP BP Pulse Ox 04/30/18 07:16 37.2 C 85 17 123/83 91 04/30/18 02:47 37.5 C 76 16 124/85 92 04/30/18 00:01 37.0 C 75 16 117/77 91 04/29/18 19:21 36.8 C 73 18 120/82 93 04/29/18 17:08 36.8 C 73 18 105/41 L 94 04/29/18 16:09 36.8 C 75 18 121/80 92 04/29/18 14:56 36.9 C 75 18 116/78 91 04/29/18 14:00 37.2 C 86 14 140/88 93 04/29/18 13:08 81 16 126/83 96 04/29/18 12:00 75 16 129/77 97 04/29/18 11:31 37.1 C 85 16 111/70 96 04/29/18 11:00 36.8 C 69 14 128/81 95 04/29/18 10:40 68 9 L 128/70 97 04/29/18 10:35 79 10 L 124/83 97 04/29/18 10:30 65 7 L 135/83 94 04/29/18 10:25 76 14 134/76 92 04/29/18 10:20 63 18 129/86 96 04/29/18 10:15 36.6 C 63 77 17 130/87 130/87 92 04/29/18 10:10 36.6 C 72 16 135/78 94 04/29/18 10:05 80 17 127/86 95 04/29/18 10:00 84 17 134/79 90 04/29/18 09:55 69 14 123/78 93 04/29/18 09:50 70 13 93 04/29/18 09:46 73 16 141/88 H 95 04/29/18 09:45 68 17 95 04/29/18 09:40 71 15 155/88 H 95 04/29/18 09:35 81 18 147/91 H 96 04/29/18 09:30 81 20 93 04/29/18 09:25 82 17 144/83 H 95 04/29/18 09:20 77 18 144/77 H 92 01/24/19 09:18 80 15 138/88 91 04/29/18 09:17 37.0 C 92 H 80 24 138/88 92 Pain Intensity Abdomen: Pain Intensity: 2 Notes Mental Status: alert / awake / arousable and participated in evaluation Nausea / Vomiting: adequately controlled Pain: adequately controlled Airway Patency, RR, SpO2: stable & adequate BP & HR: stable & adequate Hydration State: stable & adequate Anesthetic Complications: no major complications apparent and Pt Satisfied with anesthetic care
[2018-04-30] MEDS: PANTOprazole 40 MG TAB PO SCH ×2 (08:54→21:13)
[2018-04-30] MEDS: AMLODIPINE BESYLATE 5 MG TAB PO SCH (08:54)
[2018-04-30] MEDS: ESCITALOPRAM OXALATE 10 MG TAB PO SCH (08:54)
[2018-04-30] MEDS: FLUTICASONE PROPIONATE NA SPR 16 GM BTL NAE SCH (08:55)
[2018-04-30] MEDS: ANASTROZOLE 1 MG TAB PO SCH (08:55)
[2018-04-30] MEDS: SODIUM CHLORIDE 0.9% 1000ML 1,000 ML IV SCH (10:03)
--- NOTE | 2018-04-30 11:13 | Surgery Progress Note ---
Date of Service April 30, 2018 Assessment & Plan (1) Ventral hernia: POD 1 doing ok. would like to stay one more day will restart her coumadin and lovenox d/c MRI MANAGER hopeful d/c tomorrow. [facility] covering for weekend. Subjective pt doing ok but concerned about her discomfort/drain/ambulating ability as she will be home alone during the day. Physical Exam 2 Vital Signs (Past 24 Hours): Last Vital Signs Temp 37.2 C 04/30/18 07:16 Pulse 85 04/30/18 07:16 Resp 17 04/30/18 07:16 BP 123/83 04/30/18 07:16 Pulse Ox 91 04/30/18 07:16 Physical Exam: alert. LILA serous. wound looks ok
[2018-04-30] MEDS ORDERED: HYDROmorphone INJ 0.5 MG/0.5 ML SYR IV PRN (11:17)
[2018-04-30] MEDS: DOCUSATE SODIUM 100 MG CAP PO SCH ×2 (12:27→21:13)
[2018-04-30] MEDS: ENOXAPARIN INJ 40 MG/0.4 ML SYR SQ SCH (12:27)
[2018-04-30] MEDS ORDERED: WARFARIN SOD 6 MG TAB PO SCH (16:00)
[2018-04-30] MEDS: HYDROCODONE/ACETAMOPHEN 5/325MG TAB PO PRN ×2 (16:27→21:42)
[2018-04-30] MEDS ORDERED: FORTEO SQ SCH (21:00)
[2018-05-01] MEDS: ACETAMINOPHEN 1,000 MG/100 ML VIAL IV SCH (05:52)
[2018-05-01] MEDS: HYDROCODONE/ACETAMOPHEN 5/325MG TAB PO PRN (08:41)
[2018-05-01] MEDS: AMLODIPINE BESYLATE 5 MG TAB PO SCH (08:42)
[2018-05-01] MEDS: ANASTROZOLE 1 MG TAB PO SCH (08:43)
[2018-05-01] MEDS: DOCUSATE SODIUM 100 MG CAP PO SCH (08:43)
[2018-05-01] MEDS: PANTOprazole 40 MG TAB PO SCH (08:43)
[2018-05-01] MEDS: FLUTICASONE PROPIONATE NA SPR 16 GM BTL NAE SCH (08:43)
[2018-05-01] MEDS: ESCITALOPRAM OXALATE 10 MG TAB PO SCH (08:43)
--- NOTE | 2018-05-01 09:11 | Surgery Progress Note ---
Date of Service May 01, 2018 Assessment & Plan (1) Ventral hernia: passing flatus good pain control instructions reveiwed DC with drain Present on Admission?: Yes Subjective Constitutional: no fever and no chills Respiratory: no dyspnea Cardiovascular: no chest pain Gastrointestinal: + abdominal pain (mild); no nausea and no vomiting passing flatus Physical Exam 2 Vital Signs (Past 24 Hours): Last Vital Signs Temp 37.3 C 05/01/18 07:50 Pulse 74 05/01/18 07:50 Resp 16 05/01/18 07:50 BP 120/82 05/01/18 07:50 Pulse Ox 92 05/01/18 07:50 Constitutional: WD/WN, vitals as above no acute distress Respiratory: normal respiratory effort, lungs clear to auscultation Cardiovascular: RRR, no murmur, no edema Gastrointestinal (Abdomen): Inspection/Auscultation: + abdominal surgical incision (dressing dry) and + abdominal surgical drain present (serosanguinous) ; abdomen not distended Percussion/Palpation: abdomen nontender and + abdomen not soft Skin: no rashes, warm and dry
[2018-05-01] MEDS: ENOXAPARIN INJ 40 MG/0.4 ML SYR SQ SCH (10:00)
--- NOTE | 2018-05-04 03:25 | Discharge Summary ---
PRIMARY DISCHARGE DIAGNOSIS: Ventral hernia x2. SECONDARY DISCHARGE DIAGNOSES: 1. History of deep vein thrombosis and pulmonary embolism. 2. Hypertension. 3. Coronary artery disease. 4. Gastroesophageal reflux disease. 5. History of bronchitis. PROCEDURE PERFORMED: Open ventral hernia repair x2 with component separation and over OviTex mesh placement. HOSPITAL COURSE: The patient is a 52-year-old female with multiple abdominal surgeries and ventral hernia, taken to the operating room for repair with component separation and OviTex mesh placement. The procedure was well tolerated. She was transferred to the surgical floor for observation. Lovenox bridge was continued. TURRET LATHE MACHINIST was used for initial postoperative analgesia. Coumadin was started on postoperative day #1. She continued to require IV analgesics on postoperative day #1. By day #2, she was able to wean from IV analgesics and pain was managed orally. A LILA drain was left in place and will be removed in the office. She was tolerating regular diet. She was stable for discharge on postoperative day #2. DISCHARGE INSTRUCTIONS: Discharge home. Follow up with Dr. Livingston's office in 5 days for removal of drain. Continue to wear abdominal binder the majority of the time. DISCHARGE MEDICATIONS: [place] 1-2 tablets every 4 hours as needed for pain. Resume home medications including Lovenox 40 mg daily, Coumadin 4 mg alternating with 2 mg, albuterol 1 to 2 puffs every 6 hours as needed, amlodipine 2.5 mg daily, anastrozole 1 mg daily, docusate 100 mg daily, vitamin B12 supplement, Lexapro 10 mg daily, Flonase 2 sprays daily, omeprazole 40 mg b.i.d., Imitrex as needed, Forteo 20 mcg subQ daily. Continue prednisone as needed, and meclizine 12.5 mg b.i.d. MTDD
--- NOTE | 2018-05-04 11:54 | Coding Query ---
CODING QUERY To promote full compliance with coding requirements relating to patient care, provider participation is requested in all cases of medical coder uncertainty. Please assist us with the question(s) below: Coding Question(s): The Operative Report describes adhesions and enterolysis. Please clarify below, in your clinical opinion. ( x) There were extensive adhesions that required tedious enterolysis that made the procedure significantly more difficult and/or significantly prolonged the procedure ( ) The adhesions were not extensive and did not require enterolysis that significantly prolonged the procedure or made the procedure significantly more difficult Physician's Response(s): Thank you Kailey Mayers Principal Diagnosis: "that condition established after study, to be chiefly responsible for occasioning the admission of the patient to the hospital for care." Co-Existing Principal Diagnosis: "when two or more diagnoses equally meet the criteria for principal diagnosis as determined by the circumstances of admission , diagnostic work up, and/or therapy provided, and the Alphabetic Index, Tabular List, or another coding guideline does not provide sequencing direction , any one of the diagnoses may be sequenced first." "When the physician has documented what appears to be a current diagnosis in the body of the record, but has not included the diagnosis in the final diagnostic statement, the physician should be asked whether the diagnosis should be added." (Source [facility] 2 QTR90. p3-4) AVA
== END 2018-05-01 11:50 | disposition home or self-care (01) | DRG 336 ==
LOC: ASU 05:23 → 3W 09:36

== ENCOUNTER 2020-10-04 11:19 | Observation (INO) ==
[2020-10-04 13:01] LABS: Basophils # (auto) 0.02 K/uL (0-0.2); Basophils % (auto) 0.2 %; Eosinophils # (auto) 0.18 K/uL (0-0.5); Eosinophils % (auto) 2.1 %; Hematocrit (blood only) 43.8 % (37-47); Hemoglobin 14.6 g/dL (12.0-16.0); Immature Granulocytes # (auto) 0.02 K/uL (0.00-0.02); Immature Granulocytes % (auto) 0.2 %; Lymphocytes # (auto) 2.63 K/uL (1.2-3.4); Mean Corpuscular Hemoglobin 28.7 pg (25-34); Mean Corpuscular Hgb Conc 33.3 g/dL (32-36); Mean Corpuscular Volume 86.1 fL (80-100); Mean Platelet Volume 9.3 fL (7.4-10.4); Monocytes # (auto) 0.65 K/uL (0.11-0.59); Monocytes % (auto) 7.7 %; Neutrophils # (auto) 4.99 K/uL (1.4-6.5); Neutrophils % (auto) 58.8 %; Platelet Count 222 K/uL (130-400); RDW Coefficient of Variation 14.8 % (11.5-14.5); RDW Standard Deviation 46.9 fL (36.4-46.3); Red Blood Count 5.09 M/uL (4.2-5.4); White Blood Count 8.49 K/uL (4.8-10.8)
--- NOTE | 2020-10-04 13:09 | XRay Report ---
XR chest 1V portable HISTORY: Atypical Chest Pain COMPARISON: Chest 02/29/2020. FINDINGS: No pneumothorax. No pleural effusions. The cardiac silhouette remains borderline enlarged. No new focal lung consolidations to suggest pneumonia. No evidence for pulmonary edema. There are low lung volumes. IMPRESSION: No significant change compared to the prior study. No acute process. ACT 112: Negative or not required by law. Electronically signed by: Bishnu Shrestha M.D. 10/04/2020 1:07 PM
[2020-10-04 13:13] LABS: INR 1.7 (0.9-1.1); Partial Thromboplastin Ratio 1.5; Partial Thromboplastin Time 38.4 Seconds (21.0-31.0); Prothrombin Time 16.3 Seconds (9.0-12.0)
[2020-10-04 13:18] LABS: Alanine Aminotransferase 29 U/L (12-78); Albumin Level 3.8 gm/dl (3.4-5.0); Aspartate Aminotransferase 13 U/L (15-37); BUN Creatinine Ratio 15.5 (10-20); Blood Urea Nitrogen 15 mg/dl (7-18); Calcium 9.1 mg/dl (8.5-10.1); Carbon Dioxide 27 mmol/L (21-32); Chloride 108 mmol/L (98-107); Est GFR (African American) 72.9 ml/min; Est GFR (Non-African American) 62.9 ml/min; Glucose 88 mg/dl (70-99); Potassium 4.2 mmol/L (3.5-5.1); Sodium 139 mmol/L (136-145)
[2020-10-04 13:23] LABS: Alkaline Phosphatase 49 U/L (45-117); Bilirubin,Total 0.7 mg/dl (0.2-1); Globulin 3.8 gm/dl (2.5-4.0); Total Protein 7.6 gm/dl (6.4-8.2); Troponin I < 0.015 ng/ml (0-0.045)
--- NOTE | 2020-10-04 13:50 | Emergency Department Note ---
History of Present Illness General Chief complaint: Cardiac Assessment Stated complaint: R LUNG AREA AND CHEST FEEL HEAVY,STUFFED UP Time Seen by Provider: 10/04/20 13:25 Source: patient Mode of arrival: ambulatory Limitations: no limitations History of Present Illness Provider complaint: Chest pain, shortness of breath Location: chest Radiation: non-radiation Severity: moderate Pain Consistency: + colicky Quality: + sharp and + dull Exacerbated By: + movement Associated symptoms: + chest pain, + cough and + shortness of breath; no fever/chills, no loss of appetite, no nausea/vomiting and no syncope Treatments prior to arrival: none This is a 54-year-old female who presents to the emergency department with complaints of chest pain. Patient states approximately 4 to 5 days ago she began with a sharp right lateral rib pain. Patient thought initially was perhaps musculoskeletal. No recent change in activity. Patient does have a history of breast cancer status postmastectomy and is on maintenance chemotherapy. Patient states then 2 days ago she began with a central chest tightness that was worse with exertion and had accompanying dyspnea with exertion. No recent fevers, chills, nausea, vomiting, or dizziness accompanying her symptoms. Patient denies any recent increased heartburn/indigestion and does take a PPI daily. No other recent illness or sick contact. Patient states she has had some mild nasal congestion however thought this was related to seasonal allergies. Patient has completed her coronavirus vaccinations. Patient states central chest tightness was similar to prior episode of her heart attack. She states in 2016 she was found to have a heart attack but did not undergo any stenting during the catheterization. Patient follows with Dr. Rosales of cardiology. Pt seen during a time of high acuity and national emergency pandemic while wearing PPE. Home Medications Medication Instructions Recorded Confirmed Type anastrozole 1 mg tablet 1 mg PO QAM 12/15/18 10/04/20 History omeprazole 40 mg capsule,delayed 40 mg PO BID cap 12/15/18 10/04/20 History release hyoscyamine sulfate 0.125 mg tablet 0.125 mg PO QAM PRN 12/20/18 10/04/20 History linaclotide 72 mcg capsule 72 mcg PO Q OTHER DAY cap 10/07/19 10/04/20 History epinephrine [EpiPen 2-Tye] 0.3 mg IM Q3H PRN #2 ea 10/08/19 10/04/20 Rx diclofenac sodium 1 % topical gel 4 gm TOP QID #100 gm 10/27/19 10/04/20 Rx acetaminophen [Tylenol] 650 mg PO QID PRN 02/02/20 10/04/20 History meclizine 12.5 mg PO TID PRN #20 tab 02/02/20 10/04/20 Rx rosuvastatin 10 mg tablet 10 mg PO PM #90 tab 04/18/20 10/04/20 Rx baclofen 10 mg tablet 10 mg PO DAILY #7 tab 04/20/20 10/04/20 Rx cholecalciferol (vitamin D3) 125 125 mcg PO DAILY #90 cap 05/02/20 10/04/20 Rx mcg (5,000 unit) capsule calcium carbonate 600 mg calcium 600 mg PO DAILY 05/03/20 10/04/20 History (1,500 mg) tablet sumatriptan succinate 25 mg tablet 50 mg PO DIRECTED PRN #15 tab 05/24/20 10/04/20 Rx MDD 3 tablets/day escitalopram oxalate 10 mg tablet 10 mg PO QAM #90 tab 05/28/20 10/04/20 Rx furosemide 20 mg tablet 20 - 40 mg PO DAILY PRN #30 tab 06/12/20 10/04/20 Rx warfarin 4 mg tablet 4 mg PO WK tab 07/04/20 10/04/20 History albuterol sulfate 90 mcg/actuation 2 puff INHALATION Q6H PRN #6.7 gm 07/10/20 10/04/20 Rx aerosol inhaler topiramate 25 mg tablet 25 mg PO HS #30 tab 09/18/20 10/04/20 Rx amlodipine 5 mg tablet 5 mg PO QAM #90 tab 09/19/20 10/04/20 Rx mecobalamin (vitamin B12) 1,000 1,000 mcg SUBLINGUAL DAILY 10/04/20 10/04/20 History mcg disintegrating tablet,sublingual warfarin 2 mg PO 6XWK 10/04/20 10/04/20 History Allergies Allergy/AdvReac Type Severity Reaction Status Date / Time rivaroxaban Allergy Severe RASH Verified 09/18/20 10:02 doxycycline AdvReac Unknown VOMITTING Verified 09/18/20 10:02 Past Med/Surg History Medical History Asthma stable Chronic back pain Diverticulosis GERD (gastroesophageal reflux disease) controlled Hematuria History of heart attack NSTEMI= 2016= felt 2/2 vasospasm/no CAD on cardiac cath done at that time* Hx of deep venous thrombosis multiple b/l le DVTs (2017); RUE DVT (post-op/post-injury, single DVT unprovoked) Hx pulmonary embolism 2016 HX: breast cancer s/p right breast mastectomy- on anastrazole Hypertension Irritable bowel syndrome (10/24/12) Migraine Morbid obesity Osteoporosis Sensorineural hearing loss of both ears Tinnitus of both ears Ventral hernia Surgical History H/O knee surgery RIGHT AND LEFT History of ankle surgery X4 LEFT History of bowel resection COLON RESECTION 2/2 DIVERTICULITIS (REMOTE) History of cardiac cath 2016= NO STENTS History of section X2 History of cholecystectomy History of colonoscopy History of herniorrhaphy 04/29/18: open ventral hernia repair: Grade 2 view, MAC#3, ETT 7.5 at [facility] History of hysterectomy total History of mastectomy RIGHT BREAST History of reconstruction of right breast History of repair of inguinal hernia (12/25/12) History of surgery of liver RESECTION 2/2 BILE DUCT STONE COMPLICATIONS and then has lobe of liver removed Hx of abdominal surgery UMBILICAL SURGERY Hx of rotator cuff surgery RIGHT S/P hernia surgery (02/10/19) Extensive enterolysis, Laparoscopic Recurrent Ventral Hernia Repair with Mesh Dr. Livingston 02/10/19 Family History Mother Myocardial infarction Lung cancer Cardiac disorder Irritable bowel syndrome Father Myocardial infarction Lung cancer Cardiac disorder Other No significant family history Denies family history of Ovarian cancer Prostate cancer Breast cancer Colorectal cancer Social History Smoking Status: Never smoker Second Hand Exposure: Yes; Hx Alcohol Use: No Hx Substance Use: No Preferred Language: Fijian Communication Ability: Effective Visual Impairment: No Limitations Underwriting Sales Representative Required: No Beliefs That Will Affect Care: None marital status: Current Living Situation: Spouse current occupational status: employed How many Children do You have: 2 Feels Safe at Home: Yes Childhood Exposure to Second-Hand Smoke: No caffeine: Yes during the past year weight has: increased > 10 lbs Dental Care, Regularly: No Physical Activity Frequency: 1-2 Times per Week Seatbelt Use: always Sunscreen Use: No Assistive Devices: Glasses Review of Systems See HPI for pertinent positives & negatives. and A total of 10 systems reviewed and were otherwise negative Physical Exam Vital Signs Vital Signs - 24 hr 10/04/20 11:20 10/04/20 12:55 10/04/20 13:00 Temperature 36.8 C Temperature Source Oral Pulse Rate 73 68 Pulse Rate [Apical] 67 64 Pulse Rhythm [Apical] Regular Respiratory Rate 18 16 16 Respiratory Effort / Characteristics Non-Labored Non-Labored Respiratory Depth Normal Normal Blood Pressure 144/94 H Blood Pressure [Left Arm] 123/84 123/84 Blood Pressure Mean 110 Blood Pressure Mean [Left Arm] 97 97 Pulse Oximetry 99 98 99 Oxygen Delivery Method Room Air Room Air Room Air Sepsis Recent Fever Within 48 Hours No Sepsis New/Unexplained Change in Mental Status N/A Sepsis Action Taken by Nursing No Action Required 10/04/20 14:00 10/04/20 15:00 10/04/20 16:00 Temperature Temperature Source Pulse Rate Pulse Rate [Apical] 66 59 L 80 Pulse Rhythm [Apical] Regular Regular Regular Respiratory Rate 16 16 16 Respiratory Effort / Characteristics Non-Labored Non-Labored Non-Labored Respiratory Depth Normal Normal Normal Blood Pressure Blood Pressure [Left Arm] 153/82 H 127/82 142/83 H Blood Pressure Mean Blood Pressure Mean [Left Arm] 105 97 102 Pulse Oximetry 98 99 98 Oxygen Delivery Method Room Air Room Air Room Air Sepsis Recent Fever Within 48 Hours Sepsis New/Unexplained Change in Mental Status Sepsis Action Taken by Nursing 10/04/20 17:00 10/04/20 18:00 Temperature Temperature Source Pulse Rate Pulse Rate [Apical] 59 L 69 Pulse Rhythm [Apical] Regular Respiratory Rate 16 16 Respiratory Effort / Characteristics Non-Labored Non-Labored Respiratory Depth Normal Normal Blood Pressure Blood Pressure [Left Arm] 115/72 124/72 Blood Pressure Mean Blood Pressure Mean [Left Arm] 86 89 Pulse Oximetry 96 99 Oxygen Delivery Method Room Air Room Air Sepsis Recent Fever Within 48 Hours Sepsis New/Unexplained Change in Mental Status Sepsis Action Taken by Nursing GENERAL: alert, well appearing, well nourished, no distress, non-toxic EYE EXAM: normal conjunctiva, PERRL and EOM's grossly intact OROPHARYNX: no exudate, no erythema, lips, buccal mucosa, and tongue normal and mucous membranes are moist NECK: supple, no nuchal rigidity, no adenopathy, non-tender LUNGS: Clear to auscultation. Normal chest wall mechanics, no w/r/r HEART: no murmurs, S1 normal and S2 normal ABDOMEN: abdomen soft, non-tender, normo-active bowel sounds, no masses, no rebound or guarding. BACK: Back is symmetrical on inspection and there is no deformity, no midline tenderness, no CVA tenderness. SKIN: no rashes and no bruising UPPER EXTREMITIES: upper extremities are grossly normal. FROM, nml pulses b/l. LOWER EXTREMITIES: No pitting edema. FROM, nml pulses b/l. NEURO EXAM: Normal sensorium, cranial nerves II-XII [grossly] intact, normal speech, no [gross] weakness of arms, no [gross] weakness of legs. [No pronator drift. Finger to nose intact. Gross sensation intact.] Course Course 1532: Patient updated on results. 1544: Discussed with Dr. Ko. Agrees with inpatient evaluation and rule out. 1548: Updated patient on discussion with cardiology. 1559: Discussed with Dr. Armstrong. Administered Medications Acetaminophen (Acetaminophen 325 Mg Tab) 650 mg PO QID PRN PRN Reason: Pain Stop: 11/03/20 20:48 Last Admin: 10/05/20 05:54 Dose: 650 mg Documented by: [id number] Amoxicillin/Clavulanate Potassium (Amoxicillin/Clavulanate 875 Mg Tab) 1 tab PO BIDM ADRIANA Stop: 10/14/20 20:48 Last Admin: 10/04/20 21:49 Dose: 1 tab Documented by: [id number] Diclofenac Sodium (Diclofenac Sod 1% Gel 100 Gm Tube) 4 gm EXT QID ADRIANA Stop: 11/03/20 20:59 Last Admin: 10/04/20 21:21 Dose: 4 gm Documented by: [id number] Enoxaparin Sodium (Enoxaparin 100 Mg/1ml Syr) 100 mg SQ Q12H ADRIANA Stop: 11/04/20 05:59 Last Admin: 10/05/20 05:51 Dose: 100 mg Documented by: [id number] Pantoprazole Sodium (Pantoprazole 40 Mg Tab) 40 mg PO BID ADRIANA Stop: 11/03/20 20:59 Last Admin: 10/04/20 21:22 Dose: 40 mg Documented by: [id number] Prednisone (Prednisone 20 Mg Tab) 40 mg PO QPM ADRIANA Stop: 11/03/20 20:59 Last Admin: 10/04/20 21:22 Dose: 40 mg Documented by: [id number] Rosuvastatin Calcium (Rosuvastatin Calcium 10 Mg Tab) 10 mg PO PM ADRIANA Stop: 11/03/20 20:59 Last Admin: 10/04/20 21:22 Dose: 10 mg Documented by: [id number] Discontinued Medications Aspirin (Aspirin 81 Mg Ectab) 81 mg PO NOW STA Stop: 10/04/20 15:59 Last Admin: 10/04/20 16:03 Dose: 81 mg Documented by: [id number] Enoxaparin Sodium (Enoxaparin 100 Mg/1ml Syr) 100 mg SQ NOW STA Stop: 10/04/20 17:27 Last Admin: 10/04/20 18:01 Dose: 100 mg Documented by: [id number] Famotidine (Famotidine 20mg/5ml Iv Push) 20 mg IV ONE STA Stop: 10/04/20 13:52 Last Admin: 10/04/20 14:02 Dose: 20 mg Documented by: [id number] Acetaminophen (Ofirmev) 1,000 mg in 100 mls @ 400 mls/hr IV NOW STA Stop: 10/04/20 15:43 Last Infusion: 10/04/20 17:17 Dose: 0 mls/hr Documented by: [id number] Admin: 10/04/20 16:00 Dose: 400 mls/hr Documented by: [id number] Ioversol (Optiray 320 125ml) 120 ml IV ONCE ONE Stop: 10/04/20 14:54 Last Admin: 10/04/20 14:53 Dose: 120 ml Documented by: [id number] Medical Decision Making Differential Diagnosis Differential diagnoses includes but is not limited to acute coronary syndrome, myocardial infarction, pericarditis, pulmonary embolus, aortic dissection, pneumonia, pneumothorax, musculoskeletal, shingles, esophageal. Medical Records Attestation: I reviewed the patient's medical records. Home Medications Current Medication List: was personally reviewed by me Laboratory Data Attestation: I reviewed the patient's lab results. Result diagrams: 10/05/20 07:17 10/05/20 07:17 Lab Results 10/04/20 10/04/20 10/04/20 Range/Units 12:53 12:53 12:53 WBC 8.49 (4.8-10.8) K/uL RBC 5.09 (4.2-5.4) M/uL Hgb 14.6 (12.0-16.0) g/dL Hct 43.8 (37-47) % MCV 86.1 (80-100) fL MCH 28.7 (25-34) pg MCHC 33.3 (32-36) g/dL RDW Std Deviation 46.9 H (36.4-46.3) fL RDW Coeff of Joanna 14.8 H (11.5-14.5) % Plt Count 222 (130-400) K/uL MPV 9.3 (7.4-10.4) fL Immature Gran % (Auto) 0.2 % Neut % (Auto) 58.8 % Lymph % (Auto) 31.0 % [place] % (Auto) 7.7 % Eos % (Auto) 2.1 % Baso % (Auto) 0.2 % Neut # (Auto) 4.99 (1.4-6.5) K/uL Lymph # (Auto) 2.63 (1.2-3.4) K/uL [place] # (Auto) 0.65 H (0.11-0.59) K/uL Eos # (Auto) 0.18 (0-0.5) K/uL Baso # (Auto) 0.02 (0-0.2) K/uL Immature Gran # (Auto) 0.02 (0.00-0.02) K/uL PT 16.3 H (9.0-12.0) Seconds INR 1.7 H (0.9-1.1) APTT 38.4 H (21.0-31.0) Seconds PTT Ratio 1.5 Sodium 139 (136-145) mmol/L Potassium 4.2 (3.5-5.1) mmol/L Chloride 108 H (98-107) mmol/L Carbon Dioxide 27 (21-32) mmol/L Anion Gap 4.0 (3-11) BUN 15 (7-18) mg/dl Creatinine 1.00 (0.6-1.2) mg/dl Est Cr Clr Drug Dosing 68.0 ml/min Est GFR ( Amer) 72.9 ml/min Est GFR (Non-Af Amer) 62.9 ml/min BUN/Creatinine Ratio 15.5 (10-20) Glucose 88 (70-99) mg/dl Calcium 9.1 (8.5-10.1) mg/dl Total Bilirubin 0.7 (0.2-1) mg/dl AST 13 L (15-37) U/L ALT 29 (12-78) U/L Alkaline Phosphatase 49 (45-117) U/L Troponin I < 0.015 (0-0.045) ng/ml Total Protein 7.6 (6.4-8.2) gm/dl Albumin 3.8 (3.4-5.0) gm/dl Globulin 3.8 (2.5-4.0) gm/dl Albumin/Globulin Ratio 1.0 (0.9-2) COVID-19 Eval Order SARS-CoV-2 (PCR) (Negative) Hepatitis C Ab Screen (Neg) 10/04/20 10/04/20 10/04/20 Range/Units 12:53 16:25 16:25 WBC (4.8-10.8) K/uL RBC (4.2-5.4) M/uL Hgb (12.0-16.0) g/dL Hct (37-47) % MCV (80-100) fL MCH (25-34) pg MCHC (32-36) g/dL RDW Std Deviation (36.4-46.3) fL RDW Coeff of Joanna (11.5-14.5) % Plt Count (130-400) K/uL MPV (7.4-10.4) fL Immature Gran % (Auto) % Neut % (Auto) % Lymph % (Auto) % [place] % (Auto) % Eos % (Auto) % Baso % (Auto) % Neut # (Auto) (1.4-6.5) K/uL Lymph # (Auto) (1.2-3.4) K/uL [place] # (Auto) (0.11-0.59) K/uL Eos # (Auto) (0-0.5) K/uL Baso # (Auto) (0-0.2) K/uL Immature Gran # (Auto) (0.00-0.02) K/uL PT (9.0-12.0) Seconds INR (0.9-1.1) APTT (21.0-31.0) Seconds PTT Ratio Sodium (136-145) mmol/L Potassium (3.5-5.1) mmol/L Chloride (98-107) mmol/L Carbon Dioxide (21-32) mmol/L Anion Gap (3-11) BUN (7-18) mg/dl Creatinine (0.6-1.2) mg/dl Est Cr Clr Drug Dosing ml/min Est GFR ( Amer) ml/min Est GFR (Non-Af Amer) ml/min BUN/Creatinine Ratio (10-20) Glucose (70-99) mg/dl Calcium (8.5-10.1) mg/dl Total Bilirubin (0.2-1) mg/dl AST (15-37) U/L ALT (12-78) U/L Alkaline Phosphatase (45-117) U/L Troponin I (0-0.045) ng/ml Total Protein (6.4-8.2) gm/dl Albumin (3.4-5.0) gm/dl Globulin (2.5-4.0) gm/dl Albumin/Globulin Ratio (0.9-2) COVID-19 Eval Order Covid19 at [facility] SARS-CoV-2 (PCR) NEGATIVE (Negative) Hepatitis C Ab Screen Neg (Neg) 10/04/20 Range/Units 18:37 WBC (4.8-10.8) K/uL RBC (4.2-5.4) M/uL Hgb (12.0-16.0) g/dL Hct (37-47) % MCV (80-100) fL MCH (25-34) pg MCHC (32-36) g/dL RDW Std Deviation (36.4-46.3) fL RDW Coeff of Joanna (11.5-14.5) % Plt Count (130-400) K/uL MPV (7.4-10.4) fL Immature Gran % (Auto) % Neut % (Auto) % Lymph % (Auto) % [place] % (Auto) % Eos % (Auto) % Baso % (Auto) % Neut # (Auto) (1.4-6.5) K/uL Lymph # (Auto) (1.2-3.4) K/uL [place] # (Auto) (0.11-0.59) K/uL Eos # (Auto) (0-0.5) K/uL Baso # (Auto) (0-0.2) K/uL Immature Gran # (Auto) (0.00-0.02) K/uL PT (9.0-12.0) Seconds INR (0.9-1.1) APTT (21.0-31.0) Seconds PTT Ratio Sodium (136-145) mmol/L Potassium (3.5-5.1) mmol/L Chloride (98-107) mmol/L Carbon Dioxide (21-32) mmol/L Anion Gap (3-11) BUN (7-18) mg/dl Creatinine (0.6-1.2) mg/dl Est Cr Clr Drug Dosing ml/min Est GFR ( Amer) ml/min Est GFR (Non-Af Amer) ml/min BUN/Creatinine Ratio (10-20) Glucose (70-99) mg/dl Calcium (8.5-10.1) mg/dl Total Bilirubin (0.2-1) mg/dl AST (15-37) U/L ALT (12-78) U/L Alkaline Phosphatase (45-117) U/L Troponin I < 0.015 (0-0.045) ng/ml Total Protein (6.4-8.2) gm/dl Albumin (3.4-5.0) gm/dl Globulin (2.5-4.0) gm/dl Albumin/Globulin Ratio (0.9-2) COVID-19 Eval Order SARS-CoV-2 (PCR) (Negative) Hepatitis C Ab Screen (Neg) Imaging Data Radiologist's Impression: Chest X-Ray 10/04/20 12:49 XR chest 1V portable HISTORY: Atypical Chest Pain COMPARISON: Chest 02/29/2020. FINDINGS: No pneumothorax. No pleural effusions. The cardiac silhouette remains borderline enlarged. No new focal lung consolidations to suggest pneumonia. No evidence for pulmonary edema. There are low lung volumes. IMPRESSION: No significant change compared to the prior study. No acute process. ACT 112: Negative or not required by law. Electronically signed by: iBshnu Shrestha M.D. 10/04/2020 1:07 PM Chest CTA 10/04/20 13:50 CHEST CTA for PULMONARY ARTERIES CT DOSE: 475.09 mGycm HISTORY: Shortness of breath. Assess for pulmonary embolus. TECHNIQUE: Multiaxial CT images of the chest were performed following the i ntravenous administration of contrast to evaluate the pulmonary arteries. Maximal intensity projection images were also obtained. A dose lowering technique was utilized adhering to the principles of ALARA. COMPARISON STUDY: Chest CT 05/14/2020. FINDINGS: Normal caliber thoracic aorta with no evidence for dissection. The heart remains mildly enlarged. No pleural or pericardial effusions. Questionable filling defect seen within a left lower lobe segmental pulmonary artery on image 104 is likely secondary to the respiratory motion artifact at this location. Otherwise, no definite filling defects identified within the pulmonary arteries to suggest a pulmonary embolus. Limited views of the upper abdomen demonstrate a normal spleen and partially visualized adrenal glands. Prior left hepatectomy and cholecystectomy. Small amount of pneumobilia remains unchanged. There is a small hiatus hernia, unchanged. Prior right breast implant reconstruction. No mediastinal hilar lymphadenopathy. There is no axillary lymphadenopathy. The thyroid gland enhances normally. The esophagus is within normal limits. No suspicious lytic or blastic osseous lesions. No pneumothorax. The central airways are patent. Stable 6 mm subpleural nodule within the left lower lobe on image 54. Punctate calcified granuloma within the left upper lobe on image 137. No new focal lung consolidations to suggest pneumonia. Stable benign 6 mm subpleural nodule within the right lower lobe on image 71. IMPRESSION: 1. No evidence for pulmonary embolus with limitations as described above.. 2. Stable 6 mm subpleural nodule at the left lower lobe. Continued follow-up as described on the prior study. 3. No new focal lung consolidations to suggest pneumonia. ACT 112: Negative or not required by law. Electronically signed by: Bishnu Shrestha M.D. 10/04/2020 3:14 PM ECG Data Attestation: I personally reviewed and interpreted this ECG as follows: Indication: + chest pain Rate (beats per minute): 64 Rhythm: + normal sinus ECG Intervals/blocks: + Normal QRS and + Normal QT ECG ST segments: + T-wave inversions (V2-3) Comparison ECG Date: from (02/02/2020) MDM Narrative Patient presents due to concern for chest pain in various locations for several days. EKG unchanged from prior. Troponin negative. I reviewed EMR due to prior NSTEMI as described by the patient. Patient's INR subtherapeutic and given hx of DVT/PE, CTA of the chest was performed which was reassuring and unchanged. VS stable. Given elevated HEART score despite atypical prior events and personal risk factors, case discussed with cardiology. They agreed with plan for inpatient evaluation and testing. Case discussed with hospitalist team. No ectopy or dysrhythmia noted on tele. Patient made of all results, verbalized understanding and was in agreement with the plan. An order was placed for continuous cardiac monitoring. The monitor shows a rate of _66__ with _normal sinus__ rhythm. Impression & Plan Atypical chest pain, ELY (dyspnea on exertion) Discharge Plan Visit Data Chief Complaint: Cardiac Assessment Stated Complaint: R LUNG AREA AND CHEST FEEL HEAVY,STUFFED UP ED Provider: Sol Maldonado Discharge Problem: Atypical chest pain, ELY (dyspnea on exertion) Patient Disposition: Admitted As Inpatient Discharge Instructions Interventions: ED Discharge Assessment Last Done: 10/04/20 20:30
[2020-10-04] MEDS ORDERED: FAMOTIDINE 20MG/5ML IV PUSH IV STA (13:51)
[2020-10-04] MEDS ORDERED: OPTIRAY 320 125ml IV ONE (14:53)
--- NOTE | 2020-10-04 15:16 | CT Scan Report ---
CHEST CTA for PULMONARY ARTERIES CT DOSE: 475.09 mGycm HISTORY: Shortness of breath. Assess for pulmonary embolus. TECHNIQUE: Multiaxial CT images of the chest were performed following the intravenous administration of contrast to evaluate the pulmonary arteries. Maximal intensity projection images were also obtaine d. A dose lowering technique was utilized adhering to the principles of ALARA. COMPARISON STUDY: Chest CT 05/14/2020. FINDINGS: Normal caliber thoracic aorta with no evidence for dissection. The heart remains mildly enl arged. No pleural or pericardial effusions. Questionable filling defect seen within a left lower lobe segmental pulmonary artery on image 104 is likely secondary to the respiratory motion artifact at th is location. Otherwise, no definite filling defects identified within the pulmonary arteries to sugge st a pulmonary embolus. Limited views of the upper abdomen demonstrate a normal spleen and partially visualized adrenal glands. Prior left hepatectomy and cholecystectomy. Small amount of pneumobilia re gian unchanged. There is a small hiatus hernia, unchanged. Prior right breast implant reconstruction . No mediastinal hilar lymphadenopathy. There is no axillary lymphadenopathy. The thyroid gland enhan danuta normally. The esophagus is within normal limits. No suspicious lytic or blastic osseous lesions. No pneumothorax. The central airways are patent. Stable 6 mm subpleural nodule within the left lower lobe on image 54. Punctate calcified granuloma within the left upper lobe on image 137. No new focal lung consolidations to suggest pneumonia. Stable benign 6 mm subpleural nodule within the right lower lobe on image 71. IMPRESSION: 1. No evidence for pulmonary embolus with limitations as described above.. 2. Stable 6 mm subpleural nodule at the left lower lobe. Continued follow-up as described on the prio r study. 3. No new focal lung consolidations to suggest pneumonia. ACT 112: Negative or not required by law. Electronically signed by: Bishnu Shrestha M.D. 10/04/2020 3:14 PM
[2020-10-04] MEDS ORDERED: ACETAMINOPHEN 1,000 MG/100 ML VIAL IV STA (15:29)
--- NOTE | 2020-10-04 15:31 | Electrocardiogram Report ---
Test Reason : Blood Pressure : / mmHG Vent. Rate : 064 BPM Atrial Rate : 064 BPM P-R Int : 156 ms QRS Dur : 072 ms QT Int : 442 ms P-R-T Axes : 039 002 041 degrees QTc Int : 455 ms Normal sinus rhythm T wave abnormality, consider anterior ischemia Abnormal ECG When compared with ECG of 02-FEB-2020 11:26, No significant change was found Confirmed by Parth Mora ([id number]) on 10/04/2020 3:31:32 PM Referred By: Pilo Ontiveros Confirmed By:Parth Mora
[2020-10-04] MEDS ORDERED: ASPIRIN 81 MG ECTAB PO STA (15:58)
[2020-10-04] MEDS ORDERED: ENOXAPARIN 100 MG/1ML SYR SQ STA (17:26)
[2020-10-04] MEDS ORDERED: ENOXAPARIN 1 MG/KG SQ SCH (17:30)
--- NOTE | 2020-10-04 17:48 | History & Physical Report ---
Date of Service October 04, 2020 Assessment & Plan (1) Atypical chest pain: Patient with coronary artery vasospasm diagnosed on 2016 cardiac cath. - Patient feels that this pain may be consistent with that discomfort - reproducible pain is not consistent to what she is experiencing -ECG with anterior T wave inversions similar to previous - ASA given in EMD, continue daily - ECHO in morning - Cards consult - NPO after midnight for further risk-stratifying by cards (2) ELY (dyspnea on exertion): patient has not used her inhaler prior to her activity so difficult to say relation to her asthma - CTA of the chest negative for pulmonary embolism in the setting of subtherapeutic INR - Risk stratify cardiac involvement - Trend troponin I with ECG (3) Subtherapeutic anticoagulation: Coumadin for re-occurring DVT/PE - Weight based Lovenox - re-dose Coumadin for therapeutic INR following cardiac evaluation, hold Coumadin for now in case of need for intervention (4) Mixed hyperlipidemia: Continue statin (5) Hypertension: Continue amlodipine - patient has PRN dosing of her Lasix for increase in weight gain - follow physical exam and dose if needed (6) Irritable bowel syndrome with constipation: Symptoms controlled at this time Continue Linzess continue with hyoscyamine (7) Asthma: Continue albuterol prn (8) GERD (gastroesophageal reflux disease): Continue omeprazole (9) Morbid obesity: Follows with Dr. Potts - continue to progress with goals, diet, and medications (10) Metabolic syndrome: As above - HGBA1c in am - lipid panel in the am (11) Vitamin D deficiency: No acute needs - continue with calcium vitamin D and cholecalciferol (12) Sinus congestion: Patient with congestion, sweats and chills at home last night, but no fevers here, and right sided facial pressure and headache With recent exposure to her sister who had a viral illness Covid-19 here is negative - no evidence of chest involvement on her CT scan or CXR -We will treat with prednisone and Augmentin History of Present Illness Primary Care Provider: Judy Abrams MD 54 YOF with past medical history of: Breast CA, IBS, left hepatectomy 2017, shoulder fracture with impingement syndrome, PE following hepatectomy, DVT, chronic abdominal pain, metabolic syndrome, lung nodules, HTN, Coronary artery vasospasms, dyspnea. Patient comes in today after being referred to the emergency room by their PCP for chest tightness. The patient states that the pain has been ongoing over the past week. It originally started on her right side and back about 2 weeks ago, but over the past week started to go across the center of her chest and left side. This is noted more when taking a deep breath. It feels like a band of heaviness. It is noticed when she is up doing things or walking, but she does not associate this with her dyspnea and they have not occurred together. The patient has been experiencing dyspnea for quite a while she reports and did not change when her amlodipine was increased last year, but over the past 2 months she noted that she has to stop at the top of her 6 stairs because she is getting dyspneic. She is able to lay flat without orthopnea at home. She has asthma, but does not routinely use her albuterol inhaler. Patient endorses that last night she felt some sinus pressure and had some mild fevers and awoke early in the morning with a headache. She is having increased mucus drainage from the nose and for this complaint she called her PCP this morning. Patient will be admitted for observation of her chest pain, trend troponin I, and ECGs. Further risk stratification following troponin I. Patient is also subtherapeutic on her INR at 1.7, she denies any missed doses or diet changes, but endorsed she completed a course of prednisone last week for her back pain and muscle tightness. Allergies Allergy/AdvReac Type Severity Reaction Status Date / Time rivaroxaban Allergy Severe RASH Verified 09/18/20 10:02 doxycycline AdvReac Unknown VOMITTING Verified 09/18/20 10:02 Home Medications Medication Instructions Recorded Confirmed Type anastrozole 1 mg tablet 1 mg PO QAM 12/15/18 10/04/20 History omeprazole 40 mg capsule,delayed 40 mg PO BID cap 12/15/18 10/04/20 History release hyoscyamine sulfate 0.125 mg tablet 0.125 mg PO QAM PRN 12/20/18 10/04/20 History linaclotide 72 mcg capsule 72 mcg PO Q OTHER DAY cap 10/07/19 10/04/20 History epinephrine [EpiPen 2-Tye] 0.3 mg IM Q3H PRN #2 ea 10/08/19 10/04/20 Rx diclofenac sodium 1 % topical gel 4 gm TOP QID #100 gm 10/27/19 10/04/20 Rx acetaminophen [Tylenol] 650 mg PO QID PRN 02/02/20 10/04/20 History meclizine 12.5 mg PO TID PRN #20 tab 02/02/20 10/04/20 Rx rosuvastatin 10 mg tablet 10 mg PO PM #90 tab 04/18/20 10/04/20 Rx baclofen 10 mg tablet 10 mg PO DAILY #7 tab 04/20/20 10/04/20 Rx cholecalciferol (vitamin D3) 125 125 mcg PO DAILY #90 cap 05/02/20 10/04/20 Rx mcg (5,000 unit) capsule calcium carbonate 600 mg calcium 600 mg PO DAILY 05/03/20 10/04/20 History (1,500 mg) tablet sumatriptan succinate 25 mg tablet 50 mg PO DIRECTED PRN #15 tab 05/24/20 10/04/20 Rx MDD 3 tablets/day escitalopram oxalate 10 mg tablet 10 mg PO QAM #90 tab 05/28/20 10/04/20 Rx furosemide 20 mg tablet 20 - 40 mg PO DAILY PRN #30 tab 06/12/20 10/04/20 Rx warfarin 4 mg tablet 4 mg PO WK tab 07/04/20 10/04/20 History albuterol sulfate 90 mcg/actuation 2 puff INHALATION Q6H PRN #6.7 gm 07/10/20 10/04/20 Rx aerosol inhaler topiramate 25 mg tablet 25 mg PO HS #30 tab 09/18/20 10/04/20 Rx amlodipine 5 mg tablet 5 mg PO QAM #90 tab 09/19/20 10/04/20 Rx mecobalamin (vitamin B12) 1,000 1,000 mcg SUBLINGUAL DAILY 10/04/20 10/04/20 History mcg disintegrating tablet,sublingual warfarin 2 mg PO 6XWK 10/04/20 10/04/20 History Past Med/Surg History Medical History Asthma stable Chronic back pain Diverticulosis GERD (gastroesophageal reflux disease) controlled Hematuria History of heart attack NSTEMI= 2016= felt 2/2 vasospasm/no CAD on cardiac cath done at that time* Hx of deep venous thrombosis multiple b/l le DVTs (2017); RUE DVT (post-op/post-injury, single DVT unprovoked) Hx pulmonary embolism 2017 HX: breast cancer s/p right breast mastectomy- on anastrazole Hypertension Irritable bowel syndrome (10/24/12) Migraine Morbid obesity Osteoporosis Sensorineural hearing loss of both ears Tinnitus of both ears Ventral hernia Surgical History H/O knee surgery RIGHT AND LEFT History of ankle surgery X4 LEFT History of bowel resection COLON RESECTION 2/2 DIVERTICULITIS (REMOTE) History of cardiac cath 2016= NO STENTS History of section X2 History of cholecystectomy History of colonoscopy History of herniorrhaphy 04/29/18: open ventral hernia repair: Grade 2 view, MAC#3, ETT 7.5 at [facility] History of hysterectomy total History of mastectomy RIGHT BREAST History of reconstruction of right breast History of repair of inguinal hernia (12/25/12) History of surgery of liver RESECTION 2/2 BILE DUCT STONE COMPLICATIONS and then has lobe of liver removed Hx of abdominal surgery UMBILICAL SURGERY Hx of rotator cuff surgery RIGHT S/P hernia surgery (02/10/19) Extensive enterolysis, Laparoscopic Recurrent Ventral Hernia Repair with Mesh Dr. Livingston 02/10/19 Family History Mother Myocardial infarction Lung cancer Cardiac disorder Irritable bowel syndrome Father Myocardial infarction Lung cancer Cardiac disorder Other No significant family history Denies family history of Ovarian cancer Prostate cancer Breast cancer Colorectal cancer Social History Smoking Status: Never smoker Second Hand Exposure: Yes; Hx Alcohol Use: No Hx Substance Use: No Preferred Language: [place] Communication Ability: Effective Visual Impairment: No Limitations Spd Manager Required: No Beliefs That Will Affect Care: None marital status: Current Living Situation: Spouse current occupational status: employed How many Children do You have: 2 Other Information That Helps Us Care for You: No Feels Safe at Home: Yes Safety Concerns: Feels Safe At This Time Childhood Exposure to Second-Hand Smoke: No caffeine: Yes during the past year weight has: increased > 10 lbs Dental Care, Regularly: No Physical Activity Frequency: 1-2 Times per Week Seatbelt Use: always Sunscreen Use: No Assistive Devices: Glasses Review of Systems Review of Systems: REVIEW OF SYSTEMS: Constitutional: (+) fever, sweats or chills last evegnin but resolved Eyes: No diplopia, no worsening or blurred vision ENT: (+) sinus fullness, normal hearing, no trouble swallowing Respiratory: (+) dyspnea at rest or on exertion, No cough, sputum, Cardiovascular: (+) chest pain, tightness, NO palpitations Abdomen: No pain, nausea, vomiting, diarrhea or constipation Musculoskeletal: (+) chronic back pain, NO joint pain, calf pain, swelling Neurologic: No weakness, numbness/tingling, or balance problems Psychiatric: No anxiety or depression Skin: No rash or itch Physical Exam Physical Exam: PHYSICAL EXAM: General: awake, alert, no apparent distress Head: Normocephalic, atraumatic ENT: PERRL, EOMI, no tenderness to palpation of frontal, maxillary sinuses, to lymphadenopathy, noted no pharyngeal exudate, mucous membranes moist Neuro: AAO x 3, speech clear and appropriate, strength intact bilaterally 5/5, sensation intact and equal all extremities and dermatomes, no pronator drift Chest: equal rise and fall of the chest, no accessory muscle use, no heaves or thrills, Clear to auscultation, on room air, Cardiac: Regular rate and rhythm, telemetry reviewed, skin warm dry, cap refill <3 seconds, peripheral pulses +2 no JVD, no murmur, no edema MSK: Tenderness to palpation at right paraspinal, supraspinatus, and intercostals. Pain with palpation to frontal intercostals right and left, but patient says that pain is NOT the same. GI: NABS x 4 quadrants, soft, nontender to palpation, no rebound, guarding or tenderness : Spontaneously voiding, no pain, no CVA tenderness, Extremities: Normal inspection, no peripheral edema or erythema, calfs nontender to palpation Psych: Normal mood and affect Skin: no rash or erythema Results & Data Results & Data ([facility]) Vital Signs (Past 12 Hours) Vital Signs Temp Pulse Pulse Resp BP BP Pulse Ox 10/04/20 17:00 59 L 16 115/72 96 10/04/20 16:00 80 16 142/83 H 98 10/04/20 15:00 59 L 16 127/82 99 10/04/20 14:00 66 16 153/82 H 98 10/04/20 13:00 64 16 123/84 99 10/04/20 12:55 68 67 16 123/84 98 10/04/20 11:20 36.8 C 73 18 144/94 H 99 Laboratory Results Abnormal lab results 10/04/20 10/04/20 10/04/20 Range/Units 12:53 12:53 12:53 RDW Std Deviation 46.9 H (36.4-46.3) fL RDW Coeff of Joanna 14.8 H (11.5-14.5) % Kings # (Auto) 0.65 H (0.11-0.59) K/uL PT 16.3 H (9.0-12.0) Seconds INR 1.7 H (0.9-1.1) APTT 38.4 H (21.0-31.0) Seconds Chloride 108 H (98-107) mmol/L AST 13 L (15-37) U/L Diagnostic Findings Chest X-Ray 10/04/20 12:49 XR chest 1V portable HISTORY: Atypical Chest Pain COMPARISON: Chest 02/29/2020. FINDINGS: No pneumothorax. No pleural effusions. The cardiac silhouette remains borderline enlarged. No new focal lung consolidations to suggest pneumonia. No evidence for pulmonary edema. There are low lung volumes. IMPRESSION: No significant change compared to the prior study. No acute process. Electronically signed by: Bishnu Shrestha M.D. 10/04/2020 1:07 PM Chest CTA 10/04/20 13:50 CHEST CTA for PULMONARY ARTERIES CT DOSE: 475.09 mGycm HISTORY: Shortness of breath. Assess for pulmonary embolus. TECHNIQUE: Multiaxial CT images of the chest were performed following the intravenous administration of contrast to evaluate the pulmonary arteries. Maximal intensity projection images were also obtained. A dose lowering technique was utilized adhering to the principles of ALARA. COMPARISON STUDY: Chest CT 05/14/2020. FINDINGS: Normal caliber thoracic aorta with no evidence for dissection. The heart remains mildly enlarged. No pleural or pericardial effusions. Questionable filling defect seen within a left lower lobe segmental pulmonary artery on image 104 is likely secondary to the respiratory motion artifact at this location. Otherwise, no definite filling defects identified within the pulmonary arteries to suggest a pulmonary embolus. Limited views of the upper abdomen demonstrate a normal spleen and partially visualized adrenal glands. Prior left hepatectomy and cholecystectomy. Small amount of pneumobilia remains unchanged. There is a small hiatus hernia, unchanged. Prior right breast implant reconstruction. No mediastinal hilar lymphadenopathy. There is no axillary lymphadenopathy. The thyroid gland enhances normally. The esophagus is within normal limits. No suspicious lytic or blastic osseous lesions. No pneumothorax. The central airways are patent. Stable 6 mm subpleural nodule within the left lower lobe on image 54. Punctate calcified granuloma within the left upper lobe on image 137. No new focal lung consolidations to suggest pneumonia. Stable benign 6 mm subpleural nodule within the right lower lobe on image 71. IMPRESSION: 1. No evidence for pulmonary embolus with limitations as described above.. 2. Stable 6 mm subpleural nodule at the left lower lobe. Continued follow-up as described on the prior study. 3. No new focal lung consolidations to suggest pneumonia. Electronically signed by: Bishnu Shrestha M.D. 10/04/2020 3:14 PM Medications Administered Discontinued Medications Aspirin (Aspirin 81 Mg Ectab) 81 mg PO NOW STA Stop: 10/04/20 15:59 Last Admin: 10/04/20 16:03 Dose: 81 mg Documented by: [id number] Enoxaparin Sodium (Enoxaparin 100 Mg/1ml Syr) 100 mg SQ NOW STA Stop: 10/04/20 17:27 Last Admin: 10/04/20 18:01 Dose: 100 mg Documented by: [id number] Famotidine (Famotidine 20mg/5ml Iv Push) 20 mg IV ONE STA Stop: 10/04/20 13:52 Last Admin: 10/04/20 14:02 Dose: 20 mg Documented by: [id number] Acetaminophen (Ofirmev) 1,000 mg in 100 mls @ 400 mls/hr IV NOW STA Stop: 10/04/20 15:43 Last Infusion: 10/04/20 17:17 Dose: 0 mls/hr Documented by: [id number] Admin: 10/04/20 16:00 Dose: 400 mls/hr Documented by: [id number] Ioversol (Optiray 320 125ml) 120 ml IV ONCE ONE Stop: 10/04/20 14:54 Last Admin: 10/04/20 14:53 Dose: 120 ml Documented by: [id number] ECG Additional Comments: Normal sinus rhythm T wave abnormality, consider anterior ischemia Abnormal ECG When compared with ECG of 02-FEB-2020 11:26, No significant change was found Code Status & VTE Plan Code Status CODE: FULL VTE: SCDs, Lovenox therapeutic dosing VTE Prophylaxis Plan VTE Prophylaxis will be ordered: Yes Supervising Physician Co-Signing Physician Notes DIESEL [employer]LEET [employer]CH[employer]IC Supervision note: I have personally seen and examined the patient and discussed and verified the bowers points of the history and physical along with the plan with IZABELLA Eaton with the following exceptions and/or additions: Patient is a 54-year-old female who presents here with worsening chest pressure and shortness of breath with exertion that is relieved with rest. She does feel that bronchodilators also improve her dyspnea with exertion. She is also noted sweats and chills overnight last night along with right-sided facial pain/pressure and mild headache, and nasal discharge with mucus. She completed a prednisone taper last week for pain in her right upper back which did improve that pain. She was recently exposed to her sister who had a viral illness. She feels fatigued. Came in at encouragement of her PCP after a telehealth visit today when she described the chest pressure. History and ROS reviewed Vitals reviewed Gen: AAOx3, NAD, obese HEENT: Anicteric sclerae, EOMI, positive tenderness palpation over right maxillary sinus, no facial swelling, oropharynx clear CV: RRR no mgr nl S1S2 Pulm: CTAB no wcr Abd: +BS soft NT ND no masses or hernias Ext: No edema, 2+ DP pulses Skin: No rashes, warm/dry Neuro: Full strength throughout Laboratory values reviewed Imaging reviewed ECG reviewed 54-year-old female here with atypical chest pain and dyspnea on exertion as well as likely viral syndrome with acute sinusitis and possible asthma exacerbation. -Rule out for acute coronary syndrome as above with serial troponin, perform echocardiogram in the morning for risk stratification -Treat with prednisone and Augmentin for possible acute sinusitis and asthma exacerbation -Continue bronchodilators as needed -Holding Coumadin from home in case of need for cardiac intervention, covering with therapeutic Lovenox for now Monitor INR in the morning PG Care Time/CCT Total # of Minutes Spent Total Time Spent with Patient: Total time spent is greater than 50% in coordination of care (as documented) at patient's floor/unit and/or counseling patient: Coding Level of Care Code 18521 Initial Inpt Care Lvl 3 Diagnoses Atypical chest pain R07.89 ELY (dyspnea on exertion) R06.00 Subtherapeutic anticoagulation Z51.81; Z79.01 Mixed hyperlipidemia E78.2 Hypertension I10 Hypertension type: unspecified Irritable bowel syndrome with constipation K58.1 Asthma J45.909 Asthma complication type: uncomplicated Asthma persistence: unspecified Asthma severity: unspecified severity GERD (gastroesophageal reflux disease) K21.9 Esophagitis presence: esophagitis presence not specified Morbid obesity E66.01 Metabolic syndrome E88.81 Vitamin D deficiency E55.9 Sinus congestion R09.81 (1) GERD (gastroesophageal reflux disease) Esophagitis presence: esophagitis presence not specified Qualified Code(s): K21.9 - Gastro-esophageal reflux disease without esophagitis (2) Hypertension Hypertension type: unspecified Qualified Code(s): I10 - Essential (primary) hypertension (3) Asthma Asthma complication type: uncomplicated Asthma persistence: unspecified Asthma severity: unspecified severity Qualified Code(s): J45.909 - Unspecified asthma, uncomplicated
[2020-10-04] MEDS ORDERED: ALBUTEROL HFA 8 GM INHALER INH PRN (20:49)
[2020-10-04] MEDS ORDERED: ACETAMINOPHEN 325 MG TAB PO PRN (20:49)
[2020-10-04] MEDS ORDERED: HYOSCYAMINE SULFATE 0.125 MG TAB PO PRN (20:49)
[2020-10-04] MEDS ORDERED: predniSONE 20 MG TAB PO SCH (21:00)
[2020-10-04] MEDS ORDERED: ROSUVASTATIN CALCIUM 10 MG TAB PO SCH (21:00)
[2020-10-04] MEDS: DICLOFENAC SOD 1% GEL 100 GM TUBE EXT SCH (21:21)
[2020-10-04] MEDS: PANTOprazole 40 MG TAB PO SCH (21:22)
[2020-10-04] MEDS: AMOXICILLIN/CLAVULANATE 875 MG TAB PO SCH (21:49)
[2020-10-05] MEDS: ENOXAPARIN 100 MG/1ML SYR SQ SCH ×2 (05:51→17:26)
[2020-10-05 07:43] LABS: Hematocrit (blood only) 42.5 % (37-47); Hemoglobin 14.5 g/dL (12.0-16.0); Immature Granulocytes # (auto) 0.01 K/uL (0.00-0.02); Immature Granulocytes % (auto) 0.2 %; Lymphocytes # (auto) 1.39 K/uL (1.2-3.4); Lymphocytes % (auto) 25.8 %; Mean Corpuscular Hemoglobin 28.7 pg (25-34); Mean Corpuscular Hgb Conc 34.1 g/dL (32-36); Mean Corpuscular Volume 84.2 fL (80-100); Mean Platelet Volume 9.5 fL (7.4-10.4); Monocytes # (auto) 0.09 K/uL (0.11-0.59); Monocytes % (auto) 1.7 %; Neutrophils # (auto) 3.89 K/uL (1.4-6.5); Neutrophils % (auto) 72.3 %; Platelet Count 222 K/uL (130-400); RDW Coefficient of Variation 14.6 % (11.5-14.5); RDW Standard Deviation 44.8 fL (36.4-46.3); Red Blood Count 5.05 M/uL (4.2-5.4); White Blood Count 5.38 K/uL (4.8-10.8)
[2020-10-05 07:54] LABS: INR 1.8 (0.9-1.1); Prothrombin Time 17.2 Seconds (9.0-12.0)
[2020-10-05 08:13] LABS: BUN Creatinine Ratio 16.4 (10-20); Calcium 9.1 mg/dl (8.5-10.1); Est GFR (African American) 79.6 ml/min; Est GFR (Non-African American) 68.7 ml/min; Magnesium 2.5 mg/dl (1.8-2.4); Potassium 4.1 mmol/L (3.5-5.1)
[2020-10-05 08:16] LABS: Estimated Average Glucose 120 mg/dl; Hemoglobin A1C 5.8 % (4.5-5.6)
[2020-10-05] MEDS ORDERED: amLODIPine BESYLATE 5 MG TAB PO SCH (09:00)
[2020-10-05] MEDS ORDERED: CHOLECALCIFEROL 1,000 UNITS 25 MCG TAB PO SCH (09:00)
[2020-10-05] MEDS ORDERED: ANASTROZOLE 1 MG TAB PO SCH (09:00)
[2020-10-05] MEDS ORDERED: CYANOCOBALAMIN 500 MCG TABLET (VITAMIN B-12) PO SCH ×2 (09:00)
[2020-10-05] MEDS ORDERED: linaCLOtide 72 MCG CAPSULE PO SCH (09:00)
[2020-10-05] MEDS ORDERED: CALCIUM CARBONATE 1250MG TAB PO SCH (09:00)
[2020-10-05] MEDS ORDERED: ESCITALOPRAM OXALATE 10 MG TAB PO SCH (09:00)
--- NOTE | 2020-10-05 09:54 | Cardiology Consultation ---
Date of Consultation October 05, 2020 Assessment & Plan (1) Atypical chest pain: She describes a somewhat atypical chest discomfort which has been present for a number of days, but only lasts for several minutes when she gets it and then it resolves but does recur relatively quickly. It does seem to have a mild exertional component and that it seems to last longer if she is active but activity is not specifically cause it to occur and it often occurs at rest. It is not associated with other symptoms. It was not reproduced on stress testing and the stress echo on my review appears normal. Given her history of normal coronary arteries by catheterization and minimal risk factors, as well as the negative stress test I would not pursue further cardiac evaluation. History of Present Illness Reason for Consultation: Chest pain Attending Physician: Jabier Mirza History of Present Illness This is a 54-year-old woman who has a history of an CA in March 2016 which was felt to be secondary to coronary vasospasm. At that time she had a troponin of 1.4 and catheterization demonstrated no coronary artery disease, the echo demonstrated normal left ventricular function. 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 In 2017 breast cancer was identified and she had a mastectomy. In 2018 echocardiography showed normal left ventricular size and function. She presents now with chest discomfort. This has been occurring for for 5 days and is described in the chart as a sharp right-sided pain however she describes it to me as an aching sensation across both sides of her chest. She tells me it last 2 or 3 minutes but comes and goes and has been present for several days. She often gets it at rest but she tells me it last longer if she is active or if it comes on while she is walking. She does not describe a positional component and is not associated with shortness of breath or palpitations. She used to be fairly active until around 2016, including going to a gym, but has not since. Evaluation here includes an electrocardiogram on presentation which shows sinus rhythm with anterior T wave inversion, T wave inversion was also present in January 2020. Another electrocardiogram at 5 AM today October 05, 2020 is similar. Troponin measurements x4 this admission are all less than 0.015. Her cholesterol profile is excellent and she is not on a statin. Allergies Allergy/AdvReac Type Severity Reaction Status Date / Time rivaroxaban Allergy Severe RASH Verified 09/18/20 10:02 doxycycline AdvReac Unknown VOMITTING Verified 09/18/20 10:02 Home Medications Medication Instructions Recorded Confirmed Type anastrozole 1 mg tablet 1 mg PO QAM 12/15/18 10/04/20 History omeprazole 40 mg capsule,delayed 40 mg PO BID cap 12/15/18 10/04/20 History release hyoscyamine sulfate 0.125 mg tablet 0.125 mg PO QAM PRN 12/20/18 10/04/20 History linaclotide 72 mcg capsule 72 mcg PO Q OTHER DAY cap 10/07/19 10/04/20 History epinephrine [EpiPen 2-Tye] 0.3 mg IM Q3H PRN #2 ea 10/08/19 10/04/20 Rx diclofenac sodium 1 % topical gel 4 gm TOP QID #100 gm 10/27/19 10/04/20 Rx acetaminophen [Tylenol] 650 mg PO QID PRN 02/02/20 10/04/20 History meclizine 12.5 mg PO TID PRN #20 tab 02/02/20 10/04/20 Rx rosuvastatin 10 mg tablet 10 mg PO PM #90 tab 04/18/20 10/04/20 Rx baclofen 10 mg tablet 10 mg PO DAILY #7 tab 04/20/20 10/04/20 Rx cholecalciferol (vitamin D3) 125 125 mcg PO DAILY #90 cap 05/02/20 10/04/20 Rx mcg (5,000 unit) capsule calcium carbonate 600 mg calcium 600 mg PO DAILY 05/03/20 10/04/20 History (1,500 mg) tablet sumatriptan succinate 25 mg tablet 50 mg PO DIRECTED PRN #15 tab 05/24/20 10/04/20 Rx MDD 3 tablets/day escitalopram oxalate 10 mg tablet 10 mg PO QAM #90 tab 05/28/20 10/04/20 Rx furosemide 20 mg tablet 20 - 40 mg PO DAILY PRN #30 tab 06/12/20 10/04/20 Rx warfarin 4 mg tablet 4 mg PO WK tab 07/04/20 10/04/20 History albuterol sulfate 90 mcg/actuation 2 puff INHALATION Q6H PRN #6.7 gm 07/10/20 10/04/20 Rx aerosol inhaler topiramate 25 mg tablet 25 mg PO HS #30 tab 09/18/20 10/04/20 Rx amlodipine 5 mg tablet 5 mg PO QAM #90 tab 09/19/20 10/04/20 Rx mecobalamin (vitamin B12) 1,000 1,000 mcg SUBLINGUAL DAILY 10/04/20 10/04/20 History mcg disintegrating tablet,sublingual warfarin 2 mg PO 6XWK 10/04/20 10/04/20 History Patient History Medical History Asthma stable Chronic back pain Diverticulosis GERD (gastroesophageal reflux disease) controlled Hematuria History of heart attack NSTEMI= 2016= felt 2/2 vasospasm/no CAD on cardiac cath done at that time* Hx of deep venous thrombosis multiple b/l le DVTs (2017); RUE DVT (post-op/post-injury, single DVT unprovoked) Hx pulmonary embolism 2016 HX: breast cancer s/p right breast mastectomy- on anastrazole Hypertension Irritable bowel syndrome (10/24/12) Migraine Morbid obesity Osteoporosis Sensorineural hearing loss of both ears Tinnitus of both ears Ventral hernia Surgical History H/O knee surgery RIGHT AND LEFT History of ankle surgery X4 LEFT History of bowel resection COLON RESECTION 2/2 DIVERTICULITIS (REMOTE) History of cardiac cath 2015= NO STENTS History of section X2 History of cholecystectomy History of colonoscopy History of herniorrhaphy 04/29/18: open ventral hernia repair: Grade 2 view, MAC#3, ETT 7.5 at [facility] History of hysterectomy total History of mastectomy RIGHT BREAST History of reconstruction of right breast History of repair of inguinal hernia (12/25/12) History of surgery of liver RESECTION 2/2 BILE DUCT STONE COMPLICATIONS and then has lobe of liver removed Hx of abdominal surgery UMBILICAL SURGERY Hx of rotator cuff surgery RIGHT S/P hernia surgery (02/10/19) Extensive enterolysis, Laparoscopic Recurrent Ventral Hernia Repair with Mesh Dr. Livingston 02/10/19 Family History Mother Myocardial infarction Lung cancer Cardiac disorder Irritable bowel syndrome Father Myocardial infarction Lung cancer Cardiac disorder Other No significant family history Denies family history of Ovarian cancer Prostate cancer Breast cancer Colorectal cancer Social History Smoking Status: Never smoker Second Hand Exposure: Yes; Hx Alcohol Use: No Hx Substance Use: No Preferred Language: Uzbek Communication Ability: Effective Visual Impairment: No Limitations Camper Assembler Required: No Beliefs That Will Affect Care: None marital status: Current Living Situation: Spouse current occupational status: employed How many Children do You have: 2 Feels Safe at Home: Yes Childhood Exposure to Second-Hand Smoke: No caffeine: Yes during the past year weight has: increased > 10 lbs Dental Care, Regularly: No Physical Activity Frequency: 1-2 Times per Week Seatbelt Use: always Sunscreen Use: No Assistive Devices: Glasses Review of Systems Review of Systems: All systems reviewed & are unremarkable except as noted in HPI & below Physical Exam Physical Exam: Constitutional: Alert, cooperative and in no distress. She is obese. HEENT: Unremarkable Neck: No jugular venous distention, carotid pulses are normal and equal bilaterally without bruits. Pulmonary: Clear to auscultation bilaterally. Cardiac: Regular rhythm with no murmur, gallop or rub. Abdomen: Soft, nontender with normal bowel sounds. Extremities: No edema. Distal pulses intact. Neurologic: No focal findings. Gait is steady. Skin: No rash, ecchymoses or petechiae. Results & Data ([facility]) Vital Signs (Past 12 Hours) Vital Signs Temp Pulse Pulse Resp BP Pulse Ox 10/05/20 08:00 36.8 C 59 L 18 129/61 96 10/05/20 03:54 36.6 C 56 L 18 114/75 96 10/04/20 23:09 36.7 C 58 L 16 137/80 94 10/04/20 22:42 55 L Laboratory Results Cardiac Enzymes 10/04/20 10/04/20 10/05/20 Range/Units 12:53 18:37 00:54 AST 13 L (15-37) U/L Troponin I < 0.015 < 0.015 < 0.015 (0-0.045) ng/ml 10/05/20 Range/Units 07:17 AST (15-37) U/L Troponin I < 0.015 (0-0.045) ng/ml Coagulation 10/04/20 10/05/20 Range/Units 12:53 07:17 PT 16.3 H 17.2 H (9.0-12.0) Seconds APTT 38.4 H (21.0-31.0) Seconds Lipids 10/05/20 Range/Units 07:17 Triglycerides 107 (0-150) mg/dl Cholesterol 147 (0-200) mg/dl HDL Cholesterol 44 mg/dl Cholesterol/HDL Ratio 3 CBC 10/04/20 10/05/20 Range/Units 12:53 07:17 WBC 8.49 5.38 (4.8-10.8) K/uL RBC 5.09 5.05 (4.2-5.4) M/uL Hgb 14.6 14.5 (12.0-16.0) g/dL Hct 43.8 42.5 (37-47) % Plt Count 222 222 (130-400) K/uL Neut # (Auto) 4.99 3.89 (1.4-6.5) K/uL Lymph # (Auto) 2.63 1.39 (1.2-3.4) K/uL [place] # (Auto) 0.65 H 0.09 L (0.11-0.59) K/uL Eos # (Auto) 0.18 0.00 (0-0.5) K/uL Baso # (Auto) 0.02 0.00 (0-0.2) K/uL Comprehensive Metabolic Panel 10/04/20 10/05/20 Range/Units 12:53 07:17 Sodium 139 137 (136-145) mmol/L Potassium 4.2 4.1 (3.5-5.1) mmol/L Chloride 108 H 108 H (98-107) mmol/L Carbon Dioxide 27 21 (21-32) mmol/L BUN 15 15 (7-18) mg/dl Creatinine 1.00 0.93 (0.6-1.2) mg/dl Glucose 88 126 H (70-99) mg/dl Calcium 9.1 9.1 (8.5-10.1) mg/dl AST 13 L (15-37) U/L ALT 29 (12-78) U/L Alkaline Phosphatase 49 (45-117) U/L Total Protein 7.6 (6.4-8.2) gm/dl Albumin 3.8 (3.4-5.0) gm/dl Intake and Output 10/04/20 10/05/20 10/05/20 22:59 06:59 14:59 Intake Total 750 / 750 Balance 750 / 750 Intake: IV 100 / 100 Acetaminophen 1,000 mg In 100 100 / 100 ml @ 400 mls/hr IV NOW STA Rx#: [id number] Oral 650 / 650 Other: Other Intake Source NPO # Unmeasured Voids 1 2 Weight 103 kg 103 kg Weight Measurement Method Standing Scale Standing Scale Diagnostic Findings Telemetry: Sinus rhythm and sinus bradycardia with heart rates in the 50s and 60s. Baseline echocardiogram today: On my preliminary review her left ventricular function is normal, final report to follow Stress echo: Her stress test was negative for ischemia by electrocardiographic criteria, she did not have chest discomfort during the stress test and by my review left ventricular function appeared appropriate. This will be formally read later today. PG Care Time/CCT Total # of Minutes Spent Total Time Spent with Patient: Total time spent is greater than 50% in coordination of care (as documented) at patient's floor/unit and/or counseling patient: Coding Level of Care Code 72173 Inpt Consult Level 4 Diagnoses Atypical chest pain R07.89
[2020-10-05] MEDS: AMOXICILLIN/CLAVULANATE 875 MG TAB PO SCH ×2 (11:13→17:25)
[2020-10-05] MEDS: PANTOprazole 40 MG TAB PO SCH (11:14)
[2020-10-05] MEDS: DICLOFENAC SOD 1% GEL 100 GM TUBE EXT SCH ×3 (11:16→17:25)
--- NOTE | 2020-10-05 14:46 | XCELERA ---
[id number]
--- NOTE | 2020-10-05 15:31 | Electrocardiogram Report ---
Test Reason : Blood Pressure : / mmHG Vent. Rate : 055 BPM Atrial Rate : 055 BPM P-R Int : 162 ms QRS Dur : 074 ms QT Int : 492 ms P-R-T Axes : 047 001 048 degrees QTc Int : 470 ms Sinus bradycardia Anteroseptal T inversion may be persistent jouvenile pattern Otherwise normal ECG When compared with ECG of 04-OCT-2020 11:29, No significant change was found Confirmed by Parth Mora ([id number]) on 10/05/2020 3:31:31 PM Referred By: Pilo Ontiveros Confirmed By:Parth Mora
[2020-10-05 16:54] LABS: Lyme Ab IgG w/WB Rflx Positive (Negative); Lyme Ab IgM w/WB Rflx Equivocal (Negative)
[2020-10-05] MEDS ORDERED: WARFARIN SOD 4 MG TAB PO ONE (17:36)
--- NOTE | 2020-10-05 18:57 | Communication Note ---
Date of Service: October 05, 2020 By CMS guidelines, a determination that the admission or continued stay is not medically necessary has been made by a member of the UR committee and a physi jaime for this hospital stay, therefore a Code 44 will be completed and the Inpatient admission will be changed to outpatient. Jabier Mirza MD Member, Utilization review committee Attending Physician
--- NOTE | 2020-10-05 18:59 | Discharge Summary ---
Date of Service date of admission - October 04, 2020 date of discharge - October 05, 2020 Admission HPI Per Admitting Provider 54 YOF with past medical history of: Breast CA, IBS, left hepatectomy 2017, shoulder fracture with impingement syndrome, PE following hepatectomy, DVT, chronic abdominal pain, metabolic syndrome, lung nodules, HTN, Coronary artery vasospasms, dyspnea. Patient comes in today after being referred to the emergency room by their PCP for chest tightness. The patient states that the pain has been ongoing over the past week. It originally started on her right side and back about 2 weeks ago, but over the past week started to go across the center of her chest and left side. This is noted more when taking a deep breath. It feels like a band of heaviness. It is noticed when she is up doing things or walking, but she does not associate this with her dyspnea and they have not occurred together. The patient has been experiencing dyspnea for quite a while she reports and did not change when her amlodipine was increased last year, but over the past 2 months she noted that she has to stop at the top of her 6 stairs because she is getting dyspneic. She is able to lay flat without orthopnea at home. She has asthma, but does not routinely use her albuterol in haler. Patient endorses that last night she felt some sinus pressure and had some mild fevers and awoke early in the morning with a headache. She is having increased mucus drainage from the nose and for this complaint she called her PCP this morning. Patient will be admitted for observation of her chest pain, trend troponin I, and ECGs. Further risk stratification following troponin I. Patient is also subtherapeutic on her INR at 1.7, she denies any missed doses or diet changes, but endorsed she completed a course of prednisone last week for her back pain and muscle tightness. Principal Diagnosis 1. chest pain with shortness of breath - ACS ruled out, negative stress test; PE ruled out, negative CTA chest 2. Positive Lyme Serology - Western Blot pending Discharge Exam Constitutional well developed, well nourished and + morbidly obese; no acute distress and no altered mental status ENMT external ear and nose normal, oropharynx normal Respiratory normal respiratory effort, lungs clear to auscultation Cardiovascular Rate/Rhythm: regular rate and regular rhythm Heart Sounds: normal S1 and normal S2; no murmur Vessels: posterior tibial pulses present and dorsalis pedis pulses present; no JVD Extremities: no edema Chest (Breasts) Additional Comments: no reproducible chest wall tenderness to palpation Gastrointestinal (Abdomen) normal bowel sounds, soft, nontender, no hepatosplenomegaly Musculoskeletal no cyanosis or clubbing, extremities motor strength 5/5 Skin no rashes, warm and dry Psychiatric A+Ox3, euthymic affect Discharge Data Allergies Allergy/AdvReac Type Severity Reaction Status Date / Time rivaroxaban Allergy Severe RASH Verified 09/18/20 10:02 doxycycline AdvReac Unknown VOMITTING Verified 09/18/20 10:02 Consultations [facility] Ordered Studies 10/04/20 13:50 CT angio chest PE protocol Stat IMPRESSION: 1. No evidence for pulmonary embolus with limitations as described above.. 2. Stable 6 mm subpleural nodule at the left lower lobe. Continued follow-up as described on the prior study. 3. No new focal lung consolidations to suggest pneumonia. Exercise stress echocardiogram - * no inducible ischemia at 89% MPHR * LV EF 60-65% * no significant valvular dysfunction * normal RV function Hospital Course (1) Atypical chest pain: Patient with coronary artery vasospasm diagnosed on 2016 cardiac cath. Patient reported that some of the features of her presenting pain were similar to that 2016 event. All troponins were negative. Telemetry was normal. Exercise stress echocardiogram was normal. CTA chest did not show PE or other acute pathology. The patient reported she had been ill for about 7-10 days after traveling to [place]. She had had significant myalgias with this illness and thus it is possible that some of her chest symptoms were from the illness itself. Lyme screening was positive - see below. COVID testing was negative. (2) ELY (dyspnea on exertion): Uncertain if related to her concurrent illness, her asthma, or some other process. CTA chest was unrevealing. Stress testing was negative. O2 sats were normal during the visit. ELY resolved during her brief stay. (3) Subtherapeutic anticoagulation: Patient takes coumadin chronically for recurrent VTE. Presenting INR was 1.7. Received SC lovenox as a bridge. INR on day of discharge was 1.8. She was asked to continue her coumadin as per previous dosing and have a repeat INR within 3-4 days as the doxycycline for possible Lyme could interact with the coumadin. (4) Mixed hyperlipidemia: Continue statin LDL = 82 during this admission (5) Hypertension: Continue amlodipine BPs controlled during the visit (6) Irritable bowel syndrome with constipation: Symptoms controlled at this time Continue Linzess, etc. (7) Asthma: Continue albuterol prn No apparent exacerbation during the visit (8) GERD (gastroesophageal reflux disease): Continue omeprazole Chest symptoms not felt to be upper GI in origin (9) Morbid obesity: Follows with Dr. Potts BMI 44 (10) Metabolic syndrome: Evidence of mild pre-DM with HbA1C 5.8% f/u with Dr Potts for lifestyle changes (11) Vitamin D deficiency: Continue with calcium and vitamin D supplements (12) Sinus congestion: Patient with congestion, sweats and chills at home for several days along with right sided facial pressure and headache. Certainly the doxycycline being used for possible Lyme will cover for any bacterial sinusitis. COVID-19 testing negative. (13) Positive Lyme disease serology: Equivocal IgM, Positive IgG. [place], and recently traveled to [place] and spent considerable time outdoors. While awaiting Western Blot Rx with doxycycline 100mg BID x 14 days. Side effects discussed. Also sent anaplasmosis and ehrlichia DNA tests prior to discharge. (14) Pulmonary nodule less than 1 cm in diameter with low risk for malignant neoplasm: 6mm, LLL nodule. Chronic. Refer to [facility] Pulmonary Nodule Program. Total Time Total Time Spent Total Time Spent (In Minutes): 40 Total Time Includes: Examination of the Patient, Discharge Planning, Medication Reconciliation and Communication With Other Providers Discharge Plan Discharge Items Patient Disposition: Home - Self-Care Reason For Visit: Chest Pain Discharge Diagnosis: 1. chest pain - no evidence of heart attack; stress test negative; pains may have been due to #2 below 2. recent illness x 1 week; possibly Lyme Disease - treatment recommended 3. low INR - discharge level 1.8 Activity: Resume your previous activity Non-emergency contact: Primary Care Provider Call non-emergency contact if: you have any medication questions and your symptoms worsen Follow-up/Referrals: Judy Abrams MD [Primary Care Provider] - (see Dr Abrams within 1 week ) Diet: Carb Consistent or DM2 Addtl Attending Provider Instructions: Ms Jane, You were admitted for chest discomforts. Your blood work for the heart was normal. Your stress test was normal. You mentioned that you had been feeling poorly for about 1 week with flu-like symptoms. COVID testing was negative. We did not see pneumonia on your CAT scans. Lyme testing was performed and the screen was positive. A confirmatory test will be sent and should return in about 1 week. We also checked you for other tick-borne diseases. I believe that your illness was likely the cause of the chest discomforts. The illness may be due to Lyme. While awaiting confirmatory testing we will treat for Lyme with 14 days of doxycycline antibiotic. take your first dose tonight. Doxycycline can certainly cause stomach upset and reflux. Do not lie down immediately after taking doxycycline. It can also cause a rash if you spend too much time in the sun over the next couple of weeks. Thus, use sunscreen liberally and cover up. To help with any GI upset you may use sucralfate (carafate) tabs 30 minutes before meals and at bedtime, as needed. Try to take the carafate and doxycycline at DIFFERENT TIMES as they may interact. You can also take ondansetron tablets every 6 hours as needed for nausea. Your INR is 1.8 today. The doxycycline may interact with your coumadin. Please have your coumadin levels checked on THURSDAY, October 08. Resume your normal coumadin dosing tomorrow. Follow-up - see your family doctor within 1 week RETURN TO [facility] IF: * you have inability to keep food/liquids/meds down * you have worsening shortness of breath or chest pains * you have persistent fevers despite taking your antibiotics * any other concerns Pending Studies at Discharge: Yes Studies:: Confirmatory Lyme Test; Anaplasmosis tick-borne test; Ehrlichiosis tick-borne test Stand-Alone Forms: My New [facility], Smoking Cessation Medications and DC Order Prescriptions: New doxycycline hyclate 100 mg tablet 100 mg PO BID 14 Days Qty: 28 RF: 0 sucralfate [Carafate] 1 gram tablet 1 g PO ACHS PRN (Reason: stomach upset/reflux ) Qty: 30 RF: 0 ondansetron 4 mg tablet,disintegrating 4 mg PO Q6H PRN (Reason: nausea and vomiting) Qty: 14 RF: 0 Continued hyoscyamine sulfate 0.125 mg tablet 0.125 mg PO QAM PRN (Reason: stomach spasm) RF: 0 Linzess 72 mcg capsule 72 mcg PO Q OTHER DAY RF: 0 calcium carbonate [Calcium 600] 600 mg calcium (1,500 mg) tablet 600 mg PO DAILY RF: 0 diclofenac sodium [Voltaren] 1 % gel 4 gm TOP QID Qty: 100 RF: 2 rosuvastatin 10 mg tablet 10 mg PO PM Qty: 90 RF: 3 sumatriptan succinate 25 mg tablet 50 mg PO DIRECTED MDD 3 tablets/day PRN (Reason: migraine headache) Qty: 15 RF: 5 escitalopram oxalate 10 mg tablet 10 mg PO QAM Qty: 90 RF: 1 furosemide 20 mg tablet 20 - 40 mg PO DAILY PRN (Reason: weight gain) Qty: 30 RF: 5 albuterol sulfate 90 mcg/actuation HFA aerosol inhaler 2 puff inhalation Q6H PRN (Reason: shortness of breath or wheezing) Qty: 6.7 RF: 5 topiramate 25 mg tablet 25 mg PO HS Qty: 30 RF: 1 amlodipine 5 mg tablet 5 mg PO QAM Qty: 90 RF: 3 baclofen 10 mg tablet 10 mg PO DAILY Qty: 7 RF: 2 mecobalamin (vitamin B12) 1,000 mcg tablet,disintegrating 1,000 mcg sublingual DAILY RF: 0 anastrozole 1 mg tablet 1 mg PO QAM RF: 0 omeprazole 40 mg capsule,delayed release(DR/EC) 40 mg PO BID RF: 0 cholecalciferol (vitamin D3) 125 mcg (5,000 unit) capsule 125 mcg PO DAILY Qty: 90 RF: 3 acetaminophen [Tylenol] 325 mg Tablet 650 mg PO QID PRN (Reason: Pain) RF: 0 meclizine 12.5 mg tablet 12.5 mg PO TID PRN (Reason: dizziness) Qty: 20 RF: 0 epinephrine [EpiPen 2-Tye] 0.3 mg/0.3 mL auto-injector 0.3 mg IM Q3H PRN (Reason: anaphylaxis) Qty: 2 RF: 0 No Action warfarin 4 mg tablet See Rx Instructions PO UD RF: 0 Discharge Orders: Discharge Order (Routine); Ordered 10/05/20 Ordered By: Jabier Mirza Admission Data Admit Date/Time: 10/04/20 19:07 Attending Provider: Jaiber Mirza Admit Provider: Monica Amrstrong Primary Care Provider: Judy Abrams Other Providers: Parth Mora Other Interventions: Discharge Summary Assessment (RN) Last Done: 10/05/20 18:24 Coding Level of Care Code 60790 OBS Care - Discharge Diagnoses Atypical chest pain R07.89 ELY (dyspnea on exertion) R06.00 Subtherapeutic anticoagulation Z51.81; Z79.01 Mixed hyperlipidemia E78.2 Hypertension I10 Hypertension type: unspecified Irritable bowel syndrome with constipation K58.1 Asthma J45.909 Asthma severity: unspecified severity Asthma persistence: unspecified Asthma complication type: uncomplicated GERD (gastroesophageal reflux disease) K21.9 Esophagitis presence: esophagitis presence not specified Morbid obesity E66.01 Metabolic syndrome E88.81 Vitamin D deficiency E55.9 Sinus congestion R09.81 Positive Lyme disease serology R76.8 Pulmonary nodule less than 1 cm in diameter with low risk for malignant neoplasm R91.1; Z91.89
[2020-10-10 15:16] LABS: Ehrlichia chaff DNA Bld Not Detected (Not Detected)
[2020-10-10 18:46] LABS: 18KDIGG Band NON-REACTIVE; 23KDIGG Band NON-REACTIVE; 23KDIGM Band NON-REACTIVE; 28KDIGG Band NON-REACTIVE; 30KDIGG Band NON-REACTIVE; 39KDIGG Band REACTIVE; 39KDIGM Band NON-REACTIVE; 41KDIGG Band REACTIVE; 41KDIGM Band NON-REACTIVE; 45KDIGG Band NON-REACTIVE; 58KDIGG Band REACTIVE; 66KDIGG Band NON-REACTIVE; 93KDIGG Band NON-REACTIVE; Lyme Antibodies, WB IgG NEGATIVE (NEGATIVE); Lyme Antibodies, WB IgM NEGATIVE (NEGATIVE)
== END 2020-10-05 19:50 | disposition home or self-care (01) | DRG 313 ==
LOC: ED 11:19 → INTOOBSV 19:07 → 2S 19:07 → SUATTDRO 19:07 → 2S 20:30
DX: Z86.711 Personal history of pulmonary embolism; J45.909 Unspecified asthma, uncomplicated; Z86.718 Personal history of other venous thrombosis and embolism; A69.20 Lyme disease, unspecified; Z20.822 Contact with and (suspected) exposure to COVID-19; R91.1 Solitary pulmonary nodule; J01.90 Acute sinusitis, unspecified; E66.01 Morbid (severe) obesity due to excess calories; R06.02 Shortness of breath; Z88.8 Allergy status to other drugs, medicaments and biological substances; I10 Essential (primary) hypertension; Z85.3 Personal history of malignant neoplasm of breast; R07.89 Other chest pain; E78.2 Mixed hyperlipidemia; R06.09 Other forms of dyspnea; E88.81 Metabolic syndrome and other insulin resistance; Z79.811 Long term (current) use of aromatase inhibitors; Z79.01 Long term (current) use of anticoagulants; K21.9 Gastro-esophageal reflux disease without esophagitis; E55.9 Vitamin D deficiency, unspecified; Z82.49 Family history of ischemic heart disease and other diseases of the circulatory system; Z90.11 Acquired absence of right breast and nipple; Z79.899 Other long term (current) drug therapy; Z68.41 Body mass index [BMI] 40.0-44.9, adult; K58.1 Irritable bowel syndrome with constipation; R79.1 Abnormal coagulation profile; I25.2 Old myocardial infarction; Z90.89 Acquired absence of other organs; Z88.1 Allergy status to other antibiotic agents

== ENCOUNTER 2024-08-13 20:15 | Inpatient (IN) ==
[2024-08-13 21:23] LABS: Albumin Globulin Ratio 1.2 (0.9-2); Albumin Level 4.1 gm/dl (3.4-5.0); Bilirubin,Total 0.6 mg/dl (0.2-1.0); Calcium 9.3 mg/dl (8.6-10.3); Creatinine Clr Calc Pharmacy 66.1 ml/min; Globulin 3.3 gm/dl (2.5-4.0); Potassium 3.8 mmol/L (3.5-5.1); Total Protein 7.4 gm/dl (6.0-8.3)
--- NOTE | 2024-08-13 21:32 | Emergency Department Note ---
Impression & Plan Hospital-acquired pneumonia, Status post reverse total replacement of right shoulder, Hypoxia, Hx pulmonary embolism, Abdominal pain ED Provider Note CHIEF COMPLAINT: Shortness of breath HISTORY OF PRESENTING ILLNESS: This 58-year-old female patient presents to the emergency department via EMS for evaluation of shortness of breath. The patient had a right shoulder replacement performed yesterday by Dr. Archer. Tonight she started with shortness of breath with no improvement with her inhalers. The shortness of breath was worse with exertion. She also has pain with taking a deep breath. The patient has a history of DVT and PEs. She is usually on warfarin, but has not been taking it due to the surgery. The patient was given a DuoNeb treatment by EMS with mild improvement of her symptoms. The patient does not wear oxygen at home, but needed 4 L of O2 prior to discharge from the hospital per patient. She denies any fevers. She has not been feeling sick recently. Also has some discomfort in her upper abdomen that hurts worse when she moves or tries to take a deep breath. She was supposed to restart her Warfarin last night, but she was not given it in the hospital per patient. The patient has not taken her Warfarin at home today either b/c she normally takes it around 10 pm. She is usually on 4 mg on MWF and then 2 mg the other days. She called the coagulation clinic today, but she states that they did not call her back yet. Per review of the surgical records, the patient had a right paroxysmal humerus fracture 12 years ago with an MRI that showed a healed fracture with a small rotator cuff tear. The tear was repaired previously, but was having increased pain over the past 6 months. Repeat MRI showed advanced avascular necrosis of the right humeral head. The patient failed conservative treatment prior to proceeding with the right reverse shoulder replacement. REVIEW OF SYSTEMS: See HPI for pertinent positives and pertinent negatives. ALLERGIES: Rivaroxaban, Naproxen, Doxycycline MEDICATIONS: See below PAST MEDICAL HISTORY: See below PHYSICAL EXAM: VITALS: Vitals are noted on the nurse's note and reviewed by myself. GENERAL: Non toxic, in no acute distress, non-diaphoretic. SKIN: Capillary refill <2 sec. EYES: PERRLA. EOMI. Conjunctivae without injection, sclerae without icterus. NOSE: Patent without discharge. MOUTH: Mucous membranes moist. Uvula midline. Airway patent. NECK: Supple without nuchal rigidity. HEART: Regular rate and rhythm without murmurs gallops or rubs. LUNGS: The patient is wearing 3 L of oxygen by nasal cannula. Clear to auscultation bilaterally without wheezes, rales or rhonchi. No retractions or accessory muscle use. ABDOMEN: Positive bowel sounds x 4. Normal tympanic percussion. Soft, diffusely tender to palpation with maximal tenderness in the upper abdomen. No masses or hepatosplenomegaly. Oliva sign negative. No CVA tenderness. No guarding, rigidity, or rebound tenderness. No focal RLQ or LLQ tenderness. MUSCULOSKELETAL: The patient's right shoulder is immobilized due to her recent surgery. NEURO: Patient was alert and oriented. No focal neurological deficits. DIFFERENTIAL DIAGNOSIS: Differential diagnosis includes URI, bronchitis, pneumonia, pneumothorax, hemothorax, PE, ME, pericarditis, myocarditis, airway obstruction, aspiration, pulmonary edema, asthma, COPD, CHF, pleurisy, metabolic acidosis, anemia, neoplasm, hepatitis, pancreatitis, cholecystitis, cholelithiasis, appendicitis, kidney stone, pyelonephritis, UTI, gastritis, gastroenteritis, mesenteric adenitis, obstruction, constipation, hernia, abdominal abscess, perforation, diverticulitis, IBD, ischemic colitis, abdominal aortic aneurysm, , ectopic , ovarian cyst, ovarian torsion, acute salpingitis, or others. ED COURSE AND MEDICAL DECISION MAKING: HISTORY FROM INDEPENDENT HISTORIAN: Additional history obtained from the patient's MEDICATIONS GIVEN: 250 mL normal saline solution bolus. Tylenol 1000 mg IV. Cefepime 2 g IV, Vancomycin 2.5 g IV. MONITOR: Continuous maxillofacial prosthetics dentist: Order was placed for continuous maxillofacial prosthetics dentist. Patient was placed on the maxillofacial prosthetics dentist and continuous pulse ox. Patient was noted to be in normal sinus rhythm at an initial rate of 80 bpm per my interpretation. EKG: EKG was interpreted by myself as normal sinus rhythm at 88 bpm with no acute ST or T wave changes, but there are some nonspecific T wave changes. INTERPRETATION OF LABS: I interpreted the labs with full lab results as below in the lab section of this note. Laboratory results pertinent to the emergent complaint are discussed in the MDM section below. The patient was advised to follow up with their PCP and/or specialist(s) for further outpatient monitoring and management of any abnormal results. INTERPRETATION OF IMAGING: Imaging studies were interpreted by myself and read by radiology as per the imaging section of this note. The patient was advised to follow up with their PCP and/or specialist(s) for further outpatient management of any non-emergent abnormal findings. Chest x-ray shows right basilar subsegmental changes adjacent to the elevated right hemidiaphragm. Differential consideration includes subsegmental atelectasis or infection. No large pleural effusion or pneumothorax. The pulmonary vasculature appears minimally equalized. No radiographic evidence for florid CHF. Cardiomegaly is present. CTA of the chest with IV contrast shows no evidence for PE. There is marked elevation of the right hemidiaphragm with curvilinear airspace changes in the right lower lobe and right middle lobe. The right middle lobe changes are presumed compressive atelectasis from the elevated hemidiaphragm. However, the airspace consolidation involving the medial right lower lobe is greater than expected for compressive atelectasis and there is suspicion for pneumonia. Aspiration is also a consideration, but thought to be less likely. CT scan of the abdomen and pelvis with IV contrast showed no evidence for bowel obstruction, but there is nonspecific material throughout the nondilated small bowel loops. Mild to moderate stool burden primarily in the right colon. Postsurgical changes in the sigmoid region. No diverticulitis. No free intraperitoneal fluid or pneumoperitoneum. Hepatic steatosis with hepatomegaly which is increased from the previous exam. EXTERNAL RECORDS REVIEWED: I reviewed the patient's surgical notes as summarized above. CHRONIC MEDICAL/SOCIAL CONDITIONS AFFECTING CARE: History of PE and DVT off of her Coumadin for recent surgery. CONSULTATIONS: On-call hospitalist MDM SUMMARY: I examined the patient. The patient had a right reverse shoulder replacement yesterday. Today she started with shortness of breath, pain with taking deep breath, and abdominal pain. The patient is normally on Coumadin, but was off of the Coumadin for the surgery. She was supposed to take a dose of Coumadin last night and tonight, but has not taken either of those doses yet. The patient does have a history of DVTs and PE. The patient does not normally wear oxygen at home, but required oxygen in the hospital and currently in the ER. The patient had a DuoNeb treatment by EMS with mild improvement of her symptoms. An IV lock was placed and labs were drawn. The patient was gently hydrated due to concerns for fluid overload and was given Tylenol 1000 mg IV. White blood cell count is mildly elevated 11.26. Hemoglobin normal at 13.3. Platelet count normal at 277. Coags were normal with an INR that is subtherapeutic at 1.0. BUN 24 and glucose 158, but CMP otherwise without concerning abnormalities. High-sensitivity troponin is normal. The patient had a chest x-ray, CTA of the chest, and CT scan of the abdomen and pelvis with IV contrast as above that was concerning for pneumonia. Blood cultures were drawn. The patient was given IV cefepime and IV vancomycin. The patient has required 3 L of oxygen in the ER. When she takes her oxygen off to go to the bathroom, she states that she feels significantly short of breath and has trouble catching her breath and her pulse ox drops with ambulation. However, her pulse ox has been doing well with 3 L of oxygen by nasal cannula. I had a meaningful discussion about this patient with Dr. Shi who agrees with my assessment and the treatment plan. Due to the episodes of hypoxia and oxygen demand along with the pneumonia and subtherapeutic INR, we feel the patient requires admission for further evaluation and treatment. I spoke with the on- call hospitalist who agreed to admit the patient for further evaluation and treatment. Please refer to their dictation for further details. The patient's care was transferred in stable condition. DIAGNOSIS: Pneumonia Hypoxia History of PE Abdominal pain Status post right shoulder surgery Past Med/Surg History Problem List (Updated 08/14/24 @ 02:35 by Delilah Conde PA-C) Abdominal pain (Acute) Hx pulmonary embolism (Acute) 2016 Taking Coumadin; follows with clinic Hypoxia (Acute) Hospital-acquired pneumonia (Acute) Status post reverse total replacement of right shoulder (Acute ~08/2024) Animal dander allergy Encounter for pre-operative examination Avascular necrosis of humeral head Idiopathic neuropathy Edema Right knee DJD Steatosis of liver Dyslipidemia Pre-diabetes Incomplete bladder emptying Insomnia Obstructive sleep apnea Allergic rhinitis Urgency incontinence Prinzmetal's angina followed by Dr. Rosales (denies CP currently) Pulmonary nodule less than 1 cm in diameter with low risk for malignant neoplasm Lung nodule Tinnitus of both ears Sensorineural hearing loss of both ears b/l hearing aids Arthritis of knee, right Greater trochanteric bursitis Abdominal hernia (Acute) Intrahepatic bile duct dilation (Acute) Osteoporosis with fracture (Acute) Recurrent incisional hernia Hypertension Diverticulosis Depression with anxiety Alopecia areata Coronary artery spasm Irritable bowel syndrome Migraine Medical History Neurostimulator device in situ for bladder (aware to bring remote DOS) IBS (irritable bowel syndrome) Neuropathy "soft tissue" Migraine Hx of myocardial infarction NSTEMI secondary to Coronary Artery Spasm/Prinzmetal's Angina 2015 (Normal Coronary Arteries on Cardiac Catheterization) Sleep apnea CPAP (does not use d/t "belly sleeper") TBI (traumatic brain injury) 12/2021 s/p fall Hx pulmonary embolism 2016 Taking Coumadin; follows with clinic Hx of deep venous thrombosis Multiple BL LE DVTs (2017) RUE DVT (post-op/post-injury, single DVT unprovoked) Taking Coumadin; follows with clinic History of diverticulosis Subdural hematoma 12/2021 s/p fall, no surgical intervention Head CT 03/2023 with no acute abnormality History of blood transfusion 2017 Prediabetes Currently on metformin Anxiety Mixed hyperlipidemia Metabolic syndrome Morbid obesity Osteoporosis GERD (gastroesophageal reflux disease) controlled Asthma HX: breast cancer Dx 05/2017, s/p right breast mastectomy Surgical History History of surgery on lower extremity R/L otero (screws intact) H/O arthroscopic knee surgery R/L History of bladder surgery Percutaneous nerve evaluation > temporary "no longer intact" (11/19/22 under local anesthesia) Sacral Neuromodulation Implant 01/2023 Nausea and vomiting after administration of anesthetic agent Occasional ("not every time") S/P hernia surgery (02/10/19) Extensive enterolysis, Laparoscopic Recurrent Ventral Hernia Repair with Mesh Hx of rotator cuff surgery Right History of ankle surgery Left H/O knee surgery R/L History of repair of inguinal hernia (12/25/12) History of bowel resection Colon resection 2/2 diverticulitis History of colonoscopy History of herniorrhaphy Open ventral hernia repair: Grade 2 view, MAC#3, ETT 7.5 at [facility] (2019) History of cholecystectomy Hx of abdominal surgery Umbilical surgery History of hysterectomy total History of section x2 History of surgery of liver Resection 2/2 bile duct stone complications and then has lobe of liver removed History of cardiac cath 2016- no stents History of reconstruction of right breast History of mastectomy Right breast RUE restriction Family History Mother Myocardial infarction Lung cancer Cardiac disorder Irritable bowel syndrome Father Myocardial infarction Lung cancer Cardiac disorder Other No significant family history Denies family history of Ovarian cancer Prostate cancer Breast cancer Colorectal cancer Social History Smoking Status: Never smoker Second Hand Exposure: Yes; Do You Dip or Chew Tobacco: No; Hx Alcohol Use: No Preferred Language: Yoruba Communication Ability: Effective Visual Impairment: No Limitations Hearing Ability: Use of Hearing Aid Cross Roller Required: No Beliefs That Will Affect Care: None marital status: Current Living Situation: Spouse current occupational status: disabled current occupation: she is now on disability, worked at [employer] and [employer] How many Children do You have: 2 Feels Safe at Home: Yes Childhood Exposure to Second-Hand Smoke: No Diet: regular Diet Comment: regular caffeine: Yes during the past year weight has: increased > 10 lbs Dental Care, Regularly: No Physical Activity Frequency: Does not Exercise Seatbelt Use: sometimes Sunscreen Use: No Assistive Devices: Walker Allergies Allergies Allergy/AdvReac Type Severity Reaction Status Date / Time rivaroxaban Allergy Intermediate Rash Verified 08/13/24 22:34 naproxen AdvReac Intermediate Vomiting Verified 08/13/24 22:34 doxycycline AdvReac Mild Vomiting Verified 08/13/24 22:34 Home Meds Home Medications Medication Instructions Recorded Confirmed acetaminophen 325 mg tablet 650 mg PO QID PRN Pain 02/02/20 08/13/24 (Tylenol) cholecalciferol (vitamin D3) 50 2,000 unit PO QAM 11/18/21 08/13/24 mcg (2,000 unit) capsule (D3-2000) mecobalamin (vitamin B12) 1,000 1,000 mcg sublingual QAM 11/12/22 08/13/24 mcg disintegrating tablet,sublingual montelukast 10 mg tablet 10 mg PO QAM 11/12/22 08/13/24 (Singulair) warfarin 2 mg tablet See Rx Instructions PO UD 08/04/24 08/13/24 calcium carbonate 600 mg PO QAM 08/13/24 08/13/24 metformin 500 mg tablet 500 mg PO BIDM 08/13/24 08/13/24 Previous Rx's Medication Instructions Recorded albuterol sulfate 90 mcg/actuation 2 puff inhalation Q6H PRN 05/10/21 aerosol inhaler shortness of breath or wheezing #20.1 grams sumatriptan succinate 25 mg tablet 50 mg (2 x 25 mg) PO DIRECTED 06/10/21 PRN migraine headache #9 tabs Auto Titrating CPAP #1 ea 03/05/22 CPAP Supplies #1 ea 03/05/22 epinephrine 0.3 mg/0.3 mL 0.3 mg (0.3 mL) IM Q3H PRN 05/21/22 injection, auto-injector (EpiPen anaphylaxis #2 ea 2-Tye) furosemide 20 mg tablet 20 mg PO DAILY PRN weight gain #90 08/18/22 tabs meclizine 25 mg tablet 50 mg (2 x 25 mg) PO TID PRN 10/17/22 dizziness #90 tabs cyclobenzaprine 5 mg tablet 5 mg PO TID PRN muscle spasm #30 10/21/22 tabs diclofenac sodium 1 % topical gel 4 g topical QID PRN Pain #100 grams 05/14/23 ondansetron 4 mg disintegrating 4 mg PO Q6H PRN nausea and 07/18/23 tablet vomiting #20 tabs amlodipine 5 mg tablet 5 mg PO QAM #90 tabs 04/08/24 omeprazole 40 mg capsule,delayed 40 mg PO BID #180 caps 04/08/24 release rosuvastatin 10 mg tablet 10 mg PO HS #90 tabs 04/08/24 losartan 25 mg tablet 25 mg PO QAM #90 tabs 04/11/24 hydrocortisone 1 % topical ointment 1 applic topical BID PRN itching 08/05/24 #28.35 grams escitalopram oxalate 10 mg tablet 10 mg PO QAM #90 tabs 08/08/24 cefadroxil 500 mg capsule 500 mg PO BID 10 days #20 caps 08/12/24 oxycodone 5 mg tablet 5 mg PO Q6H PRN pain #30 tabs 08/12/24 Results & Data (ED) Vital Signs Vital Signs - 24 hr 08/13/24 20:22 08/13/24 20:23 08/13/24 20:29 Temperature 36.9 C Temperature Source Oral Pulse Rate 91 H 85 Respiratory Rate 24 Blood Pressure 153/98 H Blood Pressure Mean 116 Pulse Oximetry 94 92 Oxygen Delivery Method Nasal Cannula Nasal Cannula Oxygen Flow Rate 3 0 Sepsis Recent Fever Within 48 Hours No Sepsis New/Unexplained Change in Mental Status N/A Sepsis Action Taken by Nursing No Action Required Oxygen Flow Rate - Titration 3 Pulse Oximetry Post Tiitration 94 08/13/24 21:57 08/13/24 22:14 08/14/24 00:16 Temperature Temperature Source Pulse Rate 71 72 61 Respiratory Rate 20 20 Blood Pressure 139/75 148/78 H Blood Pressure Mean 96 99 Pulse Oximetry 95 95 Oxygen Delivery Method Nasal Cannula Oxygen Flow Rate 3 Sepsis Recent Fever Within 48 Hours Sepsis New/Unexplained Change in Mental Status Sepsis Action Taken by Nursing Oxygen Flow Rate - Titration Pulse Oximetry Post Tiitration 08/14/24 00:21 08/14/24 02:19 Temperature Temperature Source Pulse Rate 65 62 Respiratory Rate 24 20 Blood Pressure 138/84 168/84 H Blood Pressure Mean 102 112 Pulse Oximetry 96 97 Oxygen Delivery Method Oxygen Flow Rate Sepsis Recent Fever Within 48 Hours Sepsis New/Unexplained Change in Mental Status Sepsis Action Taken by Nursing Oxygen Flow Rate - Titration Pulse Oximetry Post Tiitration Laboratory Data 08/13/24 20:31 08/13/24 20:31 Lab Results 08/13/24 08/14/24 Range/Units 20:31 00:44 WBC 11.26 H (4.8-10.8) K/ul RBC 4.74 (4.20-5.40) M/uL Hgb 13.3 (12.0-16.0) g/dl Hct 40.8 (37.0-47.0) % MCV 86.1 (80.0-100.0) fL MCH 28.1 (25.0-34.0) pg MCHC 32.6 (32.0-36.0) g/dL RDW Std Deviation 45.1 (36.4-46.3) fL RDW Coeff of Joanna 14.3 (11.5-14.5) % Plt Count 277 (130-400) K/uL MPV 9.9 (9.4-12.4) fL Immature Gran % (Auto) 0.4 % Neut % (Auto) 67.5 % Lymph % (Auto) 26.7 % [place] % (Auto) 5.1 % Eos % (Auto) 0.1 % Baso % (Auto) 0.2 % Neut # (Auto) 7.60 H (1.40-6.50) K/uL Lymph # (Auto) 3.01 (1.20-3.40) K/uL [place] # (Auto) 0.57 (0.11-0.59) K/uL Eos # (Auto) 0.01 (0.00-0.50) K/uL Baso # (Auto) 0.02 (0.00-0.20) K/uL Immature Gran # (Auto) 0.05 (0.01-0.20) K/uL PT 10.6 (9.0-12.0) Seconds INR 1.0 (0.9-1.1) APTT 27 (21-31) Seconds PTT Ratio 1.0 Sodium 139 (136-145) mmol/L Potassium 3.8 (3.5-5.1) mmol/L Chloride 103 (98-107) mmol/L Carbon Dioxide 28 (21-32) mmol/L Anion Gap 8 (3-11) BUN 24 H (6-23) mg/dl Creatinine 1.09 (0.6-1.2) mg/dl Est Cr Clr Drug Dosing 66.1 ml/min eGFR 58.16 BUN/Creatinine Ratio 22.0 H (10-20) Glucose 158 H (70-99(Fasting)) mg/dl Calcium 9.3 (8.6-10.3) mg/dl Magnesium 2.1 (1.7-2.4) mg/dl Total Bilirubin 0.6 (0.2-1.0) mg/dl AST 25 (13-39) U/L ALT 19 (7-52) U/L Alkaline Phosphatase 67 (34-104) U/L Troponin I High Sens 5.0 (0-14) pg/ml Total Protein 7.4 (6.0-8.3) gm/dl Albumin 4.1 (3.4-5.0) gm/dl Globulin 3.3 (2.5-4.0) gm/dl Albumin/Globulin Ratio 1.2 (0.9-2) Procalcitonin 0.60 H (0-0.5) ng/ml Administered Medications Vancomycin HCl 2,500 mg/ (Sodium Chloride) 550 mls @ 200 mls/hr IV NOW ONE Stop: 08/14/24 03:06 Last Admin: 08/14/24 00:50 Dose: 200 mls/hr Documented By: SASCHA Discontinued Medications Sodium Chloride (Nss) 250 mls @ 999 mls/hr IV .Q16M ONE Stop: 08/13/24 21:54 Last Infusion: 08/13/24 22:34 Dose: Infused Documented By: Admin: 08/13/24 22:11 Dose: 999 mls/hr Documented By: SASCHA Acetaminophen (Ofirmev) 1,000 mg in 100 mls @ 400 mls/hr IV NOW STA Stop: 08/13/24 21:53 Last Infusion: 08/13/24 22:34 Dose: Infused Documented By: Admin: 08/13/24 22:12 Dose: 400 mls/hr Documented By: SASCHA Cefepime HCl (Maxipime 2000mg) 2,000 mg in 20 mls @ 5 mls/min IV NOW STA; Protocol Stop: 08/14/24 00:25 Last Admin: 08/14/24 00:50 Dose: 5 mls/min Documented By: SASCHA Ioversol (Optiray 320 125ml) 118 ml IV ONCE ONE Stop: 08/13/24 22:02 Last Admin: 08/13/24 22:02 Dose: 118 ml Documented By: ISELA Warfarin Sodium (Warfarin Sod 6 Mg Tab) 6 mg PO NOW ONE Stop: 08/14/24 01:13 Last Admin: 08/14/24 01:45 Dose: 6 mg Documented By: SASCHA Imaging Data Radiologist's Impression: Chest X-Ray 08/13/24 20:47 Exam(s): XR CXR 1 VIEW EXAM: XR Chest, 1 View CLINICAL HISTORY: Dyspnea. TECHNIQUE: Frontal view of the chest. COMPARISON: No relevant prior studies available. FINDINGS: Lungs: Shallow inspiration. Right basilar subsegmental changes adjacent to the elevated right hemidiaphragm. The pulmonary vasculature appears minimally equalized. No radiographic evidence for florid CHF. Pleural space: No large pleural effusion or pneumothorax. Heart: Cardiomegaly. Mediastinum: The mediastinum appears somewhat widened, presumably related to portable AP technique. No tracheal deviation. Bones/joints: A right shoulder arthroplasty is noted with overlying soft tissue skin altagracia. No acute osseous abnormality. IMPRESSION: 1. Right basilar subsegmental changes adjacent to the elevated right hemidiaphragm. Differential consideration includes subsegmental atelectasis or infection. No large pleural effusion or pneumothorax. 2. The pulmonary vasculature appears minimally equalized. No radiographic evidence for florid CHF. Cardiomegaly. Electronically signed by: Casey Machuca MD 08/14/24 00:01 AM Abdomen/Pelvis CT 08/13/24 21:39 Exam(s): CT ABDOMEN + PELVIS With Contrast IV Amt: optiray 320 118ml EXAM: CT Abdomen and Pelvis With Intravenous Contrast CLINICAL HISTORY: Abdominal pain. TECHNIQUE: Axial computed tomography images of the abdomen and pelvis with intravenous contrast. CTDI is 28.14 mGy and DLP is 2287.25 mGy-cm. Automated exposure control was utilized for the study. A dose lowering technique was utilized adhering to the principles of ALARA. CONTRAST: Patient received optiray 320 118ml of IV contrast COMPARISON: The abdomen and pelvis with contrast dated 12/24/2023 FINDINGS: Lung bases: For findings regarding the lung bases, please see the CT report of the chest performed concurrently. ABDOMEN: Liver: Postsurgical changes consistent with left hepatectomy. Hepatic steatosis. No thyromegaly 8, increased from the previous examination, with an liver now measuring up to 19.8 cm in length from 16.7 cm previously. Gallbladder and bile ducts: Pneumobilia. Cholecystectomy. No ductal dilation. Pancreas: Unremarkable. No mass. No ductal dilation. Spleen: Unremarkable. No splenomegaly. Adrenals: Unremarkable. No mass. Kidneys and ureters: Unremarkable. No solid mass. No hydronephrosis. Stomach and bowel: The stomach is mildly distended with retained oral contents. No gastric mucosal thickening. No evidence for focal high- grade bowel obstruction with nonspecific material noted throughout nondilated small bowel loops in the abdomen and pelvis. Mild to moderate stool burden, primarily in the right colon. Postsurgical changes in the sigmoid region. No diverticulitis. PELVIS: Appendix: No findings to suggest acute appendicitis. Bladder: Normal gas in the bladder is presumed related to recent bladder catheterization. No bladder wall thickening or bladder stones. Reproductive: Status post hysterectomy. ABDOMEN and PELVIS: Intraperitoneal space: Unremarkable. No free air. No significant fluid collection. Bones/joints: No acute fracture. No dislocation. Soft tissues: Postsurgical changes consistent with previous left anterolateral pelvic wall repair, stable. Vasculature: Unremarkable. No abdominal aortic aneurysm. Lymph nodes: Unremarkable. No enlarged lymph nodes. Tubes, lines and devices: The nerve stimulator lead extends through a right sacral neural foramina, stable. The nerve stimulator generator overlies the right flank. Other findings: Marked elevation of the right hemidiaphragm. IMPRESSION: 1. No evidence for focal high-grade bowel obstruction with nonspecific material noted throughout nondilated small bowel loops in the abdomen and pelvis. Mild to moderate stool burden, primarily in the right colon. Postsurgical changes in the sigmoid region. No diverticulitis. No free intraperitoneal fluid or pneumoperitoneum. 2. Hepatic steatosis with hepatomegaly, increased from the previous examination. Electronically signed by: Casey Machuca MD 08/14/24 00:13 AM Chest CTA 08/13/24 21:39 Exam(s): CTA CHEST IV Amt: optiray 320 118ml EXAM: CT Angiography Chest With Intravenous Contrast CLINICAL HISTORY: PE - recent R shoulder surg, SOB, h/o PE. TECHNIQUE: Axial computed tomographic angiography images of the chest with intravenous contrast. CTDI is 28.14 mGy and DLP is 2287.25 mGy-cm. Automated exposure control was utilized for the study. A dose lowering technique was utilized adhering to the principles of ALARA. MIP reconstructed images were created and reviewed. COMPARISON: CT chest 12/24/2023 FINDINGS: Pulmonary arteries: No evidence for pulmonary embolism. Aorta: The thoracic aorta is normal in caliber without dissection. Lungs: No left-sided airspace consolidation with minimal curvilinear atelectasis left lower lobe. Pleural space: Unremarkable. No significant effusion. No pneumothorax. Heart: Cardiac chambers are prominent. No pericardial effusion. Bones/joints: No acute osseous abnormality. Postoperative changes involving the right shoulder minimally included. No dislocation. Soft tissues: Unremarkable. Lymph nodes: Unremarkable. No enlarged lymph nodes. Liver: Marked hepatomegaly with hepatic steatosis and evidence of resection of the left lobe. Gallbladder and bile ducts: Pneumobilia. No biliary dilatation. Cholecystectomy. Upper abdomen: Marked elevation of the right hemidiaphragm with curvilinear airspace changes in the right lower lobe and right middle mild. IMPRESSION: 1. No evidence for pulmonary embolism. 2. Marked elevation of the right hemidiaphragm with curvilinear airspace changes in the right lower lobe and right middle mild. The right middle lobe changes are presumed compressive atelectasis from the elevated hemidiaphragm. However, the airspace consolidation involving the medial right lower lobe is greater than expected for compressive atelectasis suspicion for pneumonia. Aspiration is also a consideration but is not the be less likely. Electronically signed by: Casey Machuca MD 08/14/24 00:05 AM Discharge Plan Visit Data Chief Complaint: Shortness of Breath/Dyspnea Stated Complaint: SHORTNESS OF BREATH ED Provider: Jermaine Shi ED Midlevel Provider: Delilah Conde Discharge Problem: Hospital-acquired pneumonia, Status post reverse total replacement of right shoulder, Hypoxia, Hx pulmonary embolism, Abdominal pain Patient Disposition: Admitted As Inpatient Condition: Fair Discharge Instructions Interventions: ED Discharge Assessment Last Done: 08/14/24 02:20 Forms Stand Alone Forms: My [employer] Prescriptions Prescriptions: No Action warfarin 2 mg tablet See Rx Instructions PO UD Rx Instructions: per bridge plan - below was current dosing prior to procedure 4mg MoWeFr, 2 mg x 4 days or UD by [facility] albuterol sulfate 90 mcg/actuation HFA aerosol inhaler 2 puff inhalation Q6H PRN (Reason: shortness of breath or wheezing) Qty: 20.1 1RF sumatriptan succinate 25 mg tablet 50 mg PO DIRECTED MDD 3 tablets/day PRN (Reason: migraine headache) Qty: 9 5RF Rx Instructions: May then take 1 tablet after 2 hours. cholecalciferol (vitamin D3) [D3-2000] 50 mcg (2,000 unit) capsule 2,000 unit PO QAM epinephrine [EpiPen 2-Tye] 0.3 mg/0.3 mL auto-injector 0.3 mg IM Q3H PRN (Reason: anaphylaxis) Qty: 2 0RF furosemide 20 mg tablet 20 mg PO DAILY PRN (Reason: weight gain) Qty: 90 1RF meclizine 25 mg tablet 50 mg PO TID PRN (Reason: dizziness) Qty: 90 1RF cyclobenzaprine 5 mg tablet 5 mg PO TID PRN (Reason: muscle spasm) Qty: 30 0RF diclofenac sodium 1 % gel 4 g TOP QID PRN (Reason: Pain) Qty: 100 5RF omeprazole 40 mg capsule,delayed release(DR/EC) 40 mg PO BID Qty: 180 1RF rosuvastatin 10 mg tablet 10 mg PO HS Qty: 90 1RF amlodipine 5 mg tablet 5 mg PO QAM Qty: 90 3RF losartan 25 mg tablet 25 mg PO QAM Qty: 90 3RF escitalopram oxalate 10 mg tablet 10 mg PO QAM Qty: 90 1RF (DME) Auto Titrating CPAP Misc See Rx Instructions .ROUTE .MEDSUPPLY Qty: 1 0RF Rx Instructions: 5 to 15 cm h20 (DME) CPAP Supplies Misc See Rx Instructions .Route Qty: 1 0RF Rx Instructions: As directed hydrocortisone 1 % ointment 1 applic topical BID PRN (Reason: itching) Qty: 28.35 0RF acetaminophen [Tylenol] 325 mg Tablet 650 mg PO QID PRN (Reason: Pain) montelukast [Singulair] 10 mg tablet 10 mg PO QAM mecobalamin (vitamin B12) 1,000 mcg tablet,disintegrating 1,000 mcg sublingual QAM Rx Instructions: place tablet under tongue and allow to dissolve for at least30 secs before swallowing ondansetron 4 mg tablet,disintegrating 4 mg PO Q6H PRN (Reason: nausea and vomiting) Qty: 20 0RF cefadroxil 500 mg capsule 500 mg PO BID 10 Days Qty: 20 0RF oxycodone 5 mg tablet 5 mg PO Q6H PRN (Reason: pain) Qty: 30 0RF metformin 500 mg tablet 500 mg PO BIDM Rx Instructions: TAKE ONE TABLET BY MOUTH TWICE DAILY @ 9AM & 5PM DIRECTED calcium carbonate 600 mg calcium (1,500 mg) tablet 600 mg PO QAM Rx Instructions: TAKE ONE TABLET BY MOUTH DAILY AT 9AM Referrals Referrals: Judy Abrams MD [Primary Care Provider] - Discharge Problem: Abdominal pain Qualifiers: Abdominal location: generalized Qualified Code(s): R10.84 - Generalized abdominal pain
[2024-08-13 22:02] LABS: Basophils # (auto) 0.02 K/uL (0.00-0.20); Basophils % (auto) 0.2 %; Eosinophils # (auto) 0.01 K/uL (0.00-0.50); Eosinophils % (auto) 0.1 %; Hematocrit (blood only) 40.8 % (37.0-47.0); Hemoglobin 13.3 g/dl (12.0-16.0); Immature Granulocytes # (auto) 0.05 K/uL (0.01-0.20); Immature Granulocytes % (auto) 0.4 %; Lymphocytes # (auto) 3.01 K/uL (1.20-3.40); Lymphocytes % (auto) 26.7 %; Mean Corpuscular Hemoglobin 28.1 pg (25.0-34.0); Mean Corpuscular Hgb Conc 32.6 g/dL (32.0-36.0); Mean Corpuscular Volume 86.1 fL (80.0-100.0); Mean Platelet Volume 9.9 fL (9.4-12.4); Monocytes # (auto) 0.57 K/uL (0.11-0.59); Monocytes % (auto) 5.1 %; Neutrophils % (auto) 67.5 %; Platelet Count 277 K/uL (130-400); RDW Coefficient of Variation 14.3 % (11.5-14.5); RDW Standard Deviation 45.1 fL (36.4-46.3); Red Blood Count 4.74 M/uL (4.20-5.40); White Blood Count 11.26 K/ul (4.8-10.8)
[2024-08-13] MEDS: OPTIRAY 320 125ml IV ONE (22:02)
[2024-08-13] MEDS: SODIUM CHLORIDE 0.9% 250 ML IV ONE (22:11)
[2024-08-13] MEDS: ACETAMINOPHEN 1,000 MG/100 ML VIAL IV STA (22:12)
[2024-08-13 22:24] LABS: Partial Thromboplastin Time 27 Seconds (21-31); Prothrombin Time 10.6 Seconds (9.0-12.0)
--- NOTE | 2024-08-14 00:03 | XRay Report ---
Exam(s): XR CXR 1 VIEW EXAM: XR Chest, 1 View CLINICAL HISTORY: Dyspnea. TECHNIQUE: Frontal view of the chest. COMPARISON: No relevant prior studies available. FINDINGS: Lungs: Shallow inspiration. Right basilar subsegmental changes adjacent to the elevated right hemidiaphragm. The pulmonary vasculature appears minimally equalized. No radiographic evidence for florid CHF. Pleural space: No large pleural effusion or pneumothorax. Heart: Cardiomegaly. Mediastinum: The mediastinum appears somewhat widened, presumably related to portable AP technique. No tracheal deviation. Bones/joints: A right shoulder arthroplasty is noted with overlying soft tissue skin altagracia. No acute osseous abnormality. IMPRESSION: 1. Right basilar subsegmental changes adjacent to the elevated right hemidiaphragm. Differential consideration includes subsegmental atelectasis or infection. No large pleural effusion or pneumothorax. 2. The pulmonary vasculature appears minimally equalized. No radiographic evidence for florid CHF. Cardiomegaly. Electronically signed by: Casey Machuca MD 08/14/24 00:01 AM
--- NOTE | 2024-08-14 00:06 | CT Scan Report ---
Exam(s): CTA CHEST IV Amt: optiray 320 118ml EXAM: CT Angiography Chest With Intravenous Contrast CLINICAL HISTORY: PE - recent R shoulder surg, SOB, h/o PE. TECHNIQUE: Axial computed tomographic angiography images of the chest with intravenous contrast. CTDI is 28.14 mGy and DLP is 2287.25 mGy-cm. Automated exposure control was utilized for the study. A dose lowering technique was utilized adhering to the principles of ALARA. MIP reconstructed images were created and reviewed. COMPARISON: CT chest 12/24/2023 FINDINGS: Pulmonary arteries: No evidence for pulmonary embolism. Aorta: The thoracic aorta is normal in caliber without dissection. Lungs: No left-sided airspace consolidation with minimal curvilinear atelectasis left lower lobe. Pleural space: Unremarkable. No significant effusion. No pneumothorax. Heart: Cardiac chambers are prominent. No pericardial effusion. Bones/joints: No acute osseous abnormality. Postoperative changes involving the right shoulder minimally included. No dislocation. Soft tissues: Unremarkable. Lymph nodes: Unremarkable. No enlarged lymph nodes. Liver: Marked hepatomegaly with hepatic steatosis and evidence of resection of the left lobe. Gallbladder and bile ducts: Pneumobilia. No biliary dilatation. Cholecystectomy. Upper abdomen: Marked elevation of the right hemidiaphragm with curvilinear airspace changes in the right lower lobe and right middle mild. IMPRESSION: 1. No evidence for pulmonary embolism. 2. Marked elevation of the right hemidiaphragm with curvilinear airspace changes in the right lower lobe and right middle mild. The right middle lobe changes are presumed compressive atelectasis from the elevated hemidiaphragm. However, the airspace consolidation involving the medial right lower lobe is greater than expected for compressive atelectasis suspicion for pneumonia. Aspiration is also a consideration but is not the be less likely. Electronically signed by: Casey Machuca MD 08/14/24 00:05 AM
--- NOTE | 2024-08-14 00:14 | CT Scan Report ---
Exam(s): CT ABDOMEN + PELVIS With Contrast IV Amt: optiray 320 118ml EXAM: CT Abdomen and Pelvis With Intravenous Contrast CLINICAL HISTORY: Abdominal pain. TECHNIQUE: Axial computed tomography images of the abdomen and pelvis with intravenous contrast. CTDI is 28.14 mGy and DLP is 2287.25 mGy-cm. Automated exposure control was utilized for the study. A dose lowering technique was utilized adhering to the principles of ALARA. CONTRAST: Patient received optiray 320 118ml of IV contrast COMPARISON: The abdomen and pelvis with contrast dated 12/24/2023 FINDINGS: Lung bases: For findings regarding the lung bases, please see the CT report of the chest performed concurrently. ABDOMEN: Liver: Postsurgical changes consistent with left hepatectomy. Hepatic steatosis. No thyromegaly 8, increased from the previous examination, with an liver now measuring up to 19.8 cm in length from 16.7 cm previously. Gallbladder and bile ducts: Pneumobilia. Cholecystectomy. No ductal dilation. Pancreas: Unremarkable. No mass. No ductal dilation. Spleen: Unremarkable. No splenomegaly. Adrenals: Unremarkable. No mass. Kidneys and ureters: Unremarkable. No solid mass. No hydronephrosis. Stomach and bowel: The stomach is mildly distended with retained oral contents. No gastric mucosal thickening. No evidence for focal high- grade bowel obstruction with nonspecific material noted throughout nondilated small bowel loops in the abdomen and pelvis. Mild to moderate stool burden, primarily in the right colon. Postsurgical changes in the sigmoid region. No diverticulitis. PELVIS: Appendix: No findings to suggest acute appendicitis. Bladder: Normal gas in the bladder is presumed related to recent bladder catheterization. No bladder wall thickening or bladder stones. Reproductive: Status post hysterectomy. ABDOMEN and PELVIS: Intraperitoneal space: Unremarkable. No free air. No significant fluid collection. Bones/joints: No acute fracture. No dislocation. Soft tissues: Postsurgical changes consistent with previous left anterolateral pelvic wall repair, stable. Vasculature: Unremarkable. No abdominal aortic aneurysm. Lymph nodes: Unremarkable. No enlarged lymph nodes. Tubes, lines and devices: The nerve stimulator lead extends through a right sacral neural foramina, stable. The nerve stimulator generator overlies the right flank. Other findings: Marked elevation of the right hemidiaphragm. IMPRESSION: 1. No evidence for focal high-grade bowel obstruction with nonspecific material noted throughout nondilated small bowel loops in the abdomen and pelvis. Mild to moderate stool burden, primarily in the right colon. Postsurgical changes in the sigmoid region. No diverticulitis. No free intraperitoneal fluid or pneumoperitoneum. 2. Hepatic steatosis with hepatomegaly, increased from the previous examination. Electronically signed by: Casey Machuca MD 08/14/24 00:13 AM
[2024-08-14] MEDS ORDERED: VANCOMYCIN CONSULT ACTIVE PRN ×2 (00:22→03:12)
[2024-08-14] MEDS: CEFEPIME 2000MG 2,000 MG/20 ML SYR IV STA (00:50)
[2024-08-14] MEDS: VANCOMYCIN HCL 2,500 MG in SODIUM CHLORIDE 0.9% 500 ML IV ONE (00:50)
--- NOTE | 2024-08-14 01:18 | History & Physical Report ---
Date of Service August 14, 2024 Assessment & Plan (1) Hospital-acquired pneumonia: (2) Hypoxia: (3) Hx pulmonary embolism: (4) Status post reverse total replacement of right shoulder: Plan Patient is a 58-year-old female with past medical history of DVT on warfarin, IBS, GERD, asthma, CAD, prediabetes, COLEEN. She is s/p PE right shoulder replacement 08/12 with postop hypoxia that resolved and patient was discharged 08/13. Patient returned home and developed significant dyspnea on exertion as well as a dry cough. She came into the ED via EMS on oxy mask now uptitrated to 3L nasal cannula, diagnostic imaging revealed right middle lobe and right lower lobe pneumonia. Patient was also found to have a subtherapeutic INR of 1.0. #PNA/hypoxia - question of aspiration pneumonia with recent procedure. chest CTA shows possible RML atelectasis, consolidation of RLL concerning for pneumonia. CXR contributory to chest CT results. Mild leukocytosis 11.26. - will continue vancomycin and cefepime as this would be considered hospital- acquired pneumonia - MRSA swab ordered - blood cultures pending - incentive spirometry - Tessalon Perles and Tylenol as needed - DuoNeb every 2 hours as needed - oxygen prn for O2 <92%, wean as tolerated - mag ordered; will replete if < 2.0 - procal ordered - trend CBC #Hx DVT and PE - on warfarin. Has been holding with recent procedure since 08/07. Chest CTA negative for PE, denies any lower extremity edema. Of note patient had subtherapeutic INR of 1.4 in 08/11 when she saw the anticoagulation clinic. Patient has been holding warfarin since 08/07 in lieu of her surgery. She was to take a loading dose of 4 mg warfarin x 3 nights from 08/12-08/14 which she did not yet begin. - as based on global [facility] recommendations - will load with 1.5-2x home dose - 6mg PO warfarin ordered - Will continue warfarin with 4 Mg p.o. 08/14 PM - Trend INR #Right shoulder replacement - stable - continue home pain control regimen #Asthma - continue home inhalers, montelukast - duonebs prn #prediabetes - stable - continue Metformin #HTNstable Continue amlodipine and losartan #GERD-stable - continue PPI #CAD/HLD-stable - continue statin #Depression/anxiety-stable - continue escitalopram VTE ppx: Warfarin Dispo: med/tele Admission and Anticipated Discharge Date Admission Date: 08/14/24 History of Present Illness Chief Complaint: dyspnea Primary Care Provider: Judy Abrams MD Patient is a 58-year-old female with past medical history of DVT on warfarin, IBS, GERD, asthma, CAD, prediabetes, COLEEN. She is s/p PE right shoulder replacement 08/12 with postop hypoxia that resolved and patient was discharged 08/13. Patient returned home and developed significant dyspnea on exertion as well as a dry cough. She came into the ED via EMS on oxy mask now uptitrated to 3L nasal cannula, diagnostic imaging revealed right middle lobe and right lower lobe pneumonia. Patient was also found to have a subtherapeutic INR of 1.0. Patient seen at bedside. She endorses the above. She stated she has a dry cough that causes her a lot of pain especially with recent shoulder replacement. She tried to use her home inhalers which did not seem to help. She had a nebulizer via EMS which did seem to help her breathing. She denies any fevers, chills, chest pain, abdominal pain, lower extremity edema. She denies any nicotine use. She does not use any oxygen at baseline however does use CPAP at bedtime for sleep apnea. She is due for her evening medications including warfarin. Of note patient had subtherapeutic INR of 1.4 in 08/11 when she saw the anticoagulation clinic. Patient has been holding warfarin since 08/07 in lieu of her surgery. She was to take a loading dose of 4 mg warfarin x 3 nights from 08/12-08/14 which she did not yet begin. She wishes to be DNR/DNI. Allergies Allergy/AdvReac Type Severity Reaction Status Date / Time rivaroxaban Allergy Intermediate Rash Verified 08/13/24 22:34 naproxen AdvReac Intermediate Vomiting Verified 08/13/24 22:34 doxycycline AdvReac Mild Vomiting Verified 08/13/24 22:34 Home Medications Medication Instructions Recorded Confirmed Type acetaminophen 325 mg tablet 650 mg PO QID PRN Pain 02/02/20 08/13/24 History (Tylenol) albuterol sulfate 90 mcg/actuation 2 puff inhalation Q6H PRN 05/10/21 08/13/24 Rx aerosol inhaler shortness of breath or wheezing #20.1 grams sumatriptan succinate 25 mg tablet 50 mg (2 x 25 mg) PO DIRECTED 06/10/21 08/13/24 Rx PRN migraine headache #9 tabs cholecalciferol (vitamin D3) 50 2,000 unit PO QAM 11/18/21 08/13/24 History mcg (2,000 unit) capsule (D3-1999) Auto Titrating CPAP #1 ea 03/05/22 08/11/24 Rx CPAP Supplies #1 ea 03/05/22 08/11/24 Rx epinephrine 0.3 mg/0.3 mL 0.3 mg (0.3 mL) IM Q3H PRN 05/21/22 08/13/24 Rx injection, auto-injector (EpiPen anaphylaxis #2 ea 2-Tye) furosemide 20 mg tablet 20 mg PO DAILY PRN weight gain #90 08/18/22 08/13/24 Rx tabs meclizine 25 mg tablet 50 mg (2 x 25 mg) PO TID PRN 10/17/22 08/13/24 Rx dizziness #90 tabs cyclobenzaprine 5 mg tablet 5 mg PO TID PRN muscle spasm #30 10/21/22 08/13/24 Rx tabs mecobalamin (vitamin B12) 1,000 1,000 mcg sublingual QAM 11/12/22 08/13/24 History mcg disintegrating tablet,sublingual montelukast 10 mg tablet 10 mg PO QAM 11/12/22 08/13/24 History (Singulair) diclofenac sodium 1 % topical gel 4 g topical QID PRN Pain #100 grams 05/14/23 08/13/24 Rx ondansetron 4 mg disintegrating 4 mg PO Q6H PRN nausea and 07/18/23 08/13/24 Rx tablet vomiting #20 tabs amlodipine 5 mg tablet 5 mg PO QAM #90 tabs 04/08/24 08/13/24 Rx omeprazole 40 mg capsule,delayed 40 mg PO BID #180 caps 04/08/24 08/13/24 Rx release rosuvastatin 10 mg tablet 10 mg PO HS #90 tabs 04/08/24 08/13/24 Rx losartan 25 mg tablet 25 mg PO QAM #90 tabs 04/11/24 08/13/24 Rx warfarin 2 mg tablet See Rx Instructions PO UD 08/04/24 08/13/24 History hydrocortisone 1 % topical ointment 1 applic topical BID PRN itching 08/05/24 08/13/24 Rx #28.35 grams escitalopram oxalate 10 mg tablet 10 mg PO QAM #90 tabs 08/08/24 08/13/24 Rx cefadroxil 500 mg capsule 500 mg PO BID 10 days #20 caps 08/12/24 08/13/24 Rx oxycodone 5 mg tablet 5 mg PO Q6H PRN pain #30 tabs 08/12/24 08/13/24 Rx calcium carbonate 600 mg PO QAM 08/13/24 08/13/24 History metformin 500 mg tablet 500 mg PO BIDM 08/13/24 08/13/24 History Past Med/Surg History Problem List (Updated 08/14/24 @ 02:35 by Delilah Conde PA-C) Abdominal pain (Acute) Hx pulmonary embolism (Acute) 2016 Taking Coumadin; follows with [facility] clinic Hypoxia (Acute) Hospital-acquired pneumonia (Acute) Status post reverse total replacement of right shoulder (Acute ~08/2024) Animal dander allergy Encounter for pre-operative examination Avascular necrosis of humeral head Idiopathic neuropathy Edema Right knee DJD Steatosis of liver Dyslipidemia Pre-diabetes Incomplete bladder emptying Insomnia Obstructive sleep apnea Allergic rhinitis Urgency incontinence Prinzmetal's angina followed by Dr. Rosales (denies CP currently) Pulmonary nodule less than 1 cm in diameter with low risk for malignant neoplasm Lung nodule Tinnitus of both ears Sensorineural hearing loss of both ears b/l hearing aids Arthritis of knee, right Greater trochanteric bursitis Abdominal hernia (Acute) Intrahepatic bile duct dilation (Acute) Osteoporosis with fracture (Acute) Recurrent incisional hernia Hypertension Diverticulosis Depression with anxiety Alopecia areata Coronary artery spasm Irritable bowel syndrome Migraine Medical History Neurostimulator device in situ for bladder (aware to bring remote DOS) IBS (irritable bowel syndrome) Neuropathy "soft tissue" Migraine Hx of myocardial infarction NSTEMI secondary to Coronary Artery Spasm/Prinzmetal's Angina 2015 (Normal Coronary Arteries on Cardiac Catheterization) Sleep apnea CPAP (does not use d/t "belly sleeper") TBI (traumatic brain injury) 12/2021 s/p fall Hx pulmonary embolism 2017 Taking Coumadin; follows with [facility] clinic Hx of deep venous thrombosis Multiple BL LE DVTs (2017) RUE DVT (post-op/post-injury, single DVT unprovoked) Taking Coumadin; follows with [facility] History of diverticulosis Subdural hematoma 12/2021 s/p fall, no surgical intervention Head CT 03/2023 with no acute abnormality History of blood transfusion 2017 Prediabetes Currently on metformin Anxiety Mixed hyperlipidemia Metabolic syndrome Morbid obesity Osteoporosis GERD (gastroesophageal reflux disease) controlled Asthma HX: breast cancer Dx 05/2017, s/p right breast mastectomy Surgical History History of surgery on lower extremity R/L otero (screws intact) H/O arthroscopic knee surgery R/L History of bladder surgery Percutaneous nerve evaluation > temporary "no longer intact" (11/19/22 under local anesthesia) Sacral Neuromodulation Implant 01/2023 Nausea and vomiting after administration of anesthetic agent Occasional ("not every time") S/P hernia surgery (02/10/19) Extensive enterolysis, Laparoscopic Recurrent Ventral Hernia Repair with Mesh Hx of rotator cuff surgery Right History of ankle surgery Left H/O knee surgery R/L History of repair of inguinal hernia (12/25/12) History of bowel resection Colon resection 2/2 diverticulitis History of colonoscopy History of herniorrhaphy Open ventral hernia repair: Grade 2 view, MAC#3, ETT 7.5 at [facility] (2018) History of cholecystectomy Hx of abdominal surgery Umbilical surgery History of hysterectomy total History of section x2 History of surgery of liver Resection 2/2 bile duct stone complications and then has lobe of liver removed History of cardiac cath 2016- no stents History of reconstruction of right breast History of mastectomy Right breast RUE restriction Family History Mother Myocardial infarction Lung cancer Cardiac disorder Irritable bowel syndrome Father Myocardial infarction Lung cancer Cardiac disorder Other No significant family history Denies family history of Ovarian cancer Prostate cancer Breast cancer Colorectal cancer Social History Smoking Status: Never smoker Second Hand Exposure: Yes; Do You Dip or Chew Tobacco: No; Hx Alcohol Use: No Hx Substance Use: No Preferred Language: Kazakh Communication Ability: Effective Visual Impairment: No Limitations Hearing Ability: Use of Hearing Aid Fighting Vehicle Systems Maintainer Required: No Beliefs That Will Affect Care: None marital status: Current Living Situation: Spouse current occupational status: disabled current occupation: she is now on disability, worked at [employer] and [employer] How many Children do You have: 2 Other Information That Helps Us Care for You: No Feels Safe at Home: Yes Safety Concerns: Feels Safe At This Time Childhood Exposure to Second-Hand Smoke: No Diet: regular Diet Comment: regular caffeine: Yes during the past year weight has: increased > 10 lbs Dental Care, Regularly: No Physical Activity Frequency: Does not Exercise Seatbelt Use: sometimes Sunscreen Use: No Assistive Devices: CPAP, Glasses, Hearing Aid - Bilateral and Oxygen - Continuous Review of Systems Review of Systems: see HPI Physical Exam Physical Exam: The patient is awake, alert and oriented 3, sickly appearing. HEENT- EOMI, mucous membranes moist. Hearing grossly intact. Heart-normal S1 and S2. No murmurs, rubs or gallops. Lungs-decreased bilaterally, no respiratory distress, no accessory muscle use. On 3L NC. Abdomen-normal bowel sounds and soft. No ascites noted. Non-tender. Extremities- no clubbing, cyanosis, or edema. Rheumatologic-normal range of motion. Psychiatric-normal affect. Results & Data Results & Data Vital Signs (Past 12 Hours) Vital Signs Temp Pulse Resp BP Pulse Ox O2 Del Method O2 Flow Rate 08/14/24 00:21 65 24 138/84 96 08/14/24 00:16 61 08/13/24 22:14 72 20 148/78 H 95 Nasal Cannula 3 08/13/24 21:57 71 20 139/75 95 08/13/24 20:29 92 Nasal Cannula 0 08/13/24 20:23 36.9 C 85 24 153/98 H 94 Nasal Cannula 3 08/13/24 20:22 91 H Laboratory Results Reviewed CBC, CMP, PT/INR Diagnostic Findings reviewed chest CTA, AP CT, CXR Medications Administered EDvancomycin and cefepime, Tylenol 1G IV, 250 mL NSS ECG Additional Comments: Normal sinus rhythm, rate 88 QTc 440 Code Status & VTE Plan Code Status DNR/DNI VTE Prophylaxis Plan VTE Prophylaxis will be ordered: Yes Supervising Physician Co-Signing Physician Notes Patient seen and examined, chart reviewed, case discussed with ASHU Hernandes and I agree with the assessment and plan as above PG Care Time/CCT Total # of Minutes Spent Total Time Spent with Patient: Total time spent is greater than 50% in coordination of care (as documented) at patient's floor/unit and/or counseling patient: Coding Level of Care Code 04142 INT INP/OBS CARE 3/75MIN Diagnoses Hospital-acquired pneumonia J18.9; Y95 Hypoxia R09.02 Hx pulmonary embolism Z86.711 Status post reverse total replacement of right shoulder Z96.611
[2024-08-14] MEDS: WARFARIN SOD 6 MG TAB PO ONE (01:45)
[2024-08-14 01:48] LABS: Magnesium 2.1 mg/dl (1.7-2.4)
[2024-08-14] MEDS ORDERED: BENZONATATE 100 MG CAPSULE PO PRN (03:12)
[2024-08-14] MEDS ORDERED: ONDANSETRON INJ 2 MG/ML 2 ML VIAL IV PRN (03:12)
[2024-08-14] MEDS ORDERED: MELATONIN 3 MG TAB PO PRN (03:12)
[2024-08-14] MEDS ORDERED: DICLOFENAC SOD 1% GEL 100 GM TUBE EXT PRN (03:12)
[2024-08-14] MEDS ORDERED: ALBUTEROL HFA 8 GM INHALER INH PRN (03:12)
[2024-08-14] MEDS ORDERED: ALBUT/IPRATROP 3MG/0.5MG NEB 3 ML VIAL NEB PRN (03:12)
[2024-08-14] MEDS ORDERED: MECLIZINE HCL 25 MG TAB PO PRN (03:12)
[2024-08-14 03:23] LABS: Appearance Urine Clear (Clear); Bilirubin Urine Negative (Negative); Blood Urine Negative (Negative); Color Urine Yellow; Glucose Urine UA Negative (Negative); Ketones Urine Negative (Negative); Leukocyte Esterase Urine Negative (Negative); Nitrite Urine Negative (Negative); Protein Urine Negative (Negative); Specific Gravity Urine 1.042 (1.000-1.030); Urobilinogen Urine Negative (Negative); pH Urine 5.5 (4.5-7.5)
[2024-08-14] MEDS ORDERED: GLUCOSE 10 TAB/TUBE PO PRN (05:45)
[2024-08-14] MEDS ORDERED: DEXTROSE 50% 50 ML SYRINGE IV PRN (05:45)
[2024-08-14] MEDS ORDERED: CARBOHYDRATES FOR HYPOGLYCEMIA PO PRN (05:45)
[2024-08-14] MEDS ORDERED: GLUCAGON FOR INJ 1 MG VIAL SQ PRN (05:45)
[2024-08-14] MEDS ORDERED: GLUCOSE 40% GEL 15 GM TUBE PO PRN (05:45)
--- NOTE | 2024-08-14 07:13 | Electrocardiogram Report ---
Test Reason : Blood Pressure : */* mmHG Vent. Rate : 88 BPM Atrial Rate : 88 BPM P-R Int : 150 ms QRS Dur : 74 ms QT Int : 364 ms P-R-T Axes : 56 26 54 degrees QTcB Int : 440 ms Normal sinus rhythm Nonspecific T wave abnormality Abnormal ECG When compared with ECG of 18-Jul-2024 12:31, Nonspecific T wave abnormality, worse in Anterolateral leads Confirmed by Henok Mcgregor ([id number]) on 08/14/2024 7:12:52 AM Referred By: REFERRED SELF Confirmed By: Henok Mcgregor
[2024-08-14] MEDS ORDERED: metFORMIN HCL 500 MG TAB PO SCH (08:00)
--- NOTE | 2024-08-14 08:34 | Hospitalist Progress Note ---
Date of Service August 14, 2024 Assessment & Plan (1) Hospital-acquired pneumonia: (2) Hypoxia: (3) Hx pulmonary embolism: (4) Status post reverse total replacement of right shoulder: Plan Patient is a 58-year-old female with past medical history of DVT on warfarin, IBS, GERD, asthma, CAD, prediabetes, COLEEN. She is s/p PE right shoulder replacement 08/12 with postop hypoxia that resolved and patient was discharged 08/13. Patient returned home and developed significant dyspnea on exertion as well as a dry cough. She came into the ED via EMS on oxy mask now uptitrated to 3L nasal cannula, diagnostic imaging revealed right middle lobe and right lower lobe pneumonia. Patient was also found to have a subtherapeutic INR of 1.0. #PNA/hypoxia - question of aspiration pneumonia with recent procedure. Chest CTA shows possible RML atelectasis, consolidation of RLL concerning for pneumonia. CXR contributory to chest CT results. Mild leukocytosis 11.26 on arrival, continue to trend Blood cultures drawn on 08/14, pending Procalcitonin mildly elevated at 0.6 on arrival Vancomycin 2500 mg IV x 1 MRSA swab negative Vancomycin subsequently discontinued Incentive spirometry Tessalon Perles and Tylenol as needed DuoNeb every 2 hours as needed Titrate supplemental oxygen as needed to maintain SpO2 >92%, wean as tolerated Continue cefepime 2000 mg IV q8h #Hx DVT and PE - on warfarin. Has been holding with recent procedure since 08/07. Chest CTA negative for PE, denies any lower extremity edema. Of note patient had subtherapeutic INR of 1.4 in 08/11 when she saw the anticoagulation clinic. Patient has been holding warfarin since 08/07 in lieu of her surgery. She was to take a loading dose of 4 mg warfarin x 3 nights from 08/12-08/14 which she did not yet begin. As based on global [facility] recommendations - will load with 1.5-2x home dose - 6mg PO warfarin ordered Normal warfarin regimen: Thursday 4 mg p.o. @ 1600; All other days 2 md p.o. @ 1600 Continue warfarin with 4 mg p.o. until therapeutic range achieved, then switch back to normal regimen Trend PT/INR #Right shoulder replacement - stable Continue home pain control regimen #Asthma Continue home inhalers, montelukast Duonebs (as above) #Prediabetes - stable Last A1c 6.2% on 07/18/2024 Continue Metformin Monitor for hypoglycemia BSG ACHS Adjust regimen as needed #HTNstable Continue amlodipine and losartan #GERD-stable Continue PPI #CAD/HLD-stable Continue statin #Depression/anxiety-stable Continue escitalopram #Sleep apnea CPAP HS Dispo: Continued stay on MedSurg telemetry VTE ppx: Warfarin Admission and Anticipated Discharge Date Admission Date: August 14, 2024 Subjective Mrs. Jane reports her breathing is greatly improved from the time she came in. She slept well last night, and has been eating and drinking well in her chair th is morning. She is still experiencing ELY when she gets up and uses the restroom, but does not have any SOB at rest. Patient is not on supplemental oxygen at baseline, but does use a CPAP at night. In regard to her right shoulder, she reports that the nerve block is beginning to wear off, and she is experiencing a dull 2/10 pain at this time; worse with movements. ROS: Patient endorses right shoulder pain, dry cough, ELY, mild abdominal pain (resolved), pleuritic CP, and numbness and tingling in the hands (chronic neuropathy). Patient denies fever, chills, night sweats, body aches, chest pain, chest palpitations, SOB at rest, hemoptysis, N/V/D, or changes in urinary bowel habits. Review of Systems Review of Systems: See HPI above Physical Exam Physical Exam: General: no acute distress; non-toxic appearing; well-nourished; cooperative; SpO2 98% SpO2 on 3L NC HEENT: normocephalic, atraumatic; no scleral icterus; PERRLA w/ EOMs intact; vision and hearing grossly intact Neck: supple; no lymphadenopathy; trachea midline Right shoulder: Sling in place; patient still exhibits pain with movements; 5/5 senior pastor strength bilaterally; patient reports sensation in the right hand is slightly diminished when compared to the left Skin: warm, dry without signs of tenting; no cyanosis; no rashes, bruising, lesions, or erythema noted CV: chest wall NTP; RRR; S1/S2 normal; no murmurs/rubs/gallops; pulses intact and symmetric at radial, DP, and PT Lungs: no acute respiratory distress; symmetrical chest wall expansion; diminished breath sounds across all lung dotson w/o adventitious sounds; no wheezing ABD: Soft, NTP; BS present; no rebound/guarding; no distention MSK: no tics or fasciculations; no edema noted in the LEs b/l, nonerythematous Neuro: A&Ox3; normal mood and affect; fluent speech; no focal deficits; sensation intact and symmetric in lower extremities bilaterally assessed via light Results & Data Results & Data Vital Signs (Past 12 Hours) Vital Signs Temp Pulse Pulse Resp BP BP Pulse Ox 08/14/24 07:26 36.8 C 69 22 128/82 97 08/14/24 04:36 60 08/14/24 03:57 08/14/24 03:57 36.3 C L 62 20 146/82 H 96 08/14/24 03:32 62 20 96 08/14/24 03:12 36.3 C L 62 18 146/82 H 96 08/14/24 03:12 08/14/24 02:19 62 20 168/84 H 97 08/14/24 00:21 65 24 138/84 96 08/14/24 00:16 61 08/13/24 22:14 72 20 148/78 H 95 08/13/24 21:57 71 20 139/75 95 Pulse Ox O2 Del Method O2 Del Method O2 Flow Rate O2 Flow Rate 08/14/24 07:26 CPAP 08/14/24 04:36 08/14/24 03:57 Nasal Cannula 3 08/14/24 03:57 Nasal Cannula 3 08/14/24 03:32 3 08/14/24 03:12 Nasal Cannula 3 08/14/24 03:12 96 Nasal Cannula 3 08/14/24 02:19 08/14/24 00:21 08/14/24 00:16 08/13/24 22:14 Nasal Cannula 3 08/13/24 21:57 PG Care Time/CCT Total # of Minutes Spent Total Time Spent with Patient: Total time spent is greater than 50% in coordination of care (as documented) at patient's floor/unit and/or counseling patient: Coding [place] [address] SUB INP/OBS CARE 04/30MIN Patient Type Established History Detailed Exam Detailed Medical Decision Making Low Complexity Diagnoses Hospital-acquired pneumonia J18.9; Y95 Hypoxia R09.02 Hx pulmonary embolism Z86.711 Status post reverse total replacement of right shoulder Z96.611
[2024-08-14] MEDS: MONTELUKAST SODIUM 10 MG TABLET PO SCH (08:44)
[2024-08-14] MEDS: LOSARTAN POTASSIUM 25 MG TAB PO SCH (08:44)
[2024-08-14] MEDS: CYCLOBENZAPRINE HCL 5 MG TAB PO PRN (08:44)
[2024-08-14] MEDS: PANTOprazole 40 MG TAB PO SCH (08:45)
[2024-08-14] MEDS: amLODIPine BESYLATE 5 MG TAB PO SCH (08:45)
[2024-08-14] MEDS: ESCITALOPRAM OXALATE 10 MG TAB PO SCH (08:45)
[2024-08-14] MEDS: CEFEPIME 2000MG 2,000 MG/20 ML SYR IV SCH (08:45)
[2024-08-14] MEDS: INSULIN ASPART PER UNIT CHARGE SC SCH (08:56)
[2024-08-14] MEDS: ACETAMINOPHEN 325 MG TAB PO PRN (10:06)
[2024-08-14] MEDS ORDERED: VANCOMYCIN HCL 1,750 MG in SODIUM CHLORIDE 0.9% 500 ML IV SCH (12:00)
[2024-08-14] MEDS: WARFARIN SOD 4 MG TAB PO SCH (17:12)
[2024-08-14] MEDS: ROSUVASTATIN CALCIUM 10 MG TAB PO SCH (19:40)
[2024-08-15] MEDS: oxyCODONE HCL IR 5 MG TAB (IMMEDIATE RELEASE) PO PRN (03:33)
[2024-08-15 06:11] LABS: Basophils # (auto) 0.03 K/uL (0.00-0.20); Basophils % (auto) 0.3 %; Eosinophils # (auto) 0.38 K/uL (0.00-0.50); Eosinophils % (auto) 4.2 %; Hematocrit (blood only) 35.2 % (37.0-47.0); Hemoglobin 11.5 g/dl (12.0-16.0); Immature Granulocytes # (auto) 0.05 K/uL (0.01-0.20); Immature Granulocytes % (auto) 0.5 %; Lymphocytes # (auto) 2.33 K/uL (1.20-3.40); Lymphocytes % (auto) 25.6 %; Mean Corpuscular Hgb Conc 32.7 g/dL (32.0-36.0); Mean Corpuscular Volume 85.6 fL (80.0-100.0); Mean Platelet Volume 9.6 fL (9.4-12.4); Monocytes # (auto) 0.64 K/uL (0.11-0.59); Neutrophils # (auto) 5.68 K/uL (1.40-6.50); Neutrophils % (auto) 62.4 %; Platelet Count 226 K/uL (130-400); RDW Coefficient of Variation 14.6 % (11.5-14.5); RDW Standard Deviation 45.3 fL (36.4-46.3); Red Blood Count 4.11 M/uL (4.20-5.40); White Blood Count 9.11 K/ul (4.8-10.8)
[2024-08-15 06:35] LABS: INR 1.2 (0.9-1.1); Prothrombin Time 12.9 Seconds (9.0-12.0)
[2024-08-15 06:38] LABS: BUN Creatinine Ratio 24.2 (10-20); Calcium 8.3 mg/dl (8.6-10.3); Potassium 4.2 mmol/L (3.5-5.1)
--- NOTE | 2024-08-15 08:08 | Hospitalist Progress Note ---
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 Significant HORN, Hepatomegally, previous partial hepatic resection due to bilary duct surgery. She is s/p PE right shoulder replacement 08/12 with postop hypoxia that resolved and patient was discharged 08/13. Patient returned home and developed significant dyspnea on exertion as well as a dry cough. She came into the ED via EMS on oxy mask now uptitrated to 3L nasal cannula, diagnostic imaging revealed right middle lobe and right lower lobe pneumonia. Patient was also found to have a subtherapeutic INR of 1.0. #PNA/hypoxia - question of aspiration pneumonia with recent procedure. chest CTA shows possible RML atelectasis, consolidation of RLL concerning for pneumon ia. CXR contributory to chest CT results. Mild leukocytosis 11.26. - cefepime as this would be considered hospital-acquired pneumonia - MRSA swab negative will dc vancomycin - blood cultures pending - incentive spirometry - Tessalon Perles and Tylenol as needed - DuoNeb every 2 hours as needed - oxygen prn for O2 <92%, wean as tolerated - mag ordered; will replete if < 2.0 - procal ordered - trend CBC #Hx DVT and PE - on warfarin. Has been holding with recent procedure since 08/07. Chest CTA negative for PE, denies any lower extremity edema. Of note patient had subtherapeutic INR of 1.4 in 08/11 when she saw the anticoagulation clinic. Patient has been holding warfarin since 08/07 in lieu of her surgery. She was to take a loading dose of 4 mg warfarin x 3 nights from 08/12-08/14 which she did not yet begin. - as based on global [facility] recommendations - will load with 1.5-2x home dose - 6mg PO warfarin ordered - Will continue warfarin with 4 Mg p.o. 08/14 PM - Trend INR #Right shoulder replacement - stable - continue home pain control regimen #Asthma - continue home inhalers, montelukast - duonebs prn #prediabetes - stable - continue Metformin #HTNstable Continue amlodipine and losartan #GERD-stable - continue PPI #CAD/HLD-stable - continue statin #Depression/anxiety-stable - continue escitalopram VTE ppx: Warfarin Dispo: med/tele Admission and Anticipated Discharge Date Admission Date: August 14, 2024 Results & Data Results & Data Vital Signs (Past 12 Hours) Vital Signs Temp Pulse Pulse Resp BP Pulse Ox O2 Del Method 08/15/24 05:31 61 08/15/24 03:43 99.3 F 73 20 136/82 97 CPAP 08/15/24 03:19 90 16 97 08/15/24 00:15 99.1 F 91 H 20 160/92 H 97 CPAP 08/14/24 23:51 76 08/14/24 22:55 62 17 98 08/14/24 22:00 Nasal Cannula O2 Flow Rate FiO2 08/15/24 05:31 08/15/24 03:43 3 08/15/24 03:19 21 08/15/24 00:15 3 08/14/24 23:51 08/14/24 22:55 3 08/14/24 22:00 3 PG Care Time/CCT Total # of Minutes Spent Total Time Spent with Patient: Total time spent is greater than 50% in coordination of care (as documented) at patient's floor/unit and/or counseling patient: Coding Diagnoses Hospital-acquired pneumonia J18.9; Y95 Hypoxia R09.02 Hx pulmonary embolism Z86.711 Status post reverse total replacement of right shoulder Z96.611
[2024-08-15] MEDS: DOCUSATE SODIUM 100 MG CAP PO PRN (08:52)
[2024-08-15 13:44] VITALS: BP 167/96; PULSE 75; RESP 16; TEMP 98.5; O2SAT 98
--- NOTE | 2024-08-15 17:25 | Discharge Summary ---
Discharge Summary Date of Service August 15, 2024 Principal Dx & Hospital Course #1 = Principal Diagnosis (1) Hospital-acquired pneumonia: (2) Hypoxia: (3) Hx pulmonary embolism: (4) Status post reverse total replacement of right shoulder: Plan Patient is a 58-year-old female with past medical history of right breast cancer ductal carcinoma insitu with breast reconstruction, DVT on warfarin, IBS, GERD, asthma, CAD, prediabetes, COLEEN. Significant SHANNON, Hepatomegally, previous partial hepatic resection due to bilary duct surgery. She is s/p PE right shoulder replacement 08/12 with postop hypoxia that resolved and patient was discharged 08/13. Patient returned home and developed significant dyspnea on exertion as well as a dry cough. She came into the ED via EMS on oxy mask now uptitrated to 3L nasal cannula, diagnostic imaging revealed right middle lobe and right lower lobe pneumonia. Patient was also found to have a subtherapeutic INR of 1.0. #PNA/hypoxia - question of aspiration pneumonia with recent procedure. chest CTA shows possible RML atelectasis, consolidation of RLL concerning for pneumonia. CXR contributory to chest CT results. Mild leukocytosis 11.26. - cefepime initially, maybe concern for aspiration in post op recovery, complete augmentin - MRSA swab negative dc vancomycin - blood cultures negative at discharge - incentive spirometry - Tessalon Perles and Tylenol as needed - DuoNeb every 2 hours as needed - oxygen prn for O2 <92%, wean as tolerated - mag ordered; will replete if < 2.0 - procal ordered - trend CBC #Hx DVT and PE - on warfarin. Has been holding with recent procedure since 08/07. Chest CTA negative for PE, denies any lower extremity edema. Of note patient had subtherapeutic INR of 1.4 in 08/11 when she saw the ant icoagulation clinic. Patient has been holding warfarin since 08/07 in lieu of her surgery. She was to take a loading dose of 4 mg warfarin x 3 nights from 08/12- 08/14 which she did not yet begin. - as based on global [facility] recommendations - will load with 1.5-2x home dose - 6mg PO warfarin ordered - Will continue warfarin with 4 Mg p.o. 08/14 PM #Right shoulder replacement - stable - continue home pain control regimen #Asthma - continue home inhalers, montelukast - duonebs prn #prediabetes - stable - continue Metformin #HTNstable Continue amlodipine and losartan #GERD-stable - continue PPI #CAD/HLD-stable - continue statin #Depression/anxiety-stable - continue escitalopram VTE ppx: Warfarin Dispo: med/tele Notes For Next Care Provider Patient will need follow-up on her INR. Patient steatohepatitis is significantly enlarged over the last few years likely follow-up with GI medicine could be beneficial with strong consideration of pursuing aggressive weight loss strategy. Completing course of outpatient Augmentin therapy for pneumonia Admission HPI Per Admitting Provider Patient is a 58-year-old female with past medical history of DVT on warfarin, IBS, GERD, asthma, CAD, prediabetes, COLEEN. She is s/p PE right shoulder replacement 08/12 with postop hypoxia that resolved and patient was discharged 08/13. Patient returned home and developed significant dyspnea on exertion as well as a dry cough. She came into the ED via EMS on oxy mask now uptitrated to 3L nasal cannula, diagnostic imaging revealed right middle lobe and right lower lobe pneumonia. Patient was also found to have a subtherapeutic INR of 1.0. Patient seen at bedside. She endorses the above. She stated she has a dry cough that causes her a lot of pain especially with recent shoulder replacement. She tried to use her home inhalers which did not seem to help. She had a nebulizer via EMS which did seem to help her breathing. She denies any fevers, chills, chest pain, abdominal pain, lower extremity edema. She denies any nicotine use. She does not use any oxygen at baseline however does use CPAP at bedtime for sleep apnea. She is due for her evening medications including warfarin. Of note patient had subtherapeutic INR of 1.4 in 08/11 when she saw the anticoagulation clinic. Patient has been holding warfarin since 08/07 in lieu of her surgery. She was to take a loading dose of 4 mg warfarin x 3 nights from 08/12-08/14 which she did not yet begin. She wishes to be DNR/DNI. Discharge Exam Lungs are clear with good air movement no wheezes Shoulder is in sling Discharge Plan Discharge Items Patient Disposition: Home - Self-Care Reason For Visit: HYPOXIA, PNA Discharge Diagnosis: pneumonia, possible aspiration shannon with hepatomegally Condition on Discharge: Fair Activity: Per Instructions section Activity Comment: instructions for post op shoulder replacement Non-emergency contact: Primary Care Provider and Coordinator Of Online Programs Call non-emergency contact if: your symptoms worsen Follow-up/Referrals: Judy Abrams MD [Primary Care Provider] - 08/22/24 11:00 am Diet: Low Fat Addtl Attending Provider Instructions: please complete your rehab for your shoulder complete your antibiotics for pneumonia please focus on deep breathing to help keep your lung bases clear and open follow up with your retail shift manager for advice about your SHANNON and enlarging liver Pending Studies at Discharge: No Stand-Alone Forms: My [employer], Smoking Cessation Medications and DC Order Prescriptions: New amoxicillin-pot clavulanate 875-125 mg tablet 1 tab PO BID Qty: 10 0RF Continued warfarin 2 mg tablet See Rx Instructions PO UD Rx Instructions: per bridge plan - below was current dosing prior to procedure 4mg MoWeFr, 2 mg x 4 days or UD by [facility] albuterol sulfate 90 mcg/actuation HFA aerosol inhaler 2 puff inhalation Q6H PRN (Reason: shortness of breath or wheezing) Qty: 20.1 1RF sumatriptan succinate 25 mg tablet 50 mg PO DIRECTED MDD 3 tablets/day PRN (Reason: migraine headache) Qty: 9 5RF Rx Instructions: May then take 1 tablet after 2 hours. cholecalciferol (vitamin D3) [D3-2000] 50 mcg (2,000 unit) capsule 2,000 unit PO QAM epinephrine [EpiPen 2-Tye] 0.3 mg/0.3 mL auto-injector 0.3 mg IM Q3H PRN (Reason: anaphylaxis) Qty: 2 0RF furosemide 20 mg tablet 20 mg PO DAILY PRN (Reason: weight gain) Qty: 90 1RF meclizine 25 mg tablet 50 mg PO TID PRN (Reason: dizziness) Qty: 90 1RF cyclobenzaprine 5 mg tablet 5 mg PO TID PRN (Reason: muscle spasm) Qty: 30 0RF diclofenac sodium 1 % gel 4 g TOP QID PRN (Reason: Pain) Qty: 100 5RF omeprazole 40 mg capsule,delayed release(DR/EC) 40 mg PO BID Qty: 180 1RF rosuvastatin 10 mg tablet 10 mg PO HS Qty: 90 1RF amlodipine 5 mg tablet 5 mg PO QAM Qty: 90 3RF losartan 25 mg tablet 25 mg PO QAM Qty: 90 3RF escitalopram oxalate 10 mg tablet 10 mg PO QAM Qty: 90 1RF (DME) Auto Titrating CPAP Misc See Rx Instructions .ROUTE .MEDSUPPLY Qty: 1 0RF Rx Instructions: 5 to 15 cm h20 (DME) CPAP Supplies Misc See Rx Instructions .Route Qty: 1 0RF Rx Instructions: As directed hydrocortisone 1 % ointment 1 applic topical BID PRN (Reason: itching) Qty: 28.35 0RF acetaminophen [Tylenol] 325 mg Tablet 650 mg PO QID PRN (Reason: Pain) montelukast [Singulair] 10 mg tablet 10 mg PO QAM mecobalamin (vitamin B12) 1,000 mcg tablet,disintegrating 1,000 mcg sublingual QAM Rx Instructions: place tablet under tongue and allow to dissolve for at least30 secs before swallowing ondansetron 4 mg tablet,disintegrating 4 mg PO Q6H PRN (Reason: nausea and vomiting) Qty: 20 0RF oxycodone 5 mg tablet 5 mg PO Q6H PRN (Reason: pain) Qty: 30 0RF metformin 500 mg tablet 500 mg PO BIDM Rx Instructions: TAKE ONE TABLET BY MOUTH TWICE DAILY @ 9AM & 5PM DIRECTED calcium carbonate 600 mg calcium (1,500 mg) tablet 600 mg PO QAM Rx Instructions: TAKE ONE TABLET BY MOUTH DAILY AT 9AM Discontinued cefadroxil 500 mg capsule 500 mg PO BID 10 Days Qty: 20 0RF Discharge Orders: Discharge Order (Routine); Ordered 08/15/24 Ordered By: Steven Melara Admission Data Admit Date/Time: 08/14/24 01:35 Attending Provider: Steven Melara Admit Provider: Shari Kaba Primary Care Provider: Judy Abrams Other Providers: Shari Kaba Other Interventions: Discharge Summary Assessment (RN) Last Done: 08/15/24 13:15 Hospital Stay Data Consultations 08/14/24 01:04 ED Decision to Admit Stat Diagnostic Imagining Performed 08/13/24 21:39 CT abd pelvis IV con only Stat CT angio chest PE protocol Stat Pending Results Patient Have Any Pending Studies at Discharge: No Discharge Instructions Given to Patient (Per Discharging Provider) please complete your rehab for your shoulder complete your antibiotics for pneumonia please focus on deep breathing to help keep your lung bases clear and open follow up with your retail shift manager for advice about your SHANNON and enlarging liver Total Time Total Time Spent Total Time Spent (In Minutes): It required greater than 30 minutes to prepare this patient for discharge. It required greater than 30 minutes to prepare this patient for discharge. Coding Level of Care Code 37142 INP/OBS DISCH >30 MIN Diagnoses Hospital-acquired pneumonia J18.9; Y95 Hypoxia R09.02 Hx pulmonary embolism Z86.711 Status post reverse total replacement of right shoulder Z96.611
== END 2024-08-15 13:49 | disposition home or self-care (01) | DRG 205 ==
LOC: ED 20:15 → SUATTDRO 08-14 01:35 → 2N 08-14 01:35